=== PATIENT | male | born 1945 | race Caucasian/White ===

== ENCOUNTER 2022-07-15 10:45 | Inpatient (IN) | payer MEDICARE, OTHER ==
[~2022-07-15] VITALS: Ht 172.7 cm; Wt 60.2 kg
[2022-07-15] MEDS ORDERED: SODIUM CHLORIDE 0.9% 1,000 ML IV ONE (11:00)
[2022-07-15 11:42] LABS: Hematocrit 41.4 % (41.0-53.0); Hemoglobin 14.4 g/dL (13.5-17.5); Mean Corpuscular Hemoglobin 30.3 pg (28.0-32.0); Mean Corpuscular Hgb Conc. 34.7 g/dL (32.0-36.0); Mean Corpuscular Volume 87.1 fL (80.0-100.0); Red Blood Cells 4.75 10^6/uL (4.5-5.90); Red Cell Distribution Width 13.9 % (11.8-14.3); White Blood Cell 3.8 10^3/uL (4.4-10.8)
[2022-07-15 11:50] LABS: Albumin 3.6 g/dL (3.4-5.0); Calcium 8.3 mg/dL (8.5-10.1); Potassium 4.1 mmol/L (3.5-5.1)
[2022-07-15 11:53] LABS: BUN/Creatinine Ratio 9.1; Bilirubin, Total 0.5 mg/dL (0.2-1.0); Total Protein 6.7 g/dL (6.4-8.2)
[2022-07-15 12:09] LABS: Basophils % (manual) 0 (0.0-2.0); Blast Cells 0; Eosinophils % (manual) 0 (0-7); Metamyelocytes % 0; Myelocytes % 0; Promyelocytes % 0; Reactive Lymphocytes 0
[2022-07-15] MEDS ORDERED: AZITHROMYCIN 500MG/ 250ML 250 ML IV ONE (13:15)
[2022-07-15] MEDS ORDERED: cefTRIAXone 1GM/50ML D5W 50 ML IV ONE (13:15)
[2022-07-15] MEDS ORDERED: ACETAMINOPHEN 325 MG TAB PO ONE (14:30)
[2022-07-15 14:33] LABS: Urine Bacteria NONE SEEN /hpf (None Seen); Urine Blood 1+ /uL (Negative); Urine WBC 1 /hpf (0 - 3)
[2022-07-15] MEDS ORDERED: ONDANSETRON HCL 4 MG/2 ML VIAL IV PRN (15:30)
[2022-07-15] MEDS ORDERED: HYDROcodone-ACET 5/325MG TAB PO PRN (15:30)
[2022-07-15] MEDS ORDERED: DOCUSATE SOD 100 MG CAP PO PRN (15:30)
[2022-07-15] MEDS ORDERED: ACETAMINOPHEN 325 MG TAB PO PRN (15:30)
[2022-07-15] MEDS ORDERED: FOLIC ACID 1 MG TAB PO ONE (15:30)
[2022-07-15] MEDS: HEPARIN SODIUM (PORCINE) 5000 UNITS/ML 1ML VIAL IV SCH ×2 (16:20→23:15)
[2022-07-15 16:28] LABS: Band Neutrophils % (manual) 15; Lymphocytes % (manual) 18 (10.0-50.0); Monocytes % (manual) 14 (0-12)
[2022-07-15] MEDS ORDERED: LORazepam 2MG/ML-1ML VIAL IV PRN (21:15)
[2022-07-16] MEDS: SODIUM CHLOR 0.9% PF (SALINE LOCK) 10ML VIAL/SYR IV SCH ×4 (04:48→22:07)
[2022-07-16 05:00] VITALS: BP 152/96
[2022-07-16] MEDS: HEPARIN SODIUM (PORCINE) 5000 UNITS/ML 1ML VIAL IV SCH (07:15)
[2022-07-16 07:36] VITALS: BP 156/96
[2022-07-16] MEDS: cefTRIAXone 1GM/50ML D5W 50 ML IV SCH (09:56)
[2022-07-16] MEDS: AZITHROMYCIN 500MG/ 250ML 250 ML IV SCH (09:56)
[2022-07-16] MEDS ORDERED: THIAMINE HCL 100 MG TAB PO SCH (10:00)
[2022-07-16] MEDS ORDERED: LORazepam 2MG/ML-1ML VIAL IV PRN (11:00)
[2022-07-16] MEDS ORDERED: GABAPENTIN 100 MG CAP PO ONE (11:00)
[2022-07-16] MEDS ORDERED: cloNIDine HCL 0.1 MG TAB PO ONE (11:00)
[2022-07-16] MEDS ORDERED: ZINC SULFATE 220mg CAP or TAB PO ONE (11:00)
[2022-07-16] MEDS ORDERED: PANTOPRAZOLE 40 MG TAB PO ONE (11:00)
[2022-07-16] MEDS: FOLIC ACID 1 MG, MULTIPLE VITAMIN 10 ML, MAGNESIUM SULF SDV 50% 8 MEQ, THIAMINE INJ 100... INJ SCH ×5 (12:59)
[2022-07-16] MEDS: GABAPENTIN 100 MG CAP PO SCH ×2 (15:41→22:29)
[2022-07-16 20:00] VITALS: BP 117/68
[2022-07-16] MEDS: cloNIDine HCL 0.1 MG TAB PO SCH (22:29)
[2022-07-16 22:30] VITALS: BP 117/68
[2022-07-17] VITALS (7 sets, daily range): BP systolic 111–133; BP diastolic 51–79
[2022-07-17] MEDS: GABAPENTIN 100 MG CAP PO SCH ×3 (06:01→22:17)
[2022-07-17] MEDS: SODIUM CHLOR 0.9% PF (SALINE LOCK) 10ML VIAL/SYR IV SCH ×3 (06:01→22:16)
[2022-07-17 08:20] LABS: Hematocrit 37.6 % (41.0-53.0); Mean Corpuscular Hemoglobin 30.3 pg (28.0-32.0); Mean Corpuscular Hgb Conc. 34.6 g/dL (32.0-36.0); Mean Corpuscular Volume 87.5 fL (80.0-100.0); Red Cell Distribution Width 14.1 % (11.8-14.3); White Blood Cell 4.9 10^3/uL (4.4-10.8)
[2022-07-17 08:27] LABS: Basophils % (manual) 0 (0.0-2.0); Blast Cells 0; Eosinophils % (manual) 0 (0-7); Metamyelocytes % 0; Myelocytes % 0; Promyelocytes % 0; Reactive Lymphocytes 0
[2022-07-17 08:40] LABS: BUN/Creatinine Ratio 14.7; Calcium 7.8 mg/dL (8.5-10.1); Potassium 3.7 mmol/L (3.5-5.1)
[2022-07-17 09:02] LABS: INR 0.97 (0.9-1.15); Partial Thromboplastin Time 35.3 sec (24.6-33.4)
[2022-07-17] MEDS: cloNIDine HCL 0.1 MG TAB PO SCH ×2 (09:29→22:18)
[2022-07-17] MEDS: ZINC SULFATE 220mg CAP or TAB PO SCH (09:30)
[2022-07-17] MEDS: AZITHROMYCIN 500MG/ 250ML 250 ML IV SCH (09:30)
[2022-07-17] MEDS: PANTOPRAZOLE 40 MG TAB PO SCH (09:30)
[2022-07-17] MEDS: cefTRIAXone 1GM/50ML D5W 50 ML IV SCH (09:30)
[2022-07-17 13:17] LABS: Band Neutrophils % (manual) 19; Lymphocytes % (manual) 35 (10.0-50.0)
[2022-07-17 13:18] LABS: Monocytes % (manual) 19 (0-12)
[2022-07-17] MEDS: FOLIC ACID 1 MG, MULTIPLE VITAMIN 10 ML, MAGNESIUM SULF SDV 50% 8 MEQ, THIAMINE INJ 100... INJ SCH ×5 (17:34)
[2022-07-18 05:00] VITALS: BP 103/41
[2022-07-18] MEDS: SODIUM CHLOR 0.9% PF (SALINE LOCK) 10ML VIAL/SYR IV SCH ×2 (06:39→13:54)
[2022-07-18] MEDS: GABAPENTIN 100 MG CAP PO SCH ×2 (06:40→13:54)
[2022-07-18 08:00] VITALS: BP 93/44
[2022-07-18 09:00] VITALS: BP 93/44
[2022-07-18] MEDS: cefTRIAXone 1GM/50ML D5W 50 ML IV SCH (09:44)
[2022-07-18] MEDS: cloNIDine HCL 0.1 MG TAB PO SCH (09:45)
[2022-07-18] MEDS: PANTOPRAZOLE 40 MG TAB PO SCH (09:45)
[2022-07-18] MEDS: ZINC SULFATE 220mg CAP or TAB PO SCH (09:45)
[2022-07-18] MEDS: AZITHROMYCIN 500MG/ 250ML 250 ML IV SCH (10:45)
[2022-07-18] MEDS ORDERED: AZIT250T PO (10:58)
[2022-07-18] MEDS ORDERED: MULT-351 PO (10:58)
[2022-07-18] MEDS ORDERED: PANT40TA2 PO (10:58)
[2022-07-18] MEDS ORDERED: GABA100C9 PO (10:58)
[2022-07-18 11:30] VITALS: BP 93/44
[2022-07-18] MEDS: FOLIC ACID 1 MG, MULTIPLE VITAMIN 10 ML, MAGNESIUM SULF SDV 50% 8 MEQ, THIAMINE INJ 100... INJ SCH ×5 (11:43)
[2022-07-18 13:00] VITALS: BP 135/65
== END 2022-07-18 15:08 | disposition home health service (06) | DRG 177 ==
LOC: ER 10:45 → EDBD 10:45 → OVERFLOW 15:26 → WEST WING 21:54
PROVIDERS: ADMIT Internal Medicine; ATTEND Internal Medicine
DX: U07.1 COVID-19 (principal); G92.8 Other toxic encephalopathy; J12.82 Pneumonia due to coronavirus disease 2019; E87.1 Hypo-osmolality and hyponatremia; F10.239 Alcohol dependence with withdrawal, unspecified; I10 Essential (primary) hypertension; R62.7 Adult failure to thrive
CPT/HCPCS: 36415; 70450; 71045; 80048; 80053; 80320; 81001; 82140; 82962; 83880; 84425; 84443; 84484; 85007; 85027; 85610; 85730; 87040; 87426; 93005; 93306; 96361; 96365; 96366; 96368; G0378; J0696

== ENCOUNTER 2024-07-13 14:26 | Inpatient (IN) | payer MEDICARE, OTHER ==
[~2024-07-13] VITALS: Ht 172.7 cm; Wt 66.7 kg
[~2024-07-13 14:26] MED LIST: AZIT-74 PO; GABA-1308 PO; MULT-351 PO; PANT40TA2 PO
--- NOTE | 2024-07-13 15:08 | ED.PDOC ---
History of Present Illness HPI Comments 79 y/o M is BIBA for c/o ALOC, today. Per EMS report, patient was found in his current altered state by his speeal-lf-wsa at around 1200, this afternoon. EMS endorses on said in-law being a poor historian and only knew of patient having a Hx of PNA and ETOH abuse in the past. En route to ED, EMS also commented on patient having a seizure of 15xseconds in duration characterized by eye flickering and body stiffing and was given 2.5mg versed. Upon arrival to ED, patient is stated to still be altered and having no additional symptoms. Per patient's previous medical record discharge sumamry report on 07/18/22, patient was admitted for same altered complaint and has a Hx of toxic encephalopathy, COVID-19 pneumonia. EtOH abuse and withdrawal and hyponatremia. Chief Complaint: ALOC Time Seen by MD: 14:45 Primary Care Provider: unknown Reviewed Notes: Nurses Notes, Medications, Allergies Allergies: Coded Allergies: NO KNOWN ALLERGIES (Unverified , 07/15/22) Home Meds Active Scripts Multiple Vitamins W/ Minerals (Mvi W/ Minerals Tab) 1 Tab Tb, 1 TAB PO DAILY for 30 Days, #30 TAB Prov:ELIZABET MOLINA MD 07/18/22 Azithromycin (Zithromax) 250 Mg Tab, 250 MG PO DAILY for 5 Days, #5 TAB Prov:ELIZABET MOLINA MD 07/18/22 Pantoprazole Sodium Sesquihydr (Protonix) 40 Mg Tab, 40 MG PO DAILY for 30 Days, #30 TAB Prov:ELIZABET MOLINA MD 07/18/22 Gabapentin (Gabapentin) 100 Mg Cap, 100 MG PO TID for 30 Days, #1 CAP Prov:ELIZABET MOLINA MD 07/18/22 Information Source: Emergency Med Personnel Mode of Arrival: EMS Severity: Moderate Timing: Hours Duration: Since onset Prehospital treatment: 12 Lead EKG, Accucheck, Concrete Carpenter, Other (2.5mg versed, 18G LAC) Past Medical History Past Medical History (Other): Encephalopathy, likely toxic metabolic. COVID-19 pneumonia. Alcohol withdrawal. Hyponatremia. Surgical History: Unknown, Unobtainable Family History Family History: Reviewed,noncontributory to illness, No family hx of Lung alirio Social History Smoker: Unknown, Unobtainable Alcohol: Heavy Drugs: Unknown, Unobtainable Lives In: Home Neurological: reports: seizure, others (ALOC) All Other Systems: Reviewed and Negative (negative unless otherwise stated above or in HPI) Physical Exam General Appearance: Moderate Distress HEENT: Normal ENT Inspection, Pharynx Normal, TMs Normal Neck: Full Range of Motion, Non-Tender, Normal, Normal Inspection Respiratory: Chest Non-Tender, Lungs Clear, No Accessory Muscle Use, No Respiratory Distress, Normal Breath Sounds Cardiovascular: No Edema, No JVD, No Murmur, No Gallop, Normal Peripheral Pulses, Regular Rate/Rhythm Breast Exam: Deferred Gastrointestinal: No Organomegaly, Non Tender, No Pulsatile Mass, Normal Bowel Sounds, Soft Genitalia: Deferred Pelvic: Deferred Rectal: Deferred Extremities: No calf tenderness, Normal capillary refill, Normal inspection, Normal range of motion, Non-tender, No pedal edema Musculoskeletal : Apperance: Normal Neurologic: Disoriented Cerebellar Function: NOT DONE Reflexes: NOT DONE Skin: Pallor Peripheral Pulses: 3+ Radial (R), 3+ Radial (L) Lymphatic: No Adenopathy Was a procedure done? Was a procedure done?: No Differential Dx Considerations may include: UTI, failure to thrive, viral syndrome, seizure new onset, electrolyte imbalance, dehydration, sepsis X-Ray, Labs, Meds, VS Vital Signs Date Time Temp Pulse Resp B/P (MAP) Pulse Ox O2 Delivery O2 Flow Rate FiO2 07/13/24 17:04 Room Air* 0 21 07/13/24 16:00 87 07/13/24 14:38 96.6 92 14 129/97 (108) 95 Lab Test 07/13/24 15:06 Range/Units White Blood Count 9.9 4.4-10.8 10^3/uL Red Blood Count 5.03 4.5-5.90 10^6/uL Hemoglobin 14.9 13.5-17.5 g/dL Hematocrit 43.9 41.0-53.0 % Mean Corpuscular Volume 87.3 80.0-100.0 fL Mean Corpuscular Hemoglobin 29.6 28.0-32.0 pg Mean Corpuscular Hemoglobin Concent 33.9 32.0-36.0 g/dL Red Cell Distribution Width 15.3 H 11.8-14.3 % Platelet Count 262 140-450 10^3/uL Mean Platelet Volume 6.8 L 6.9-10.8 fL Neutrophils (%) (Auto) 83.6 H 37.0-80.0 % Lymphocytes (%) (Auto) 10.7 10.0-50.0 % Monocytes (%) (Auto) 4.7 0.0-12.0 % Eosinophils (%) (Auto) 0.4 0.0-7.0 % Basophils (%) (Auto) 0.6 0.0-2.0 % Neutrophils # (Auto) 8.3 1.6-8.6 10 ^3/uL Lymphocytes # (Auto) 1.1 0.4-5.4 10 ^3/uL Monocytes # (Auto) 0.5 0-1.3 10 ^3/uL Eosinophils # (Auto) 0 0-0.8 10 ^3/uL Basophils # (Auto) 0.1 0-0.2 10 ^3/uL Nucleated Red Blood Cells 0.1 % Sodium Level 134 L 136-145 mmol/L Potassium Level 4.5 3.5-5.1 mmol/L Chloride Level 103 98-107 mmol/L Carbon Dioxide Level 19 L 20-31 mmol/L Anion Gap 12 5-15 Blood Urea Nitrogen 6 L 9-23 mg/dL Creatinine 1.17 0.700-1.30 mg/dL Glomerular Filtration Rate Calc 64 >90 mL/min BUN/Creatinine Ratio 5.1 L 10.0-20.0 Serum Glucose 187 H 74-106 mg/dL Calcium Level 9.4 8.7-10.4 mg/dL Total Bilirubin 0.8 0.2-1.0 mg/dL Aspartate Amino Transferase (AST) 17 13-40 U/L Alanine Aminotransferase (ALT) 9 7-40 U/L Alkaline Phosphatase 113 46-116 U/L Total Protein 6.8 5.7-8.2 g/dL Albumin 4.1 3.2-4.8 g/dL Plasma/Serum Blood Alcohol < 3.0 <10 mg/dL Current Medications Medications (Trade) Dose Ordered Sig/Jesse Route Start Time Stop Time Status Last Admin Thiamine HCl 100 mg ONCE ONCE IV 07/13/24 15:00 07/13/24 15:01 DC 07/13/24 15:56 Sodium Chloride 1,000 ml @ 1,000 mls/hr Q1H ONCE IV 07/13/24 15:00 07/13/24 15:59 DC 07/13/24 15:56 Patient altered. History of alcoholism. Continues to drink every day. Vitals stable. WBC within normal limits. Establish intravenous access. Was given fluids. Was given thiamine. Blood alcohol level is normal. Hemoglobin within normal limits. Continues to be altered. CT of the head reviewed does not show any acute change. Chest x-ray reviewed shows cardiomegaly. Blood sugar elevated. Reviewed his previous visit. Continue cardiac monitoring. Time of 1ST Reevaluation: 15:15 Reevaluation 1ST: Unchanged Patient Education/Counseling: Other (patient is altered) Family Education/Counseling: No Family Present Departure 1 Departure Time of Disposition: 17:50 Impression: Primary Impression: Metabolic encephalopathy Additional Impression: Uncontrolled diabetes mellitus Qualified Codes: E13.65 - Other specified diabetes mellitus with hyperglycemia Disposition: ADMITTED INPATIENT Admit to: Med Surg Condition: Guarded Critical Care Note Critical Care Time?: Yes (45 min-critical care time only) Stability Stability form required: No Heart Score Heart Score: Heart Score Response (Comments) Value History Moderate Suspicious 1 EKG N/A 0 Age >65 2 Risk Factors >3 or Hx ASHD 2 Troponin Normal limit 0 Total 5 I personally scribed for TAI HAYS MD ([email or web address]) on 07/13/24 at 15:08. Electronically submitted by Sebastian Moon [email or web address]). TAI HAYS MD Jul 13, 2024 15:08
[2024-07-13 15:19] LABS: Basophils # (auto) 0.1 10 ^3/uL (0-0.2); Basophils % (auto) 0.6 % (0.0-2.0); Eosinophils # (auto) 0 10 ^3/uL (0-0.8); Eosinophils % (auto) 0.4 % (0.0-7.0); Hematocrit 43.9 % (41.0-53.0); Hemoglobin 14.9 g/dL (13.5-17.5); Lymphocytes # (auto) 1.1 10 ^3/uL (0.4-5.4); Lymphocytes % (auto) 10.7 % (10.0-50.0); Mean Corpuscular Hemoglobin 29.6 pg (28.0-32.0); Mean Corpuscular Hgb Conc. 33.9 g/dL (32.0-36.0); Mean Corpuscular Volume 87.3 fL (80.0-100.0); Monocytes # (auto) 0.5 10 ^3/uL (0-1.3); Monocytes % (auto) 4.7 % (0.0-12.0); Neutrophils # (auto) 8.3 10 ^3/uL (1.6-8.6); Neutrophils % (auto) 83.6 % (37.0-80.0); Nucleated Red Blood Cells % 0.1 %; Platelet Count (auto) 262 10^3/uL (140-450); Red Blood Cells 5.03 10^6/uL (4.5-5.90); Red Cell Distribution Width 15.3 % (11.8-14.3); White Blood Cell 9.9 10^3/uL (4.4-10.8)
[2024-07-13] MEDS: THIAMINE 100mg/ml INJ (200mg/2ml VIAL) IV ONE ×2 (15:56)
[2024-07-13] MEDS: SODIUM CHLORIDE 0.9% 1,000 ML IV ONE (15:56)
--- NOTE | 2024-07-13 16:10 | DVH ---
EXAM: CT HEAD WITHOUT CONTRAST INDICATION: altered TECHNIQUE: CT of the head without intravenous contrast. Radiation Dose : 1. Head: CT Dose: CTDI volume is 64.65 mGy. Dose-length product is 2639.58 mGy*cm The dose indicators for CT are the volume Computed Tomography (CT) Dose Index (CTDIvol) and the Dose Length Product (DLP), and are measured in units of mGy and mGy-cm, respectively. These indicators are not patient dose, but values generated from the CT scanner acquisition factors. The report includes radiation exposure data for exposures received during this examination. COMPARISON: HEAD WITHOUT CONTRAST on DOS: 07/15/22 FINDINGS: There is no evidence of acute intracranial hemorrhage, extra-axial collection, mass effect, midline s hift, herniation or hydrocephalus. The ventricles, sulci and cisterns are age appropriate. The israel-white differentiation is intact. Patchy periventricular and subcortical white matter hypoattenuation is nonspecific but may be related to small vessel ischemic disease. The visualized paranasal sinuses and mastoid air cells are clear. The surrounding soft tissues and osseous structures are unremarkable. IMPRESSION: No acute intracranial abnormality. Radiation optimization: All CT scans at this facility use at least one of these dose optimization jong hniques: automated exposure control mA and/or kV adjustment per patient size (includes targeted exam s where dose is matched to clinical indication) or iterative reconstruction.
[2024-07-13 16:11] LABS: Albumin 4.1 g/dL (3.2-4.8); Alkaline Phosphatase 113 U/L (46-116); Anion Gap 12 (5-15); Aspartate Aminotransferase 17 U/L (13-40); BUN/Creatinine Ratio 5.1 (10.0-20.0); Bilirubin, Total 0.8 mg/dL (0.2-1.0); Calcium 9.4 mg/dL (8.7-10.4); Chloride 103 mmol/L (98-107); Potassium 4.5 mmol/L (3.5-5.1); Total Protein 6.8 g/dL (5.7-8.2)
[2024-07-13 16:18] LABS: Alanine Aminotransferase 9 U/L (7-40); Blood Alcohol < 3.0 mg/dL (<10); Blood Urea Nitrogen 6 mg/dL (9-23); Carbon Dioxide 19 mmol/L (20-31); Glucose 187 mg/dL (74-106); Sodium 134 mmol/L (136-145)
--- NOTE | 2024-07-13 17:24 | DVH ---
CHEST RADIOGRAPH Indication: sob Technique: Single frontal view of the chest was obtained COMPARISON: CHEST PORTABLE on DOS: 07/15/22, CXRP on DOS: 07/15/22 FINDINGS: Lines and Tubes: None Lungs: Mild congestion Pleura: No effusion. No pneumothorax. Cardiomediastinal contours: Cardiomegaly Bones: Left shoulder arthroplasty IMPRESSION: Cardiomegaly, mild congestion
[2024-07-13 20:00] VITALS: PULSE 87; RESP 16; O2SAT 96
--- NOTE | 2024-07-13 21:24 | DVHHPRES ---
History of Present Illness Resident Creating Document: MARILU CAI RESIDENT History of Present Illness This is a 79-year-old male with past medical history of alcohol abuse disorder, COVID-19 pneumonia brought in to the ED via EMS with altered level of consciousness. Per EMS report, patient was found in his current altered state by his reqyub-oz-yfu at around 1200, this afternoon. According to the family patient had history of ethyl alcohol abuse and and one episodes of COVID-19 pneumonia in the past. En route to ED patient has a episodes of seizure lasting less than 15 seconds and characterized by eye flickering and stiffening of the body and was given 2.5 mg versed. In ED the patient is still altered ,not following any commands, saturating normal on room and stable vital sign. Past Medical History Alcohol abuse disorder Past Surgical History None Family History None Past Social History Lives with Family Nonsmoker, heavy drinker and never tried any drugs Review of Systems Review of Systems System could not be obtained because patient is altered Allergies: Coded Allergies: NO KNOWN ALLERGIES (Unverified , 07/15/22) Exam Vital Signs Vital Signs Date Time Temp Pulse Resp B/P (MAP) Pulse Ox O2 Delivery O2 Flow Rate FiO2 07/13/24 20:00 87 16 96 Room Air* 0 21 07/13/24 19:30 98.0 141/113 (122) 98.0 Exam Physical examination: General Appearance: Alert, Oriented X0, agitated, mildly distressed, saturating normal on room air. HEENT: Atraumatic, PERRLA, EOMI, Mucous membrane moist/pink Respiratory: Clear to auscultation, Normal air movement Cardiovascular: Regular rate, Normal S1, Normal S2, No murmurs, no chest wall tenderness Abdominal: Normal bowel sounds, Soft, No tenderness, No hepatospenomegaly, No masses Extremities: No clubbing, No cyanosis, No edema, Normal pulses, No tenderness/swelling Skin: No rashes, No breakdown, No significant lesion Neuro: Strength at 5/5 X4 ext, Normal tone, Sensation intact. Psych/Mental Status: Could not be obtained as patient is altered. Labs/Xrays Labs Test 07/13/24 15:06 Range/Units White Blood Count 9.9 4.4-10.8 10^3/uL Red Blood Count 5.03 4.5-5.90 10^6/uL Hemoglobin 14.9 13.5-17.5 g/dL Hematocrit 43.9 41.0-53.0 % Mean Corpuscular Volume 87.3 80.0-100.0 fL Mean Corpuscular Hemoglobin 29.6 28.0-32.0 pg Mean Corpuscular Hemoglobin Concent 33.9 32.0-36.0 g/dL Red Cell Distribution Width 15.3 H 11.8-14.3 % Platelet Count 262 140-450 10^3/uL Mean Platelet Volume 6.8 L 6.9-10.8 fL Neutrophils (%) (Auto) 83.6 H 37.0-80.0 % Lymphocytes (%) (Auto) 10.7 10.0-50.0 % Monocytes (%) (Auto) 4.7 0.0-12.0 % Eosinophils (%) (Auto) 0.4 0.0-7.0 % Basophils (%) (Auto) 0.6 0.0-2.0 % Neutrophils # (Auto) 8.3 1.6-8.6 10 ^3/uL Lymphocytes # (Auto) 1.1 0.4-5.4 10 ^3/uL Monocytes # (Auto) 0.5 0-1.3 10 ^3/uL Eosinophils # (Auto) 0 0-0.8 10 ^3/uL Basophils # (Auto) 0.1 0-0.2 10 ^3/uL Nucleated Red Blood Cells 0.1 % Sodium Level 134 L 136-145 mmol/L Potassium Level 4.5 3.5-5.1 mmol/L Chloride Level 103 98-107 mmol/L Carbon Dioxide Level 19 L 20-31 mmol/L Anion Gap 12 5-15 Blood Urea Nitrogen 6 L 9-23 mg/dL Creatinine 1.17 0.700-1.30 mg/dL Glomerular Filtration Rate Calc 64 >90 mL/min BUN/Creatinine Ratio 5.1 L 10.0-20.0 Serum Glucose 187 H 74-106 mg/dL Calcium Level 9.4 8.7-10.4 mg/dL Total Bilirubin 0.8 0.2-1.0 mg/dL Aspartate Amino Transferase (AST) 17 13-40 U/L Alanine Aminotransferase (ALT) 9 7-40 U/L Alkaline Phosphatase 113 46-116 U/L Total Protein 6.8 5.7-8.2 g/dL Albumin 4.1 3.2-4.8 g/dL Plasma/Serum Blood Alcohol < 3.0 <10 mg/dL Assessment/Plan Assessment/Plan Assessment and plan: # Altered level of consciousness likely due to acute toxic/metabolic encephalopathy - CT head without contrast revealed no acute intracranial abnormality - Ammonia level is elevated - Serum alcohol< 3 and UDS is positive for benzodiazepine and cannabinoids - Lactulose 30 mL p.o. daily - Ordered U/s of W/A, hepatitis panel and coagulation studies to rule out CLD # Acute cystitis - U/A is consistent with UTI - Ordered urine bacterial culture - IV ceftriaxone 1 g daily # Prediabetic, HbA1C 5.8 - Counselling is not possible as patient is altered # Possible gastritis, rule out GI bleeding - NPO - IV protonix 40 mg b.i.d. - IV normal saline at 75 mL/hours - Ordered stool occult blood # Rule out CHF - Patient is in room air with saturation 97% - BNP is slightly elevated - chest x-ray revealed cardiomegaly with possible congestion - Ordered echo # PUD prophylaxis - Patient is on protonix # DVT prophylaxis - Lovenox 40 mg SC daily. Goal of care could not discussed with the patient as patient is altered Plan discussed with Dr. Hopkins Plan discussed with: Patient, Other Date of Service: Jul 13, 2024 Billing Provider: MAGALI HOPKINS MD Common Visit Codes: [id number] INP/OBS CARE (HIGH) Secondary Visit Codes: [id number] CARE PLAN 30 MINUTES MARILU CAI RESIDENT Jul 13, 2024 21:24 MAGALI HOPKINS MD Jul 14, 2024 08:39
[2024-07-13] MEDS: SODIUM CHLORIDE 0.9% 1,000 ML IV SCH (22:00)
[2024-07-13] MEDS: PANTOPRAZOLE 40 MG/10 ML VIAL INJ IV ONE (23:23)
[2024-07-13 23:34] LABS: Folate (Folic Acid) 27.11 ng/mL (>5.38)
[2024-07-14 00:57] LABS: COVID19 ANTIGEN SOFIA FIA NEGATIVE (NEGATIVE)
[2024-07-14 00:58] LABS: Rapid Influenza A Negative (Negative); Rapid Influenza B Negative (Negative)
[2024-07-14 01:08] LABS: Urine Bacteria FEW /hpf (None Seen); Urine Blood 1+ /uL (Negative); Urine Clarity Turbid (Clear); Urine Color Colorless (Yellow); Urine Mucus FEW (None Seen); Urine Protein, UAD TRACE (Negative); Urine Specific Gravity 1.015 (1.001-1.035); Urine Squamous Epithelial Cell None Seen /hpf (<5); Urine Urobilinogen Normal (Negative); Urine WBC 14 /hpf (0 - 3); Urine pH 6.5 (5.0-9.0)
[2024-07-14 01:58] LABS: Amphetamine Screen, Urine Neg (NEGATIVE); Barbiturate Scree,Urine Neg (NEGATIVE); Benzodiazephine Screen, Urine Pos (NEGATIVE); Cannabinoid Screen, Urine Pos (NEGATIVE); Cocaine Screen, Urine Neg (NEGATIVE); Opiate Scree,Urine Neg (NEGATIVE); Phencyclidine Screen, Urine Neg (NEGATIVE)
[2024-07-14] MEDS: cefTRIAXone 1GM/50ML D5W 50 ML IV ONE (02:12)
[2024-07-14 06:11] LABS: INR 1.1 (0.9-1.15); Partial Thromboplastin Time 25.4 SEC (24.5-34.5); Prothrombin Time 11.6 sec (9.3-11.8)
--- NOTE | 2024-07-14 07:16 | DVH ---
INDICATION: Elevated ammonia, rule out CLD TECHNIQUE: Multiple real-time sonographic images of the abdomen were obtained. COMPARISON: None FINDINGS: Liver is heterogeneous in echogenicity. The liver measures 14 cm. No intrahepatic biliary ductal dilatation is noted. The gallbladder wall measures 0.3 cm and is unremarkable. No gallstones or gallbladder sludge. No pericholecystic fluid or edema. The common duct measures 0.3 cm and is unremarkable. The right kidney measures 7.9 cm. No hydronephrosis. The left kidney measures 8.3 cm. No hydronephros is. Right renal cyst measures 1.6 cm. Atrophic appearance of bilateral kidneys. The spleen measures 6.8 cm, within normal limits. The echogenicity is within normal limits. The pancreas is not well visualized due to obscuration from bowel gas. The visualized portions of the IVC and aorta are grossly unremarkable. IMPRESSION: Nonspecific coarsened echotexture to the liver. Left hepatic lobe is suboptimally visualized seconda ry to patient inability to tolerate exam. Atrophic appearance to bilateral kidneys.
[2024-07-14 08:00] VITALS: PULSE 108; RESP 22; O2SAT 100
[2024-07-14] MEDS: ENOXAPARIN SOD 40 MG/0.4 ML SYRINGE SC SCH (10:00)
[2024-07-14] MEDS: LACTULOSE 20Gm/30ML SOLN PO SCH (10:00)
[2024-07-14] MEDS: PANTOPRAZOLE 40 MG/10 ML VIAL INJ IV SCH (10:00)
[2024-07-14] MEDS: chlordiazePOXIDE HCL 25 MG CAP PO SCH (12:00)
[2024-07-14] MEDS: LACTULOSE 20Gm/30ML SOLN PO ONE (12:00)
[2024-07-14] MEDS: LORazepam 2MG/ML-1ML VIAL IV PRN (14:07)
[2024-07-14] MEDS: LORazepam 2MG/ML-1ML VIAL IV ONE (14:21)
[2024-07-14] MEDS: IOHEXOL 300 MG/ML 100ML BOTTLE IJ ONE (14:22)
--- NOTE | 2024-07-14 15:13 | DVH ---
Exam: CT CT AB PEL WITH IV CON ONLY History: R/O LIVER PATHOLOGY Comparison Study: None available TECHNIQUE: A digital crown attacher image was obtained. During the uneventful, intravenous administration of c ontrast material, multislice data acquisition was obtained through the abdomen and pelvis. The data s et was subsequently reconstructed into axial images. Images reviewed on a wrist examination is an exa mination of axial and multiplanar reformations using a variety of window levels and settings. RADIATION DOSE: DLP 2022.65 mGy.cm; CTDI vol 14.21 mGy. Findings: Lungs: 0.9 cm right lower lobe pulmonary nodule. Dependent atelectasis. Heart: The visualized heart is unremarkable. No cardiomegaly or pericardial effusion. Liver: Unremarkable. Gallbladder: Unremarkable. Spleen: Unremarkable Pancreas: Unremarkable Adrenals: Unremarkable Kidneys: Unremarkable GI tract: Diverticulosis without evidence of acute diverticulitis. Normal appendix. : Unremarkable. Vasculature: Unremarkable Lymphadenopathy: Absent Peritoneum: No ascites Musculoskeletal: Mild multilevel degenerative changes of the thoracolumbar spine. Left total hip arth roplasty. Soft tissues: Unremarkable Impression: 1. No acute abdominopelvic abnormalities. 2. Normal appearing liver. 3. Diverticulosis without evidence of acute diverticulitis. 4. 0.9 cm right lower lobe pulmonary nodule. Recommend a nonemergent dedicated CT chest for further e valuation.
--- NOTE | 2024-07-14 16:05 | DVHPNRES ---
Progress Note Date Seen: Jul 14, 2024 Resident Creating Document: GABRIELLE SANDERSON RESIDENT Medical Necessity Reason Pt with a Central, PICC or Fol: No Subjective Review of Systems This is a 79-year-old male with past medical history of alcohol abuse disorder,Marijuana abuse and COVID-19 pneumonia brought in to the ED via EMS with altered level of consciousness. Per EMS report, patient was found in his current altered state. According to the family patient had history of alcohol abuse and and one episodes of COVID-19 pneumonia in the past. En route to ED patient has a episodes of seizure lasting less than 15 seconds and characterized by eye flickering and stiffening of the body and was given 2.5 mg versed. The patient was examined at bedside, patient was a little confused for which most of the information was gathered from a conversation with his , who report that the patient used to drink 3 beers a day and this is the first time he had a seizure, patient was given one dose of versed 2,5 mg. The last drink he had was two days ago , that day he just drank 1 beer. Patient was started on banana bag and chlordiazepoxide 25 mg q.6 hours p.o., recent results showed increased on ammonia levels for which the patient was started on lactulose 30 mL L daily p.o. CT abdomen with contrast showed diverticulosis without evidence of acute diverticulitis and 0.9 cm right lower lobe pulmonary nodule. Recommend a nonemergent dedicated CT chest for further evaluation. Review of systems: Constitutional: No: Fever, Chills, Sweats, Weakness, Malaise, Other Eyes: No: Pain, Vision change, Conjunctivae inflammation, Eyelid inflammation, Other, Redness ENT: No: Ear pain, Ear discharge, Nose pain, Nose discharge, Nose congestion, Mouth pain, Mouth swelling, Throat pain, Throat swelling, Other Respiratory: No cough, No Wheezing, Hemoptysis, Pleuritic Pain, Sputum, Wheezing, Other Cardiovascular: No: Chest Pain, Palpitations, Orthopnea, Paroxysmal Noc. Dyspnea, Edema, Lt Headedness, Other Gastrointestinal: No: Nausea, Vomiting, Abdominal Pain, Diarrhea, Constipation, Melena, Hematochezia, Other Musculoskeletal: No: other, neck pain, shoulder pain, arm pain, back pain, hand pain, leg pain, foot pain Neurological: Yes: change in speech, confusion No: Weakness, Numbness, Incoordination Patient reports: Feels better Changes from previous H/P or p: Changes Objective vital signs Vital Sign Date Time Temp Pulse Resp B/P (MAP) Pulse Ox O2 Delivery O2 Flow Rate FiO2 07/14/24 14:00 91 17 148/76 (100) 98 07/14/24 08:00 Room Air* 0 21 07/14/24 08:00 98.4 98.4 Total Intake and Output 07/13/24 07/13/24 07/14/24 15:00 23:00 07:00 Intake Total 75 ml 600 ml Balance 75 ml 600 ml medications Current Medications Medications Dose Ordered Sig/Jesse Route Start Time Stop Time Status Last Admin Dose Admin Pantoprazole Sodium 40 mg BID IV 07/14/24 10:00 07/14/24 10:00 40 MG Ceftriaxone Sodium 50 ml @ 100 mls/hr DAILY@0200 IV 07/15/24 02:00 Lactulose 30 ml DAILY PO 07/14/24 10:00 07/14/24 10:00 30 ML Enoxaparin Sodium 40 mg DAILY SC 07/14/24 10:00 07/14/24 10:00 40 MG Folic Acid 1 mg/ Magnesium Sulfate 8 meq/ Multivitamins 10 ml/Thiamine HCl 100 mg/Sodium Chloride 1,013.2 ml @ 126.247 mls/hr DAILY@1800 INJ 07/14/24 18:00 Chlordiazepoxide HCl 25 mg Q6HR PO 07/14/24 12:00 07/14/24 12:00 25 MG Lorazepam 1 mg Q5MINP PRN IV 07/14/24 08:45 07/14/24 14:07 1 MG laboratory and microbiology Laboratory Tests 07/13/24 15:06 Test 07/13/24 15:06 Range/Units Serum Glucose 187 H 74-106 mg/dL Problem List/Assessment/Plan Problem List/Assessment/Plan # Altered level of consciousness likely due to acute toxic/metabolic encephalopathy #Hyperammonemia - CT head without contrast revealed no acute intracranial abnormality - CT abdomen showed diverticulosis without diverticulitis and a lung nodule - CT chest is needed for further assessment of the nodule. - CIWA score 2 points. - continue chlordiazepoxide 25 mg Q8 - Continue banana bag - Soft mechanical diet - Lactulose 30 mg # Acute cystitis - urine bacterial culture,pending - IV ceftriaxone 1 g daily #Lung nodule found on CT abd/pel - Follow up in the outpatient # Possible gastritis, rule out GI bleeding - IV protonix 40 mg b.i.d. - Ordered stool occult blood # Rule out CHF - Patient is in room air with saturation 97% - BNP is slightly elevated - chest x-ray revealed cardiomegaly with possible congestion - Echocardiogram is pending # Drug abuse, marijuana use - Patient was counseled about the consequences of drug abuse. # PUD prophylaxis - Patient is on protonix # DVT prophylaxis - Lovenox 40 mg SC daily. # Prediabetic, HbA1C 5.8 - Lifestyle modification counseling and dietary habits counseling Case discussed with Goals of care discussed with the patient for 24 minutes. code status: full code Plan discussed with: Patient My Orders My Orders Orders - GABRIELLE SANDERSON RESIDENT Procedure Category Date Status Time Folic Acid... PHA 07/14/24 In Process 18:00 Chlordiazepoxide Hcl PHA 07/14/24 In Process Capsule (Librium Ca 12:00 Lorazepam 2mg/Ml Inj PHA 07/14/24 In Process (Ativan Inj) 08:45 Ct Ab Pel With Iv Con CT 07/14/24 Resulted Only 14:04 Date of Service: Jul 14, 2024 Billing Provider: ALFREDO SOLITARIO MD Common Visit Codes: [id number] INP/OBS CARE(HIGH) GABRIELLE SANDERSON RESIDENT Jul 14, 2024 16:05 ALFREDO SOLITARIO MD Jul 14, 2024 19:21
[2024-07-14] MEDS: FOLIC ACID 1 MG, MAGNESIUM SULF SDV 50% 8 MEQ, MULTIPLE VITAMIN 10 ML, THIAMINE INJ 100... INJ SCH (19:02)
[2024-07-15] VITALS (14 sets, daily range): BP systolic 119–180; BP diastolic 76–96; PULSE 75–116; RESP 13–20; TEMP 97.7–98.4; O2SAT 93–100
[2024-07-15] MEDS: cefTRIAXone 1GM/50ML D5W 50 ML IV SCH (04:16)
[2024-07-15] MEDS: hydrALAZINE HCL 20 MG/ML VL IV ONE (06:51)
[2024-07-15 06:52] LABS: Alanine Aminotransferase 11 U/L (7-40); Alkaline Phosphatase 89 U/L (46-116); Anion Gap 11 (5-15); Aspartate Aminotransferase 27 U/L (13-40); BUN/Creatinine Ratio 7.1 (10.0-20.0); Calcium 8.9 mg/dL (8.7-10.4); Chloride 104 mmol/L (98-107); Glucose 106 mg/dL (74-106); Potassium 3.8 mmol/L (3.5-5.1)
[2024-07-15 06:53] LABS: Albumin 3.7 g/dL (3.2-4.8); Bilirubin, Total 0.9 mg/dL (0.2-1.0); Total Protein 6.3 g/dL (5.7-8.2)
[2024-07-15 07:08] LABS: Blood Urea Nitrogen 6 mg/dL (9-23); Carbon Dioxide 19 mmol/L (20-31); Sodium 134 mmol/L (136-145)
[2024-07-15 07:19] LABS: Basophils # (auto) 0.1 10 ^3/uL (0-0.2); Basophils % (auto) 0.8 % (0.0-2.0); Eosinophils # (auto) 0 10 ^3/uL (0-0.8); Eosinophils % (auto) 0.3 % (0.0-7.0); Hematocrit 41.2 % (41.0-53.0); Lymphocytes # (auto) 1.4 10 ^3/uL (0.4-5.4); Lymphocytes % (auto) 15.6 % (10.0-50.0); Mean Corpuscular Hemoglobin 29.3 pg (28.0-32.0); Mean Corpuscular Volume 86.3 fL (80.0-100.0); Monocytes # (auto) 0.7 10 ^3/uL (0-1.3); Monocytes % (auto) 8.2 % (0.0-12.0); Neutrophils # (auto) 6.7 10 ^3/uL (1.6-8.6); Neutrophils % (auto) 75.1 % (37.0-80.0); Platelet Count (auto) 243 10^3/uL (140-450); Red Blood Cells 4.78 10^6/uL (4.5-5.90); Red Cell Distribution Width 15.2 % (11.8-14.3); White Blood Cell 8.9 10^3/uL (4.4-10.8)
[2024-07-15 09:41] LABS: Hepatitis B Core Total AB Negative (Negative)
[2024-07-15] MEDS ORDERED: LORazepam 2MG/ML-1ML VIAL IV SCH (12:00)
[2024-07-15 12:42] LABS: Hepatitis A Total Antibody Negative (Negative); Hepatitis B Surface Antibody Negative (Negative); Hepatitis B Surface Antigen Negative (Negative); Hepatitis C Antibody Negative (Negative)
--- NOTE | 2024-07-15 13:28 | DVHSR ---
APPROVED REPORT EXAM: Two-dimensional and M-mode echocardiogram with Doppler and color Doppler. Blood Pressure: 167/92 mmHg INDICATION Elevated BNP RISK FACTORS Height: 5'8", Weight: 137 DIMENSIONS LVDd2.9 (3.8-5.7cm)LA (2D) (1.9-4.0cm)Aortic Root (2.0-3.7cm) LVDs1.8 (2.5-4.0cm)LA (MM) (1.9-4.0cm)Aortic Cusp Exc (1.5-2.0cm) EF (%) 80.0 (55-70%)Rt. Atrium (1.9-4.0cm)Asc. Aorta cm IVSd1.1 (0.7-1.1cm)RV (D) (1.8-2.4cm) Mitral Valve MitralMitral Stenosis E/A ratio0.02D MVAcm2 Aortic Valve Aortic ValveAortic Stenosis V1m/Carlo Mean GR.22mmHg V23.47m/Carlo Peak GR.48mmHg LEFT VENTRICLE Normal left ventricular size. Hyperdynamic left ventricular systolic function with ejection fraction estimated at 80-85% based on visual estimate. There is no be wall motion abnormalities. There is e vidence of [id number] mid cavitary dynamic obstruction. RIGHT VENTRICLE Not well visualized. ATRIA The left atrium was of normal size. Right atrium isn't well visualized. MITRAL VALVE Likely normal structure and function. No significant mitral regurgitation PULMONIC VALVE Not visualized. TRICUSPID VALVE Not visualized. AORTIC VALVE Not well visualized. There is no evidence of significant regurgitation. GREAT VESSELS Not well visualized. PERICARDIAL EFFUSION No evidence of effusion. Other Information Quality : Technically LimitedRhythm : Technically limited study due to body habitus and pt moving Conclusion The study is very technically limited. Left ventricular size is normal with very hyperdynamic systolic function. Ejection fraction is estimated at 84%. There is evidence of mid cavitary [id number] dynamic obstruction secondary to the hyperdynamic left ventricular systolic function. The right ventricle is not well visualized. The study is limited to assess for valvular function.
[2024-07-15] MEDS: LORazepam 2MG/ML-1ML VIAL IV SCH (14:17)
--- NOTE | 2024-07-15 17:44 | DVHPNRES ---
Progress Note Date Seen: Jul 15, 2024 Resident Creating Document: GABRIELLE SANDERSON RESIDENT Medical Necessity Reason Pt with a Central, PICC or Fol: No Subjective Review of Systems This is a 79-year-old male with past medical history of alcohol abuse disorder,Marijuana abuse and COVID-19 pneumonia brought in to the ED via EMS with altered level of consciousness. Per EMS report, patient was found in his current altered state. According to the family patient had history of alcohol abuse and and one episodes of COVID-19 pneumonia in the past. En route to ED patient has a episodes of seizure lasting less than 15 seconds and characterized by eye flickering and stiffening of the body and was given 2.5 mg versed. The patient was examined at bedside, patient was a little confused for which most of the information was gathered from a conversation with his , who report that the patient used to drink 3 beers a day and this is the first time he had a seizure, patient was given one dose of versed 2,5 mg. The last drink he had was two days ago , that day he just drank 1 beer. Patient was examined at bedside, he was started on Ativan 1 g q.6 schedule, as recent CIWA score showed 17/ 18 points, concerning for delirium tremens, I was informed the patient was hallucinating in the morning and seen and around the room. Per my examination the patient was oriented x2 in the morning, during re- evaluation at noon patient CIWA score was at 15/16 points. Patient will need closely monitoring on CIWA score with the probabilities to upgrade to ICU. we will continue monitoring closely. Patient reports: No new complaints Changes from previous H/P or p: No Changes Objective vital signs Vital Sign Date Time Temp Pulse Resp B/P (MAP) Pulse Ox O2 Delivery O2 Flow Rate FiO2 07/15/24 12:43 97.7 116 15 119/77 (91) 95 97.7 07/15/24 11:10 Room Air* 0 21 Total Intake and Output 07/14/24 07/14/24 07/15/24 15:00 23:00 07:00 Intake Total 0 ml 1100 ml Output Total 400 ml Balance 0 ml 700 ml medications Current Medications Medications Dose Ordered Sig/Jesse Route Start Time Stop Time Status Last Admin Dose Admin Pantoprazole Sodium 40 mg BID IV 07/14/24 10:00 07/15/24 09:43 40 MG Ceftriaxone Sodium 50 ml @ 100 mls/hr DAILY@0200 IV 07/15/24 02:00 07/15/24 04:16 100 MLS/HR Lactulose 30 ml DAILY PO 07/14/24 10:00 07/15/24 14:16 30 ML Enoxaparin Sodium 40 mg DAILY SC 07/14/24 10:00 07/15/24 09:43 40 MG Lorazepam 1 mg Q5MINP PRN IV 07/14/24 08:45 07/14/24 14:07 1 MG Lorazepam 1 mg Q6HP IV 07/15/24 13:45 07/15/24 14:17 1 MG Folic Acid 1 mg DAILY PO 07/16/24 10:00 Multivitamins 1 tab DAILY PO 07/16/24 10:00 Magnesium Oxide 400 mg DAILY PO 07/16/24 10:00 Thiamine HCl 100 mg DAILY PO 07/16/24 10:00 Examination: GENERAL:Abnormal, HEENT:Normal, NECK:Normal, CVS:Normal, ABDOMEN:Normal, MSK:Normal, SKIN:Normal, NEURO:Abnormal, :Normal laboratory and microbiology Laboratory Tests 07/15/24 05:53 Test 07/15/24 05:53 Range/Units Serum Glucose 106 74-106 mg/dL Microbiology Date/Time Source Procedure Growth Status 07/14/24 00:47 Voided Urine Urine Culture - Preliminary Resulted Problem List/Assessment/Plan Problem List/Assessment/Plan # Altered level of consciousness likely due to acute toxic/metabolic encephalopathy #Hyperammonemia # Alcohol withdrawal - CIWA score 15-16 points. - Ativan 1 mg IV Q6 - Continue banana bag - Soft mechanical diet - Lactulose 30 mg - Closely monitoring for seizures or DT. # Acute cystitis - urine bacterial culture,pending - IV ceftriaxone 1 g daily #Lung nodule found on CT abd/pel - Follow up in the outpatient # Possible gastritis, rule out GI bleeding - IV protonix 40 mg b.i.d. - Ordered stool occult blood # Rule out CHF - Patient is in room air with saturation 97% - BNP is slightly elevated - chest x-ray revealed cardiomegaly with possible congestion - Echocardiogram is pending # Drug abuse, marijuana use - Patient was counseled about the consequences of drug abuse. # PUD prophylaxis - Patient is on protonix # DVT prophylaxis - Lovenox 40 mg SC daily. # Prediabetic, HbA1C 5.8 - Lifestyle modification counseling and dietary habits counseling Case discussed with Goals of care discussed with the patient for 24 minutes. code status: full code Plan discussed with: Patient My Orders My Orders Orders - GABRIELLE SANDERSON RESIDENT Procedure Category Date Status Time Transfer Orders XFER 07/15/24 Transmitted 11:45 Mechanical Soft Diet DIET 07/15/24 Transmitted Lunch Lorazepam 2mg/Ml Inj PHA 07/15/24 In Process (Ativan Inj) 13:45 Communication Order ORDERS 07/15/24 Transmitted 13:50 Folic Acid Tablet PHA 07/16/24 In Process 10:00 Multiple Vitamin PHA 07/16/24 In Process Tablet (Mvi Tab) 10:00 Magnesium Oxide PHA 07/16/24 In Process Tablet (Mag-Ox Tablet) 10:00 Thiamine Tab PHA 07/16/24 In Process 10:00 Date of Service: Jul 15, 2024 Billing Provider: ENZO TINOCO MD Common Visit Codes: [id number] INP/OBS CARE(HIGH) GABRIELLE SANDERSON RESIDENT Jul 15, 2024 17:44 ENZO TINOCO MD Jul 16, 2024 08:54
[2024-07-15] MEDS: THIAMINE HCL 100 MG TAB PO ONE (18:34)
[2024-07-15] MEDS: FOLIC ACID 1 MG TAB PO ONE (18:34)
[2024-07-15] MEDS: MULTIPLE VITAMIN TAB PO ONE (18:34)
[2024-07-15] MEDS: MAGNESIUM OXIDE 400 MG TAB PO ONE (18:35)
[2024-07-16] VITALS (9 sets, daily range): BP systolic 106–140; BP diastolic 62–85; PULSE 78–121; RESP 12–18; TEMP 97.7–98.1; O2SAT 95–98
[2024-07-16 05:56] LABS: Basophils # (auto) 0.1 10 ^3/uL (0-0.2); Basophils % (auto) 0.7 % (0.0-2.0); Eosinophils # (auto) 0.1 10 ^3/uL (0-0.8); Eosinophils % (auto) 1.2 % (0.0-7.0); Hematocrit 41.4 % (41.0-53.0); Hemoglobin 14.1 g/dL (13.5-17.5); Lymphocytes # (auto) 1.6 10 ^3/uL (0.4-5.4); Lymphocytes % (auto) 17.7 % (10.0-50.0); Mean Corpuscular Hemoglobin 29.9 pg (28.0-32.0); Mean Corpuscular Volume 87.9 fL (80.0-100.0); Monocytes # (auto) 0.9 10 ^3/uL (0-1.3); Monocytes % (auto) 10.5 % (0.0-12.0); Neutrophils # (auto) 6.2 10 ^3/uL (1.6-8.6); Neutrophils % (auto) 69.9 % (37.0-80.0); Nucleated Red Blood Cells % 0.1 %; Platelet Count (auto) 214 10^3/uL (140-450); White Blood Cell 8.9 10^3/uL (4.4-10.8)
[2024-07-16 06:03] LABS: Chloride 104 mmol/L (98-107); Potassium 3.9 mmol/L (3.5-5.1)
[2024-07-16 06:04] LABS: Anion Gap 12 (5-15)
[2024-07-16 06:05] LABS: Calcium 9.1 mg/dL (8.7-10.4)
[2024-07-16 06:09] LABS: Glucose 101 mg/dL (74-106)
[2024-07-16 06:10] LABS: BUN/Creatinine Ratio 7.7 (10.0-20.0)
[2024-07-16 06:12] LABS: Blood Urea Nitrogen 8 mg/dL (9-23); Carbon Dioxide 18 mmol/L (20-31); Sodium 134 mmol/L (136-145)
[2024-07-16] MEDS: FOLIC ACID 1 MG TAB PO SCH (10:25)
[2024-07-16] MEDS: THIAMINE HCL 100 MG TAB PO SCH (10:26)
[2024-07-16] MEDS: MULTIPLE VITAMIN TAB PO SCH (10:26)
[2024-07-16] MEDS: MAGNESIUM OXIDE 400 MG TAB PO SCH (10:26)
--- NOTE | 2024-07-16 20:04 | DVHPNRES ---
Progress Note Date Seen: Jul 16, 2024 Resident Creating Document: GABRIELLE SANDERSON RESIDENT Medical Necessity Reason Pt with a Central, PICC or Fol: No Subjective Review of Systems This is a 79-year-old male with past medical history of alcohol abuse disorder,Marijuana abuse and COVID-19 pneumonia brought in to the ED via EMS with altered level of consciousness. Per EMS report, patient was found in his current altered state. According to the family patient had history of alcohol abuse and and one episodes of COVID-19 pneumonia in the past. En route to ED patient has a episodes of seizure lasting less than 15 seconds and characterized by eye flickering and stiffening of the body and was given 2.5 mg versed. The patient was examined at bedside, patient was a little confused for which most of the information was gathered from a conversation with his , who report that the patient used to drink 3 beers a day and this is the first time he had a seizure, patient was given one dose of versed 2,5 mg. The last drink he had was two days ago , that day he just drank 1 beer. Patient was examined at bedside, we will continue Ativan 1 mg q.12 hours schedule, as recent CIWA score showed 7 point. Patient was evaluated and he was resting comfortable on bed, vital signs were stable and no episode of agitation or hallucinations. we will continue monitoring closely. Patient reports: Feels better Objective vital signs Vital Sign Date Time Temp Pulse Resp B/P (MAP) Pulse Ox O2 Delivery O2 Flow Rate FiO2 07/16/24 16:40 97.9 78 16 138/66 (90) 96 97.9 07/16/24 07:50 Room Air* 0 21 Total Intake and Output 07/15/24 07/15/24 07/16/24 15:00 23:00 07:00 Intake Total 120 ml 250 ml Output Total 500 ml 100 ml Balance -380 ml 150 ml medications Current Medications Medications Dose Ordered Sig/Jesse Route Start Time Stop Time Status Last Admin Dose Admin Pantoprazole Sodium 40 mg BID IV 07/14/24 10:00 07/16/24 10:25 40 MG Ceftriaxone Sodium 50 ml @ 100 mls/hr DAILY@0200 IV 07/15/24 02:00 07/16/24 01:51 100 MLS/HR Lactulose 30 ml DAILY PO 07/14/24 10:00 07/16/24 10:25 30 ML Enoxaparin Sodium 40 mg DAILY SC 07/14/24 10:00 07/16/24 10:26 40 MG Lorazepam 1 mg Q5MINP PRN IV 07/14/24 08:45 07/14/24 14:07 1 MG Folic Acid 1 mg DAILY PO 07/16/24 10:00 07/16/24 10:25 1 MG Multivitamins 1 tab DAILY PO 07/16/24 10:00 07/16/24 10:26 1 TAB Magnesium Oxide 400 mg DAILY PO 07/16/24 10:00 07/16/24 10:26 400 MG Thiamine HCl 100 mg DAILY PO 07/16/24 10:00 07/16/24 10:26 100 MG Lorazepam 1 mg Q12HP IV 07/16/24 22:00 Future Hold Examination: GENERAL:Normal, HEENT:Normal, NECK:Normal, LUNGS:Normal, CVS:Normal, ABDOMEN:Normal, MSK:Normal, SKIN:Normal, NEURO:Abnormal, :Normal laboratory and microbiology Laboratory Tests 07/16/24 05:26 Test 07/16/24 05:26 Range/Units Serum Glucose 101 74-106 mg/dL Microbiology Date/Time Source Procedure Growth Status 07/14/24 00:47 Voided Urine Urine Culture - Final Klebsiella pneumoniae Complete Problem List/Assessment/Plan Problem List/Assessment/Plan # Altered level of consciousness likely due to acute toxic/metabolic encephalopathy #Hyperammonemia # Alcohol withdrawal - CIWA score 7 point - Ativan 1 mg IV Q 12 - Continue banana bag\ - Lactulose 30 mg - Closely monitoring for seizures or DT. # Acute cystitis - urine bacterial culture,pending - IV ceftriaxone 1 g daily #Lung nodule found on CT abd/pel - Follow up in the outpatient # Possible gastritis, rule out GI bleeding - IV protonix 40 mg b.i.d. - Ordered stool occult blood # Ruled out CHF -recent echocardiogram showed 84% ejection fraction. # Drug abuse, marijuana use - Patient was counseled about the consequences of drug abuse. # PUD prophylaxis - Patient is on protonix # DVT prophylaxis - Lovenox 40 mg SC daily. # Prediabetic, HbA1C 5.8 - Lifestyle modification counseling and dietary habits counseling Case discussed with Goals of care discussed with the patient for 24 minutes. code status: full code Plan discussed with: Patient, Spouse My Orders My Orders Orders - GABRIELLE SANDERSON Procedure Category Date Status Time Lorazepam 2mg/Ml Inj PHA 07/16/24 In Process (Ativan Inj) 22:00 Date of Service: Jul 16, 2024 Billing Provider: ENZO TINOCO MD Common Visit Codes: [id number] INP/OBS CARE(HIGH) GABRIELLE SANDERSON RESIDENT Jul 16, 2024 20:04 ENZO TINOCO MD Jul 20, 2024 20:12
[2024-07-16] MEDS ORDERED: LORazepam 2MG/ML-1ML VIAL IV SCH (22:00)
[2024-07-17] VITALS (9 sets, daily range): BP systolic 104–141; BP diastolic 56–91; PULSE 76–106; RESP 16–20; TEMP 97.4–98.3; O2SAT 94–99
[2024-07-17 07:48] LABS: Basophils # (auto) 0.1 10 ^3/uL (0-0.2); Basophils % (auto) 1.9 % (0.0-2.0); Eosinophils # (auto) 0.4 10 ^3/uL (0-0.8); Eosinophils % (auto) 4.9 % (0.0-7.0); Hematocrit 38.2 % (41.0-53.0); Hemoglobin 13.3 g/dL (13.5-17.5); Lymphocytes # (auto) 1.3 10 ^3/uL (0.4-5.4); Lymphocytes % (auto) 17.3 % (10.0-50.0); Mean Corpuscular Hemoglobin 29.8 pg (28.0-32.0); Mean Corpuscular Hgb Conc. 34.8 g/dL (32.0-36.0); Mean Corpuscular Volume 85.5 fL (80.0-100.0); Monocytes # (auto) 0.9 10 ^3/uL (0-1.3); Monocytes % (auto) 11.3 % (0.0-12.0); Neutrophils # (auto) 4.9 10 ^3/uL (1.6-8.6); Neutrophils % (auto) 64.6 % (37.0-80.0); Nucleated Red Blood Cells % 0.1 %; Platelet Count (auto) 252 10^3/uL (140-450); Red Blood Cells 4.47 10^6/uL (4.5-5.90); Red Cell Distribution Width 15.1 % (11.8-14.3); White Blood Cell 7.6 10^3/uL (4.4-10.8)
[2024-07-17 08:01] LABS: Anion Gap 12 (5-15); Calcium 8.9 mg/dL (8.7-10.4); Carbon Dioxide 22 mmol/L (20-31); Chloride 104 mmol/L (98-107); Sodium 138 mmol/L (136-145)
[2024-07-17 08:07] LABS: BUN/Creatinine Ratio 13.2 (10.0-20.0); Blood Urea Nitrogen 15 mg/dL (9-23); Magnesium 2.2 mg/dL (1.6-2.6)
[2024-07-17 08:16] LABS: Glucose 110 mg/dL (74-106); Potassium 3.3 mmol/L (3.5-5.1)
[2024-07-17] MEDS ORDERED: LORazepam 2MG/ML-1ML VIAL IV PRN (12:00)
--- NOTE | 2024-07-17 16:24 | DVHPNRES ---
Progress Note Date Seen: Jul 17, 2024 Resident Creating Document: GIA BRENNAN RESIDENT Medical Necessity Reason Pt with a Central, PICC or Fol: No Subjective Review of Systems 79-year-old male with past medical history of alcohol abuse disorder,Marijuana abuse and COVID-19 pneumonia brought in to the ED via EMS with altered level of consciousness. Per EMS report, patient was found in his current altered state. According to the family patient had history of alcohol abuse and and one episodes of COVID-19 pneumonia in the past. En route to ED patient has a episodes of seizure lasting less than 15 seconds and characterized by eye flickering and stiffening of the body and was given 2.5 mg versed. The patient was examined at bedside, patient was a little confused for which most of the information was gathered from a conversation with his , who report that the patient used to drink 3 beers a day and this is the first time he had a seizure, patient was given one dose of versed 2,5 mg. The last drink he had was two days ago , that day he just drank 1 beer. Patient was examined at bedside, we will continue Ativan 1 mg q.12 hours schedule, as recent CIWA score showed 7 point. Patient was evaluated and he was resting comfortable on bed, vital signs were stable and no episode of agitation or hallucinations. we will continue monitoring closely Objective vital signs Vital Sign Date Time Temp Pulse Resp B/P (MAP) Pulse Ox O2 Delivery O2 Flow Rate FiO2 07/17/24 08:30 85 18 94 Room Air* 0 21 07/17/24 05:00 98.0 126/73 (90) 98.0 Total Intake and Output 07/16/24 07/16/24 07/17/24 15:00 23:00 07:00 Intake Total 180 ml 200 ml Output Total 50 ml 150 ml Balance 130 ml 50 ml medications Current Medications Medications Dose Ordered Sig/Jesse Route Start Time Stop Time Status Last Admin Dose Admin Pantoprazole Sodium 40 mg BID IV 07/14/24 10:00 07/17/24 09:57 40 MG Ceftriaxone Sodium 50 ml @ 100 mls/hr DAILY@0200 IV 07/15/24 02:00 07/17/24 02:11 100 MLS/HR Lactulose 30 ml DAILY PO 07/14/24 10:00 07/17/24 09:56 30 ML Enoxaparin Sodium 40 mg DAILY SC 07/14/24 10:00 07/16/24 10:26 40 MG Folic Acid 1 mg DAILY PO 07/16/24 10:00 07/17/24 09:56 1 MG Multivitamins 1 tab DAILY PO 07/16/24 10:00 07/17/24 09:56 1 TAB Magnesium Oxide 400 mg DAILY PO 07/16/24 10:00 07/17/24 09:56 400 MG Thiamine HCl 100 mg DAILY PO 07/16/24 10:00 07/17/24 09:56 100 MG Lorazepam 1 mg Q6HP PRN IV 07/17/24 12:00 Acetaminophen 650 mg Q8HP PRN PO 07/17/24 16:00 Examination GENERAL:Normal, HEENT:Normal, NECK:Normal, LUNGS:Normal, CVS:Normal, ABDOMEN:Normal, MSK:Normal, SKIN:Normal, NEURO:Abnormal, :Normal laboratory and microbiology Laboratory Tests 07/17/24 07:09 Test 07/17/24 07:09 Range/Units Serum Glucose 110 H 74-106 mg/dL Microbiology Date/Time Source Procedure Growth Status 07/14/24 00:47 Voided Urine Urine Culture - Final Klebsiella pneumoniae Complete Problem List/Assessment/Plan Problem List/Assessment/Plan # Altered level of consciousness likely due to acute toxic/metabolic encephalopathy #Hyperammonemia # Alcohol withdrawal - CIWA score 7 point - Ativan 1 mg IV Q 12 - Continue banana bag\ - Lactulose 30 mg - Closely monitoring for seizures or DT. # Acute cystitis - urine bacterial culture,pending - IV ceftriaxone 1 g daily #Lung nodule found on CT abd/pel - Follow up in the outpatient # Possible gastritis, rule out GI bleeding - IV protonix 40 mg b.i.d. - Ordered stool occult blood # Ruled out CHF -recent echocardiogram showed 84% ejection fraction. # Drug abuse, marijuana use - Patient was counseled about the consequences of drug abuse. # PUD prophylaxis - Patient is on protonix # DVT prophylaxis - Lovenox 40 mg SC daily. # Prediabetic, HbA1C 5.8 - Lifestyle modification counseling and dietary habits counseling Case discussed with Dr. Tinoco Goals of care discussed with the patient for 19 minutes. code status: full code Plan discussed with: Patient, Other (RN) My Orders My Orders Orders - GIA BRENNAN RESIDENT Procedure Category Date Status Time Pt Request For Service PT 1/4/25 Logged 10:46 Lorazepam 2mg/Ml Inj PHA 07/17/24 In Process (Ativan Inj) 12:00 Pt Request For Service PT 07/17/24 Logged 13:59 Basic Metabolic Panel LAB 07/18/24 Verified 04:00 Complete Blood Count LAB 07/18/24 Verified 04:00 Acetaminophen Tablet PHA 07/17/24 In Process (Tylenol Tablet) 16:00 Date of Service: Jul 17, 2024 Billing Provider: ENZO TINOCO MD Common Visit Codes: [id number] INP/OBS CARE(HIGH) GIA BRENNAN RESIDENT Jul 17, 2024 16:24 ENZO TINOCO MD Jul 20, 2024 20:12
[2024-07-17] MEDS: ACETAMINOPHEN 325 MG TAB PO PRN (17:33)
[2024-07-18] VITALS (9 sets, daily range): BP systolic 110–140; BP diastolic 67–87; PULSE 64–89; RESP 16–17; TEMP 97–98.3; O2SAT 95–98
[2024-07-18 07:46] LABS: Chloride 104 mmol/L (98-107); Sodium 138 mmol/L (136-145)
[2024-07-18 07:47] LABS: Anion Gap 8 (5-15); Basophils # (auto) 0.1 10 ^3/uL (0-0.2); Basophils % (auto) 1.8 % (0.0-2.0); Carbon Dioxide 26 mmol/L (20-31); Eosinophils # (auto) 0.6 10 ^3/uL (0-0.8); Eosinophils % (auto) 9.1 % (0.0-7.0); Hematocrit 35.6 % (41.0-53.0); Hemoglobin 12.3 g/dL (13.5-17.5); Lymphocytes # (auto) 1.2 10 ^3/uL (0.4-5.4); Lymphocytes % (auto) 18.2 % (10.0-50.0); Mean Corpuscular Hemoglobin 29.6 pg (28.0-32.0); Mean Corpuscular Hgb Conc. 34.6 g/dL (32.0-36.0); Mean Corpuscular Volume 85.4 fL (80.0-100.0); Monocytes # (auto) 0.7 10 ^3/uL (0-1.3); Monocytes % (auto) 10.5 % (0.0-12.0); Neutrophils % (auto) 60.4 % (37.0-80.0); Platelet Count (auto) 240 10^3/uL (140-450); Red Blood Cells 4.17 10^6/uL (4.5-5.90); Red Cell Distribution Width 14.9 % (11.8-14.3); White Blood Cell 6.6 10^3/uL (4.4-10.8)
[2024-07-18 07:48] LABS: Calcium 8.9 mg/dL (8.7-10.4)
[2024-07-18 07:49] LABS: Potassium 3.3 mmol/L (3.5-5.1)
[2024-07-18 07:53] LABS: BUN/Creatinine Ratio 14.5 (10.0-20.0); Blood Urea Nitrogen 16 mg/dL (9-23)
[2024-07-18 08:00] LABS: Glucose 108 mg/dL (74-106)
[2024-07-18] MEDS: POTASSIUM EFFERVESENT TAB 25 MEQ PO ONE (10:18)
--- NOTE | 2024-07-18 21:05 | DVHPNRES ---
Progress Note Date Seen: Jul 18, 2024 Resident Creating Document: GABRIELLE SANDERSON RESIDENT Medical Necessity Reason Pt with a Central, PICC or Fol: No Subjective Review of Systems 79-year-old male with past medical history of alcohol abuse disorder,Marijuana abuse and COVID-19 pneumonia brought in to the ED via EMS with altered level of consciousness. Per EMS report, patient was found in his current altered state. According to the family patient had history of alcohol abuse and and one episodes of COVID-19 pneumonia in the past. En route to ED patient has a episodes of seizure lasting less than 15 seconds and characterized by eye flickering and stiffening of the body and was given 2.5 mg versed. The patient was examined at bedside, patient was a little confused for which most of the information was gathered from a conversation with his , who report that the patient used to drink 3 beers a day and this is the first time he had a seizure, patient was given one dose of versed 2,5 mg. The last drink he had was two days ago , that day he just drank 1 beer. Patient was examined at bedside, we will continue Ativan 1 mg q.12 hours schedule, as recent CIWA score showed 3 point. Patient was evaluated and he was resting comfortable on bed, vital signs were stable and no episode of agitation or hallucinations. we will continue monitoring closely Patient reports: Feels better Changes from previous H/P or p: Changes Review of Systems: HEENT:Normal, CVS:Normal, RESPIRATORY:Normal, GI:Normal, :Normal, MSK:Normal, NEURO:Normal Objective vital signs Vital Sign Date Time Temp Pulse Resp B/P (MAP) Pulse Ox O2 Delivery O2 Flow Rate FiO2 07/18/24 17:00 97.3 72 17 140/87 (104) 96 97.3 07/18/24 07:40 Room Air* 0 21 Total Intake and Output 07/17/24 07/17/24 07/18/24 15:00 23:00 07:00 Intake Total 778 ml 100 ml Output Total 75 ml 75 ml Balance 703 ml 25 ml medications Current Medications Medications Dose Ordered Sig/Jesse Route Start Time Stop Time Status Last Admin Dose Admin Pantoprazole Sodium 40 mg BID IV 07/14/24 10:00 07/18/24 09:09 40 MG Ceftriaxone Sodium 50 ml @ 100 mls/hr DAILY@0200 IV 07/15/24 02:00 07/18/24 02:18 100 MLS/HR Lactulose 30 ml DAILY PO 07/14/24 10:00 07/18/24 09:08 30 ML Enoxaparin Sodium 40 mg DAILY SC 07/14/24 10:00 07/16/24 10:26 40 MG Folic Acid 1 mg DAILY PO 07/16/24 10:00 07/18/24 09:09 1 MG Multivitamins 1 tab DAILY PO 07/16/24 10:00 07/18/24 09:09 1 TAB Magnesium Oxide 400 mg DAILY PO 07/16/24 10:00 07/18/24 09:10 400 MG Thiamine HCl 100 mg DAILY PO 07/16/24 10:00 07/18/24 09:09 100 MG Lorazepam 1 mg Q6HP PRN IV 07/17/24 12:00 Acetaminophen 650 mg Q8HP PRN PO 07/17/24 16:00 07/18/24 03:28 650 MG Examination: GENERAL:Normal, HEENT:Normal, NECK:Normal, LUNGS:Normal, CVS:Normal, ABDOMEN:Normal, MSK:Normal, SKIN:Normal, NEURO:Normal, :Normal laboratory and microbiology Laboratory Tests 07/18/24 07:10 Test 07/18/24 07:10 Range/Units Serum Glucose 108 H 74-106 mg/dL Microbiology Date/Time Source Procedure Growth Status 07/14/24 00:47 Voided Urine Urine Culture - Final Klebsiella pneumoniae Complete Problem List/Assessment/Plan Problem List/Assessment/Plan # Altered level of consciousness likely due to acute toxic/metabolic encephalopathy #Hyperammonemia # Alcohol withdrawal - CIWA score 3 # Acute cystitis - urine bacterial culture,pendinG #Lung nodule found on CT abd/pel - Follow up in the outpatient # Possible gastritis, rule out GI bleeding - IV protonix 40 mg b.i.d. - Ordered stool occult blood # Ruled out CHF -recent echocardiogram showed 84% ejection fraction. # Drug abuse, marijuana use - Patient was counseled about the consequences of drug abuse. # PUD prophylaxis - Patient is on protonix # DVT prophylaxis - Lovenox 40 mg SC daily. # Prediabetic, HbA1C 5.8 - Lifestyle modification counseling and dietary habits counseling Case discussed with Goals of care discussed with the patient for 24 minutes. code status: full code Plan discussed with: Patient Date of Service: Jul 18, 2024 Billing Provider: ENZO TINOCO MD Common Visit Codes: [id number] INP/OBS CARE(HIGH) GABRIELLE SANDERSON RESIDENT Jul 18, 2024 21:05 ENZO TINOCO MD Jul 20, 2024 20:13
[2024-07-19] VITALS (9 sets, daily range): BP systolic 103–116; BP diastolic 54–71; PULSE 67–91; RESP 14–17; TEMP 97.8–98.2; O2SAT 95–99
[2024-07-19 07:47] LABS: Anion Gap 9 (5-15); Carbon Dioxide 24 mmol/L (20-31); Chloride 104 mmol/L (98-107); Potassium 4.6 mmol/L (3.5-5.1); Sodium 137 mmol/L (136-145)
[2024-07-19 07:52] LABS: Calcium 8.7 mg/dL (8.7-10.4)
[2024-07-19 07:53] LABS: BUN/Creatinine Ratio 16.3 (10.0-20.0); Blood Urea Nitrogen 16 mg/dL (9-23); Glucose 97 mg/dL (74-106)
[2024-07-19] MEDS ORDERED: FOLI-119 PO (13:43)
[2024-07-19] MEDS ORDERED: THIA100T10 PO (13:43)
[2024-07-19] MEDS ORDERED: MULTTAB99 PO (13:43)
[2024-07-19] MEDS ORDERED: MAGN84TA4 PO (13:43)
[2024-07-19] MEDS: cefTRIAXone 1GM/50ML D5W 50 ML IV ONE (17:59)
--- NOTE | 2024-07-19 18:03 | DVHPNRES ---
Progress Note Date Seen: Jul 19, 2024 Resident Creating Document: GABRIELLE SANDERSON RESIDENT Medical Necessity Reason Pt with a Central, PICC or Fol: No Subjective Review of Systems 79-year-old male with past medical history of alcohol abuse disorder,Marijuana abuse and COVID-19 pneumonia brought in to the ED via EMS with altered level of consciousness. Per EMS report, patient was found in his current altered state. According to the family patient had history of alcohol abuse and and one episodes of COVID-19 pneumonia in the past. En route to ED patient has a episodes of seizure lasting less than 15 seconds and characterized by eye flickering and stiffening of the body and was given 2.5 mg versed. The patient was examined at bedside, patient was a little confused for which most of the information was gathered from a conversation with his , who report that the patient used to drink 3 beers a day and this is the first time he had a seizure, patient was given one dose of versed 2,5 mg. The last drink he had was two days ago , that day he just drank 1 beer. Patient was examined at bedside, Patient was evaluated and he was resting comfortable on bed, vital signs were stable and no episode of agitation or hallucinations. Patient ready for discharge, patient's unable to pick him up from the hospital today. Patient stable but physical limitations to be send in an uber alone. discharge pending for tomorrow in the [facility]. Patient reports: No new complaints Changes from previous H/P or p: Changes Review of Systems: HEENT:Normal, CVS:Normal, RESPIRATORY:Normal, GI:Normal, :Normal, MSK:Normal, NEURO:Normal Objective vital signs Vital Sign Date Time Temp Pulse Resp B/P (MAP) Pulse Ox O2 Delivery O2 Flow Rate FiO2 07/19/24 13:00 97.8 91 16 115/64 (81) 98 97.8 07/19/24 08:00 Room Air* 0 21 Total Intake and Output 07/18/24 07/18/24 07/19/24 15:00 23:00 07:00 Intake Total 680 ml 1360 ml 280 ml Output Total 75 ml 60 ml Balance 680 ml 1285 ml 220 ml medications Current Medications Medications Dose Ordered Sig/Jesse Route Start Time Stop Time Status Last Admin Dose Admin Pantoprazole Sodium 40 mg BID IV 07/14/24 10:00 07/19/24 09:44 40 MG Enoxaparin Sodium 40 mg DAILY SC 07/14/24 10:00 07/19/24 09:44 40 MG Folic Acid 1 mg DAILY PO 07/16/24 10:00 07/19/24 09:45 1 MG Multivitamins 1 tab DAILY PO 07/16/24 10:00 07/19/24 09:45 1 TAB Magnesium Oxide 400 mg DAILY PO 07/16/24 10:00 07/19/24 09:45 400 MG Thiamine HCl 100 mg DAILY PO 07/16/24 10:00 07/19/24 09:45 100 MG Acetaminophen 650 mg Q8HP PRN PO 07/17/24 16:00 07/18/24 03:28 650 MG Examination: GENERAL:Normal, HEENT:Normal, NECK:Normal, LUNGS:Normal, CVS:Normal, ABDOMEN:Normal, MSK:Normal, SKIN:Normal, NEURO:Normal, :Normal laboratory and microbiology Laboratory Tests 07/19/24 06:42 07/18/24 07:10 Test 07/19/24 06:42 Range/Units Serum Glucose 97 74-106 mg/dL Microbiology Date/Time Source Procedure Growth Status 07/14/24 00:47 Voided Urine Urine Culture - Final Klebsiella pneumoniae Complete Problem List/Assessment/Plan Problem List/Assessment/Plan # Altered level of consciousness likely due to acute toxic/metabolic encephalopathy #Hyperammonemia # Alcohol withdrawal - patient stable, - physical therapy evaluation # Acute cystitis - urine bacterial culture,pendinG #Lung nodule found on CT abd/pel - Follow up in the outpatient # Possible gastritis, rule out GI bleeding - IV protonix 40 mg b.i.d. - Ordered stool occult blood # Ruled out CHF -recent echocardiogram showed 84% ejection fraction. # Drug abuse, marijuana use - Patient was counseled about the consequences of drug abuse. # PUD prophylaxis - Patient is on protonix # DVT prophylaxis - Lovenox 40 mg SC daily. # Prediabetic, HbA1C 5.8 - Lifestyle modification counseling and dietary habits counseling Case discussed with Goals of care discussed with the patient for 24 minutes. code status: full code Plan discussed with: Patient My Orders My Orders Orders - GABRIELLE SANDERSON RESIDENT Procedure Category Date Status Time Discharge DISCHARGE 07/19/24 Transmitted 09:13 Pt Request For Service PT 07/19/24 Logged 09:47 * Chemical Librarian CONS 07/19/24 Transmitted Consult Dme: Walker DME 07/19/24 Transmitted 13:21 Discontinue Amor GEE 07/19/24 In Process Catheter 13:33 Date of Service: Jul 19, 2024 Billing Provider: MAISHA ABDUL MD Common Visit Codes: [id number] INP/OBS CARE(HIGH) BRIAN Jiang GABRIELLE RESIDENT Jul 19, 2024 18:03 MAISHA ABDUL MD Jul 19, 2024 19:38
[2024-07-20 01:00] VITALS: BP 115/69; PULSE 66; RESP 16; TEMP 97.7; O2SAT 95
[2024-07-20 05:00] VITALS: BP 112/72; PULSE 66; RESP 17; TEMP 98; O2SAT 93
[2024-07-20 08:15] VITALS: PULSE 63
[2024-07-20 09:00] VITALS: BP 119/80; PULSE 76; RESP 18; TEMP 97.8; O2SAT 95
[2024-07-20] MEDS ORDERED: MULT-1018 PO (12:47)
[2024-07-20] MEDS ORDERED: THIA100T13 PO (12:47)
[2024-07-20] MEDS ORDERED: FOLI400T15 PO (12:47)
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
== END 2024-07-20 15:25 | disposition home health service (06) | DRG 71 ==
LOC: ER 14:26 → EDBD 14:26 → OVERFLOW 21:23 → WEST WING 07-14 23:11 → TELE-WESTW 07-15 23:32
PROVIDERS: ADMIT Internal Medicine Geriatric Medicine; ATTEND Emergency Medicine
DX: G93.41 Metabolic encephalopathy (principal); E72.20 Disorder of urea cycle metabolism, unspecified; N30.00 Acute cystitis without hematuria; F10.139 Alcohol abuse with withdrawal, unspecified; E87.1 Hypo-osmolality and hyponatremia; R91.1 Solitary pulmonary nodule; Z20.822 Contact with and (suspected) exposure to COVID-19; R56.9 Unspecified convulsions; F12.10 Cannabis abuse, uncomplicated; Y90.9 Presence of alcohol in blood, level not specified; E11.65 Type 2 diabetes mellitus with hyperglycemia; Z87.01 Personal history of pneumonia (recurrent); Z86.16 Personal history of COVID-19; Z79.899 Other long term (current) drug therapy
CPT/HCPCS: 36415; 70450; 71045; 74177; 76700; 80048; 80053; 80307; 80320; 81001; 82140; 82607; 82746; 82962; 83036; 83605; 83735; 83880; 84443; 85025; 85610; 85730; 86704; 86706; 86708; 86803; 87086; 87088; 87186; 87340; 87426; 87804; 92610; 93306; 96361; 96365; 96375; 97110; 97116; 97163; 97530; 99291; G0378; J2470

== ENCOUNTER 2024-09-15 11:54 | Inpatient (IN) | payer MEDICARE, OTHER ==
[~2024-09-15] VITALS: Ht 167.6 cm; Wt 61.4 kg
[~2024-09-15 11:54] MED LIST changes: -AZIT-74 PO; +FOLI400T15 PO; -GABA-1308 PO; +MULT-1018 PO; -MULT-351 PO; -PANT40TA2 PO; +THIA100T13 PO
--- NOTE | 2024-09-15 12:04 | ED.PDOC ---
History of Present Illness HPI Comments 79-year-old male brought by paramedics because of seizure observed by his family. Paramedics states that he had two episodes seizure the coming to the ER. He was given Versed twice. He was unable to answer any questions in the. Blood sugar was 138. Unknown whether he has a history of hypotension. Unknown whether he is taking his medication. Last time he had a seizure was in June. No sign of any trauma. Time Seen by MD: 11:55 Primary Care Provider: unknown Reviewed Notes: Nurses Notes, Medications, Allergies Allergies: Coded Allergies: NO KNOWN ALLERGIES (Unverified , 07/15/22) Home Meds Active Scripts Thiamine HCl (Thiamine Hydrochloride) 100 Mg Tab, 100 MG PO DAILY for 14 Days, #14 TAB Prov:GIA BRENNAN RESIDENT 07/20/24 Folic Acid (Folate) 400 Mcg Tab, 400 MCG PO DAILY for 30 Days, #30 TAB Prov:GIA BRENNAN RESIDENT 07/20/24 Multiple Vitamin (Multivitamins) Tab, 1 TAB PO DAILY for 30 Days, #30 TAB 2 Refills Prov:GIA BRENNAN RESIDENT 07/20/24 Information Source: Patient, Emergency Med Personnel Mode of Arrival: EMS Severity: Moderate Timing: Hours Duration: Since onset Past Medical History PAST MEDICAL HISTORY: Seizures Surgical History: Unknown, Unobtainable Family History Family History: Reviewed,noncontributory to illness, No family hx of Lung alirio Social History Smoker: Unknown, Unobtainable Alcohol: Heavy Drugs: Unknown, Unobtainable Lives In: Home Unable to Obtain due to: Altered Mental Status Physical Exam General Appearance: No Apparent Distress, Normal HEENT: Normal ENT Inspection, Pharynx Normal, TMs Normal Neck: Full Range of Motion, Non-Tender, Normal, Normal Inspection Respiratory: Chest Non-Tender, Lungs Clear, No Accessory Muscle Use, No Respiratory Distress, Normal Breath Sounds Cardiovascular: No Edema, No JVD, No Murmur, No Gallop, Normal Peripheral Pulses, Regular Rate/Rhythm Breast Exam: Deferred Gastrointestinal: No Organomegaly, Non Tender, No Pulsatile Mass, Normal Bowel Sounds, Soft Genitalia: Deferred Pelvic: Deferred Rectal: Deferred Extremities: No pedal edema Musculoskeletal : Apperance: Normal Neurologic: Disoriented Cerebellar Function: NOT DONE Reflexes: NOT DONE Skin: Normal Color Peripheral Pulses: 3+ Radial (R), 3+ Radial (L) Lymphatic: No Adenopathy Was a procedure done? Was a procedure done?: No Differential Dx Considerations may include: Seizure disorder Electrolyte imbalance X-Ray, Labs, Meds, VS Vital Signs Date Time Temp Pulse Resp B/P (MAP) Pulse Ox O2 Delivery O2 Flow Rate FiO2 09/15/24 13:43 100 26 136/61 (86) 93 09/15/24 13:04 106 09/15/24 12:24 103 09/15/24 12:02 98.3 130 15 128/86 (100) 98 Lab Test 09/15/24 14:45 Range/Units Sodium Level 136 136-145 mmol/L Potassium Level 4.0 3.5-5.1 mmol/L Chloride Level 102 98-107 mmol/L Carbon Dioxide Level 22 20-31 mmol/L Anion Gap 12 5-15 Blood Urea Nitrogen 9 9-23 mg/dL Creatinine 0.98 0.700-1.30 mg/dL Glomerular Filtration Rate Calc 79 >90 mL/min BUN/Creatinine Ratio 9.2 L 10.0-20.0 Serum Glucose 142 H 74-106 mg/dL Calcium Level 9.5 8.7-10.4 mg/dL Troponin I High Sensitivity 2009 *H </=54 ng/L Current Medications Medications (Trade) Dose Ordered Sig/Jesse Route Start Time Stop Time Status Last Admin Lorazepam (Ativan Inj) 1 mg ONCE ONCE IV 09/15/24 14:30 09/15/24 14:31 DC 09/15/24 14:50 Patient altered. Had a seizure prior to coming to the ER. Was given Versed. Unable to get history. Blood sugar 138. Establish intravenous access. Was given fluids. No sign of any injury. Reviewed his previous history. Was given Keppra. Time of 1ST Reevaluation: 12:01 Reevaluation 1ST: Unchanged Patient Education/Counseling: Diagnosis, Treatment, Prognosis Family Education/Counseling: No Family Present Departure 1 Departure Time of Disposition: 12:03 Impression: Primary Impression: Metabolic encephalopathy Additional Impressions: Seizure NSTEMI (non-ST elevated myocardial infarction) Uncontrolled diabetes mellitus Qualified Codes: E13.65 - Other specified diabetes mellitus with hyperglycemia Disposition: ADMITTED INPATIENT Admit to: Med Surg Condition: Guarded Critical Care Note Critical Care Time?: Yes (45 min-critical care time only) Stability Stability form required: No Heart Score Heart Score: Heart Score Response (Comments) Value History Slightly Suspicious 0 EKG Normal 0 Age >65 2 Risk Factors No known risk factors 0 Troponin N/A 0 Total 2 TAI HAYS MD Sep 15, 2024 12:04
--- NOTE | 2024-09-15 13:08 | ECG ---
[facility] Test Date: 2024-09-15 Test Time: 12:24:38 Pat Name: ETHAN SOLANO Department: er Room: 0266D Gender: M Commercial Announcer: ayad : 1945 Requested By: EMERGENCY EMERGENCY Order Number: [id number] Reading MD: Justo Bang Measurements Intervals [place] Rate: 103 P: 28 MN: 147 QRS: 39 QRSD: 90 T: 39 QT: 347 QTc: 454 Interpretive Statements Sinus tachycardia Low voltage, precordial leads Probable anterolateral infarct, recent Electronically Signed On 09-18-2024 17:53:02 PST by Justo Bang Please click the below link to view image of tracing.
[2024-09-15] MEDS: SODIUM CHLORIDE 0.9% 1,000 ML IV ONE ×2 (14:45→16:55)
[2024-09-15] MEDS: LORazepam 2MG/ML-1ML VIAL IV ONE (14:50)
[2024-09-15 14:59] LABS: Anion Gap 12 (5-15); Carbon Dioxide 22 mmol/L (20-31); Chloride 102 mmol/L (98-107); Sodium 136 mmol/L (136-145)
[2024-09-15 15:00] LABS: Calcium 9.5 mg/dL (8.7-10.4)
[2024-09-15 15:05] LABS: BUN/Creatinine Ratio 9.2 (10.0-20.0)
[2024-09-15 15:09] LABS: Blood Urea Nitrogen 9 mg/dL (9-23); Glucose 142 mg/dL (74-106)
--- NOTE | 2024-09-15 15:11 | DVH ---
EXAM: CT HEAD WITHOUT CONTRAST HISTORY: seizure COMPARISON: CT HEAD WITHOUT CONTRAST on DOS: 07/13/24, HEAD WITHOUT CONTRAST on DOS: 07/15/22 TECHNIQUE: Axial images were obtained and reformatted in coronal and sagittal planes. All CT scans at this medical facility are performed using dose modulation techniques as appropriate t o a performed exam including the following: Automated exposure control was utilized; adjustment of th e MA and/or KV according to patient size; and use of iterative reconstruction technique. CT Dose: CTDI volume is 59.6 mGy. Dose-length product is 1175 mGy*cm FINDINGS: Supratentorial Region: No evidence for large acute territorial ischemia. No intracranial hemorrhage is noted. Confluent white matter hypoattenuating foci are noted bilaterally, which typically reflect chronic microvascular ischemic changes. Posterior Fossa: No acute abnormality. Brainstem: Unremarkable. Sellar/Suprasellar Region: Unremarkable. Ventricles, Cisterns, Sulci: Age-appropriate. Orbits: Unremarkable. Paranasal Sinuses: Unremarkable. Mastoid Air Cells: Unremarkable. Vasculature: Intracranial arterial calcified plaque formation noted. Bones/Soft Tissues: No acute abnormality. Other: A large bore tube is seen in the left nasal cavity. IMPRESSION: 1. No acute intracranial process. 2. Moderate chronic microvascular ischemic changes.
--- NOTE | 2024-09-15 15:16 | DVH ---
EXAM: XY CHEST PORTABLE HISTORY: sob COMPARISON: XY CHEST PORTABLE on DOS: 07/13/24, CHEST PORTABLE on DOS: 07/15/22, CXRP on DOS: 07/15/22 TECHNIQUE: Portable upright AP views of the chest were performed. FINDINGS: There is , greater on the left laterallung base scarring. No new infiltrates, pneumothorax, or pulmonary edema. The heart is enlarged. Left shoulder arthroplasty is re-identified. IMPRESSION: 1. Bilateral lung base scarring without evidence of acute intrathoracic process. 2. Cardiomegaly.
[2024-09-15 15:35] LABS: Basophils # (auto) 0.1 10 ^3/uL (0-0.2); Basophils % (auto) 0.4 % (0.0-2.0); Eosinophils # (auto) 0 10 ^3/uL (0-0.8); Hematocrit 42.1 % (41.0-53.0); Hemoglobin 14.1 g/dL (13.5-17.5); Lymphocytes # (auto) 1.2 10 ^3/uL (0.4-5.4); Lymphocytes % (auto) 8.6 % (10.0-50.0); Mean Corpuscular Hemoglobin 29.4 pg (28.0-32.0); Mean Corpuscular Hgb Conc. 33.4 g/dL (32.0-36.0); Mean Corpuscular Volume 88.1 fL (80.0-100.0); Monocytes # (auto) 0.8 10 ^3/uL (0-1.3); Monocytes % (auto) 5.6 % (0.0-12.0); Neutrophils # (auto) 11.9 10 ^3/uL (1.6-8.6); Neutrophils % (auto) 85.4 % (37.0-80.0); Platelet Count (auto) 273 10^3/uL (140-450); Red Blood Cells 4.78 10^6/uL (4.5-5.90); Red Cell Distribution Width 16.2 % (11.8-14.3); White Blood Cell 13.9 10^3/uL (4.4-10.8)
[2024-09-15] MEDS: HEPARIN SODIUM (PORCINE) 5000 UNITS/ML 1ML VIAL IV ONE (15:35)
[2024-09-15] MEDS ORDERED: NITROGLYCERIN 0.4 MG SL TAB SL PRN (16:15)
[2024-09-15] MEDS ORDERED: MORPHINE SULFATE INJ 2 MG/ml SYRG IV PRN (16:15)
--- NOTE | 2024-09-15 16:15 | DVHHP2 ---
History of Present Illness Reason for Visit: Seizure-like activity, altered mental status History of Present Illness The patient was a 79-year-old male transported to the hospital by EMS with altered mental status. The time of assessment, patient continues to have ALOC. Patient was medicated with Ativan. According to emergency room physician documentation, the patient presented with ALOC as well as stiffness. According to the old medical records, the patient has a history of alcohol and marijuana abuse. No other information is available at this time. Patient was noted to h ave elevated troponin greater than 2000. Repeat EKG was done by myself without any ST changes. Patient was noted to have severe hypoxia with saturation 93% on a non-rebreather mask. CT of the head is negative. Chest x-ray unremarkable. Past Medical History Polysubstance abuse including alcohol, marijuana Past Surgical History: None Family History: None Past Social History Unable to obtain past social history. Family contact not available in the chart. Review of Systems Review of Systems Patient with altered mental status at this time. Unable to obtain information Allergies: Coded Allergies: NO KNOWN ALLERGIES (Unverified , 07/15/22) Medications Current Medications Medications Dose Ordered Sig/Jesse Route Start Time Stop Time Status Last Admin Dose Admin Nitroglycerin 0.4 mg Q5MINP PRN SL 09/15/24 16:15 UNV Morphine Sulfate 2 mg Q30M PRN IV 09/15/24 16:15 UNV Lorazepam 1 mg Q5MINP PRN IV 09/15/24 16:15 UNV Folic Acid 1 mg/ Multivitamins 10 ml/Magnesium Sulfate 8 meq/ Thiamine HCl 100 mg/Dextrose 1,013.2 ml @ 125.001 mls/hr DAILY@1800 INJ 09/15/24 18:00 UNV Enoxaparin Sodium 80 mg Q12HR SC 09/15/24 22:00 UNV Exam Vital Signs Vital Signs Date Time Temp Pulse Resp B/P (MAP) Pulse Ox O2 Delivery O2 Flow Rate FiO2 09/15/24 15:23 100 09/15/24 13:43 26 136/61 (86) 93 09/15/24 12:02 98.3 General Appearance: Other (Encephalopathic) HEENT: Atraumatic, PERRLA Respiratory: Clear to auscultation, Normal air movement Cardiovascular: Normal S1, Normal S2 Extremities: No clubbing, No cyanosis, No edema Neuro: Normal gait, Normal speech Psych/Mental Status: Mental status NL, Mood NL Labs/Xrays Labs Test 09/15/24 15:40 09/15/24 14:45 Range/Units White Blood Count 13.9 H 4.4-10.8 10^3/uL Red Blood Count 4.78 4.5-5.90 10^6/uL Hemoglobin 14.1 13.5-17.5 g/dL Hematocrit 42.1 41.0-53.0 % Mean Corpuscular Volume 88.1 80.0-100.0 fL Mean Corpuscular Hemoglobin 29.4 28.0-32.0 pg Mean Corpuscular Hemoglobin Concent 33.4 32.0-36.0 g/dL Red Cell Distribution Width 16.2 H 11.8-14.3 % Platelet Count 273 140-450 10^3/uL Mean Platelet Volume 7.2 6.9-10.8 fL Neutrophils (%) (Auto) 85.4 H 37.0-80.0 % Lymphocytes (%) (Auto) 8.6 L 10.0-50.0 % Monocytes (%) (Auto) 5.6 0.0-12.0 % Eosinophils (%) (Auto) 0.0 0.0-7.0 % Basophils (%) (Auto) 0.4 0.0-2.0 % Neutrophils # (Auto) 11.9 H 1.6-8.6 10 ^3/uL Lymphocytes # (Auto) 1.2 0.4-5.4 10 ^3/uL Monocytes # (Auto) 0.8 0-1.3 10 ^3/uL Eosinophils # (Auto) 0 0-0.8 10 ^3/uL Basophils # (Auto) 0.1 0-0.2 10 ^3/uL Nucleated Red Blood Cells 0.0 % Sodium Level 136 136-145 mmol/L Potassium Level 4.0 3.5-5.1 mmol/L Chloride Level 102 98-107 mmol/L Carbon Dioxide Level 22 20-31 mmol/L Anion Gap 12 5-15 Blood Urea Nitrogen 9 9-23 mg/dL Creatinine 0.98 0.700-1.30 mg/dL Glomerular Filtration Rate Calc 79 >90 mL/min BUN/Creatinine Ratio 9.2 L 10.0-20.0 Serum Glucose 142 H 74-106 mg/dL Calcium Level 9.5 8.7-10.4 mg/dL Assessment/Plan Assessment/Plan Impression: -metabolic encephalopathy, questionably postictal -? Seizure disorder -history of alcoholism -history of marijuana use -NSTEMI,? Type -leukocytosis, rule out sepsis -acute hypoxic respiratory failure Plan: -admit to telemetry unit -CT angiogram of the chest -therapeutic dose Lovenox -ACS protocol -serial troponin -antibiotic therapy: Zosyn -repeat labs in a.m. -banana bag daily Critical care time spent with patient discussing and formulating plan of care: 40 minutes. This does not include time spent performing procedures. This medical document was created using an electronic medical record system with [employer] dictation system. Although this document has been carefully reviewed, there may still be some phonetic and typographical errors. These areas are purely typographical due to imperfections of the software programs, and do not reflect any compromise in the patient's medical care. Plan discussed with: Patient, Other (RN) My Orders Orders - SAMANTHA MAE APPLICATIONS SPECIALIST Procedure Category Date Status Time Ct Angio Chest CT 09/15/24 Logged Contrast 16:03 Comprehensive LAB 09/16/24 Verified Metabolic Panel 04:00 Complete Blood Count LAB 09/16/24 Verified 04:00 Admit ADMIT 09/15/24 Transmitted 16:03 Nitroglycerin PHA 09/15/24 Logged Sublingual (Ntrostat 16:15 Morphine Sulfate PHA 09/15/24 Logged Injection 16:15 Stat Ekg For Chest GEE 09/15/24 In Process Pain 16:03 Notify Of Changes [facility] 09/15/24 In Process From Base 16:03 Inspector Bicycle For [facility] 09/15/24 In Process 24 Hours 16:03 Emergency Dysrhythmia GEE 09/15/24 In Process Protocol 16:03 Rhythm Strips Once GEE 09/15/24 In Process Every Shift 16:03 Oxygen By Nasal RT 09/15/24 Transmitted Cannula 16:03 Lorazepam 2mg/Ml Inj PHA 09/15/24 Logged (Ativan Inj) 16:15 Drug Screen LAB 09/15/24 Logged 16:03 Folic Acid... PHA 09/15/24 Logged 18:00 Enoxaparin Sodium PHA 09/15/24 Logged (Lovenox) 22:00 Creatine Kinase LAB 09/15/24 Transmitted 16:08 Zosyn Extended PHA 09/15/24 Transmitted Infusion 22:00 Cardiac DIET 09/15/24 Transmitted Diet-2gna,Lofat,Lochol Dinner Aspirin Tablet PHA 09/16/24 Verified 10:00 Date of Service: Sep 15, 2024 Billing Provider: SAMANTHA MAE NP Common Visit Codes: [id number] CARE 30-74 MIN SAMANTHA MAE NP Sep 15, 2024 16:15
--- NOTE | 2024-09-15 16:17 | DVHINCON2 ---
Date Seen: Sep 15, 2024 Referring Physician MD Kiana Reason for Consultation NSTEMI History of Present Illness This is a 79-year-old man who presented to the emergency room via EMS with a chief complaint of an altered level of consciousness. At time of assessment, the patient was found obtunded. Information obtained from records. It appears the patient presented with ALOC and reported witnessed seizures x 2 en route to the hospital for which he was medicated with versed IV, placed on supplemental oxygenation via NRB mask, and found with a BGL of 138 ng/dL. He was subsequently medicated in the ED with Ativan in order to proceed with head CT. Cardiology consulted STAT given an initial troponin level > 2000 ng/L. Multiple 12 lead electrocardiograms were reviewed indicating a sinus rhythm without evidence of ST segment changes. Significant medical history includes hypertension, prediabetes, history of COVID-19 pneumonia, and polysubstance abuse with alcohol and cannabinoids. Past Medical History Past medical history reviewed. No other significant than mentioned above. Past Surgical History Left shoulder arthroplasty Left total hip arthroplasty Family History: Colon cancer G8 SISTER, Onset:50's - 60 Family History Unable to obtain family history at this time. Social History Per previous records, use of alcohol abuse and cannabinoids. Allergies: Coded Allergies: NO KNOWN ALLERGIES (Unverified , 07/15/22) Home Meds Active Scripts Thiamine HCl (Thiamine Hydrochloride) 100 Mg Tab, 100 MG PO DAILY for 14 Days, #14 TAB Prov:GIA BRENNAN RESIDENT 07/20/24 Folic Acid (Folate) 400 Mcg Tab, 400 MCG PO DAILY for 30 Days, #30 TAB Prov:GIA BRENNAN RESIDENT 07/20/24 Multiple Vitamin (Multivitamins) Tab, 1 TAB PO DAILY for 30 Days, #30 TAB 2 Refills Prov:GIA BRENNAN RESIDENT 07/20/24 Home Meds Home medications reviewed. Current Medications Current Medications Medications (Trade) Dose Ordered Sig/Jesse Route PRN Reason Start Time Stop Time Status Last Admin Nitroglycerin (Ntrostat Sublingual) 0.4 mg Q5MINP PRN SL FOR CHEST PAIN 09/15/24 16:15 UNV Morphine Sulfate 2 mg Q30M PRN IV FOR CHEST PAIN 09/15/24 16:15 UNV Lorazepam (Ativan Inj) 1 mg Q5MINP PRN IV SEIZURES 09/15/24 16:15 UNV Folic Acid 1 mg/ Multivitamins 10 ml/Magnesium Sulfate 8 meq/ Thiamine HCl 100 mg/Dextrose 1,013.2 ml @ 125.001 mls/hr DAILY@1800 INJ 09/15/24 18:00 UNV Enoxaparin Sodium (Lovenox) 80 mg Q12HR SC 09/15/24 22:00 UNV Piperacillin Sod/ Tazobactam Sod 100 ml @ 25 mls/hr Q8HR IV 09/15/24 22:00 UNV Aspirin 81 mg DAILY PO 09/16/24 10:00 UNV Review of Systems Constitutional: No symptom reported Ears, Nose, & Throat: No symptom reported Eyes: No symptom reported Neurological: ALOC, seizure activity Pulmonary/Respiratory: No symptom reported Cardiovascular: No symptom reported Gastrointestinal: No symptom reported Genitourinary: No symptom reported Musculoskeletal: No symptom reported Skin: No symptom reported Psychiatric: No symptom reported Endocrine: No symptom reported Hemotologic/Lymphatic: No symptom reported Vital Signs Vital Signs Date Time Temp Pulse Resp B/P (MAP) Pulse Ox O2 Delivery O2 Flow Rate FiO2 09/15/24 15:23 100 09/15/24 13:43 26 136/61 (86) 93 09/15/24 12:02 98.3 Physical Exam General Appearance: Obtunded. Withdrawn. O2 supplementation via NRB mask Head Exam: Normal inspection Neck Exam: Normal inspection. Normal alignment Pulmonary/Respiratory: Clear bilateral breath sounds. O2 via NRB mask Cardiovascular/Chest: Regular rate and rhythm. S1, S2. Sinus rhythm. No murmurs. No JVD. Peripheral Pulses: 2+ Radial (R). 2+ Radial (L). 2+ Pedal (R). 2+ Pedal (L) Abdominal Exam: Normal bowel sounds. Soft. Ankle Exam: Negative ankle edema Lower extremities: Negative lower extremity edema Neuro/Mental Status: Withdrawal. Obtunded Thoughts/Psych: Unable to assess at this time Appearance: Mild to moderate acute distress Skin Exam: Normal inspection. Normal color. Warm. Dry Labs/Diagnostic Data Labs Test 09/15/24 15:40 09/15/24 14:45 Range/Units White Blood Count 13.9 H 4.4-10.8 10^3/uL Red Blood Count 4.78 4.5-5.90 10^6/uL Hemoglobin 14.1 13.5-17.5 g/dL Hematocrit 42.1 41.0-53.0 % Mean Corpuscular Volume 88.1 80.0-100.0 fL Mean Corpuscular Hemoglobin 29.4 28.0-32.0 pg Mean Corpuscular Hemoglobin Concent 33.4 32.0-36.0 g/dL Red Cell Distribution Width 16.2 H 11.8-14.3 % Platelet Count 273 140-450 10^3/uL Mean Platelet Volume 7.2 6.9-10.8 fL Neutrophils (%) (Auto) 85.4 H 37.0-80.0 % Lymphocytes (%) (Auto) 8.6 L 10.0-50.0 % Monocytes (%) (Auto) 5.6 0.0-12.0 % Eosinophils (%) (Auto) 0.0 0.0-7.0 % Basophils (%) (Auto) 0.4 0.0-2.0 % Neutrophils # (Auto) 11.9 H 1.6-8.6 10 ^3/uL Lymphocytes # (Auto) 1.2 0.4-5.4 10 ^3/uL Monocytes # (Auto) 0.8 0-1.3 10 ^3/uL Eosinophils # (Auto) 0 0-0.8 10 ^3/uL Basophils # (Auto) 0.1 0-0.2 10 ^3/uL Nucleated Red Blood Cells 0.0 % Sodium Level 136 136-145 mmol/L Potassium Level 4.0 3.5-5.1 mmol/L Chloride Level 102 98-107 mmol/L Carbon Dioxide Level 22 20-31 mmol/L Anion Gap 12 5-15 Blood Urea Nitrogen 9 9-23 mg/dL Creatinine 0.98 0.700-1.30 mg/dL Glomerular Filtration Rate Calc 79 >90 mL/min BUN/Creatinine Ratio 9.2 L 10.0-20.0 Serum Glucose 142 H 74-106 mg/dL Calcium Level 9.5 8.7-10.4 mg/dL Assessment Non-ST elevation myocardial infarction Rule out pulmonary emboli (S1, T3) Acute hypoxic respiratory failure Hypertension Seizure activity Prediabetes Alcohol dependence/cannabinoid use Plan/Recommendation (Dr. Bang) The patient presents with tachycardia, acute hypoxic, and trending troponin levels. Agree with CT angio with contrast to rule out PE. In the meantime continue full anticoagulation therapy. Trend troponin levels. Obtain transthoracic echocardiogram, ABG, and UDS. Continue O2 support via NRB mask. Monitor ECG changes and notify accordingly. Thank you for allowing us to participate in this patient's care. Please call if you have any questions or concerns. Critical care time: 40 min. This medical document was created using an electronic medical record system with voice recognition software and computerized dictation system. Although this document has been carefully reviewed, there might still be some phonetic and typographical errors. Occasional wrong-word or ``sound-alike substitutions may have occurred due to the inherent limitations of voice recognition software. These areas are purely typographical due to imperfections of the software programs and do not reflect any compromise in the patient's medical care. Please read the chart carefully and recognize, using context, where these substitutions have occurred. Plan discussed with: Other NYHA Physical activity limitations: NA Date of Service: Sep 15, 2024 Billing Provider: BARRINGTON RODRIGUEZ Cardiology Common Codes: [id number] CARE 30-74 MIN BARRINGTON RODRIGUEZ Sep 15, 2024 16:17
[2024-09-15 16:39] LABS: Base Excess -3.1 mmol/L (-2.0-3.0)
[2024-09-15 16:58] VITALS: PULSE 96; RESP 26; O2SAT 92
[2024-09-15] MEDS: IOHEXOL 350 MG/ML 100ML IJ ONE (17:01)
[2024-09-15] MEDS ORDERED: HEPARIN DRIP/D5W 100UNITS/ML 250 ML IV SCH (17:15)
--- NOTE | 2024-09-15 17:55 | DVH ---
CTA Chest with intravenous contrast INDICATION: rule out PE, severe hypoxia COMPARISON: CT of the abdomen and pelvis 07/14/2024 TECHNIQUE: Multidetector spiral CTA of the chest was performed of the chest with intravenous contrast . PULMONARY ANGIOGRAPHY PROTOCOL was utilized using a bolus-tracking technique centered on the main p ulmonary artery. Axial, coronal and sagittal multiplanar and MIP reformats were performed. CONTRAST: Type of contrast: Omni 350 Contrast injected: 99 ml Radiation dose : Chest: CTDI volume is 29.57 mGy. Dose-length product is 702.01 mGy*cm The dose indicators for CT are the volume computed Tomography (CT) dose Index (CTDIvol) and the dose Length product (DLP), and are measured in units of mGy and mGy-cm, respectively. These indicators are not patient dose, but values generated from the CT scanner acquisition factors. The report includes radiation exposure data for exposures received during this examination. Findings: Pulmonary artery: There is complete, near complete occlusion of the right lower lobe pulmonary artery and its segmental branches which may be chronic. No other pulmonary emboli identified. Lower neck: Normal thyroid. Lungs: Patchy consolidation in the lung bases left greater than right. Right lower lobe nodule measur ing up 8 mm. Heart/Vascular Structures: Normal heart size. No pericardial effusion. Lymph Nodes: No adenopathy Pleura: No pleural effusion or significant pneumothorax. Musculoskeletal: Dextroscoliosis with associated multilevel degenerative disease. Mild superior endpl ate compression deformity of midthoracic vertebral bodies, age indeterminate. T7 fracture may be acut e / subacute. Soft tissues: Normal. Upper abdomen: Limited portions of the upper abdomen are unremarkable. IMPRESSION: 1. Chronic appearing embolus in the right lower lobe pulmonary artery with near complete occlusion. C orrelating with prior CT of the abdomen and pelvis, finding was probably present on that exam and unc hanged. No other pulmonary embolus identified. No evidence of right heart strain. Clinical correlati on and continued follow-up is recommended. If there is high clinical concern, embolus could still be treated. 2. Patchy consolidation in the lung bases left greater than right. Consolidation in the left lung bas e is likely infectious/ inflammatory. Consolidation in the right lung base could be related to old in farction. Right lower lobe nodule measuring up to 8 mm. Recommend clinical correlation and continued follow-up to resolution. 3. Compression fractures in the thoracic spine. T7 compression fracture could be acute/subacute. This could be further evaluated with MRI of the thoracic spine. HS:Y
[2024-09-15 18:48] LABS: Basophils # (auto) 0.1 10 ^3/uL (0-0.2); Basophils % (auto) 0.4 % (0.0-2.0); Eosinophils # (auto) 0 10 ^3/uL (0-0.8); Hematocrit 43.5 % (41.0-53.0); Hemoglobin 14.1 g/dL (13.5-17.5); Lymphocytes # (auto) 1.2 10 ^3/uL (0.4-5.4); Lymphocytes % (auto) 7.2 % (10.0-50.0); Mean Corpuscular Hemoglobin 29.4 pg (28.0-32.0); Mean Corpuscular Hgb Conc. 32.4 g/dL (32.0-36.0); Mean Corpuscular Volume 90.8 fL (80.0-100.0); Monocytes # (auto) 0.9 10 ^3/uL (0-1.3); Neutrophils # (auto) 15.2 10 ^3/uL (1.6-8.6); Neutrophils % (auto) 87.4 % (37.0-80.0); Nucleated Red Blood Cells % 0.1 %; Platelet Count (auto) 278 10^3/uL (140-450); Red Cell Distribution Width 16.4 % (11.8-14.3); White Blood Cell 17.4 10^3/uL (4.4-10.8)
[2024-09-15 18:59] LABS: INR 1.12 (0.9-1.15); Prothrombin Time 11.7 sec (9.3-11.8)
[2024-09-15 19:09] LABS: Partial Thromboplastin Time 100.4 SEC (24.5-34.5)
--- NOTE | 2024-09-15 19:28 | DVH ---
Bilateral lower extremity venous duplex Clinical History: PE r/o DVT Comparison: None Technique: Duplex Doppler evaluation of the deep venous systems of both lower extremities from the common femora l veins to the popliteal veins including color Doppler and spectral/pulsed waveform analysis was perf ormed. Findings: RIGHT SIDE: The common femoral vein demonstrates appropriate compressibility and waveform variability. There is compressibility/patency of the great saphenous vein at the proximal thigh. The femoral vein demonstrates appropriate compressibility and waveform variability. The deep femoral vein demonstrates appropriate compressibility and waveform variability. The popliteal vein demonstrates appropriate compressibility and waveform variability. There is normal compressibility at the tibioperoneal trunk. LEFT SIDE: The common femoral vein demonstrates appropriate compressibility and waveform variability. There is compressibility/patency of the great saphenous vein at the proximal thigh. The femoral vein demonstrates appropriate compressibility and waveform variability. The deep femoral vein demonstrates appropriate compressibility and waveform variability. The popliteal vein demonstrates appropriate compressibility and waveform variability. There is normal compressibility at the tibioperoneal trunk. Impression: 1. No right or left femoropopliteal venous thrombosis.
[2024-09-15 19:30] VITALS: PULSE 97; RESP 28; O2SAT 92
[2024-09-15] MEDS: FOLIC ACID 1 MG, MULTIPLE VITAMIN 10 ML, MAGNESIUM SULF SDV 50% 8 MEQ, THIAMINE INJ 100... INJ SCH (19:42)
[2024-09-15 20:01] LABS: Urine Bacteria None Seen /hpf (None Seen)
[2024-09-15 20:03] LABS: INR 1.05 (0.9-1.15); Partial Thromboplastin Time 26.8 SEC (24.5-34.5); Prothrombin Time 11.1 sec (9.3-11.8)
[2024-09-15 20:17] LABS: Urine Blood 1+ /uL (Negative); Urine Clarity Clear (Clear); Urine Color Light-Yellow (Yellow); Urine Protein, UAD TRACE (Negative); Urine Specific Gravity 1.018 (1.001-1.035); Urine Squamous Epithelial Cell None Seen /hpf (<5); Urine Urobilinogen Normal (Negative); Urine WBC 3 /HPF (0-3)
[2024-09-15 20:30] LABS: Cannabinoid Screen, Urine Pos (NEGATIVE)
[2024-09-15 20:31] LABS: Amphetamine Screen, Urine Neg (NEGATIVE); Barbiturate Scree,Urine Neg (NEGATIVE); Benzodiazephine Screen, Urine Pos (NEGATIVE); Cocaine Screen, Urine Neg (NEGATIVE); Opiate Scree,Urine Neg (NEGATIVE); Phencyclidine Screen, Urine Neg (NEGATIVE)
[2024-09-15] MEDS: ENOXAPARIN SOD 100 MG/1 ML SYRINGE SC ONE (20:51)
--- NOTE | 2024-09-15 21:21 | DVHSR ---
APPROVED REPORT EXAM: Two-dimensional and M-mode echocardiogram with Doppler and color Doppler. Blood Pressure: 136/61 mmHg INDICATION NSTEMI RISK FACTORS Height: 5' 9", Weight: 165 DIMENSIONS LVDd4.0 (3.8-5.7cm)LA (2D)3.1 (1.9-4.0cm)Aortic Root4.0 (2.0-3.7cm) LVDs3.4 (2.5-4.0cm)LA (MM) (1.9-4.0cm)Aortic Cusp Exc1.7 (1.5-2.0cm) EF (%) 35.0 (55-70%)Rt. Atrium3.5 (1.9-4.0cm)Asc. Aorta cm Mitral Valve MitralMitral Stenosis E wave0.70m/sMV Mean GR.mmHg A wave0.60m/sMV Peak GR.mmHg E/A ratio1.22D MVAcm2 Aortic Valve Aortic ValveAortic Stenosis V11.00m/Carlo Mean GR.3mmHg V21.10m/Carlo Peak GR.5mmHg LVOT Diameter2.2 (1.8-2.4cm)Doppler AVA3.45cm2 Tricuspid Valve TR Velocity3.10m/s [id number] Conclusion SR Aortic root enlargement. LAE. Valves are normal EF of 30% with normal RV function. Anteroseptal hypokinesis of severe degree. Moderate TR No PE masses or vegetations noted.
[2024-09-15] MEDS ORDERED: ENOXAPARIN SOD 100 MG/1 ML SYRINGE SC SCH (22:00)
[2024-09-15] MEDS: PIPERACILLIN-TAZOB 3.375GM 100 ML IV SCH (22:12)
[2024-09-16] VITALS (33 sets, daily range): BP systolic 86–136; BP diastolic 54–90; PULSE 81–108; RESP 12–29; TEMP 98.1–99.9; O2SAT 93–100
[2024-09-16] MEDS: LORazepam 2MG/ML-1ML VIAL IV PRN (05:20)
[2024-09-16 06:48] LABS: Basophils # (auto) 0.1 10 ^3/uL (0-0.2); Basophils % (auto) 0.3 % (0.0-2.0); Eosinophils # (auto) 0 10 ^3/uL (0-0.8); Hematocrit 41.6 % (41.0-53.0); Hemoglobin 14.3 g/dL (13.5-17.5); Lymphocytes # (auto) 1.8 10 ^3/uL (0.4-5.4); Lymphocytes % (auto) 9.9 % (10.0-50.0); Mean Corpuscular Hemoglobin 30.2 pg (28.0-32.0); Mean Corpuscular Hgb Conc. 34.2 g/dL (32.0-36.0); Mean Corpuscular Volume 88.1 fL (80.0-100.0); Monocytes # (auto) 1.3 10 ^3/uL (0-1.3); Monocytes % (auto) 7.2 % (0.0-12.0); Neutrophils # (auto) 14.7 10 ^3/uL (1.6-8.6); Neutrophils % (auto) 82.6 % (37.0-80.0); Platelet Count (auto) 326 10^3/uL (140-450); Red Blood Cells 4.72 10^6/uL (4.5-5.90); Red Cell Distribution Width 16.2 % (11.8-14.3); White Blood Cell 17.8 10^3/uL (4.4-10.8)
[2024-09-16 06:56] LABS: Alanine Aminotransferase 14 U/L (7-40); Albumin 4.1 g/dL (3.2-4.8); Alkaline Phosphatase 93 U/L (46-116); Anion Gap 16 (5-15); BUN/Creatinine Ratio 10.1 (10.0-20.0); Blood Urea Nitrogen 10 mg/dL (9-23); Calcium 9.1 mg/dL (8.7-10.4); Potassium 3.5 mmol/L (3.5-5.1); Total Protein 6.4 g/dL (5.7-8.2)
[2024-09-16 07:01] LABS: Aspartate Aminotransferase 46 U/L (13-40); Carbon Dioxide 20 mmol/L (20-31); Chloride 94 mmol/L (98-107); Glucose 188 mg/dL (74-106); Sodium 130 mmol/L (136-145)
[2024-09-16] MEDS: ASPirin 81 mg TAB PO SCH (09:43)
[2024-09-16] MEDS: ENOXAPARIN SOD 100 MG/1 ML SYRINGE SC SCH (09:46)
[2024-09-16] MEDS ORDERED: ASPirin 81 mg TAB PO SCH (10:00)
--- NOTE | 2024-09-16 10:04 | DVHPN2 ---
Consult Progress Note Subjective Other Systems: Patient confused at time of assessment. Denies any cardiac symptoms Objective vital signs Vital Sign Date Time Temp Pulse Resp B/P (MAP) Pulse Ox O2 Delivery O2 Flow Rate FiO2 09/16/24 08:53 113 09/16/24 07:30 99.6 16 116/82 (93) 99 99.6 09/16/24 07:30 Nasal Cannula* 4 36 Total Intake and Output 09/15/24 09/15/24 09/16/24 15:00 23:00 07:00 Intake Total 618.754 ml 612.504 ml Balance 618.754 ml 612.504 ml medications Current Medications Medications Dose Ordered Sig/Jesse Route Start Time Stop Time Status Last Admin Dose Admin Nitroglycerin 0.4 mg Q5MINP PRN SL 09/15/24 16:15 Morphine Sulfate 2 mg Q30M PRN IV 09/15/24 16:15 Lorazepam 1 mg Q5MINP PRN IV 09/15/24 16:15 09/16/24 05:20 1 MG Folic Acid 1 mg/ Multivitamins 10 ml/Magnesium Sulfate 8 meq/ Thiamine HCl 100 mg/Dextrose 1,013.2 ml @ 125.001 mls/hr DAILY@1800 INJ 09/15/24 18:00 09/15/24 19:42 125.001 MLS/HR Piperacillin Sod/ Tazobactam Sod 100 ml @ 25 mls/hr Q8HR IV 09/15/24 22:00 09/16/24 05:35 25 MLS/HR Aspirin 162 mg DAILY PO 09/16/24 10:00 Enoxaparin Sodium 80 mg Q12HR SC 09/16/24 08:45 09/16/24 09:46 80 MG Examination: GENERAL:Abnormal (Generalized weakness), LUNGS:Normal, CVS:Normal, NEURO:Abnormal (Confused) laboratory and microbiology Laboratory Tests 09/16/24 05:00 Test 09/16/24 05:00 Range/Units Serum Glucose 188 H 74-106 mg/dL Problem List/Assessment/Plan Problem List/Assessment/Plan Non-ST elevation myocardial infarction, rule out coronary artery disease Chronic 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 Bang): Case discussed with . Transthoracic echocardiogram reveals EF of 30% with anteroseptal hypokinesis of severe degree. Initiate guideline directed medical therapy for CHF as tolerated. Add MRA with stable potassium. Patient noted to have a significant rise in troponin level (2008/5/6/7387/7153). At the time of assessment, the patient denies any cardiac symptoms, but is noted to be confused. The patient may benefit from a coronary angiogram with left heart catheterization. We will consider taking the patient for coronary angiogram with improvement in neurological function. In the meantime, continue with medical management. Thank you for allowing us to care for this patient. Please call with any questions or concerns. Critical care time: 40 min. This medical document was created using an electronic medical record system with voice recognition software and computerized dictation system. Although this document has been carefully reviewed, there might still be some phonetic and typographical errors. Occasional wrong-word or ``sound-alike substitutions may have occurred due to the inherent limitations of voice recognition software. These areas are purely typographical due to imperfections of the software programs and do not reflect any compromise in the patient's medical care. Please read the chart carefully and recognize, using context, where these substitutions have occurred. Plan discussed with: Other (Bedside RN) Date of Service: Sep 16, 2024 Billing Provider: VOLODYMYR LOW Common Visit Codes: [id number] INP/OBS CARE(HIGH) VOLODYMYR LOW Sep 16, 2024 10:04
--- NOTE | 2024-09-16 10:23 | ECG ---
[facility] Test Date: 2024-09-15 Test Time: 15:23:34 Pat Name: ETHAN SOLANO Department: er Room: 0266D Gender: M Purification Director: ayad : 1945 Requested By: TAI HAYS Order Number: [id number] Reading MD: Justo Bang Measurements Intervals [place] Rate: 100 P: 57 IA: 147 QRS: 92 QRSD: 90 T: 54 QT: 364 QTc: 470 Interpretive Statements Sinus tachycardia Right axis deviation Probable anteroseptal infarct, old Borderline ST elevation, lateral leads Electronically Signed On 09-18-2024 17:53:37 PST by Justo Bang Please click the below link to view image of tracing.
--- NOTE | 2024-09-16 13:37 | ECG ---
[facility] Test Date: 2024-09-15 Test Time: 15:55:04 Pat Name: ETHAN SOLANO Department: ED Room: 0266D Gender: M Chiropractor Assistant: KIN : 1945 Requested By: TAI HAYS Order Number: [id number] Reading MD: Justo Bang Measurements Intervals [place] Rate: 97 P: 99 SD: 199 QRS: 58 QRSD: 152 T: 76 QT: 364 QTc: 463 Interpretive Statements Sinus rhythm Nonspecific intraventricular conduction delay Lateral infarct, acute Anteroseptal infarct, age indeterminate Electronically Signed On 09-18-2024 17:54:13 PST by Justo Bang Please click the below link to view image of tracing.
--- NOTE | 2024-09-16 13:42 | DVHPN2 ---
Subjective Patient continues to be encephalopathic Reviewed: Care Plan, H&P, Labs, Medications Changes from previous H/P or p: No Changes General: Per HPI Objective Vitals Vital Signs Date Time Temp Pulse Resp B/P (MAP) Pulse Ox O2 Delivery O2 Flow Rate FiO2 09/16/24 12:30 97 23 120/82 (95) 97 09/16/24 07:30 99.6 99.6 09/16/24 07:30 Nasal Cannula* 4 36 Intake/Output Intake and Output 09/16/24 07:00 Intake Total 1231.258 ml Balance 1231.258 ml Intake IV Total 1231.258 ml General Appearance: Alert, Other (Disoriented) HEENT: Atraumatic, PERRLA Lungs: Clear to auscultation, Normal air movement Cardiovascular: Normal S1, Normal S2 Abdomen: Normal bowel sounds, Soft, No tenderness, No hepatospenomegaly Musculoskeletal: Normal sensory function, Normal motor function Neuro: Strength at 5/5 X4 ext, Other (Patient nonverbal) Psych/Mental Status: Other (Altered mental status) Medications Current Medications Medications Dose Ordered Sig/Jesse Route Start Time Stop Time Status Last Admin Dose Admin Nitroglycerin 0.4 mg Q5MINP PRN SL 09/15/24 16:15 Morphine Sulfate 2 mg Q30M PRN IV 09/15/24 16:15 Lorazepam 1 mg Q5MINP PRN IV 09/15/24 16:15 09/16/24 05:20 1 MG Folic Acid 1 mg/ Multivitamins 10 ml/Magnesium Sulfate 8 meq/ Thiamine HCl 100 mg/Dextrose 1,013.2 ml @ 125.001 mls/hr DAILY@1800 INJ 09/15/24 18:00 09/15/24 19:42 125.001 MLS/HR Piperacillin Sod/ Tazobactam Sod 100 ml @ 25 mls/hr Q8HR IV 09/15/24 22:00 09/16/24 05:35 25 MLS/HR Aspirin 162 mg DAILY PO 09/16/24 10:00 Enoxaparin Sodium 80 mg Q12HR SC 09/16/24 08:45 09/16/24 09:46 80 MG Laboratory Results Laboratory Tests 09/16/24 05:00 Chemistry Test 09/15/24 14:45 09/16/24 05:00 Calcium Level 9.5 mg/dL (8.7-10.4) 9.1 mg/dL (8.7-10.4) Albumin 4.1 g/dL (3.2-4.8) Total Protein 6.4 g/dL (5.7-8.2) Coagulation Test 09/15/24 17:36 09/15/24 19:36 Prothrombin Time 11.7 sec (9.3-11.8) 11.1 sec (9.3-11.8) Prothrombin Time INR 1.12 (0.9-1.15) 1.05 (0.9-1.15) Activated Partial Thromboplast Time 100.4 SEC (24.5-34.5) *H 26.8 SEC (24.5-34.5) D-Dimer, Quantitative 3.17 mg/L FEU (0.0-0.49) H LFT Test 09/16/24 05:00 Alanine Aminotransferase (ALT) 14 U/L (7-40) Alkaline Phosphatase 93 U/L (46-116) Aspartate Amino Transferase (AST) 46 U/L (13-40) H Total Bilirubin 2.0 mg/dL (0.2-1.0) H Urinalysis Test 09/15/24 19:56 Urine Color Light-yellow (Yellow) Urine Clarity Clear (Clear) Urine pH 6.0 (5.0-9.0) Urine Specific [place] 1.018 (1.001-1.035) Urine Protein Trace (Negative) H Urine Ketones 2+ (Negative) H Urine Blood 1+ /uL (Negative) H Urine Nitrite Negative (Negative) Urine Bilirubin Negative (Negative) Urine Urobilinogen Normal mg/dL (Negative) Urine Leukocyte Esterase Negative /uL (Negative) Urine RBC 46 /hpf (0 - 3) Urine Microscopic WBC 3 /HPF (0-3) Urine Squamous Epithelial Cells None seen /hpf (<5) Urine Bacteria None seen /hpf (None Seen) Urine Glucose Trace mg/dL (Normal) Blood Gas Results Test 09/15/24 16:29 Arterial Blood pH 7.422 (7.350-7.450) FiO2 % 100.0 Labs and/or images reviewed: Labs reviewed by me, Image(s) reviewed by me Assessment/Plan Assessment/Plan Impression: -metabolic encephalopathy, questionably postictal -? Seizure disorder -history of alcoholism -history of marijuana use -NSTEMI,? Type -leukocytosis, rule out sepsis -acute hypoxic respiratory failure Plan: -events: Patient continues to have altered mental status. Questionable encephalopathy from polysubstance abuse. Troponins trending up. Cardiology consultation has been placed. CT angiogram of the chest positive for chronic right lower lobe PE. Echocardiogram with anteroseptal wall akinesis. Discussed case with Cardiology. Continue anticoagulation at this time. Start aspirin once patient was tolerating p.o.. Long discussion made with patient's was bedside. Nasal trumpet removed from patient. -CT angiogram of the chest: Recommendations reviewed -therapeutic dose Lovenox -ACS protocol -serial troponin -antibiotic therapy: Zosyn , add azithromycin -repeat labs in a.m. -banana bag daily Critical care time spent with patient discussing and formulating plan of care: 90 minutes. This does not include time spent performing procedures. This medical document was created using an electronic medical record system with [employer] dictation system. Although this document has been carefully reviewed, there may still be some phonetic and typographical errors. These areas are purely typographical due to imperfections of the software programs, and do not reflect any compromise in the patient's medical care. Plan discussed with: Patient, Spouse, Other (RN) My Orders Orders - SAMANTHA MAE NP Procedure Category Date Status Time Ct Angio Chest CT 09/15/24 Resulted Contrast 16:03 Admit ADMIT 09/15/24 Transmitted 16:03 Nitroglycerin PHA 09/15/24 In Process Sublingual (Ntrostat 16:15 Morphine Sulfate PHA 09/15/24 In Process Injection 16:15 Stat Ekg For Chest GEE 09/15/24 In Process Pain 16:03 Notify Md Of Changes GEE 09/15/24 In Process From Base 16:03 Truck Dock Material Mover For GEE 09/15/24 In Process 24 Hours 16:03 Emergency Dysrhythmia GEE 09/15/24 In Process Protocol 16:03 Rhythm Strips Once GEE 09/15/24 In Process Every Shift 16:03 Oxygen By Nasal RT 09/15/24 Transmitted Cannula 16:03 Lorazepam 2mg/Ml Inj PHA 09/15/24 In Process (Ativan Inj) 16:15 Folic Acid... PHA 09/15/24 In Process 18:00 Piperacillin-Tazob PHA 09/15/24 In Process 3.375gm (Zosyn 3.375g 22:00 Cardiac DIET 09/15/24 Transmitted Diet-2gna,Lofat,Lochol Dinner Aspirin Tablet PHA 09/16/24 In Process 10:00 Platelet Monitoring GEE 09/15/24 In Process 17:14 Heparin Per GEE 09/15/24 In Process Standardized Proce 17:14 Discontinue All Im GEE 09/15/24 In Process Injections 17:14 Transfer Orders XFER 09/15/24 Transmitted 17:14 Troponin-I Hs LAB 09/16/24 In Process 12:37 B-Type Natriuretic LAB 09/17/24 Verified Peptide 04:00 Complete Blood Count LAB 09/17/24 Verified 04:00 Date of Service: Sep 16, 2024 Billing Provider: SAMANTHA MAE NP Common Visit Codes: [id number] CARE 30-74 MIN, 73070-[id number] CARE-EACH +30MIN SAMANTHA MAE NP Sep 16, 2024 13:42
[2024-09-16 16:18] LABS: Magnesium 2.2 mg/dL (1.6-2.6)
[2024-09-17] VITALS (88 sets, daily range): BP systolic 65–147; BP diastolic 39–95; PULSE 72–97; RESP 12–27; TEMP 97.1–98.6; O2SAT 95–100
[2024-09-17 05:28] LABS: Basophils # (auto) 0.1 10 ^3/uL (0-0.2); Basophils % (auto) 0.5 % (0.0-2.0); Eosinophils # (auto) 0 10 ^3/uL (0-0.8); Eosinophils % (auto) 0.3 % (0.0-7.0); Hematocrit 38.4 % (41.0-53.0); Hemoglobin 13.3 g/dL (13.5-17.5); Lymphocytes # (auto) 1.8 10 ^3/uL (0.4-5.4); Lymphocytes % (auto) 15.7 % (10.0-50.0); Mean Corpuscular Hemoglobin 30.1 pg (28.0-32.0); Mean Corpuscular Hgb Conc. 34.5 g/dL (32.0-36.0); Mean Corpuscular Volume 87.4 fL (80.0-100.0); Monocytes % (auto) 8.7 % (0.0-12.0); Neutrophils # (auto) 8.8 10 ^3/uL (1.6-8.6); Neutrophils % (auto) 74.8 % (37.0-80.0); Platelet Count (auto) 247 10^3/uL (140-450); Red Cell Distribution Width 15.5 % (11.8-14.3); White Blood Cell 11.7 10^3/uL (4.4-10.8)
[2024-09-17 05:51] LABS: Alanine Aminotransferase 12 U/L (7-40); Albumin 3.5 g/dL (3.2-4.8); Alkaline Phosphatase 80 U/L (46-116); Anion Gap 8 (5-15); Aspartate Aminotransferase 36 U/L (13-40); BUN/Creatinine Ratio 11.6 (10.0-20.0); Blood Urea Nitrogen 10 mg/dL (9-23); Carbon Dioxide 22 mmol/L (20-31); Chloride 98 mmol/L (98-107); Total Protein 5.8 g/dL (5.7-8.2)
[2024-09-17 06:02] LABS: Bilirubin, Total 1.8 mg/dL (0.2-1.0); Calcium 8.4 mg/dL (8.7-10.4); Glucose 122 mg/dL (74-106); Potassium 3.4 mmol/L (3.5-5.1); Sodium 128 mmol/L (136-145)
[2024-09-17] MEDS: POTASSIUM CHLORIDE 40 MEQ, LIDOCAINE 1% (LOCAL ANESTH.) 4 ML in SODIUM CHL 0.9% 250 ML IV ONE (08:30)
--- NOTE | 2024-09-17 09:14 | ECG ---
[facility] Test Date: 2024-09-15 Test Time: 15:57:30 Pat Name: ETHAN SOLANO Department: ED Room: 0266D A Gender: M Translator And Interpreter: KIN : 1945 Requested By: TAI HAYS Order Number: [id number] Reading MD: Justo Bang Measurements Intervals [place] Rate: 98 P: 50 [place]: 146 QRS: 68 QRSD: 93 T: 57 QT: 376 QTc: 481 Interpretive Statements Sinus rhythm Probable anteroseptal infarct, old Electronically Signed On 09-18-2024 17:54:17 PST by Justo Bang Please click the below link to view image of tracing.
--- NOTE | 2024-09-17 09:21 | ECG ---
[facility] Test Date: 2024-09-17 Test Time: 09:12:50 Pat Name: ETHAN SOLANO Department: Room: 0266D A Gender: M Service Rig Operator: JOSEFINA : 1945 Requested By: SAMANTHA MAE Order Number: [id number] Reading MD: Justo Bang Measurements Intervals [place] Rate: 80 P: 26 [place]: 138 QRS: 27 QRSD: 82 T: 145 QT: 464 QTc: 535 Interpretive Statements Normal sinus rhythm Low voltage QRS Septal infarct , age undetermined Possible Lateral infarct , age undetermined Cannot rule out Inferior infarct , age undetermined T wave abnormality, consider anterior ischemia Prolonged QT Electronically Signed On 09-17-2024 13:39:30 PST by Justo Bang Please click the below link to view image of tracing.
--- NOTE | 2024-09-17 09:23 | DVHPN2 ---
Subjective Patient continues to be encephalopathic Reviewed: Care Plan, H&P, Labs, Medications Changes from previous H/P or p: No Changes General: Per HPI Objective Vitals Vital Signs Date Time Temp Pulse Resp B/P (MAP) Pulse Ox O2 Delivery O2 Flow Rate FiO2 09/17/24 06:45 83 23 96/57 (70) 100 09/17/24 04:00 98.0 98.0 09/16/24 20:00 Nasal Cannula* 3 32 Intake/Output Intake and Output 09/17/24 07:00 Intake Total 1372.509 ml Output Total 1450 ml Balance -77.491 ml Intake Oral 60 ml IV Total 1312.509 ml Output Urine Total 1450 ml General Appearance: Alert, Other (Disoriented) HEENT: Atraumatic, PERRLA Lungs: Clear to auscultation, Normal air movement Cardiovascular: Normal S1, Normal S2 Abdomen: Normal bowel sounds, Soft, No tenderness, No hepatospenomegaly Musculoskeletal: Normal sensory function, Normal motor function Neuro: Strength at 5/5 X4 ext, Other (Patient nonverbal) Skin: Dry, Intact Psych/Mental Status: Other (Altered mental status) Medications Current Medications Medications Dose Ordered Sig/Jesse Route Start Time Stop Time Status Last Admin Dose Admin Nitroglycerin 0.4 mg Q5MINP PRN SL 09/15/24 16:15 Morphine Sulfate 2 mg Q30M PRN IV 09/15/24 16:15 Lorazepam 1 mg Q5MINP PRN IV 09/15/24 16:15 09/16/24 05:20 1 MG Folic Acid 1 mg/ Multivitamins 10 ml/Magnesium Sulfate 8 meq/ Thiamine HCl 100 mg/Dextrose 1,013.2 ml @ 125.001 mls/hr DAILY@1800 INJ 09/15/24 18:00 09/16/24 18:00 125.001 MLS/HR Piperacillin Sod/ Tazobactam Sod 100 ml @ 25 mls/hr Q8HR IV 09/15/24 22:00 09/17/24 05:05 25 MLS/HR Aspirin 162 mg DAILY PO 09/16/24 10:00 09/16/24 14:49 162 MG Enoxaparin Sodium 80 mg Q12HR SC 09/16/24 08:45 09/16/24 21:26 80 MG Azithromycin 250 ml @ 125 mls/hr DAILY IV 09/17/24 10:00 Empaglifozin 10 mg DAILY PO 09/17/24 10:00 Metoprolol Succinate 25 mg DAILY PO 09/17/24 10:00 Losartan Potassium 12.5 mg DAILY PO 09/17/24 10:00 Laboratory Results Laboratory Tests 09/17/24 05:00 Chemistry Test 09/17/24 05:00 Albumin 3.5 g/dL (3.2-4.8) Calcium Level 8.4 mg/dL (8.7-10.4) L Total Protein 5.8 g/dL (5.7-8.2) Cardiac Markers Test 09/17/24 05:00 B-Type Natriuretic Peptide 1207.40 pg/mL (0-100) LFT Test 09/17/24 05:00 Alanine Aminotransferase (ALT) 12 U/L (7-40) Alkaline Phosphatase 80 U/L (46-116) Aspartate Amino Transferase (AST) 36 U/L (13-40) Total Bilirubin 1.8 mg/dL (0.2-1.0) H Urinalysis Test 09/15/24 19:56 Urine Color Light-yellow (Yellow) Urine Clarity Clear (Clear) Urine pH 6.0 (5.0-9.0) Urine Specific [place] 1.018 (1.001-1.035) Urine Protein Trace (Negative) H Urine Ketones 2+ (Negative) H Urine Blood 1+ /uL (Negative) H Urine Nitrite Negative (Negative) Urine Bilirubin Negative (Negative) Urine Urobilinogen Normal mg/dL (Negative) Urine Leukocyte Esterase Negative /uL (Negative) Urine RBC 46 /hpf (0 - 3) Urine Microscopic WBC 3 /HPF (0-3) Urine Squamous Epithelial Cells None seen /hpf (<5) Urine Bacteria None seen /hpf (None Seen) Urine Glucose Trace mg/dL (Normal) Labs and/or images reviewed: Labs reviewed by me, Image(s) reviewed by me Assessment/Plan Assessment/Plan Impression: -metabolic encephalopathy, questionably postictal -? Seizure disorder -history of alcoholism -history of marijuana use -NSTEMI,? Type -leukocytosis, rule out sepsis -acute hypoxic respiratory failure -potassium replacement Plan: -events: Patient was awake and following some commands. Oriented x2. No further seizure activity. -repeat EKG -start p.o. intake as tolerated -potassium replacement -CT angiogram of the chest: Recommendations reviewed -therapeutic dose Lovenox -ACS protocol -serial troponin -antibiotic therapy: Zosyn , add azithromycin -repeat labs in a.m. -banana bag daily Critical care time spent with patient discussing and formulating plan of care: 90 minutes. This does not include time spent performing procedures. This medical document was created using an electronic medical record system with [employer] dictation system. Although this document has been carefully reviewed, there may still be some phonetic and typographical errors. These areas are purely typographical due to imperfections of the software programs, and do not reflect any compromise in the patient's medical care. Plan discussed with: Patient, Other (RN) My Orders Orders - SAMANTHA MAE NP Procedure Category Date Status Time Azithromycin 500mg/ PHA 09/17/24 In Process 250ml (Zithromax 50 10:00 Potassium Chloride PHA 09/17/24 In Process (Potassium Chloride). 08:30 Basic Metabolic Panel LAB 09/18/24 Verified 04:00 Complete Blood Count LAB 09/18/24 Verified 04:00 Chest Portable XY 09/18/24 Logged 04:00 Date of Service: Sep 17, 2024 Billing Provider: SAMANTHA MAE NP Common Visit Codes: [id number] CARE 30-74 MIN SAMANTHA MAE NP Sep 17, 2024 09:23
[2024-09-17] MEDS: EMPAGLIFLOZIN 10 MG TAB PO SCH (10:00)
[2024-09-17] MEDS: METOPROLOL SUCCINATE XL 50 MG TAB PO SCH (10:00)
[2024-09-17] MEDS: LOSARTAN POTASSIUM 25 MG TAB PO SCH (10:00)
[2024-09-17] MEDS: AZITHROMYCIN 500MG/ 250ML 250 ML IV SCH (10:00)
[2024-09-17] MEDS: NOREPINEPHRINE 8 MG/250ML KIT 250 ML IV SCH (11:45)
[2024-09-17] MEDS: NOREPINEPHRINE 8 MG/250ML KIT 250 ML IV ONE (11:47)
[2024-09-17 13:52] LABS: INR 1.08 (0.9-1.15); Partial Thromboplastin Time 38.4 SEC (24.5-34.5); Prothrombin Time 11.4 sec (9.3-11.8)
--- NOTE | 2024-09-17 13:59 | ECG ---
[facility] Test Date: 2024-09-16 Test Time: 08:53:22 Pat Name: ETHAN SOLANO Department: er Room: 0266D A Gender: M Resource Specialist Teacher: june : 1945 Requested By: TAI HAYS Order Number: [id number] Reading MD: Justo Bang Measurements Intervals [place] Rate: 113 P: 26 DC: 142 QRS: 66 QRSD: 85 T: 103 QT: 367 QTc: 504 Interpretive Statements Sinus tachycardia Ventricular premature complex Aberrant conduction of SV complex(es) Anteroseptal infarct, age indeterminate Lateral leads are also involved Prolonged QT interval Electronically Signed On 09-18-2024 17:58:51 PST by Justo Bang Please click the below link to view image of tracing.
[2024-09-17] MEDS: ANGIOMAX 250 MG VIAL IV ONE (15:23)
[2024-09-17] MEDS: fentaNYL CITRATE 100 MCG/2 ML VL ONE (15:23)
[2024-09-17] MEDS: SODIUM CHL 0.9% 50 ML ONE (15:24)
[2024-09-17] MEDS: LIDOCAINE 2%HCL (LOCAL ANESTH.) INJ 20ML MDV ONE (15:24)
[2024-09-17] MEDS: MIDAZOLAM HCL 2MG/2ML 2ml VIAL (1mg/ml) ONE (15:24)
[2024-09-17] MEDS: IODIXANOL 320MG/ML 100ML BTL IV ONE (16:21)
[2024-09-17] MEDS: CLOPIDOGREL BISULFATE 75 MG TAB ONE ×2 (16:21)
--- NOTE | 2024-09-17 16:21 | DVHOP2 ---
Operative Report - 2 Report Details Date: 09/17/24 Preop Diagnosis: Cardiomyopathy. CAD. Postop Diagnosis: CAD. Cardiomyopathy. Successful PTCA and stenting of the LAD. Surgeon: Marie Bang MD Anesthesiologist: Conscious sedation Anesthesia: Mac, Local (Versed was given at the initiation of the procedure. I personally ordered monitor the patient throughout the entirety of the case) Consent: The patient was informed of the risks and benefits of the procedure. These include but are not limited to complications of anesthesia, postoperative infection, incomplete relief of symptoms, recurrence of symptoms, damage to blood vessels, nerves and tendons, deep venous thrombosis, pulmonary embolism and possible need for repeat surgery in the future. Complications: No complications Estimated Blood Loss: 3 cc Findings: Decreased left ventricular ejection fraction. Lad stenosis. Indications for Surgery: Chest pain. Troponin elevation. Cardiomyopathy. Name of Procedure Performed Left heart catheterization. Bilateral cine coronary angiography. Left ventriculography. PTCA and stenting of the LAD. Procedure Details Procedure Details: Prior local anesthesia with 2% lidocaine to the right groin and full informed consent obtained. Patient was prepped and draped in usual fashion and under fluoroscopic and ultrasound guidance we placed a six Turkish sheath in the right femoral artery through which six Turkish Chris catheters were used to cannulate both right and left coronary ostium and ventriculography. A three five EBU guide was then used for angioplasty of the LAD as will be delineated. Hemodynamics aortic blood pressure was 110/70. End-diastolic pressure was 16 without gradient across the aortic valve on pullback. Coronary anatomy the RCA is a nondominant vessel. It gives off to a moderate- sized acute marginal branch that has a 90% proximal stenosis. The RCA and at the mid AV groove. Left main is large and normal. The circumflex is large with two marginals free of significant disease. PDA comes off the circumflex and it is normal. The left anterior descending coronary artery is a medium caliber vessel. Has a 95% stenosis at its proximal portion. Mild calcification noted. Diagonals are normal. Ventriculography in the HARMAN projection shows a anterior apical dyskinesis. Piece to be a small aneurysmal segment. EF is about of 30% with septal and posterior basal hypokinesis. Distal anterior wall hypokinesis mid into wall hypokinesis to akinesis. Angioplasty was performed for which a three five EBU was used and a Specter wire across the lesion. A 2015 mm balloon was used to pre dilate the LAD. This was followed with a 225 by 23 balloon at a proximal 18 atmospheres with excellent antegrade flow without thrombus formation under dissection. Impression elevated left ventricular end-diastolic pressure at rest. Decreased left ventricular ejection fraction. Single-vessel coronary artery disease as delineated above with successful angioplasty and stenting of the proximal LAD. Recommendations continue current medical therapy. Dual antiplatelet therapy. Afterload reduction BP control. Follow up as an outpatient. Condition Guarded Disposition Still a Patient Date of Service: Sep 17, 2024 Billing Provider: MARIE BANG Sr., MD Cardiology Common Codes: [id number] INP/OBS CARE (High) Cardiology Procedure Codes: 13624 -PTCA W/STENT PLACEMENT, 63497-RDHB ADD COR ART/BRNCH/GRFT MARIE BANG Sr., MD Sep 17, 2024 16:21
--- NOTE | 2024-09-17 17:41 | ECG ---
[facility] Test Date: 2024-09-17 Test Time: 13:01:55 Pat Name: ETHAN SOLANO Department: Room: 0266D A Gender: M Senior Support Analyst: JOSEFINA : 1945 Requested By: SAMANTHA MAE Order Number: [id number] Reading MD: Justo Bang Measurements Intervals [place] Rate: 72 P: 40 [place]: 140 QRS: 34 QRSD: 76 T: 137 QT: 476 QTc: 521 Interpretive Statements Normal sinus rhythm Possible Lateral infarct , age undetermined T wave abnormality, consider anterior ischemia Prolonged QT Electronically Signed On 09-18-2024 16:30:59 PST by Justo Bang Please click the below link to view image of tracing.
[2024-09-18] VITALS (96 sets, daily range): BP systolic 56–126; BP diastolic 33–79; PULSE 60–89; RESP 7–25; TEMP 97.1–98.5; O2SAT 82–100
--- NOTE | 2024-09-18 05:51 | DVH ---
CHEST RADIOGRAPH Indication: pna Technique: Single frontal view of the chest was obtained COMPARISON: XY CHEST PORTABLE on DOS: 09/15/24, XY CHEST PORTABLE on DOS: 07/13/24, CHEST PORTABLE on D OS: 07/15/22, CXRP on DOS: 07/15/22 FINDINGS: Lines and Tubes: None Lungs: Diffuse increased interstitial prominence. Pleura: No effusion. No pneumothorax. Cardiomediastinal contours: Cardiomegaly Bones: Unremarkable IMPRESSION: Increased pulmonary vascular congestion
[2024-09-18 07:39] LABS: Chloride 106 mmol/L (98-107); Potassium 3.9 mmol/L (3.5-5.1)
[2024-09-18 07:40] LABS: Anion Gap 6 (5-15)
[2024-09-18 07:55] LABS: Blood Urea Nitrogen 6 mg/dL (9-23); Calcium 7.9 mg/dL (8.7-10.4); Carbon Dioxide 15 mmol/L (20-31); Glucose 113 mg/dL (74-106); Sodium 127 mmol/L (136-145)
[2024-09-18] MEDS: CLOPIDOGREL BISULFATE 75 MG TAB PO SCH (09:39)
[2024-09-18] MEDS: POTASSIUM EFFERVESENT TAB 25 MEQ PO ONE (09:39)
[2024-09-18] MEDS: ASPirin 81 mg TAB PO SCH (09:40)
--- NOTE | 2024-09-18 09:53 | DVHPN2 ---
Subjective Patient denies any symptoms. Reviewed: Care Plan, H&P, Labs, Medications Changes from previous H/P or p: Changes General: Per HPI Objective Vitals Vital Signs Date Time Temp Pulse Resp B/P (MAP) Pulse Ox O2 Delivery O2 Flow Rate FiO2 09/18/24 07:00 71 21 101/62 (75) 98 09/18/24 04:00 97.2 97.2 09/17/24 20:00 Nasal Cannula* 2 28 Intake/Output Intake and Output 09/18/24 07:00 Intake Total 2401.501 ml Output Total 1875 ml Balance 526.501 ml Intake Oral 0 ml IV Total 2401.501 ml Output Urine Total 1875 ml # Bowel Movements 1 General Appearance: Alert, Oriented X3, mild distress HEENT: Atraumatic, PERRLA Lungs: Clear to auscultation, Normal air movement Cardiovascular: Normal S1, Normal S2, Other (ST depressions noted) Abdomen: Normal bowel sounds, Soft, No tenderness, No hepatospenomegaly Musculoskeletal: Normal sensory function, Normal motor function Neuro: Normal speech, Strength at 5/5 X4 ext, Cranial nerves 3-12 NL, Other (Patient nonverbal) Skin: Dry, Intact Psych/Mental Status: Other (Altered mental status) Medications Current Medications Medications Dose Ordered Sig/Jesse Route Start Time Stop Time Status Last Admin Dose Admin Nitroglycerin 0.4 mg Q5MINP PRN SL 09/15/24 16:15 Morphine Sulfate 2 mg Q30M PRN IV 09/15/24 16:15 Lorazepam 1 mg Q5MINP PRN IV 09/15/24 16:15 09/16/24 05:20 1 MG Piperacillin Sod/ Tazobactam Sod 100 ml @ 25 mls/hr Q8HR IV 09/15/24 22:00 09/18/24 09:39 25 MLS/HR Empaglifozin 10 mg DAILY PO 09/17/24 10:00 09/18/24 09:40 10 MG Metoprolol Succinate 25 mg DAILY PO 09/17/24 10:00 Losartan Potassium 12.5 mg DAILY PO 09/17/24 10:00 Norepinephrine Bitartrate 250 ml @ 3.75 mls/hr Q24H IV 09/17/24 11:45 09/17/24 11:45 3.75 MLS/HR Clopidogrel Bisulfate 75 mg DAILY PO 09/18/24 10:00 09/18/24 09:39 75 MG Aspirin 81 mg DAILY PO 09/18/24 10:00 09/18/24 09:40 81 MG Laboratory Results Laboratory Tests 09/18/24 07:09 Chemistry Test 09/18/24 07:09 Calcium Level 7.9 mg/dL (8.7-10.4) L Coagulation Test 09/17/24 13:20 Prothrombin Time 11.4 sec (9.3-11.8) Prothrombin Time INR 1.08 (0.9-1.15) Activated Partial Thromboplast Time 38.4 SEC (24.5-34.5) H Urinalysis Test 09/15/24 19:56 Urine Color Light-yellow (Yellow) Urine Clarity Clear (Clear) Urine pH 6.0 (5.0-9.0) Urine Specific [place] 1.018 (1.001-1.035) Urine Protein Trace (Negative) H Urine Ketones 2+ (Negative) H Urine Blood 1+ /uL (Negative) H Urine Nitrite Negative (Negative) Urine Bilirubin Negative (Negative) Urine Urobilinogen Normal mg/dL (Negative) Urine Leukocyte Esterase Negative /uL (Negative) Urine RBC 46 /hpf (0 - 3) Urine Microscopic WBC 3 /HPF (0-3) Urine Squamous Epithelial Cells None seen /hpf (<5) Urine Bacteria None seen /hpf (None Seen) Urine Glucose Trace mg/dL (Normal) Labs and/or images reviewed: Labs reviewed by me, Image(s) reviewed by me Assessment/Plan Assessment/Plan Impression: -metabolic encephalopathy, questionably postictal -? Seizure disorder -history of alcoholism -history of marijuana use -NSTEMI,? Type -leukocytosis, rule out sepsis -acute hypoxic respiratory failure -potassium replacement Plan: -events: Patient was status post PTCA and stent placement of proximal LAD. Patient now with pulmonary vascular congestion, vasopressor therapy, probably secondary to cardiogenic shock. Patient was started on norepinephrine last night. -stop beta-gabrielle and LEXIS inhibitor -IV diuresis -potassium replacement -physical therapy -continue dual antiplatelet therapy. Consider triple therapy or changing aspirin to Xarelto or Eliquis given pulmonary embolism -ACS protocol -continue Zosyn, stop azithromycin -repeat labs in a.m. -transfer to ICU Critical care time spent with patient discussing and formulating plan of care: 90 minutes. This does not include time spent performing procedures. This medical document was created using an electronic medical record system with [employer] dictation system. Although this document has been carefully reviewed, there may still be some phonetic and typographical errors. These areas are purely typographical due to imperfections of the software programs, and do not reflect any compromise in the patient's medical care. Plan discussed with: Patient, Other (RN) My Orders Orders - SAMANTHA MAE NP Procedure Category Date Status Time Basic Metabolic Panel LAB 09/19/24 Verified 04:00 Chest Portable XY 09/19/24 Logged 04:00 Complete Blood Count LAB 09/19/24 Verified 04:00 Date of Service: Sep 18, 2024 Billing Provider: SAMANTHA MAE NP Common Visit Codes: [id number] CARE 30-74 MIN SAMANTHA MAE NP Sep 18, 2024 09:53
[2024-09-18] MEDS: THIAMINE HCL 100 MG TAB PO SCH (10:29)
[2024-09-18] MEDS: MULTIPLE VITAMIN TAB PO SCH (10:29)
[2024-09-18] MEDS: FUROSEMIDE 40 MG/4 ML VIAL IV ONE (10:29)
[2024-09-18 13:39] LABS: Basophils # (auto) 0.1 10 ^3/uL (0-0.2); Basophils % (auto) 0.7 % (0.0-2.0); Eosinophils # (auto) 0.1 10 ^3/uL (0-0.8); Eosinophils % (auto) 0.7 % (0.0-7.0); Hematocrit 35.8 % (41.0-53.0); Hemoglobin 12.3 g/dL (13.5-17.5); Lymphocytes # (auto) 1.1 10 ^3/uL (0.4-5.4); Lymphocytes % (auto) 14.5 % (10.0-50.0); Mean Corpuscular Hemoglobin 29.7 pg (28.0-32.0); Mean Corpuscular Hgb Conc. 34.4 g/dL (32.0-36.0); Mean Corpuscular Volume 86.2 fL (80.0-100.0); Monocytes # (auto) 0.9 10 ^3/uL (0-1.3); Monocytes % (auto) 11.1 % (0.0-12.0); Neutrophils # (auto) 5.6 10 ^3/uL (1.6-8.6); Platelet Count (auto) 252 10^3/uL (140-450); Red Blood Cells 4.15 10^6/uL (4.5-5.90); Red Cell Distribution Width 15.9 % (11.8-14.3); White Blood Cell 7.7 10^3/uL (4.4-10.8)
--- NOTE | 2024-09-18 16:00 | DVHPN2 ---
Consult Progress Note Subjective Other Systems: Patient remains in normal sinus rhythm on laboratory monitor. Patient alert and oriented x2 at time of assessment, but denies any cardiac symptoms Objective vital signs Vital Sign Date Time Temp Pulse Resp B/P (MAP) Pulse Ox O2 Delivery O2 Flow Rate FiO2 09/18/24 15:15 74 21 100/66 (77) 94 09/18/24 12:00 97.5 97.5 09/18/24 08:00 Nasal Cannula* 2 28 Total Intake and Output 09/17/24 09/17/24 09/18/24 15:00 23:00 07:00 Intake Total 614.00 ml 840.001 ml 947.50 ml Output Total 375 ml 1500 ml Balance 614.00 ml 465.001 ml -552.50 ml medications Current Medications Medications Dose Ordered Sig/Jesse Route Start Time Stop Time Status Last Admin Dose Admin Nitroglycerin 0.4 mg Q5MINP PRN SL 09/15/24 16:15 Morphine Sulfate 2 mg Q30M PRN IV 09/15/24 16:15 Lorazepam 1 mg Q5MINP PRN IV 09/15/24 16:15 09/16/24 05:20 1 MG Piperacillin Sod/ Tazobactam Sod 100 ml @ 25 mls/hr Q8HR IV 09/15/24 22:00 09/18/24 14:27 25 MLS/HR Empaglifozin 10 mg DAILY PO 09/17/24 10:00 09/18/24 09:40 10 MG Norepinephrine Bitartrate 250 ml @ 3.75 mls/hr Q24H IV 09/17/24 11:45 09/17/24 11:45 3.75 MLS/HR Clopidogrel Bisulfate 75 mg DAILY PO 09/18/24 10:00 09/18/24 09:39 75 MG Aspirin 81 mg DAILY PO 09/18/24 10:00 09/18/24 09:40 81 MG Thiamine HCl 100 mg DAILY PO 09/18/24 10:00 09/18/24 10:29 100 MG Multivitamins 1 tab DAILY PO 09/18/24 10:00 09/18/24 10:29 1 TAB Examination: GENERAL:Abnormal (Generalized weakness), LUNGS:Normal, CVS:Normal, NEURO:Abnormal (Confusion) laboratory and microbiology Laboratory Tests 09/18/24 13:10 09/18/24 07:09 Test 09/18/24 07:09 Range/Units Serum Glucose 113 H 74-106 mg/dL Problem List/Assessment/Plan Problem List/Assessment/Plan Non-ST elevation myocardial infarction type 1, status post PTCA X 1 DALY to LAD Dyslipidemia, newly diagnosed Chronic 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 Bang): Case discussed with . Transthoracic echocardiogram reveals EF of 30% with anteroseptal hypokinesis of severe degree. Initiate guideline directed medical therapy for CHF as tolerated by BP. Add MRA with stable potassium. The patient was taken to labor and delivery nurse for a coronary angiogram with left heart catheterization on 09/17/2024 in which the patient underwent a successful angioplasty and stenting of the proximal LAD. At this time we will recommend for the patient to continue on dual antiplatelet therapy with Plavix and aspirin. Initiate lipid-lowering agent. Add beta-gabrielle with stable blood pressure. It was noted that the patient will need NOAC therapy for pulmonary embolism. Case discussed with and the recommendation is for the patient to undergo triple therapy for one full month. Thereafter, aspirin may be discontinued (after a full 30 days), and the patient should continue with Plavix and Eliquis therapy. There is no further inpatient cardiac workup indicated at this time. Patient will need to follow up with Cardiology in the outpatient setting within 1-2 weeks post discharge. Thank you for allowing us to care for this patient. Please call with any questions or concerns. Critical care time: 40 min. This medical document was created using an electronic medical record system with voice recognition software and computerized dictation system. Although this document has been carefully reviewed, there might still be some phonetic and typographical errors. Occasional wrong-word or ``sound-alike substitutions may have occurred due to the inherent limitations of voice recognition software. These areas are purely typographical due to imperfections of the software programs and do not reflect any compromise in the patient's medical care. Please read the chart carefully and recognize, using context, where these substitutions have occurred. Plan discussed with: Patient, Other (Bedside RN) Date of Service: Sep 18, 2024 Billing Provider: VOLODYMYR LOW Common Visit Codes: [id number] CARE 30-74 MIN VOLODYMYR LOW [facility] Sep 18, 2024 15:59
[2024-09-18] MEDS: ATORVASTATIN 20 MG TAB PO SCH (22:28)
--- NOTE | 2024-09-18 22:30 | DVHINCON2 ---
Date of service: Sep 18, 2024 Referring Physician Jean-Pierre Armstrong NP Reason for Consultation Acute hypoxic respiratory failure and pulmonary embolism History of Present Illness COVERING PATRIA/ICU The patient is a 79-year-old man with PMHx of hypertension, prediabetes, COVID- 19 pneumonia, and polysubstance abuse with alcohol and marijuana who presented to ED via EMS on 09/15/24 with altered mental status. Per ER physician documentation, patient presented with ALOC as well as stiffness. It appears the patient had witnessed seizures x 2 en route to the hospital for which he was medicated with versed IV, placed on supplemental oxygenation via NRB mask, and found with a BGL of 138 ng/dL. On workup in ED, troponin was elevated greater than 2000. Repeat EKG was done showing no ST changes. Patient was noted to have severe hypoxia with O2 saturation of 93% on a non-rebreather mask. Chest x-ray was unremarkable. CT head negative. Patient was admitted for further care, and pulmonary consultation is requested for evaluation and management of acute hypoxic respiratory failure and pulmonary embolism. Review of Systems: Unable to obtain due to altered mental status Past Medical History: Includes hypertension, prediabetes, history of COVID-19 pneumonia, and polysubstance abuse with alcohol and marijuana Past Surgical History: Left shoulder arthroplasty Left total hip arthroplasty Medications: Reviewed. Allergies: No known drug allergies. Family History: Colon cancer. Social History: Nonsmoker. Per previous records, use of alcohol and cannabinoids. Family History: Colon cancer G8 SISTER, Onset:50's - 60 Allergies: Coded Allergies: NO KNOWN ALLERGIES (Unverified , 07/15/22) Home Meds Active Scripts Thiamine HCl (Thiamine Hydrochloride) 100 Mg Tab, 100 MG PO DAILY for 14 Days, #14 TAB Prov:GIA BRENNAN RESIDENT 07/20/24 Folic Acid (Folate) 400 Mcg Tab, 400 MCG PO DAILY for 30 Days, #30 TAB Prov:GIA BRENNAN RESIDENT 07/20/24 Multiple Vitamin (Multivitamins) Tab, 1 TAB PO DAILY for 30 Days, #30 TAB 2 Refills Prov:GIA BRENNAN RESIDENT 07/20/24 Current Medications Current Medications Medications (Trade) Dose Ordered Sig/Jesse Route PRN Reason Start Time Stop Time Status Last Admin Clopidogrel Bisulfate (Plavix) 75 mg DAILY PO 09/18/24 10:00 09/18/24 09:39 Aspirin 81 mg DAILY PO 09/18/24 10:00 09/18/24 09:40 Thiamine HCl 100 mg DAILY PO 09/18/24 10:00 09/18/24 10:29 Multivitamins (Mvi Tab) 1 tab DAILY PO 09/18/24 10:00 09/18/24 10:29 Atorvastatin Calcium (Lipitor) 80 mg HS PO 09/18/24 22:00 Vital Signs Vital Signs Date Time Temp Pulse Resp B/P (MAP) Pulse Ox O2 Delivery O2 Flow Rate FiO2 09/18/24 20:00 84/48 09/18/24 19:15 78 22 92 09/18/24 16:00 98.5 98.5 09/18/24 08:00 Nasal Cannula* 2 28 Physical Exam Gen.: Patient lying in bed in no apparent distress. On supplemental oxygen. Head: Normocephalic, atraumatic. Eyes: EOMI/PERRLA. Ears: Normal hearing. Normal anatomy. Neck/trachea: Trachea midline, supple. Nose: Normal external anatomy. Mouth: Moist mucous membranes. Chest: Decreased air entry bilaterally. No wheezing or rhonchi. Cardiovascular: Positive S1, positive S2. Regular rate and rhythm. Abdomen: Positive bowel sounds in all 4 quadrants. Soft, non-tender, non- distended. : Deferred. Rectal: Deferred. Skin: Warm, dry. Intact. Extremities: 2+ radial pulses bilaterally. No lower extremity edema. Neuro: Awake, alert, oriented x3. No gross motor or sensory deficits. Cranial nerves II through XII intact. Gait not assessed. Labs/Diagnostic Data Labs Test 09/18/24 13:10 09/18/24 11:24 09/18/24 07:09 09/17/24 13:20 Range/Units White Blood Count 7.7 # 4.4-10.8 10^3/uL Red Blood Count 4.15 L 4.5-5.90 10^6/uL Hemoglobin 12.3 L 13.5-17.5 g/dL Hematocrit 35.8 L 41.0-53.0 % Mean Corpuscular Volume 86.2 80.0-100.0 fL Mean Corpuscular Hemoglobin 29.7 28.0-32.0 pg Mean Corpuscular Hemoglobin Concent 34.4 32.0-36.0 g/dL Red Cell Distribution Width 15.9 H 11.8-14.3 % Platelet Count 252 140-450 10^3/uL Mean Platelet Volume 7.5 6.9-10.8 fL Neutrophils (%) (Auto) 73.0 37.0-80.0 % Lymphocytes (%) (Auto) 14.5 10.0-50.0 % Monocytes (%) (Auto) 11.1 0.0-12.0 % Eosinophils (%) (Auto) 0.7 0.0-7.0 % Basophils (%) (Auto) 0.7 0.0-2.0 % Neutrophils # (Auto) 5.6 1.6-8.6 10 ^3/uL Lymphocytes # (Auto) 1.1 0.4-5.4 10 ^3/uL Monocytes # (Auto) 0.9 0-1.3 10 ^3/uL Eosinophils # (Auto) 0.1 0-0.8 10 ^3/uL Basophils # (Auto) 0.1 0-0.2 10 ^3/uL Nucleated Red Blood Cells 0.0 % POC Glucose 133 H 70-106 mg/dl Sodium Level 127 L 136-145 mmol/L Potassium Level 3.9 3.5-5.1 mmol/L Chloride Level 106 98-107 mmol/L Carbon Dioxide Level 15 L 20-31 mmol/L Anion Gap 6 5-15 Blood Urea Nitrogen 6 L 9-23 mg/dL Creatinine 0.86 0.700-1.30 mg/dL Glomerular Filtration Rate Calc 89 >90 mL/min BUN/Creatinine Ratio 7.0 L 10.0-20.0 Serum Glucose 113 H 74-106 mg/dL Calcium Level 7.9 L 8.7-10.4 mg/dL Prothrombin Time 11.4 9.3-11.8 sec Prothrombin Time INR 1.08 0.9-1.15 Activated Partial Thromboplast Time 38.4 H 24.5-34.5 SEC Test 09/17/24 05:00 09/16/24 05:00 09/15/24 19:56 09/15/24 19:36 Range/Units Total Bilirubin 1.8 H 0.2-1.0 mg/dL Aspartate Amino Transferase (AST) 36 13-40 U/L Alanine Aminotransferase (ALT) 12 7-40 U/L Alkaline Phosphatase 80 46-116 U/L Troponin I High Sensitivity 4825 *H </=54 ng/L B-Type Natriuretic Peptide 1207.40 0-100 pg/mL Total Protein 5.8 5.7-8.2 g/dL Albumin 3.5 3.2-4.8 g/dL Hemoglobin A1c 5.2 <5.7 % A1C Magnesium Level 2.2 1.6-2.6 mg/dL Gamma Glutamyl Transpeptidase 11 <73 U/L Triglycerides Level 86 < 150 mg/dL Cholesterol Level 254 H < 200 mg/dL LDL Cholesterol 173 H < 100 mg/dL HDL Cholesterol 76 H 40-59 mg/dL Thyroid Stimulating Hormone (TSH) 5.04 H 0.55-4.78 uIU/mL Urine Color Light-yellow Yellow Urine Clarity Clear Clear Urine pH 6.0 5.0-9.0 Urine Specific [place] 1.018 1.001-1.035 Urine Protein Trace H Negative Urine Ketones 2+ H Negative Urine Blood 1+ H Negative /uL Urine Nitrite Negative Negative Urine Bilirubin Negative Negative Urine Urobilinogen Normal Negative mg/dL Urine Leukocyte Esterase Negative Negative /uL Urine RBC 46 0 - 3 /hpf Urine Microscopic WBC 3 0-3 /HPF Urine Squamous Epithelial Cells None seen <5 /hpf Urine Bacteria None seen None Seen /hpf Urine Glucose Trace Normal mg/dL Urine Opiates Screen Neg NEGATIVE Urine Fentanyl Screen Neg NEGATIVE Urine Barbiturates Screen Neg NEGATIVE Urine Phencyclidine Screen Neg NEGATIVE Urine Amphetamines Screen Neg NEGATIVE Urine Benzodiazepines Screen Pos NEGATIVE Urine Cocaine Screen Neg NEGATIVE Urine Cannabinoids Screen Pos NEGATIVE D-Dimer, Quantitative 3.17 H 0.0-0.49 mg/L FEU Test 09/15/24 16:29 09/15/24 14:45 Range/Units Blood Gas Specimen Type Arterial Blood Gas Sample Site Right radial Blood Gas Patient Temperature 37.0 Arterial Blood Date Drawn [id number] Arterial Blood pH 7.422 7.350-7.450 Arterial Blood Partial Pressure CO2 31.8 L 35.0-48.0 mmHg Arterial Blood Partial Pressure O2 133.6 H 83.0-108.0 mmHg Arterial Blood HCO3 20.3 L 21.0-28.0 mmol/L Arterial Blood Oxygen Saturation 98.8 H 94.0-98.0 % Arterial Blood Base Excess -3.1 L -2.0-3.0 mmol/L Arterial Blood Oxyhemoglobin 97.9 94.0-98.0 % Arterial Blood Carboxyhemoglobin 0.3 L 0.5-1.5 % Arterial Blood Methemoglobin 0.6 0.0-1.5 % Aquiles Test Yes Blood Gas Total Hemoglobin 14.20 13.5-17.5 g/dL Blood Gas Modality Mask - nrb FiO2 % 100.0 Creatine Kinase 125 46-171 U/L Plasma/Serum Blood Alcohol < 3.0 <10 mg/dL Assessment Impression: Acute hypoxic respiratory failure Dependence on supplemental oxygen Acute pulmonary embolism Shock Seizure disorder Non-ST elevation myocardial infarction Plan: Supplemental oxygen 2 LPM NC Titrate to keep O2 sats above 92%. Taper O2 as tolerated. Off Levophed since 5 AM - monitor hemodynamics. Monitor blood pressure Cardiology recs appreciated. Continue antibiotics Follow up cultures PT evaluation. Monitor renal function. Monitor electrolytes. Supplement as necessary. Monitor ins and outs. DVT prophylaxis. Prognosis: Poor given patient's multiple co-morbidities. Rest of plan per hospitalist and other consultants. Thank you, ZEHRA Armstrong, for allowing me to participate in this patient's care. Further recommendations will depend on the patient's clinical course. Please do not hesitate to contact me if you have any questions or concerns. This medical document was created using an electronic medical record system with Mirriad dictation system. Although these documentations are being carefully reviewed, there may still be some phonetic and typographical changes. The errors are purely typographical, due to imperfection on the software program, and do not reflect any compromise in the patient's medical care. Plan discussed with: Patient, Other (RN/ZEHRA Armstrong/) ESTEE ECHEVARRIA MD Sep 18, 2024 22:30
[2024-09-19] VITALS (92 sets, daily range): BP systolic 63–133; BP diastolic 32–88; PULSE 62–91; RESP 11–27; TEMP 97.8–99.2; O2SAT 69–100
--- NOTE | 2024-09-19 05:54 | DVH ---
CHEST RADIOGRAPH Indication: chf Technique: Single frontal view of the chest was obtained Comparison: XY CHEST PORTABLE on DOS: 09/18/24, XY CHEST PORTABLE on DOS: 09/15/24, XY CHEST PORTABLE on DOS: 07/13/24 IMPRESSION: The heart appears enlarged. The patient is rotated to the left limiting examination. There is likel y a small left pleural effusion. The right lung appears relatively clear. There is no pneumothorax.
[2024-09-19 09:36] LABS: Basophils # (auto) 0.1 10 ^3/uL (0-0.2); Basophils % (auto) 0.7 % (0.0-2.0); Eosinophils # (auto) 0.1 10 ^3/uL (0-0.8); Eosinophils % (auto) 1.3 % (0.0-7.0); Hematocrit 37.6 % (41.0-53.0); Hemoglobin 12.7 g/dL (13.5-17.5); Lymphocytes # (auto) 1.4 10 ^3/uL (0.4-5.4); Mean Corpuscular Hemoglobin 29.7 pg (28.0-32.0); Mean Corpuscular Hgb Conc. 33.8 g/dL (32.0-36.0); Mean Corpuscular Volume 87.7 fL (80.0-100.0); Monocytes # (auto) 0.8 10 ^3/uL (0-1.3); Monocytes % (auto) 9.5 % (0.0-12.0); Neutrophils # (auto) 6.4 10 ^3/uL (1.6-8.6); Neutrophils % (auto) 72.5 % (37.0-80.0); Platelet Count (auto) 241 10^3/uL (140-450); Red Blood Cells 4.29 10^6/uL (4.5-5.90); Red Cell Distribution Width 15.7 % (11.8-14.3); White Blood Cell 8.9 10^3/uL (4.4-10.8)
[2024-09-19 09:54] LABS: Chloride 102 mmol/L (98-107); Potassium 3.5 mmol/L (3.5-5.1); Sodium 133 mmol/L (136-145)
[2024-09-19 09:55] LABS: Anion Gap 8 (5-15); Carbon Dioxide 23 mmol/L (20-31)
[2024-09-19 10:01] LABS: BUN/Creatinine Ratio 5.7 (10.0-20.0)
[2024-09-19 10:06] LABS: Blood Urea Nitrogen 6 mg/dL (9-23); Calcium 8.3 mg/dL (8.7-10.4); Glucose 128 mg/dL (74-106)
[2024-09-19] MEDS ORDERED: Ensure HIGH Protein Chocolate 8oz Bottle PO SCH (12:00)
[2024-09-19] MEDS: POTASSIUM EFFERVESENT TAB 25 MEQ PO ONE (12:27)
[2024-09-19] MEDS: Glucerna Carbsteady SHAKE Vanilla 8oz PO SCH (12:27)
--- NOTE | 2024-09-19 19:45 | DVHPN2 ---
Subjective in bed confused Reviewed: Care Plan, H&P, Labs, Medications Changes from previous H/P or p: No Changes General: Per HPI Objective Vitals Vital Signs Date Time Temp Pulse Resp B/P (MAP) Pulse Ox O2 Delivery O2 Flow Rate FiO2 09/19/24 18:30 82 11 127/76 (93) 100 09/19/24 16:45 98.9 98.9 09/19/24 08:00 Nasal Cannula* 2 28 Intake/Output Intake and Output 09/19/24 07:00 Intake Total 1131.21 ml Output Total 3245 ml Balance -2113.79 ml Intake Oral 360 ml IV Total 771.21 ml Output Urine Total 3245 ml # Bowel Movements 2 General Appearance: Alert, Oriented X3, mild distress HEENT: Atraumatic, PERRLA Lungs: Clear to auscultation, Normal air movement Cardiovascular: Normal S1, Normal S2, Other (ST depressions noted) Abdomen: Normal bowel sounds, Soft, No tenderness, No hepatospenomegaly Musculoskeletal: Normal sensory function, Normal motor function Neuro: Normal speech, Strength at 5/5 X4 ext, Cranial nerves 3-12 NL, Other (Patient nonverbal) Skin: Dry, Intact Psych/Mental Status: Other (Altered mental status) Medications Current Medications Medications Dose Ordered Sig/Jesse Route Start Time Stop Time Status Last Admin Dose Admin Nitroglycerin 0.4 mg Q5MINP PRN SL 09/15/24 16:15 Morphine Sulfate 2 mg Q30M PRN IV 09/15/24 16:15 Lorazepam 1 mg Q5MINP PRN IV 09/15/24 16:15 09/16/24 05:20 1 MG Piperacillin Sod/ Tazobactam Sod 100 ml @ 25 mls/hr Q8HR IV 09/15/24 22:00 09/19/24 12:27 25 MLS/HR Empaglifozin 10 mg DAILY PO 09/17/24 10:00 09/19/24 08:40 10 MG Norepinephrine Bitartrate 250 ml @ 3.75 mls/hr Q24H IV 09/17/24 11:45 09/17/24 11:45 3.75 MLS/HR Clopidogrel Bisulfate 75 mg DAILY PO 09/18/24 10:00 09/19/24 08:39 75 MG Aspirin 81 mg DAILY PO 09/18/24 10:00 09/19/24 08:39 81 MG Thiamine HCl 100 mg DAILY PO 09/18/24 10:00 09/19/24 08:40 100 MG Multivitamins 1 tab DAILY PO 09/18/24 10:00 09/19/24 08:39 1 TAB Atorvastatin Calcium 80 mg HS PO 09/18/24 22:00 09/18/24 22:28 80 MG Enteral Nutritional Formula 240 ml TIDWM PO 09/19/24 12:00 09/19/24 17:42 240 ML Laboratory Results Laboratory Tests 09/19/24 09:12 Chemistry Test 09/19/24 09:12 Calcium Level 8.3 mg/dL (8.7-10.4) L Urinalysis Test 09/15/24 19:56 Urine Color Light-yellow (Yellow) Urine Clarity Clear (Clear) Urine pH 6.0 (5.0-9.0) Urine Specific [place] 1.018 (1.001-1.035) Urine Protein Trace (Negative) H Urine Ketones 2+ (Negative) H Urine Blood 1+ /uL (Negative) H Urine Nitrite Negative (Negative) Urine Bilirubin Negative (Negative) Urine Urobilinogen Normal mg/dL (Negative) Urine Leukocyte Esterase Negative /uL (Negative) Urine RBC 46 /hpf (0 - 3) Urine Microscopic WBC 3 /HPF (0-3) Urine Squamous Epithelial Cells None seen /hpf (<5) Urine Bacteria None seen /hpf (None Seen) Urine Glucose Trace mg/dL (Normal) Assessment/Plan Assessment/Plan -metabolic encephalopathy, questionably postictal -? Seizure disorder -history of alcoholism -history of marijuana use -NSTEMI,? Type -leukocytosis, rule out sepsis -acute hypoxic respiratory failure -potassium replacement Plan: -events: Patient was status post PTCA and stent placement of proximal LAD. Patient now with pulmonary vascular congestion, vasopressor therapy, probably secondary to cardiogenic shock. Patient was started on norepinephrine last night. -stop beta-gabrielle and LEXIS inhibitor -IV diuresis -potassium replacement -physical therapy -continue dual antiplatelet therapy. Consider triple therapy or changing aspirin to Xarelto or Eliquis given pulmonary embolism -ACS protocol -continue Zosyn, stop azithromycin -repeat labs in a.m. Plan discussed with: Other (nurse) My Orders Orders - FORTUNATO BUSTILLO MD Procedure Category Date Status Time Complete Blood Count LAB 09/20/24 Verified 04:00 Comprehensive LAB 09/20/24 Verified Metabolic Panel 04:00 Magnesium LAB 09/20/24 Verified 04:00 Nutritional PHA 09/19/24 In Process Supplements (Glucerna 12:00 Date of Service: Sep 19, 2024 Billing Provider: FORTUNATO BUSTILLO MD Common Visit Codes: [id number] INP/OBS CARE(HIGH) FORTUNATO BUSTILLO MD Sep 19, 2024 19:45
--- NOTE | 2024-09-19 23:35 | DVHPN2 ---
Progress Note - Dictate Date Seen: Sep 19, 2024 Medical Necessity Reason Pt with a Central, PICC or Fol: Yes The following are medically ne: Kc Catheter Reason for kc catheter: Strict I&O Subjective Patient seen and examined at bedside. Remains on supplemental oxygen Overnight events reviewed. vital signs Vital Sign Date Time Temp Pulse Resp B/P (MAP) Pulse Ox O2 Delivery O2 Flow Rate FiO2 09/19/24 22:30 66 22 97/55 (69) 97 09/19/24 22:00 Nasal Cannula* 2 28 09/19/24 20:00 98.8 98.8 Total Intake and Output 09/18/24 09/18/24 09/19/24 15:00 23:00 07:00 Intake Total 100 ml 428.72 ml 602.49 ml Output Total 1625 ml 1620 ml Balance 100 ml -1196.28 ml -1017.51 ml medications Current Medications Medications Dose Ordered Sig/Jesse Route Start Time Stop Time Status Last Admin Dose Admin Nitroglycerin 0.4 mg Q5MINP PRN SL 09/15/24 16:15 Morphine Sulfate 2 mg Q30M PRN IV 09/15/24 16:15 Lorazepam 1 mg Q5MINP PRN IV 09/15/24 16:15 09/16/24 05:20 1 MG Piperacillin Sod/ Tazobactam Sod 100 ml @ 25 mls/hr Q8HR IV 09/15/24 22:00 09/19/24 21:56 25 MLS/HR Empaglifozin 10 mg DAILY PO 09/17/24 10:00 09/19/24 08:40 10 MG Norepinephrine Bitartrate 250 ml @ 3.75 mls/hr Q24H IV 09/17/24 11:45 09/17/24 11:45 3.75 MLS/HR Clopidogrel Bisulfate 75 mg DAILY PO 09/18/24 10:00 09/19/24 08:39 75 MG Aspirin 81 mg DAILY PO 09/18/24 10:00 09/19/24 08:39 81 MG Thiamine HCl 100 mg DAILY PO 09/18/24 10:00 09/19/24 08:40 100 MG Multivitamins 1 tab DAILY PO 09/18/24 10:00 09/19/24 08:39 1 TAB Atorvastatin Calcium 80 mg HS PO 09/18/24 22:00 09/18/24 22:28 80 MG Enteral Nutritional Formula 240 ml TIDWM PO 09/19/24 12:00 09/19/24 17:42 240 ML objective Gen.: Patient lying in bed in no apparent distress. On supplemental oxygen. Head: Normocephalic, atraumatic. Eyes: EOMI/PERRLA. Ears: Normal hearing. Normal anatomy. Neck/trachea: Trachea midline, supple. Nose: Normal external anatomy. Mouth: Moist mucous membranes. Chest: Decreased air entry bilaterally. No wheezing or rhonchi. Cardiovascular: Positive S1, positive S2. Regular rate and rhythm. Abdomen: Positive bowel sounds in all 4 quadrants. Soft, non-tender, non- distended. : Deferred. Rectal: Deferred. Skin: Warm, dry. Intact. Extremities: 2+ radial pulses bilaterally. No lower extremity edema. Neuro: Awake, alert, oriented x3. No gross motor or sensory deficits. Cranial nerves II through XII intact. Gait not assessed. laboratory and microbiology Laboratory Tests 09/19/24 09:12 Test 09/19/24 09:12 Range/Units Serum Glucose 128 H 74-106 mg/dL Assessment/Plan Impression: Acute hypoxic respiratory failure Dependence on supplemental oxygen Acute pulmonary embolism Shock Seizure disorder Non-ST elevation myocardial infarction Events: Remains on supplemental oxygen, 5 LPM NC Taper O2 as tolerated Head of bed elevation Aspiration precautions On pressors for hemodynamic support On Levophed 2 mcg/min Titrate to keep MAP above 65 mmHg/SBP above 90 mmHg. Continue antibiotics - Zosyn Follow up cultures ASA/Plavix Labs and imaging reviewed. Rest of plan as noted below. Plan: Supplemental oxygen Titrate to keep O2 sats above 92%. Monitor blood pressure Cardiology recs appreciated. Continue antibiotics Follow up cultures PT evaluation. Monitor renal function. Monitor electrolytes. Supplement as necessary. Monitor ins and outs. DVT prophylaxis. Prognosis: Guarded given patient's multiple co-morbidities. Condition: Critical Rest of plan per hospitalist and other consultants. A total of 35 minutes of critical care time was spent reviewing the patient record, examining the patient, making a diagnostic and therapeutic plan, discussing this plan with the medical personnel, following up on diagnostic studies and following the patient for clinical stability excluding any and all procedures. At least 50% of this time was spent in direct, [id number] contact. Thank you, ZEHRA Armstrong, for allowing me to participate in this patient's care. Further recommendations will depend on the patient's clinical course. Please do not hesitate to contact me if you have any questions or concerns. This medical document was created using an electronic medical record system with [employer] dictation system. Although these documentations are being carefully reviewed, there may still be some phonetic and typographical changes. The errors are purely typographical, due to imperfection on the software program, and do not reflect any compromise in the patient's medical care. Dietary Evaluation Review Comments: 1)Add 60g CCHO restriction to cardiac diet 2) Continue vitamin supplementation 3) Consider oral nutrition supplementation if PO < 50% 4) F/u with pulmonology and cardiology 5) Continue plan of care Expected Outcomes/Goals: 1) appetite and labs to improve 2) f/u in 5 days Plan discussed with: Other (ESAU Rasmussen) Critical Care Time(min): 35 ESTEE ECHEVARRIA MD Sep 19, 2024 23:35
[2024-09-20] VITALS (94 sets, daily range): BP systolic 87–134; BP diastolic 43–82; PULSE 62–85; RESP 11–32; TEMP 97.8–98.5; O2SAT 20–100
[2024-09-20 05:45] LABS: Basophils # (auto) 0.1 10 ^3/uL (0-0.2); Basophils % (auto) 0.7 % (0.0-2.0); Eosinophils # (auto) 0.1 10 ^3/uL (0-0.8); Eosinophils % (auto) 1.3 % (0.0-7.0); Hematocrit 39.6 % (41.0-53.0); Lymphocytes # (auto) 1.4 10 ^3/uL (0.4-5.4); Lymphocytes % (auto) 17.4 % (10.0-50.0); Mean Corpuscular Hemoglobin 29.6 pg (28.0-32.0); Mean Corpuscular Hgb Conc. 32.7 g/dL (32.0-36.0); Mean Corpuscular Volume 90.3 fL (80.0-100.0); Monocytes % (auto) 12.7 % (0.0-12.0); Neutrophils # (auto) 5.5 10 ^3/uL (1.6-8.6); Neutrophils % (auto) 67.9 % (37.0-80.0); Nucleated Red Blood Cells % 0.1 %; Platelet Count (auto) 239 10^3/uL (140-450); Red Blood Cells 4.39 10^6/uL (4.5-5.90)
[2024-09-20 06:11] LABS: Alanine Aminotransferase 14 U/L (7-40); Albumin 3.5 g/dL (3.2-4.8); Alkaline Phosphatase 76 U/L (46-116); Anion Gap 10 (5-15); Aspartate Aminotransferase 19 U/L (13-40); Bilirubin, Total 0.9 mg/dL (0.2-1.0); Chloride 104 mmol/L (98-107); Potassium 3.5 mmol/L (3.5-5.1); Total Protein 5.8 g/dL (5.7-8.2)
[2024-09-20 06:12] LABS: Blood Urea Nitrogen 6 mg/dL (9-23); Calcium 8.4 mg/dL (8.7-10.4); Carbon Dioxide 19 mmol/L (20-31); Glucose 107 mg/dL (74-106); Sodium 133 mmol/L (136-145)
--- NOTE | 2024-09-20 09:08 | DVHPN2 ---
Subjective Patient denies any symptoms. Reviewed: Care Plan, H&P, Labs, Medications Changes from previous H/P or p: No Changes General: Per HPI Objective Vitals Vital Signs Date Time Temp Pulse Resp B/P (MAP) Pulse Ox O2 Delivery O2 Flow Rate FiO2 09/20/24 06:45 68 17 115/60 (78) 95 09/20/24 06:00 Nasal Cannula* 2 28 09/20/24 04:00 97.9 97.9 Intake/Output Intake and Output 09/20/24 06:59 Intake Total 946.55 ml Output Total 750 ml Balance 196.55 ml Intake Oral 420 ml IV Total 526.55 ml Output Urine Total 750 ml # Bowel Movements 2 General Appearance: Alert, Oriented X3, mild distress HEENT: Atraumatic, PERRLA Lungs: Clear to auscultation, Normal air movement Cardiovascular: Normal S1, Normal S2, Other (ST depressions noted) Abdomen: Normal bowel sounds, Soft, No tenderness, No hepatospenomegaly Musculoskeletal: Normal sensory function, Normal motor function Neuro: Normal speech, Strength at 5/5 X4 ext, Cranial nerves 3-12 NL, Other (Patient nonverbal) Skin: Dry, Intact Psych/Mental Status: Other (Altered mental status) Medications Current Medications Medications Dose Ordered Sig/Jesse Route Start Time Stop Time Status Last Admin Dose Admin Nitroglycerin 0.4 mg Q5MINP PRN SL 09/15/24 16:15 Morphine Sulfate 2 mg Q30M PRN IV 09/15/24 16:15 Lorazepam 1 mg Q5MINP PRN IV 09/15/24 16:15 09/16/24 05:20 1 MG Piperacillin Sod/ Tazobactam Sod 100 ml @ 25 mls/hr Q8HR IV 09/15/24 22:00 09/20/24 05:51 25 MLS/HR Empaglifozin 10 mg DAILY PO 09/17/24 10:00 09/19/24 08:40 10 MG Norepinephrine Bitartrate 250 ml @ 3.75 mls/hr Q24H IV 09/17/24 11:45 09/20/24 02:00 11.25 MLS/HR Clopidogrel Bisulfate 75 mg DAILY PO 09/18/24 10:00 09/19/24 08:39 75 MG Aspirin 81 mg DAILY PO 09/18/24 10:00 09/19/24 08:39 81 MG Thiamine HCl 100 mg DAILY PO 09/18/24 10:00 09/19/24 08:40 100 MG Multivitamins 1 tab DAILY PO 09/18/24 10:00 09/19/24 08:39 1 TAB Atorvastatin Calcium 80 mg HS PO 09/18/24 22:00 09/18/24 22:28 80 MG Enteral Nutritional Formula 240 ml TIDWM PO 09/19/24 12:00 09/19/24 17:42 240 ML Apixaban 5 mg BID PO 09/20/24 10:00 UNV Laboratory Results Laboratory Tests 09/20/24 05:30 Chemistry Test 09/19/24 09:12 09/20/24 05:30 Calcium Level 8.3 mg/dL (8.7-10.4) L 8.4 mg/dL (8.7-10.4) L Albumin 3.5 g/dL (3.2-4.8) Magnesium Level 2.0 mg/dL (1.6-2.6) Total Protein 5.8 g/dL (5.7-8.2) LFT Test 09/20/24 05:30 Alanine Aminotransferase (ALT) 14 U/L (7-40) Alkaline Phosphatase 76 U/L (46-116) Aspartate Amino Transferase (AST) 19 U/L (13-40) Total Bilirubin 0.9 mg/dL (0.2-1.0) Urinalysis Test 09/15/24 19:56 Urine Color Light-yellow (Yellow) Urine Clarity Clear (Clear) Urine pH 6.0 (5.0-9.0) Urine Specific [place] 1.018 (1.001-1.035) Urine Protein Trace (Negative) H Urine Ketones 2+ (Negative) H Urine Blood 1+ /uL (Negative) H Urine Nitrite Negative (Negative) Urine Bilirubin Negative (Negative) Urine Urobilinogen Normal mg/dL (Negative) Urine Leukocyte Esterase Negative /uL (Negative) Urine RBC 46 /hpf (0 - 3) Urine Microscopic WBC 3 /HPF (0-3) Urine Squamous Epithelial Cells None seen /hpf (<5) Urine Bacteria None seen /hpf (None Seen) Urine Glucose Trace mg/dL (Normal) Labs and/or images reviewed: Labs reviewed by me, Image(s) reviewed by me Assessment/Plan Assessment/Plan Impression: -metabolic encephalopathy, questionably postictal -? Seizure disorder -history of alcoholism -history of marijuana use -NSTEMI,? Type -leukocytosis, rule out sepsis -acute hypoxic respiratory failure -potassium replacement -cardiogenic shock Plan: -events: Patient now refusing care. Long discussion made with patient's daughter regarding plan of care. She states she was [id number]. All questions answered -continue norepinephrine to keep map greater than 65 mmHg -IV diuresis -physical therapy -start triple therapy -ACS protocol -continue Zosyn, stop azithromycin -repeat labs and chest x-ray in a.m. Critical care time spent with patient discussing and formulating plan of care: 90 minutes. This does not include time spent performing procedures. This medical document was created using an electronic medical record system with [employer] dictation system. Although this document has been carefully reviewed, there may still be some phonetic and typographical errors. These areas are purely typographical due to imperfections of the software programs, and do not reflect any compromise in the patient's medical care. Plan discussed with: Patient, Other (RN) My Orders Orders - SAMANTHA MAE NP Procedure Category Date Status Time Apixaban (Eliquis) PHA 09/20/24 Logged 10:00 Date of Service: Sep 20, 2024 Billing Provider: SAMANTHA MAE NP Common Visit Codes: [id number] CARE 30-74 MIN, [id number] CARE-EACH +30MIN SAMANTHA MAE NP Sep 20, 2024 09:08
--- NOTE | 2024-09-20 11:20 | MEDREC ---
[facility] ASP Intervention Section I [facility] ASP Intervention: Review courses of therapy (PLEASE CONSIDER D/C ANTIBIOTIC(S) IN ABSENCE OF BACTERIAL INFECTION) ELIZABETH MENESES PHARMACIST Sep 20, 2024 11:20
[2024-09-20] MEDS: APIXABAN 5 MG TAB PO SCH (15:56)
--- NOTE | 2024-09-20 23:01 | DVHPN2 ---
Progress Note - Dictate Date Seen: Sep 20, 2024 Medical Necessity Reason Pt with a Central, PICC or Fol: Yes The following are medically ne: Kc Catheter Reason for kc catheter: Strict I&O Subjective Patient seen and examined at bedside. Breathing comfortably on room air Overnight events reviewed. vital signs Vital Sign Date Time Temp Pulse Resp B/P (MAP) Pulse Ox O2 Delivery O2 Flow Rate FiO2 09/20/24 22:00 22 100 Nasal Cannula* 2 28 09/20/24 22:00 75 09/20/24 22:00 126/74 (91) 09/20/24 20:00 98.5 98.5 Total Intake and Output 09/19/24 09/19/24 09/20/24 15:00 23:00 07:00 Intake Total 207.5 ml 385.0 ml 261.55 ml Output Total 400 ml 350 ml Balance 207.5 ml -15.0 ml -88.45 ml medications Current Medications Medications Dose Ordered Sig/Jesse Route Start Time Stop Time Status Last Admin Dose Admin Nitroglycerin 0.4 mg Q5MINP PRN SL 09/15/24 16:15 Morphine Sulfate 2 mg Q30M PRN IV 09/15/24 16:15 Lorazepam 1 mg Q5MINP PRN IV 09/15/24 16:15 09/16/24 05:20 1 MG Piperacillin Sod/ Tazobactam Sod 100 ml @ 25 mls/hr Q8HR IV 09/15/24 22:00 09/20/24 21:54 25 MLS/HR Empaglifozin 10 mg DAILY PO 09/17/24 10:00 09/20/24 10:27 10 MG Norepinephrine Bitartrate 250 ml @ 3.75 mls/hr Q24H IV 09/17/24 11:45 09/20/24 02:00 11.25 MLS/HR Clopidogrel Bisulfate 75 mg DAILY PO 09/18/24 10:00 09/20/24 10:28 75 MG Aspirin 81 mg DAILY PO 09/18/24 10:00 09/20/24 10:27 81 MG Thiamine HCl 100 mg DAILY PO 09/18/24 10:00 09/19/24 08:40 100 MG Multivitamins 1 tab DAILY PO 09/18/24 10:00 09/19/24 08:39 1 TAB Atorvastatin Calcium 80 mg HS PO 09/18/24 22:00 09/20/24 21:54 80 MG Enteral Nutritional Formula 240 ml TIDWM PO 09/19/24 12:00 09/20/24 17:50 240 ML Apixaban 5 mg BID PO 09/20/24 10:00 09/20/24 21:54 5 MG objective Gen.: Patient lying in bed in no apparent distress. On room air Head: Normocephalic, atraumatic. Eyes: EOMI/PERRLA. Ears: Normal hearing. Normal anatomy. Neck/trachea: Trachea midline, supple. Nose: Normal external anatomy. Mouth: Moist mucous membranes. Chest: Decreased air entry bilaterally. No wheezing or rhonchi. Cardiovascular: Positive S1, positive S2. Regular rate and rhythm. Abdomen: Positive bowel sounds in all 4 quadrants. Soft, non-tender, non- distended. : Deferred. Rectal: Deferred. Skin: Warm, dry. Intact. Extremities: 2+ radial pulses bilaterally. No lower extremity edema. Neuro: Awake, alert, oriented x3. No gross motor or sensory deficits. Cranial nerves II through XII intact. Gait not assessed. laboratory and microbiology Laboratory Tests 09/20/24 05:30 Test 09/20/24 05:30 Range/Units Serum Glucose 107 H 74-106 mg/dL Assessment/Plan Impression: Acute hypoxic respiratory failure Dependence on supplemental oxygen Acute pulmonary embolism Shock Seizure disorder Non-ST elevation myocardial infarction Events: .Currently breathing on room air Supplemental oxygen PRN Head of bed elevation Aspiration precautions On pressors for hemodynamic support On Levophed 6 mcg/min Titrate to keep MAP above 65 mmHg/SBP above 90 mmHg. Taper off pressors as tolerated Monitor hemodynamics closely Continue antibiotics - Zosyn Follow up cultures ASA/Plavix Labs and imaging reviewed. Rest of plan as noted below. Plan: Supplemental oxygen PRN Titrate to keep O2 sats above 92%. Monitor blood pressure Cardiology recs appreciated. Continue antibiotics Follow up cultures PT evaluation. Monitor renal function. Monitor electrolytes. Supplement as necessary. Monitor ins and outs. DVT prophylaxis. Prognosis: Guarded given patient's multiple co-morbidities. Condition: Critical Rest of plan per hospitalist and other consultants. A total of 35 minutes of critical care time was spent reviewing the patient record, examining the patient, making a diagnostic and therapeutic plan, discussing this plan with the medical personnel, following up on diagnostic studies and following the patient for clinical stability excluding any and all procedures. At least 50% of this time was spent in direct, [id number] contact. Thank you, ZEHRA Armstrong, for allowing me to participate in this patient's care. Further recommendations will depend on the patient's clinical course. Please do not hesitate to contact me if you have any questions or concerns. This medical document was created using an electronic medical record system with [employer] dictation system. Although these documentations are being carefully reviewed, there may still be some phonetic and typographical changes. The errors are purely typographical, due to imperfection on the software program, and do not reflect any compromise in the patient's medical care. Dietary Evaluation Review Comments: 1)Add 60g CCHO restriction to cardiac diet 2) Continue vitamin supplementation 3) Consider oral nutrition supplementation if PO < 50% 4) F/u with pulmonology and cardiology 5) Continue plan of care Expected Outcomes/Goals: 1) appetite and labs to improve 2) f/u in 5 days Plan discussed with: Patient, Other (ESAU Breaux) Critical Care Time(min): 35 ESTEE ECHEVARRIA MD Sep 20, 2024 23:01
[2024-09-21] VITALS (100 sets, daily range): BP systolic 88–149; BP diastolic 40–110; PULSE 60–108; RESP 10–26; TEMP 97.7–98.5; O2SAT 72–100
--- NOTE | 2024-09-21 05:15 | DVH ---
EXAM: XR Chest, 1 View CLINICAL INDICATION: chf TECHNIQUE: Frontal view of the chest. COMPARISON: XY CHEST PORTABLE on DOS: 09/19/24, XY CHEST PORTABLE on DOS: 09/18/24, XY CHEST PORTABLE o n DOS: 09/15/24, XY CHEST PORTABLE on DOS: 07/13/24, CHEST PORTABLE on DOS: 07/15/22 FINDINGS: LUNGS AND PLEURAL SPACES: Left basilar atelectasis or pneumonia. No pneumothorax. HEART: Unremarkable. No cardiomegaly. MEDIASTINUM: Unremarkable. Normal mediastinal contour. BONES/JOINTS: Unremarkable. No acute fracture. OTHER FINDINGS: . IMPRESSION: Left basilar atelectasis or pneumonia.
[2024-09-21 05:28] LABS: Basophils # (auto) 0.1 10 ^3/uL (0-0.2); Basophils % (auto) 1.1 % (0.0-2.0); Eosinophils # (auto) 0.1 10 ^3/uL (0-0.8); Eosinophils % (auto) 2.3 % (0.0-7.0); Hematocrit 36.3 % (41.0-53.0); Hemoglobin 12.6 g/dL (13.5-17.5); Lymphocytes # (auto) 1.2 10 ^3/uL (0.4-5.4); Lymphocytes % (auto) 18.4 % (10.0-50.0); Mean Corpuscular Hemoglobin 30.1 pg (28.0-32.0); Mean Corpuscular Hgb Conc. 34.7 g/dL (32.0-36.0); Mean Corpuscular Volume 86.7 fL (80.0-100.0); Monocytes # (auto) 0.8 10 ^3/uL (0-1.3); Monocytes % (auto) 12.3 % (0.0-12.0); Neutrophils # (auto) 4.2 10 ^3/uL (1.6-8.6); Neutrophils % (auto) 65.9 % (37.0-80.0); Nucleated Red Blood Cells % 0.1 %; Platelet Count (auto) 239 10^3/uL (140-450); Red Blood Cells 4.18 10^6/uL (4.5-5.90); Red Cell Distribution Width 15.7 % (11.8-14.3); White Blood Cell 6.3 10^3/uL (4.4-10.8)
[2024-09-21 05:33] LABS: Anion Gap 12 (5-15); Carbon Dioxide 21 mmol/L (20-31); Chloride 101 mmol/L (98-107)
[2024-09-21 05:38] LABS: Glucose 94 mg/dL (74-106)
[2024-09-21 05:39] LABS: BUN/Creatinine Ratio 6.5 (10.0-20.0)
[2024-09-21 05:41] LABS: Blood Urea Nitrogen 6 mg/dL (9-23); Calcium 8.6 mg/dL (8.7-10.4); Potassium 3.4 mmol/L (3.5-5.1); Sodium 134 mmol/L (136-145)
[2024-09-21] MEDS: POTASSIUM EFFERVESENT TAB 25 MEQ PO ONE (09:16)
--- NOTE | 2024-09-21 10:12 | DVHPN2 ---
Subjective Patient denies any symptoms. Reviewed: Care Plan, H&P, Labs, Medications Changes from previous H/P or p: No Changes General: Per HPI Objective Vitals Vital Signs Date Time Temp Pulse Resp B/P (MAP) Pulse Ox O2 Delivery O2 Flow Rate FiO2 09/21/24 07:15 68 23 104/60 (75) 96 09/21/24 06:00 Nasal Cannula* 2 28 09/21/24 04:00 98.5 98.5 Intake/Output Intake and Output 09/21/24 07:00 Intake Total 909.375 ml Output Total 750 ml Balance 159.375 ml Intake Oral 540 ml IV Total 369.375 ml Output Urine Total 750 ml # Bowel Movements 3 General Appearance: Alert, Oriented X3, mild distress HEENT: Atraumatic, PERRLA Lungs: Clear to auscultation, Normal air movement Cardiovascular: Normal S1, Normal S2, Other (ST depressions noted) Abdomen: Normal bowel sounds, Soft, No tenderness, No hepatospenomegaly Musculoskeletal: Normal sensory function, Normal motor function Neuro: Normal speech, Strength at 5/5 X4 ext, Cranial nerves 3-12 NL, Other (Patient nonverbal) Skin: Dry, Intact Psych/Mental Status: Other (Altered mental status) Medications Current Medications Medications Dose Ordered Sig/Jesse Route Start Time Stop Time Status Last Admin Dose Admin Nitroglycerin 0.4 mg Q5MINP PRN SL 09/15/24 16:15 Morphine Sulfate 2 mg Q30M PRN IV 09/15/24 16:15 Lorazepam 1 mg Q5MINP PRN IV 09/15/24 16:15 09/16/24 05:20 1 MG Empaglifozin 10 mg DAILY PO 09/17/24 10:00 09/21/24 09:14 10 MG Norepinephrine Bitartrate 250 ml @ 3.75 mls/hr Q24H IV 09/17/24 11:45 09/20/24 02:00 11.25 MLS/HR Clopidogrel Bisulfate 75 mg DAILY PO 09/18/24 10:00 09/21/24 09:13 75 MG Aspirin 81 mg DAILY PO 09/18/24 10:00 09/21/24 09:13 81 MG Thiamine HCl 100 mg DAILY PO 09/18/24 10:00 09/21/24 09:13 100 MG Multivitamins 1 tab DAILY PO 09/18/24 10:00 09/21/24 09:14 1 TAB Atorvastatin Calcium 80 mg HS PO 09/18/24 22:00 09/20/24 21:54 80 MG Enteral Nutritional Formula 240 ml TIDWM PO 09/19/24 12:00 09/21/24 09:13 240 ML Apixaban 5 mg BID PO 09/20/24 10:00 09/21/24 09:13 5 MG Laboratory Results Laboratory Tests 09/21/24 05:13 Chemistry Test 09/21/24 05:13 Calcium Level 8.6 mg/dL (8.7-10.4) L Urinalysis Test 09/15/24 19:56 Urine Color Light-yellow (Yellow) Urine Clarity Clear (Clear) Urine pH 6.0 (5.0-9.0) Urine Specific [place] 1.018 (1.001-1.035) Urine Protein Trace (Negative) H Urine Ketones 2+ (Negative) H Urine Blood 1+ /uL (Negative) H Urine Nitrite Negative (Negative) Urine Bilirubin Negative (Negative) Urine Urobilinogen Normal mg/dL (Negative) Urine Leukocyte Esterase Negative /uL (Negative) Urine RBC 46 /hpf (0 - 3) Urine Microscopic WBC 3 /HPF (0-3) Urine Squamous Epithelial Cells None seen /hpf (<5) Urine Bacteria None seen /hpf (None Seen) Urine Glucose Trace mg/dL (Normal) Labs and/or images reviewed: Labs reviewed by me, Image(s) reviewed by me Assessment/Plan Assessment/Plan Impression: -metabolic encephalopathy, questionably postictal -? Seizure disorder -history of alcoholism -history of marijuana use -NSTEMI,? Type -leukocytosis, rule out sepsis -acute hypoxic respiratory failure -potassium replacement -cardiogenic shock Plan: -events: Patient norepinephrine at 4 micrograms/minute. Tolerating p.o.. Discussed with primary nurse to continue weaning norepinephrine to keep systolic blood pressure greater than 90 mmHg -continue norepinephrine to keep map greater than 65 mmHg -IV diuresis -physical therapy -continue current anticoagulation/antiplatelet therapy -ACS protocol -cultures negative, no WBC count, stop antibiotic -repeat labs and chest x-ray in a.m. Critical care time spent with patient discussing and formulating plan of care: 90 minutes. This does not include time spent performing procedures. This medical document was created using an electronic medical record system with [employer] computerized dictation system. Although this document has been carefully reviewed, there may still be some phonetic and typographical errors. These areas are purely typographical due to imperfections of the software programs, and do not reflect any compromise in the patient's medical care. Plan discussed with: Patient, Other (RN) Date of Service: Sep 21, 2024 Billing Provider: SAMANTHA MAE NP Common Visit Codes: [id number] CARE 30-74 MIN SAMANTHA MAE NP Sep 21, 2024 10:12
--- NOTE | 2024-09-21 21:22 | DVHPN2 ---
Progress Note - Dictate Date Seen: Sep 21, 2024 Medical Necessity Reason Pt with a Central, PICC or Fol: Yes The following are medically ne: Kc Catheter Reason for kc catheter: Strict I&O Subjective Patient seen and examined at bedside. Currently on supplemental oxygen Overnight events reviewed. vital signs Vital Sign Date Time Temp Pulse Resp B/P (MAP) Pulse Ox O2 Delivery O2 Flow Rate FiO2 09/21/24 18:30 72 26 126/64 (84) 96 09/21/24 18:00 Room Air* 0 N/A Nasal Cannula* 09/21/24 16:05 98.2 98.2 Total Intake and Output 09/20/24 09/20/24 09/21/24 15:00 23:00 07:00 Intake Total 118.75 ml 447.50 ml 350.625 ml Output Total 400 ml 350 ml Balance 118.75 ml 47.50 ml 0.625 ml medications Current Medications Medications Dose Ordered Sig/Jesse Route Start Time Stop Time Status Last Admin Dose Admin Nitroglycerin 0.4 mg Q5MINP PRN SL 09/15/24 16:15 Morphine Sulfate 2 mg Q30M PRN IV 09/15/24 16:15 Lorazepam 1 mg Q5MINP PRN IV 09/15/24 16:15 09/16/24 05:20 1 MG Empaglifozin 10 mg DAILY PO 09/17/24 10:00 09/21/24 09:14 10 MG Norepinephrine Bitartrate 250 ml @ 3.75 mls/hr Q24H IV 09/17/24 11:45 09/20/24 02:00 11.25 MLS/HR Clopidogrel Bisulfate 75 mg DAILY PO 09/18/24 10:00 09/21/24 09:13 75 MG Aspirin 81 mg DAILY PO 09/18/24 10:00 09/21/24 09:13 81 MG Thiamine HCl 100 mg DAILY PO 09/18/24 10:00 09/21/24 09:13 100 MG Multivitamins 1 tab DAILY PO 09/18/24 10:00 09/21/24 09:14 1 TAB Atorvastatin Calcium 80 mg HS PO 09/18/24 22:00 09/20/24 21:54 80 MG Enteral Nutritional Formula 240 ml TIDWM PO 09/19/24 12:00 09/21/24 09:13 240 ML Apixaban 5 mg BID PO 09/20/24 10:00 09/21/24 09:13 5 MG objective Gen.: Patient lying in bed in no apparent distress. On supplemental oxygen Head: Normocephalic, atraumatic. Eyes: EOMI/PERRLA. Ears: Normal hearing. Normal anatomy. Neck/trachea: Trachea midline, supple. Nose: Normal external anatomy. Mouth: Moist mucous membranes. Chest: Decreased air entry bilaterally. No wheezing or rhonchi. Cardiovascular: Positive S1, positive S2. Regular rate and rhythm. Abdomen: Positive bowel sounds in all 4 quadrants. Soft, non-tender, non- distended. : Deferred. Rectal: Deferred. Skin: Warm, dry. Intact. Extremities: 2+ radial pulses bilaterally. No lower extremity edema. Neuro: Awake, alert, oriented x3. No gross motor or sensory deficits. Cranial nerves II through XII intact. Gait not assessed. laboratory and microbiology Laboratory Tests 09/21/24 05:13 Test 09/21/24 05:13 Range/Units Serum Glucose 94 74-106 mg/dL Assessment/Plan Impression: Acute hypoxic respiratory failure Dependence on supplemental oxygen Acute pulmonary embolism Shock Seizure disorder Non-ST elevation myocardial infarction Events: Currently on supplemental oxygen 2 LPM NC Taper O2 as tolerated Patient is out of bed to chair. Head of bed elevation Aspiration precautions On pressors for hemodynamic support On Levophed 2.5 mcg/min Titrate to keep MAP above 65 mmHg/SBP above 90 mmHg. Taper off pressors as tolerated Improving pressor requirements. Monitor hemodynamics closely Blood pressure remains labile Continue antibiotics - Zosyn Follow up cultures ASA/Plavix Labs and imaging reviewed. Rest of plan as noted below. Plan: Supplemental oxygen Titrate to keep O2 sats above 92%. Monitor blood pressure Cardiology recs appreciated. Continue antibiotics Follow up cultures PT evaluation. Monitor renal function. Monitor electrolytes. Supplement as necessary. Monitor ins and outs. DVT prophylaxis. Prognosis: Guarded given patient's multiple co-morbidities. Condition: Critical Rest of plan per hospitalist and other consultants. A total of 35 minutes of critical care time was spent reviewing the patient record, examining the patient, making a diagnostic and therapeutic plan, discussing this plan with the medical personnel, following up on diagnostic studies and following the patient for clinical stability excluding any and all procedures. At least 50% of this time was spent in direct, [id number] contact. Thank you, ZEHRA Armstrong, for allowing me to participate in this patient's care. Further recommendations will depend on the patient's clinical course. Please do not hesitate to contact me if you have any questions or concerns. This medical document was created using an electronic medical record system with [employer] dictation system. Although these documentations are being carefully reviewed, there may still be some phonetic and typographical changes. The errors are purely typographical, due to imperfection on the software program, and do not reflect any compromise in the patient's medical care. Dietary Evaluation Review Comments: 1)Add 60g CCHO restriction to cardiac diet 2) Continue vitamin supplementation 3) Consider oral nutrition supplementation if PO < 50% 4) F/u with pulmonology and cardiology 5) Continue plan of care Expected Outcomes/Goals: 1) appetite and labs to improve 2) f/u in 5 days Plan discussed with: Other (ESAU Reynolds) Critical Care Time(min): 35 ESTEE ECHEVARRIA MD Sep 21, 2024 21:22
[2024-09-22] VITALS (53 sets, daily range): BP systolic 86–136; BP diastolic 47–95; PULSE 66–92; RESP 10–21; TEMP 97.6–98.8; O2SAT 95–100
[2024-09-22 04:06] LABS: Basophils # (auto) 0.1 10 ^3/uL (0-0.2); Basophils % (auto) 1.1 % (0.0-2.0); Eosinophils # (auto) 0.2 10 ^3/uL (0-0.8); Eosinophils % (auto) 2.6 % (0.0-7.0); Hematocrit 35.8 % (41.0-53.0); Hemoglobin 12.2 g/dL (13.5-17.5); Lymphocytes # (auto) 1.6 10 ^3/uL (0.4-5.4); Lymphocytes % (auto) 21.8 % (10.0-50.0); Mean Corpuscular Hemoglobin 29.8 pg (28.0-32.0); Mean Corpuscular Volume 87.7 fL (80.0-100.0); Monocytes # (auto) 1.3 10 ^3/uL (0-1.3); Monocytes % (auto) 17.2 % (0.0-12.0); Neutrophils # (auto) 4.3 10 ^3/uL (1.6-8.6); Neutrophils % (auto) 57.3 % (37.0-80.0); Nucleated Red Blood Cells % 0.1 %; Platelet Count (auto) 255 10^3/uL (140-450); Red Blood Cells 4.08 10^6/uL (4.5-5.90); Red Cell Distribution Width 15.6 % (11.8-14.3); White Blood Cell 7.5 10^3/uL (4.4-10.8)
[2024-09-22 04:27] LABS: Alanine Aminotransferase 14 U/L (7-40); Albumin 3.5 g/dL (3.2-4.8); Alkaline Phosphatase 64 U/L (46-116); Anion Gap 9 (5-15); Carbon Dioxide 21 mmol/L (20-31); Chloride 102 mmol/L (98-107); Glucose 94 mg/dL (74-106); Total Protein 5.8 g/dL (5.7-8.2)
[2024-09-22 04:28] LABS: Bilirubin, Total 0.4 mg/dL (0.2-1.0)
[2024-09-22 04:29] LABS: Blood Urea Nitrogen 5 mg/dL (9-23); Calcium 8.5 mg/dL (8.7-10.4); Potassium 3.4 mmol/L (3.5-5.1); Sodium 132 mmol/L (136-145)
[2024-09-22 04:41] LABS: Aspartate Aminotransferase 18 U/L (13-40)
--- NOTE | 2024-09-22 05:06 | DVH ---
CHEST RADIOGRAPH Indication: PROTOCOL Technique: Frontal view of the chest. COMPARISON: XY CHEST PORTABLE on DOS: 09/21/24, XY CHEST PORTABLE on DOS: 09/19/24, XY CHEST PORTABLE on DOS: 09/18/24, XY CHEST PORTABLE on DOS: 09/15/24, XY CHEST PORTABLE on DOS: 07/13/24, XY CHEST PORTABLE on DOS: 09/21/24 FINDINGS: LUNGS AND PLEURAL SPACES: Left basilar atelectasis or pneumonia. No pneumothorax. HEART: Unremarkable. No cardiomegaly. MEDIASTINUM: Unremarkable. Normal mediastinal contour. BONES/JOINTS: Unremarkable. No acute fracture. OTHER FINDINGS: . IMPRESSION: Left basilar atelectasis or pneumonia, unchanged.
[2024-09-22] MEDS ORDERED: POTASSIUM EFFERVESENT TAB 25 MEQ PO ONE (06:45)
[2024-09-22] MEDS: POTASSIUM CHLORIDE 20 MEQ, LIDOCAINE 1% (LOCAL ANESTH.) 2 ML in SODIUM CHL 0.9% 100 ML IV ONE (11:31)
--- NOTE | 2024-09-22 11:55 | DVHPN2 ---
Subjective Patient denies any symptoms. Reviewed: Care Plan, H&P, Labs, Medications Changes from previous H/P or p: No Changes General: Per HPI Objective Vitals Vital Signs Date Time Temp Pulse Resp B/P (MAP) Pulse Ox O2 Delivery O2 Flow Rate FiO2 09/22/24 09:15 98.8 92 16 132/61 (84) 95 98.8 09/22/24 08:20 Room Air* 0 21 Intake/Output Intake and Output 09/22/24 07:00 Intake Total 577.5 ml Output Total 700 ml Balance -122.5 ml Intake Oral 540 ml IV Total 37.5 ml Output Urine Total 700 ml # Bowel Movements 6 General Appearance: Alert, Oriented X3, mild distress, Other (Generalized weakness) HEENT: Atraumatic, PERRLA Lungs: Clear to auscultation, Normal air movement Cardiovascular: Normal S1, Normal S2, Other (ST depressions noted) Abdomen: Normal bowel sounds, Soft, No tenderness, No hepatospenomegaly Musculoskeletal: Normal sensory function, Normal motor function Neuro: Normal speech, Strength at 5/5 X4 ext, Cranial nerves 3-12 NL, Other (Patient nonverbal) Skin: Dry, Intact Psych/Mental Status: Other (Altered mental status) Medications Current Medications Medications Dose Ordered Sig/Jesse Route Start Time Stop Time Status Last Admin Dose Admin Nitroglycerin 0.4 mg Q5MINP PRN SL 09/15/24 16:15 Morphine Sulfate 2 mg Q30M PRN IV 09/15/24 16:15 Lorazepam 1 mg Q5MINP PRN IV 09/15/24 16:15 09/16/24 05:20 1 MG Empaglifozin 10 mg DAILY PO 09/17/24 10:00 09/22/24 10:05 10 MG Clopidogrel Bisulfate 75 mg DAILY PO 09/18/24 10:00 09/22/24 10:04 75 MG Aspirin 81 mg DAILY PO 09/18/24 10:00 09/22/24 10:05 81 MG Thiamine HCl 100 mg DAILY PO 09/18/24 10:00 09/22/24 10:05 100 MG Multivitamins 1 tab DAILY PO 09/18/24 10:00 09/22/24 10:04 1 TAB Atorvastatin Calcium 80 mg HS PO 09/18/24 22:00 09/20/24 21:54 80 MG Enteral Nutritional Formula 240 ml TIDWM PO 09/19/24 12:00 09/22/24 08:20 240 ML Apixaban 5 mg BID PO 09/20/24 10:00 09/22/24 10:04 5 MG Laboratory Results Laboratory Tests 09/22/24 03:36 Chemistry Test 09/22/24 03:36 Albumin 3.5 g/dL (3.2-4.8) Calcium Level 8.5 mg/dL (8.7-10.4) L Total Protein 5.8 g/dL (5.7-8.2) LFT Test 09/22/24 03:36 Alanine Aminotransferase (ALT) 14 U/L (7-40) Alkaline Phosphatase 64 U/L (46-116) Aspartate Amino Transferase (AST) 18 U/L (13-40) Total Bilirubin 0.4 mg/dL (0.2-1.0) Urinalysis Test 09/15/24 19:56 Urine Color Light-yellow (Yellow) Urine Clarity Clear (Clear) Urine pH 6.0 (5.0-9.0) Urine Specific [place] 1.018 (1.001-1.035) Urine Protein Trace (Negative) H Urine Ketones 2+ (Negative) H Urine Blood 1+ /uL (Negative) H Urine Nitrite Negative (Negative) Urine Bilirubin Negative (Negative) Urine Urobilinogen Normal mg/dL (Negative) Urine Leukocyte Esterase Negative /uL (Negative) Urine RBC 46 /hpf (0 - 3) Urine Microscopic WBC 3 /HPF (0-3) Urine Squamous Epithelial Cells None seen /hpf (<5) Urine Bacteria None seen /hpf (None Seen) Urine Glucose Trace mg/dL (Normal) Labs and/or images reviewed: Labs reviewed by me, Image(s) reviewed by me Assessment/Plan Assessment/Plan Impression: -metabolic encephalopathy, questionably postictal -? Seizure disorder -history of alcoholism -history of marijuana use -NSTEMI,? Type -leukocytosis, rule out sepsis -acute hypoxic respiratory failure -potassium replacement -cardiogenic shock Plan: -events: Patient weaned off of Levophed drip. Patient was stable. Tolerating oral intake. -continue norepinephrine to keep map greater than 65 mmHg -IV diuresis -physical therapy: Increase activity -continue current anticoagulation/antiplatelet therapy -ACS protocol -transferred to telemetry unit -social service consultation for DC planning to long term facility. Total time spent with patient discussing and formulating plan of care: 35 minutes. This medical document was created using an electronic medical record system with [employer] dictation system. Although this document has been carefully reviewed, there may still be some phonetic and typographical errors. These areas are purely typographical due to imperfections of the software programs, and do not reflect any compromise in the patient's medical care. Plan discussed with: Patient, Other (RN) My Orders Orders - SAMANTHA MAE NP Procedure Category Date Status Time Chest Portable XY 09/22/24 Resulted 04:00 Potassium Chloride PHA 09/22/24 In Process (Potassium Chloride). 10:45 Basic Metabolic Panel LAB 09/23/24 Verified 04:00 Date of Service: Sep 22, 2024 Billing Provider: SAMANTHA MAE NP Common Visit Codes: [id number] INP/OBS CARE(HIGH) SAMANTHA MAE NP Sep 22, 2024 11:55
--- NOTE | 2024-09-22 20:29 | DVHPN2 ---
Progress Note - Dictate Date Seen: Sep 22, 2024 Medical Necessity Reason Pt with a Central, PICC or Fol: Yes The following are medically ne: Kc Catheter Reason for kc catheter: Strict I&O Subjective Patient seen and examined at bedside. Currently breathing on room air Overnight events reviewed. vital signs Vital Sign Date Time Temp Pulse Resp B/P (MAP) Pulse Ox O2 Delivery O2 Flow Rate FiO2 09/22/24 18:18 18 96 Room Air* 0 21 09/22/24 18:18 79 09/22/24 18:00 129/70 (89) 09/22/24 16:00 97.6 97.6 Total Intake and Output 09/21/24 09/21/24 09/22/24 15:00 23:00 07:00 Intake Total 37.5 ml 340 ml 200 ml Output Total 300 ml 400 ml Balance 37.5 ml 40 ml -200 ml medications Current Medications Medications Dose Ordered Sig/Jesse Route Start Time Stop Time Status Last Admin Dose Admin Nitroglycerin 0.4 mg Q5MINP PRN SL 09/15/24 16:15 Morphine Sulfate 2 mg Q30M PRN IV 09/15/24 16:15 Lorazepam 1 mg Q5MINP PRN IV 09/15/24 16:15 09/16/24 05:20 1 MG Empaglifozin 10 mg DAILY PO 09/17/24 10:00 09/22/24 10:05 10 MG Clopidogrel Bisulfate 75 mg DAILY PO 09/18/24 10:00 09/22/24 10:04 75 MG Aspirin 81 mg DAILY PO 09/18/24 10:00 09/22/24 10:05 81 MG Thiamine HCl 100 mg DAILY PO 09/18/24 10:00 09/22/24 10:05 100 MG Multivitamins 1 tab DAILY PO 09/18/24 10:00 09/22/24 10:04 1 TAB Atorvastatin Calcium 80 mg HS PO 09/18/24 22:00 09/20/24 21:54 80 MG Enteral Nutritional Formula 240 ml TIDWM PO 09/19/24 12:00 09/22/24 12:30 240 ML Apixaban 5 mg BID PO 09/20/24 10:00 09/22/24 10:04 5 MG objective Gen.: Patient lying in bed in no apparent distress. On room air Head: Normocephalic, atraumatic. Eyes: EOMI/PERRLA. Ears: Normal hearing. Normal anatomy. Neck/trachea: Trachea midline, supple. Nose: Normal external anatomy. Mouth: Moist mucous membranes. Chest: Decreased air entry bilaterally. No wheezing or rhonchi. Cardiovascular: Positive S1, positive S2. Regular rate and rhythm. Abdomen: Positive bowel sounds in all 4 quadrants. Soft, non-tender, non- distended. : Deferred. Rectal: Deferred. Skin: Warm, dry. Intact. Extremities: 2+ radial pulses bilaterally. No lower extremity edema. Neuro: Awake, alert, oriented x3. No gross motor or sensory deficits. Cranial nerves II through XII intact. Gait not assessed. laboratory and microbiology Laboratory Tests 09/22/24 03:36 Test 09/22/24 03:36 Range/Units Serum Glucose 94 74-106 mg/dL Assessment/Plan Impression: Acute hypoxic respiratory failure Acute pulmonary embolism Shock Seizure disorder Non-ST elevation myocardial infarction Events: Currently breathing on room air. Supplemental oxygen PRN Improved O2 requirements Chest x-ray reviewed; notable for left basilar atelectasis/pneumonia, unchanged. 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 Bibasilar consolidation, left greater than right. Pulmonary nodule in right lower lobe, 8 mm. Head of bed elevation Aspiration precautions Incentive spirometry Off Levophed Monitor hemodynamics closely Monitor blood pressure Continue ASA/Plavix/Eliquis Monitor renal function. Monitor electrolytes. Supplement as necessary. Potassium supplementation Patient is stable for downgrade from the pulmonary standpoint. Labs and imaging reviewed. Rest of plan as noted below. Plan: Supplemental oxygen PRN Titrate to keep O2 sats above 92%. Monitor blood pressure Cardiology recs appreciated. PT. Monitor renal function. Monitor electrolytes. Supplement as necessary. Monitor ins and outs. DVT prophylaxis. Prognosis: Guarded given patient's multiple co-morbidities. Rest of plan per hospitalist and other consultants. Thank you, ZEHRA Armstrong, for allowing me to participate in this patient's care. Further recommendations will depend on the patient's clinical course. Please do not hesitate to contact me if you have any questions or concerns. This medical document was created using an electronic medical record system with [employer] system. Although these documentations are being carefully reviewed, there may still be some phonetic and typographical changes. The errors are purely typographical, due to imperfection on the software program, and do not reflect any compromise in the patient's medical care. Dietary Evaluation Review Comments: 1)Add 60g CCHO restriction to cardiac diet 2) Continue vitamin supplementation 3) Consider oral nutrition supplementation if PO < 50% 4) F/u with pulmonology and cardiology 5) Continue plan of care Expected Outcomes/Goals: 1) appetite and labs to improve 2) f/u in 5 days Plan discussed with: Patient, Other (ESAU Suarez) SETEE ECHEVARRIA MD Sep 22, 2024 20:29
[2024-09-23 01:00] VITALS: BP 124/66; PULSE 63; RESP 16; TEMP 97.9; O2SAT 90
[2024-09-23 04:47] VITALS: BP 101/69; PULSE 80; RESP 16; TEMP 98; O2SAT 97
[2024-09-23 08:00] VITALS: PULSE 76; PULSE 79; RESP 16; O2SAT 98
[2024-09-23 08:58] VITALS: BP 115/61; PULSE 76; RESP 18; TEMP 97.6; O2SAT 98
--- NOTE | 2024-09-23 11:21 | DVHDS2 ---
Discharge Summary Date of Admission Sep 15, 2024 at 16:03 Date of Discharge: Sep 23, 2024 Admitting Diagnosis Metabolic encephalopathy secondary to acute seizure activity Labs/Diagnostic Data: Laboratory Results Test 09/22/24 03:36 09/20/24 05:30 09/18/24 11:24 09/17/24 13:20 White Blood Count 7.5 10^3/uL (4.4-10.8) Red Blood Count 4.08 10^6/uL (4.5-5.90) Hemoglobin 12.2 g/dL (13.5-17.5) Hematocrit 35.8 % (41.0-53.0) Mean Corpuscular Volume 87.7 fL (80.0-100.0) Mean Corpuscular Hemoglobin 29.8 pg (28.0-32.0) Mean Corpuscular Hemoglobin Concent 34.0 g/dL (32.0-36.0) Red Cell Distribution Width 15.6 % (11.8-14.3) Platelet Count 255 10^3/uL (140-450) Mean Platelet Volume 7.4 fL (6.9-10.8) Neutrophils (%) (Auto) 57.3 % (37.0-80.0) Lymphocytes (%) (Auto) 21.8 % (10.0-50.0) Monocytes (%) (Auto) 17.2 % (0.0-12.0) Eosinophils (%) (Auto) 2.6 % (0.0-7.0) Basophils (%) (Auto) 1.1 % (0.0-2.0) Neutrophils # (Auto) 4.3 10 ^3/uL (1.6-8.6) Lymphocytes # (Auto) 1.6 10 ^3/uL (0.4-5.4) Monocytes # (Auto) 1.3 10 ^3/uL (0-1.3) Eosinophils # (Auto) 0.2 10 ^3/uL (0-0.8) Basophils # (Auto) 0.1 10 ^3/uL (0-0.2) Nucleated Red Blood Cells 0.1 % Sodium Level 132 mmol/L (136-145) Potassium Level 3.4 mmol/L (3.5-5.1) Chloride Level 102 mmol/L (98-107) Carbon Dioxide Level 21 mmol/L (20-31) Anion Gap 9 (5-15) Blood Urea Nitrogen 5 mg/dL (9-23) Creatinine 0.84 mg/dL (0.700-1.30) Glomerular Filtration Rate Calc 89 mL/min (>90) BUN/Creatinine Ratio 6.0 (10.0-20.0) Serum Glucose 94 mg/dL (74-106) Calcium Level 8.5 mg/dL (8.7-10.4) Total Bilirubin 0.4 mg/dL (0.2-1.0) Aspartate Amino Transferase (AST) 18 U/L (13-40) Alanine Aminotransferase (ALT) 14 U/L (7-40) Alkaline Phosphatase 64 U/L (46-116) Total Protein 5.8 g/dL (5.7-8.2) Albumin 3.5 g/dL (3.2-4.8) Magnesium Level 2.0 mg/dL (1.6-2.6) POC Glucose 133 mg/dl (70-106) Prothrombin Time 11.4 sec (9.3-11.8) Prothrombin Time INR 1.08 (0.9-1.15) Activated Partial Thromboplast Time 38.4 SEC (24.5-34.5) Test 09/17/24 05:00 09/16/24 05:00 09/15/24 19:56 09/15/24 19:36 Troponin I High Sensitivity 4825 ng/L (</=54) B-Type Natriuretic Peptide 1207.40 pg/mL (0-100) Hemoglobin A1c 5.2 % A1C (<5.7) Gamma Glutamyl Transpeptidase 11 U/L (<73) Triglycerides Level 86 mg/dL (< 150) Cholesterol Level 254 mg/dL (< 200) LDL Cholesterol 173 mg/dL (< 100) HDL Cholesterol 76 mg/dL (40-59) Thyroid Stimulating Hormone (TSH) 5.04 uIU/mL (0.55-4.78) Urine Color Light-yellow (Yellow) Urine Clarity Clear (Clear) Urine pH 6.0 (5.0-9.0) Urine Specific [place] 1.018 (1.001-1.035) Urine Protein Trace (Negative) Urine Ketones 2+ (Negative) Urine Blood 1+ /uL (Negative) Urine Nitrite Negative (Negative) Urine Bilirubin Negative (Negative) Urine Urobilinogen Normal mg/dL (Negative) Urine Leukocyte Esterase Negative /uL (Negative) Urine RBC 46 /hpf (0 - 3) Urine Microscopic WBC 3 /HPF (0-3) Urine Squamous Epithelial Cells None seen /hpf (<5) Urine Bacteria None seen /hpf (None Seen) Urine Glucose Trace mg/dL (Normal) Urine Opiates Screen Neg (NEGATIVE) Urine Fentanyl Screen Neg (NEGATIVE) Urine Barbiturates Screen Neg (NEGATIVE) Urine Phencyclidine Screen Neg (NEGATIVE) Urine Amphetamines Screen Neg (NEGATIVE) Urine Benzodiazepines Screen Pos (NEGATIVE) Urine Cocaine Screen Neg (NEGATIVE) Urine Cannabinoids Screen Pos (NEGATIVE) D-Dimer, Quantitative 3.17 mg/L FEU (0.0-0.49) Test 09/15/24 16:29 09/15/24 14:45 Blood Gas Specimen Type Arterial Blood Gas Sample Site Right radial Blood Gas Patient Temperature 37.0 Arterial Blood Date Drawn [id number] Arterial Blood pH 7.422 (7.350-7.450) Arterial Blood Partial Pressure CO2 31.8 mmHg (35.0-48.0) Arterial Blood Partial Pressure O2 133.6 mmHg (83.0-108.0) Arterial Blood HCO3 20.3 mmol/L (21.0-28.0) Arterial Blood Oxygen Saturation 98.8 % (94.0-98.0) Arterial Blood Base Excess -3.1 mmol/L (-2.0-3.0) Arterial Blood Oxyhemoglobin 97.9 % (94.0-98.0) Arterial Blood Carboxyhemoglobin 0.3 % (0.5-1.5) Arterial Blood Methemoglobin 0.6 % (0.0-1.5) Aquiles Test Yes Blood Gas Total Hemoglobin 14.20 g/dL (13.5-17.5) Blood Gas Modality Mask - nrb FiO2 % 100.0 Creatine Kinase 125 U/L (46-171) Plasma/Serum Blood Alcohol < 3.0 mg/dL (<10) Other Laboratory Tests 09/22/24 03:36 Brief Hx & Hospital Course: History of Present Illness The patient was a 79-year-old male transported to the hospital by EMS with altered mental status. The time of assessment, patient continues to have ALOC. Patient was medicated with Ativan. According to emergency room physician documentation, the patient presented with ALOC as well as stiffness. According to the old medical records, the patient has a history of alcohol and marijuana abuse. No other information is available at this time. Patient was noted to have elevated troponin greater than 2000. Repeat EKG was done by myself without any ST changes. Patient was noted to have severe hypoxia with saturation 93% on a non-rebreather mask. CT of the head is negative. Chest x-ray unremarkable. Course of hospitalization: Patient was CT angiogram of the chest which revealed left lower lobe pneumonia as well as pulmonary embolism, possibly chronic. Patient was O2 requirements decreased. Currently he was on room air. Neurologically, the patient has had improvement, able to ambulate with physical therapy, tolerating oral intake. Apparently, the patient has a history of alcoholism as well as marijuana use. Patient was initially treated with banana bag then transitioned to thiamine, MVI, folic acid. Patient was noted to have worsening troponin levels, with the patient undergoing left heart catheterization, subsequent stent placement to his LAD. Patient was noted to be in cardiogenic shock postprocedure, requiring norepinephrine drip. Patient was currently normotensive and tolerating goal- directed medical therapy. Long discussion was made with the patient's daughter regarding discharge planning, who agrees with the patient would be best served for rehabilitation a [facility] facility for approximately 2-3 weeks. Patient will be discharged today, with continue treatment per medication reconciliation. Patient was to continue triple therapy, with aspirin to be stopped at day 30. All parties are agreeable with discharge plan. All questions answered. Physical examination General: Alert and Oriented x3. No acute distress. Well-nourished. Eyes: EOMI. Anicteric. HENT: Moist mucous membranes. Lungs: Clear to auscultation bilaterally. No accessory muscle use. Cardiovascular: Regular rate and rhythm. No murmur. No JVD. Abdomen: Soft, non-tender and non-distended. No palpable masses. Extremities: No edema. Non-tender. Skin: No rashes or lesions. Warm. Neurologic: No focal neurological deficits. CN II-XII grossly intact, but not individually tested. Psychiatric: Cooperative. Appropriate mood and affect. Total time spent with patient discussing and formulating plan of care: 35 minutes. This medical document was created using an electronic medical record system with [employer] dictation system. Although this document has been carefully reviewed, there may still be some phonetic and typographical errors. These areas are purely typographical due to imperfections of the software programs, and do not reflect any compromise in the patient's medical care. Consults/Reason for consult Cardiology: NSTEMI Operations or Procedures 09/17/2024: Left heart catheterization with PTCA and stent placement to LAD Condition at Discharge: Guarded Final Diagnosis/Problems List NSTEMI type 1 involving LAD. Acute respiratory failure Pulmonary embolism Secondary diagnosis: -metabolic encephalopathy, questionably postictal -? Seizure disorder -history of alcoholism -history of marijuana use -NSTEMI,? Type -versus secondary to pneumonia -acute hypoxic respiratory failure -potassium replacement -cardiogenic shock -community-acquired pneumonia, Gram-positive/Gram-negative etiology Secondary diagnosis: Discharge Disposition: Assisted Facility Discharge Instruct/Medications Diet: Cardiac 2g Na,low cholest Activity: No Restrictions, As Tolerated Follow Up/Referral: Follow up with Cardiology in 1-2 weeks Medications: Refer to medication reconciliation form 36 Discharge Statement: "Patient was advised to return to the ER or call 911 if any headaches, dizziness, shortness of breath, chest pain, abdominal pain, bleeding, fevers, or worsening of medical condition. Patient was counseled about treatment plan, medications, possible side effects, patientverbalized understanding. All questions were answered to the best of my ability. This discharge took greater then 30 minutes in planning, reviewing documentation, counseling the patient, and discussing with other team members." ASSESSMENT ASSESSMENT Assessment NSTEMI type 1 involving LAD. Acute respiratory failure Pulmonary embolism Date of Service: Sep 23, 2024 Billing Provider: SAMANTHA MAE NP Common Visit Codes: [id number]/OBS DISCH DAY >30min SAMANTHA MAE NP Sep 23, 2024 11:21
[2024-09-23 12:57] VITALS: BP 115/70; PULSE 67; RESP 16; TEMP 98.1; O2SAT 95
[2024-09-23 16:38] VITALS: BP 107/54; PULSE 71; RESP 18; TEMP 97.9; O2SAT 98
--- NOTE | 2024-09-23 23:31 | DVHPN2 ---
Progress Note - Dictate Date Seen: Sep 23, 2024 Medical Necessity Reason Pt with a Central, PICC or Fol: Yes The following are medically ne: Kc Catheter Reason for kc catheter: Strict I&O Subjective Patient seen and examined at bedside. Remains on room air Overnight events reviewed. vital signs Vital Sign Date Time Temp Pulse Resp B/P (MAP) Pulse Ox O2 Delivery O2 Flow Rate FiO2 09/23/24 16:38 97.9 71 18 107/54 (71) 98 97.9 09/23/24 08:00 Room Air* 0 21 Total Intake and Output 09/22/24 09/22/24 09/23/24 15:00 23:00 07:00 Intake Total 112 ml 420 ml 350 ml Output Total 450 ml 500 ml Balance 112 ml -30 ml -150 ml medications Current Medications Medications Dose Ordered Sig/Jesse Route Start Time Stop Time Status Last Admin Dose Admin Nitroglycerin 0.4 mg Q5MINP PRN SL 09/15/24 16:15 Morphine Sulfate 2 mg Q30M PRN IV 09/15/24 16:15 Lorazepam 1 mg Q5MINP PRN IV 09/15/24 16:15 09/16/24 05:20 1 MG Empaglifozin 10 mg DAILY PO 09/17/24 10:00 09/22/24 10:05 10 MG Clopidogrel Bisulfate 75 mg DAILY PO 09/18/24 10:00 09/22/24 10:04 75 MG Aspirin 81 mg DAILY PO 09/18/24 10:00 09/22/24 10:05 81 MG Thiamine HCl 100 mg DAILY PO 09/18/24 10:00 09/22/24 10:05 100 MG Multivitamins 1 tab DAILY PO 09/18/24 10:00 09/22/24 10:04 1 TAB Atorvastatin Calcium 80 mg HS PO 09/18/24 22:00 09/22/24 21:46 80 MG Enteral Nutritional Formula 240 ml TIDWM PO 09/19/24 12:00 09/23/24 18:10 240 ML Apixaban 5 mg BID PO 09/20/24 10:00 09/22/24 21:46 5 MG objective Gen.: Patient lying in bed in no apparent distress. On room air Head: Normocephalic, atraumatic. Eyes: EOMI/PERRLA. Ears: Normal hearing. Normal anatomy. Neck/trachea: Trachea midline, supple. Nose: Normal external anatomy. Mouth: Moist mucous membranes. Chest: Decreased air entry bilaterally. No wheezing or rhonchi. Cardiovascular: Positive S1, positive S2. Regular rate and rhythm. Abdomen: Positive bowel sounds in all 4 quadrants. Soft, non-tender, non- distended. : Deferred. Rectal: Deferred. Skin: Warm, dry. Intact. Extremities: 2+ radial pulses bilaterally. No lower extremity edema. Neuro: Awake, alert, oriented x3. No gross motor or sensory deficits. Cranial nerves II through XII intact. Gait not assessed. laboratory and microbiology Laboratory Tests 09/22/24 03:36 Test 09/22/24 03:36 Range/Units Serum Glucose 94 74-106 mg/dL Assessment/Plan Impression: Acute hypoxic respiratory failure Acute pulmonary embolism Shock Seizure disorder Non-ST elevation myocardial infarction Events: Remains on room air. Supplemental oxygen PRN Improved O2 requirements Chest x-ray on 09/22 notable for left basilar atelectasis/pneumonia, unchanged. Head of bed elevation Aspiration precautions Patient is refusing medications Incentive spirometry Off Levophed Monitor hemodynamics closely Monitor blood pressure Continue ASA/Plavix/Eliquis Monitor renal function. Monitor electrolytes. Supplement as necessary. Labs and imaging reviewed. Rest of plan as noted below. Plan: Supplemental oxygen PRN Titrate to keep O2 sats above 92%. Monitor blood pressure Cardiology recs appreciated. PT. Monitor renal function. Monitor electrolytes. Supplement as necessary. Monitor ins and outs. DVT prophylaxis. Prognosis: Guarded given patient's multiple co-morbidities. Rest of plan per hospitalist and other consultants. Thank you, ZEHRA Armstrong, for allowing me to participate in this patient's care. Further recommendations will depend on the patient's clinical course. Please do not hesitate to contact me if you have any questions or concerns. This medical document was created using an electronic medical record system with [employer] dictation system. Although these documentations are being carefully reviewed, there may still be some phonetic and typographical changes. The errors are purely typographical, due to imperfection on the software program, and do not reflect any compromise in the patient's medical care. Dietary Evaluation Review Comments: 1)Add 60g CCHO restriction to cardiac diet 2) Continue vitamin supplementation 3) Consider oral nutrition supplementation if PO < 50% 4) F/u with pulmonology and cardiology 5) Continue plan of care Expected Outcomes/Goals: 1) appetite and labs to improve 2) f/u in 5 days Plan discussed with: Patient, Other (ESAU Brandt) ESTEE ECHEVARRIA MD Sep 23, 2024 23:31
[2024-09-24 05:00] VITALS: BP 123/63; PULSE 69; RESP 20; TEMP 98; O2SAT 97
--- NOTE | 2024-09-24 08:41 | DVHPN2 ---
Subjective Patient denies any symptoms. Reviewed: Care Plan, H&P, Labs, Medications Changes from previous H/P or p: No Changes General: Per HPI Objective Vitals Vital Signs Date Time Temp Pulse Resp B/P (MAP) Pulse Ox O2 Delivery O2 Flow Rate FiO2 09/24/24 05:00 98.0 69 20 123/63 (83) 97 98.0 09/23/24 20:00 Room Air* 0 21 Intake/Output Intake and Output 09/24/24 07:00 Intake Total 360 ml Output Total 550 ml Balance -190 ml Intake Oral 360 ml Output Urine Total 550 ml # Bowel Movements 1 General Appearance: Alert, Oriented X3, mild distress, Other (Generalized weakness) HEENT: Atraumatic, PERRLA Lungs: Clear to auscultation, Normal air movement Cardiovascular: Normal S1, Normal S2, Other (ST depressions noted) Abdomen: Normal bowel sounds, Soft, No tenderness, No hepatospenomegaly Musculoskeletal: Normal sensory function, Normal motor function Neuro: Normal speech, Strength at 5/5 X4 ext, Cranial nerves 3-12 NL, Other (Patient nonverbal) Skin: Dry, Intact Psych/Mental Status: Other (Altered mental status) Medications Current Medications Medications Dose Ordered Sig/Jesse Route Start Time Stop Time Status Last Admin Dose Admin Nitroglycerin 0.4 mg Q5MINP PRN SL 09/15/24 16:15 Morphine Sulfate 2 mg Q30M PRN IV 09/15/24 16:15 Lorazepam 1 mg Q5MINP PRN IV 09/15/24 16:15 09/16/24 05:20 1 MG Empaglifozin 10 mg DAILY PO 09/17/24 10:00 09/22/24 10:05 10 MG Clopidogrel Bisulfate 75 mg DAILY PO 09/18/24 10:00 09/22/24 10:04 75 MG Aspirin 81 mg DAILY PO 09/18/24 10:00 09/22/24 10:05 81 MG Thiamine HCl 100 mg DAILY PO 09/18/24 10:00 09/22/24 10:05 100 MG Multivitamins 1 tab DAILY PO 09/18/24 10:00 09/22/24 10:04 1 TAB Atorvastatin Calcium 80 mg HS PO 09/18/24 22:00 09/22/24 21:46 80 MG Enteral Nutritional Formula 240 ml TIDWM PO 09/19/24 12:00 09/23/24 18:10 240 ML Apixaban 5 mg BID PO 09/20/24 10:00 09/22/24 21:46 5 MG Laboratory Results Laboratory Tests 09/22/24 03:36 Urinalysis Test 09/15/24 19:56 Urine Color Light-yellow (Yellow) Urine Clarity Clear (Clear) Urine pH 6.0 (5.0-9.0) Urine Specific [place] 1.018 (1.001-1.035) Urine Protein Trace (Negative) H Urine Ketones 2+ (Negative) H Urine Blood 1+ /uL (Negative) H Urine Nitrite Negative (Negative) Urine Bilirubin Negative (Negative) Urine Urobilinogen Normal mg/dL (Negative) Urine Leukocyte Esterase Negative /uL (Negative) Urine RBC 46 /hpf (0 - 3) Urine Microscopic WBC 3 /HPF (0-3) Urine Squamous Epithelial Cells None seen /hpf (<5) Urine Bacteria None seen /hpf (None Seen) Urine Glucose Trace mg/dL (Normal) Labs and/or images reviewed: Labs reviewed by me, Image(s) reviewed by me Assessment/Plan Assessment/Plan Impression: -metabolic encephalopathy, questionably postictal -? Seizure disorder -history of alcoholism -history of marijuana use -NSTEMI,? Type -leukocytosis, rule out sepsis -acute hypoxic respiratory failure -potassium replacement -cardiogenic shock Plan: -events: [facility] -continue physical therapy daily -IV diuresis -physical therapy: Increase activity -continue current anticoagulation/antiplatelet therapy -ACS protocol -transfer to Medical/Surgical unit -social service consultation for DC planning to prison facility. Total time spent with patient discussing and formulating plan of care: 35 minutes. This medical document was created using an electronic medical record system with [employer] dictation system. Although this document has been carefully reviewed, there may still be some phonetic and typographical errors. These areas are purely typographical due to imperfections of the software programs, and do not reflect any compromise in the patient's medical care. Plan discussed with: Patient, Other (RN) My Orders Orders - SAMANTHA MAE NP Procedure Category Date Status Time * Printing Machinist CONS 09/23/24 Transmitted Consult Discharge DISCHARGE 09/23/24 Transmitted 11:01 Date of Service: Sep 24, 2024 Billing Provider: SAMANTHA MAE NP Common Visit Codes: [id number] INP/OBS CARE(HIGH) SAMANTHA MAE NP Sep 24, 2024 08:41
[2024-09-24 11:42] VITALS: BP 108/70; PULSE 77
--- NOTE | 2024-09-24 23:52 | DVHPN2 ---
Progress Note - Dictate Date Seen: Sep 24, 2024 Medical Necessity Reason Pt with a Central, PICC or Fol: Yes The following are medically ne: Kc Catheter Reason for kc catheter: Strict I&O Subjective Patient seen and examined at bedside. Remains on room air Overnight events reviewed. vital signs Vital Sign Date Time Temp Pulse Resp B/P (MAP) Pulse Ox O2 Delivery O2 Flow Rate FiO2 09/24/24 11:42 77 09/24/24 08:00 Room Air* 0 21 09/24/24 05:00 98.0 20 123/63 (83) 97 98.0 Total Intake and Output 09/23/24 09/23/24 09/24/24 15:00 23:00 07:00 Intake Total 360 ml Output Total 550 ml Balance -190 ml objective Gen.: Patient lying in bed in no apparent distress. On room air Head: Normocephalic, atraumatic. Eyes: EOMI/PERRLA. Ears: Normal hearing. Normal anatomy. Neck/trachea: Trachea midline, supple. Nose: Normal external anatomy. Mouth: Moist mucous membranes. Chest: Decreased air entry bilaterally. No wheezing or rhonchi. Cardiovascular: Positive S1, positive S2. Regular rate and rhythm. Abdomen: Positive bowel sounds in all 4 quadrants. Soft, non-tender, non- distended. : Deferred. Rectal: Deferred. Skin: Warm, dry. Intact. Extremities: 2+ radial pulses bilaterally. No lower extremity edema. Neuro: Awake, alert, oriented x3. No gross motor or sensory deficits. Cranial nerves II through XII intact. Gait not assessed. laboratory and microbiology Laboratory Tests 09/22/24 03:36 Test 09/22/24 03:36 Range/Units Serum Glucose 94 74-106 mg/dL Assessment/Plan Impression: Acute hypoxic respiratory failure Acute pulmonary embolism Shock Seizure disorder Non-ST elevation myocardial infarction Events: Remains on room air. Supplemental oxygen PRN Improved O2 requirements Chest x-ray on 09/22 notable for left basilar atelectasis/pneumonia, unchanged. Head of bed elevation Aspiration precautions Patient is refusing certain medications Continue antibiotics Incentive spirometry Off Levophed Monitor hemodynamics closely Monitor blood pressure Continue ASA/Plavix/Eliquis Monitor renal function. Monitor electrolytes. Supplement as necessary. Patient is stable for discharge from the pulmonary standpoint. Disposition per hospitalist. Labs and imaging reviewed. Rest of plan as noted below. Plan: Supplemental oxygen PRN Titrate to keep O2 sats above 92%. Monitor blood pressure Cardiology recs appreciated. PT. Monitor renal function. Monitor electrolytes. Supplement as necessary. Monitor ins and outs. DVT prophylaxis. Prognosis: Guarded given patient's multiple co-morbidities. Rest of plan per hospitalist and other consultants. Thank you, ZEHRA Armstrong, for allowing me to participate in this patient's care. Further recommendations will depend on the patient's clinical course. Please do not hesitate to contact me if you have any questions or concerns. This medical document was created using an electronic medical record system with [employer] dictation system. Although these documentations are being carefully reviewed, there may still be some phonetic and typographical changes. The errors are purely typographical, due to imperfection on the software program, and do not reflect any compromise in the patient's medical care. Dietary Evaluation Review Comments: 1)Add 60g CCHO restriction to cardiac diet 2) Continue vitamin supplementation 3) Consider oral nutrition supplementation if PO < 50% 4) F/u with pulmonology and cardiology 5) Continue plan of care Expected Outcomes/Goals: 1) appetite and labs to improve 2) f/u in 5 days Plan discussed with: Patient, Other (ESAU Grover) ESTEE ECHEVARRIA MD Sep 24, 2024 23:52
== END 2024-09-24 17:23 | DRG 321 ==
LOC: EDBD 11:54 → EDUNIT# 11:54 → ER 11:59 → OVERFLOW 16:03 → DOU IN ICU 09-16 15:47 → ICU CENTRL 09-19 03:21 → TELE-CENTR 09-22 18:54 → CENTRAL 09-24 09:04
PROVIDERS: ADMIT Nurse Practitioner Acute Care; ATTEND Nurse Practitioner Acute Care
PROC: 027034Z Dilation of Coronary Artery, One Artery with Drug-eluting Intraluminal Device, Percutaneous Approach (ICD-10-PCS; principal; 2024-09-17)
PROC: B215YZZ Fluoroscopy of Left Heart using Other Contrast (ICD-10-PCS; 2024-09-17)
PROC: B211YZZ Fluoroscopy of Multiple Coronary Arteries using Other Contrast (ICD-10-PCS; 2024-09-17)
PROC: 4A023N7 Measurement of Cardiac Sampling and Pressure, Left Heart, Percutaneous Approach (ICD-10-PCS; 2024-09-17)
DX: I21.4 Non-ST elevation (NSTEMI) myocardial infarction (principal); I26.99 Other pulmonary embolism without acute cor pulmonale; J96.01 Acute respiratory failure with hypoxia; R57.0 Cardiogenic shock; J15.69 Pneumonia due to other Gram-negative bacteria; J15.9 Unspecified bacterial pneumonia; I42.9 Cardiomyopathy, unspecified; I27.82 Chronic pulmonary embolism; I25.10 Atherosclerotic heart disease of native coronary artery without angina pectoris; F10.20 Alcohol dependence, uncomplicated; I10 Essential (primary) hypertension; E11.9 Type 2 diabetes mellitus without complications; G40.909 Epilepsy, unspecified, not intractable, without status epilepticus; F12.10 Cannabis abuse, uncomplicated; R91.1 Solitary pulmonary nodule; Y90.0 Blood alcohol level of less than 20 mg/100 ml; Z96.612 Presence of left artificial shoulder joint; Z96.642 Presence of left artificial hip joint; Z79.899 Other long term (current) drug therapy; Z80.0 Family history of malignant neoplasm of digestive organs; Z79.82 Long term (current) use of aspirin; Z79.2 Long term (current) use of antibiotics; Z87.01 Personal history of pneumonia (recurrent); Z86.16 Personal history of COVID-19; Z99.81 Dependence on supplemental oxygen; Z79.02 Long term (current) use of antithrombotics/antiplatelets
CPT/HCPCS: 36415; 36600; 70450; 71045; 71275; 80048; 80053; 80061; 80307; 80320; 81001; 82550; 82805; 82962; 82977; 83036; 83735; 83880; 84443; 84484; 85025; 85379; 85610; 85730; 92941; 93005; 93306; 93458; 93970; 96372; 96374; 97110; 97116; 97163; 97530; 99152; 99291; A4565; C1894; G0378; J2003; J2250; J2543; Q9967

== ENCOUNTER 2025-02-24 11:22 | Inpatient (IN) | payer OTHER, MEDICARE ==
[2025-02-24] VITALS (17 sets, daily range): BP systolic 82–150; BP diastolic 54–94; PULSE 91–114; RESP 15–33; TEMP 97.5–100.8; O2SAT 94–100
[~2025-02-24] VITALS: Ht 177.8 cm; Wt 64.1 kg
--- NOTE | 2025-02-24 11:29 | ED.PDOC ---
Altered Mental Status HPI Comments 79-year-old male with a history of CAD brought in by EMS from home after being found by family/roommate with altered mental status. Patient was last known well yesterday. Patient is reportedly usually alert and oriented x4 with intermittent episodes of confusion and able to ambulate using a walker. EMS reports they found the patient unconscious on the floor, hypotensive and hypoxic in the low 80s on room air, with a temperature of 100.1 axillary. They administered a L of normal saline IV and place the patient on oxygen by mask, improving his oxygen saturation to 99% on 15L. On arrival to ED, patient has his eyes open, is looking around, can localize pain, however he is not responding verbally. No additional history is available from the patient. Per previous records, patient was admitted here in September of 2024 with acute hypoxic respiratory failure, altered mental status possibly due to seizure versus polysubstance abuse, pulmonary embolus and non STEMI. He underwent cardiac catheterization with PTCA. Time Seen by MD: 11:26 Primary Care Provider: unknown Reviewed Notes: Bookkeeping Manager Notes, Medications, Allergies Allergies: Coded Allergies: NO KNOWN ALLERGIES (Unverified , 07/15/22) Home Meds Active Scripts Thiamine HCl (Thiamine Hydrochloride) 100 Mg Tab, 100 MG PO DAILY for 14 Days, #14 TAB Prov:GIA BRENNAN RESIDENT 07/20/24 Folic Acid (Folate) 400 Mcg Tab, 400 MCG PO DAILY for 30 Days, #30 TAB Prov:GIA BRENNAN RESIDENT 07/20/24 Multiple Vitamin (Multivitamins) Tab, 1 TAB PO DAILY for 30 Days, #30 TAB 2 R efills Prov:GIA BRENNAN RESIDENT 07/20/24 Information Source: Emergency Med Personnel Mode of Arrival: EMS Severity: Moderate, Unable to Care for Self Timing: Hours Duration: Since onset Prehospital treatment: Accucheck (154), Spa Consultant, Oxygen Quality: Decreased Alertness, Change in Behavior Past Medical History PAST MEDICAL HISTORY: CAD, HTN, Seizures Past Medical History (Other): History of polysubstance abuse, non STEMI, pulmonary embolus Surgical History: PTCA, Unobtainable Family History Family History: Reviewed,noncontributory to illness, No family hx of Lung alirio Social History Smoker: Unknown, Unobtainable Alcohol: Heavy Drugs: Unknown, Unobtainable Lives In: Home Unable to Obtain due to: Altered Mental Status (Comprehensive systems review unobtainable due to the patient's altered mental status) Physical Exam General Appearance: Moderate Distress HEENT: Other (Pupils and face symmetric. Moist mucous membranes.) Neck: Full Range of Motion, Normal Inspection Respiratory: Accessory Muscle Use, Rales, Respiratory Distress, Rhonchi Cardiovascular: No Edema, No JVD, Tachycardia Breast Exam: Deferred Gastrointestinal: Non Tender, Soft Genitalia: Deferred Pelvic: Deferred Rectal: Deferred Extremities: Normal inspection, Normal range of motion, Non-tender, No pedal edema Neurologic: Alert, Other (Moving all extremities. Does not respond verbally to questions and does not follow commands.) Cerebellar Function: NOT DONE Reflexes: NOT DONE Skin: Dry, Normal Color, Warm Lymphatic: NOT DONE EKG EKG : Comments Sinus tach, rate 102, normal intervals, normal axis, normal QRS, nonspecific T change. Was a procedure done? Was a procedure done?: No Differential Diagnosis (ALOC) Differential Diagnosis: Hypoglycemia, Encephalopathy, Sepsis, Closed Head Injury, CVA, SAH, Drug Overdose, ETOH Intoxication, Heart Failure, Renal Failure, Other (Pneumonia, among others) X-Ray, Labs, Meds, VS Vital Signs Date Time Temp Pulse Resp B/P (MAP) Pulse Ox O2 Delivery O2 Flow Rate FiO2 02/24/25 11:44 24 98 Non-Rebreather 15 N/A 02/24/25 11:30 100.7 110 36 167/100 99 100.7 02/24/25 11:29 102 Lab Test 02/24/25 15:03 02/24/25 14:00 02/24/25 13:02 02/24/25 12:00 Range/Units Lactic Acid Level Pending 2.2 *H 0.4-2.0 mmol/L Troponin I High Sensitivity Pending 794 *H 594 *H </=54 ng/L Urine Color Colorless Yellow Urine Clarity Clear Clear Urine pH 6.0 5.0-9.0 Urine Specific [place] 1.011 1.001-1.035 Urine Protein Negative Negative Urine Ketones 1+ H Negative Urine Blood 2+ H Negative /uL Urine Nitrite Negative Negative Urine Bilirubin Negative Negative Urine Urobilinogen Normal Negative mg/dL Urine Leukocyte Esterase Negative Negative /uL Urine RBC 6 0 - 3 /hpf Urine Microscopic WBC 1 0-3 /HPF Urine Squamous Epithelial Cells Few <5 /hpf Urine Bacteria None seen None Seen /hpf Urine Glucose 4+ H Normal mg/dL Urine Opiates Screen Pending Urine Fentanyl Screen Pending Urine Barbiturates Screen Pending Urine Phencyclidine Screen Pending Urine Amphetamines Screen Pending Urine Benzodiazepines Screen Pending Urine Cocaine Screen Pending Urine Cannabinoids Screen Pending White Blood Count 14.5 H 4.4-10.8 10^3/uL Red Blood Count 4.77 4.5-5.90 10^6/uL Hemoglobin 13.3 L 13.5-17.5 g/dL Hematocrit 40.9 L 41.0-53.0 % Mean Corpuscular Volume 85.8 80.0-100.0 fL Mean Corpuscular Hemoglobin 28.0 28.0-32.0 pg Mean Corpuscular Hemoglobin Concent 32.6 32.0-36.0 g/dL Red Cell Distribution Width 16.1 H 11.8-14.3 % Platelet Count 284 140-450 10^3/uL Mean Platelet Volume 7.0 6.9-10.8 fL Neutrophils (%) (Auto) 84.7 H 37.0-80.0 % Lymphocytes (%) (Auto) 7.1 L 10.0-50.0 % Monocytes (%) (Auto) 8.1 0.0-12.0 % Eosinophils (%) (Auto) 0.0 0.0-7.0 % Basophils (%) (Auto) 0.1 0.0-2.0 % Neutrophils # (Auto) 12.3 H 1.6-8.6 10 ^3/uL Lymphocytes # (Auto) 1.0 0.4-5.4 10 ^3/uL Monocytes # (Auto) 1.2 0-1.3 10 ^3/uL Eosinophils # (Auto) 0 0-0.8 10 ^3/uL Basophils # (Auto) 0 0-0.2 10 ^3/uL Nucleated Red Blood Cells 0.0 % Prothrombin Time 11.1 9.3-11.8 sec Prothrombin Time INR 1.05 0.9-1.15 Activated Partial Thromboplast Time 24.0 L 24.5-34.5 SEC Sodium Level 139 136-145 mmol/L Potassium Level 3.7 3.5-5.1 mmol/L Chloride Level 108 H 98-107 mmol/L Carbon Dioxide Level 19 L 20-31 mmol/L Anion Gap 12 5-15 Blood Urea Nitrogen 7 L 9-23 mg/dL Creatinine 1.17 0.700-1.30 mg/dL Glomerular Filtration Rate Calc 64 >90 mL/min BUN/Creatinine Ratio 6.0 L 10.0-20.0 Serum Glucose 143 H 74-106 mg/dL Calcium Level 8.6 L 8.7-10.4 mg/dL Total Bilirubin 0.7 0.2-1.0 mg/dL Aspartate Amino Transferase (AST) 34 13-40 U/L Alanine Aminotransferase (ALT) 33 7-40 U/L Alkaline Phosphatase 107 46-116 U/L Ammonia < 10 L 11-32 umol/L B-Type Natriuretic Peptide 309.96 0-100 pg/mL Total Protein 6.8 5.7-8.2 g/dL Albumin 4.3 3.2-4.8 g/dL Plasma/Serum Blood Alcohol < 3.0 <10 mg/dL Current Medications Medications (Trade) Dose Ordered Sig/Jesse Route Start Time Stop Time Status Last Admin Cefepime HCl 50 ml @ 12.5 mls/hr Q12H IV 02/24/25 14:00 02/24/25 15:06 Acetaminophen (Ofirmev) 1,000 mg ONCE ONCE IV 02/24/25 11:30 02/24/25 11:32 DC 02/24/25 12:04 Albuterol (Ventolin Medneb) 5 mg ONCE ONCE NEB 02/24/25 11:30 02/24/25 11:32 DC 02/24/25 11:53 Ipratropium Robert (Atrovent Medneb) 0.5 mg ONCE ONCE NEB 02/24/25 11:30 02/24/25 11:32 DC 02/24/25 11:53 Lactated Ringer's 1,000 ml @ 1,000 mls/hr Q1H ONCE IV 02/24/25 11:30 02/24/25 12:29 DC 02/24/25 12:18 Vancomycin HCl 250 ml @ 250 mls/hr ONCE ONCE IV 02/24/25 12:15 02/24/25 13:14 DC 02/24/25 12:23 Enoxaparin Sodium (Lovenox) 80 mg ONCE ONCE SC 8/14/25 13:45 02/24/25 13:46 DC 02/24/25 14:23 PROCEDURE(s): HWOCT - HEAD WITHOUT CONTRAST REASON: aloc ORDER NUMBER(s): [id number], ACCESSION NUMBER(s): [id number] EXAM: CT HEAD WITHOUT CONTRAST INDICATION: aloc TECHNIQUE: CT of the head without intravenous contrast. Radiation Dose : 1. Head: CT Dose: CTDI volume is 53 mGy. Dose-length product is 1076 mGy*cm The dose indicators for CT are the volume Computed Tomography (CT) Dose Index (CTDIvol) and the Dose Length Product (DLP), and are measured in units of mGy and mGy-cm, respectively. These indicators are not patient dose, but values generated from the CT scanner acquisition factors. The report includes radiation exposure data for exposures received during this examination. COMPARISON: CT HEAD WITHOUT CONTRAST on DOS: 09/15/24, CT HEAD WITHOUT CONTRAST on DOS: 07/13/24, HEAD WITHOUT CONTRAST on DOS: 07/15/22 FINDINGS: There is no evidence of acute intracranial hemorrhage, extra-axial collection, mass effect, midline shift, herniation or hydrocephalus. The ventricles, sulci and cisterns are age appropriate. The israel-white differentiation is intact. Patchy periventricular and subcortical white matter hypoattenuation is nonspecific but may be related to small vessel ischemic disease. The visualized paranasal sinuses and mastoid air cells are clear. The surrounding soft tissues and osseous structures are unremarkable. Left lens dislocation. IMPRESSION: No acute intracranial abnormality. Radiation optimization: All CT scans at this facility use at least one of these dose optimization techniques: automated exposure control mA and/or kV adjustment per patient size (includes targeted exams where dose is matched to clinical indication) or iterative reconstruction. EDURE(s): CXRP - CHEST PORTABLE REASON: hypoxia ORDER NUMBER(s): [id number], ACCESSION NUMBER(s): [id number] AP portable chest CLINICAL INDICATION: hypoxia Comparison 09/22/2024 FINDINGS: Heart size is enlarged. The aorta is tortuous. Minimal infiltrate or congestive change in the right lower lung zone IMPRESSION: 1. Minimal infiltrate or congestive change right lower lung zone ATED BY: YIMI CHURCHILL MD DICTATED DATE/TIME: 02/24/25 1300 SIGNED BY: YIMI CHURCHILL MD SIGNED DATE/TIME: 02/24/25 1300 X-Ray, Labs, Meds, VS Comment 79-year-old male with a history of CAD, non STEMI status post PTCA, PE, seizure disorder, polysubstance abuse brought in by EMS from home with altered mental status, hypotension and hypoxia Vitals remarkable for fever, tachycardia and hypoxia on room air Exam remarkable for no verbal responses to questions and inability to follow commands, tachycardia and respiratory distress with bilateral rhonchi/rales accessory muscle use Rhythm strip independently interpreted by me: Sinus tach, rate 102, no ectopy. CT head unremarkable Chest x-ray IMPRESSION: 1. Minimal infiltrate or congestive change right lower lung zone CBC shows WBC 14.5, CMP significant for CO2 19, BNP 309.96, serial troponins 594 and 794, lactate 2.2, UA positive for ketones, blood and glucose, serum alcohol 0, urine drug screen pending, ammonia negative Patient treated with the following in the ED: 1 L LR IV bolus (patient already received 1 L normal saline IV bolus administered by EMS pre-hospital), cefepime 2 g IV, vancomycin per pharmacy IV, Tylenol 1 g IV, albuterol 5 mg/Atrovent 0.5 mg nebulized, Lovenox 80 mg subQ On re-evaluation patient is alert and making eye contact. He is not in respiratory distress. He is still not verbally responding to questions. Oxygen saturation is 100% on 10 L mask, heart rate is 102, respiratory rate 28. Plan is to admit the patient for respiratory support, IV antibiotics and Cardiology evaluation. Time of 1ST Reevaluation: 11:56 Reevaluation 1ST: Unchanged Patient Education/Counseling: Other (ALOC) Family Education/Counseling: Diagnosis, Treatment, Need For Follow Up SEPSIS Sepsis Screen Physician Orders Chest Portable (02/24/25 11:27) Accucheck (02/24/25 11:27) Blood Culture (02/24/25 11:27) Lactic Acid W/ Reflex Order (02/24/25 14:00) Cefepime 1gm/ 50ml (Maxipime 1gm/50ml) (02/24/25 14:00) Notify Md If Map <65 Or Bp<90 (02/24/25 11:27) If Map<65 Start Vasopressor (02/24/25 11:27) Sepsis Reassesment After Fluid (02/24/25 12:27) Head Without Contrast (02/24/25 11:27) Troponin-I Hs (02/24/25 14:27) Drug Screen (02/24/25 11:38) Amor Catheters (02/24/25 ) Electrocardigram (02/24/25 11:52) Vital Signs Date Time Temp Pulse Resp B/P (MAP) Pulse Ox O2 Delivery O2 Flow Rate FiO2 02/24/25 11:44 24 98 Non-Rebreather 15 N/A 02/24/25 11:30 100.7 110 36 167/100 99 100.7 02/24/25 11:29 102 Laboratory Tests Test 02/24/25 12:00 02/24/25 15:03 Lactic Acid Level 2.2 mmol/L (0.4-2.0) *H Pending White Blood Count 14.5 10^3/uL (4.4-10.8) H Medications Medications Dose Ordered Sig/Jesse Route Start Time Stop Time Status Last Admin Dose Admin Acetaminophen 1,000 mg ONCE ONCE IV 02/24/25 11:30 02/24/25 11:32 DC 02/24/25 12:04 Albuterol 5 mg ONCE ONCE NEB 02/24/25 11:30 02/24/25 11:32 DC 02/24/25 11:53 Cefepime HCl 50 ml @ 12.5 mls/hr Q12H IV 02/24/25 14:00 02/24/25 15:06 Enoxaparin Sodium 80 mg ONCE ONCE SC 02/24/25 13:45 02/24/25 13:46 DC 02/24/25 14:23 Ipratropium Robert 0.5 mg ONCE ONCE NEB 02/24/25 11:30 02/24/25 11:32 DC 02/24/25 11:53 Lactated Ringer's 1,000 ml @ 1,000 mls/hr Q1H ONCE IV 02/24/25 11:30 02/24/25 12:29 DC 02/24/25 12:18 Vancomycin HCl 250 ml @ 250 mls/hr ONCE ONCE IV 02/24/25 12:15 02/24/25 13:14 DC 02/24/25 12:23 Reassessment Post Fluid SEPSIS FOCUS EXAM(REASSESSMENT Sepsis reassessment focused exam completed. Date: 02/24/25 Time 13:47 Departure 1 Departure Time of Disposition: 15:33 Impression: Primary Impression: Metabolic encephalopathy Additional Impressions: Pneumonia Sepsis Acute hypoxic respiratory failure Non-STEMI (non-ST elevated myocardial infarction) Disposition: 09 ADMITTED INPATIENT Admit to: [facility] Condition: Serious Critical Care Note Critical Care Time?: Yes (55 min-critical care time only) Critical care comment: Critical care time including multiple bedside re-evaluations, review of lab and imaging studies, and discussion of the case with the admitting provider. Patient is high risk for hemodynamic, respiratory, metabolic and/or neurologic decompensation. Stability Stability form required: No Heart Score Heart Score: Heart Score Response (Comments) Value History N/A 0 EKG N/A 0 Age N/A 0 Risk Factors N/A 0 Troponin N/A 0 Total 0 I personally scribed for VIANNEY MARMOLEJO MD ([facility]) on 02/24/25 at 11:29. Electronically submitted by Guerrero Mcdonald ([email or web address]). VIANNEY MARMOLEJO MD Feb 24, 2025 11:29
[2025-02-24] MEDS ORDERED: VANCOMYCIN 1GM/200ML PM 200 ML IV ONE (11:30)
[2025-02-24] MEDS: ALBUTEROL SULF 2.5 MG/0.5ML(0.5%) NEB SOLN NEB ONE (11:53)
[2025-02-24] MEDS: IPRATROPIUM BROM 0.5 MG/2.5ML INH SOL NEB ONE (11:53)
[2025-02-24] MEDS: ACETAMINOPHEN IV 1000 MG/100ML (10MG/ML) IV ONE (12:04)
[2025-02-24] MEDS: LACTATED RINGER'S 1,000 ML IV ONE (12:18)
[2025-02-24] MEDS: VANCOMYCIN 1GM/250ML KIT 250 ML IV ONE (12:23)
[2025-02-24 12:28] LABS: Hematocrit 40.9 % (41.0-53.0); Hemoglobin 13.3 g/dL (13.5-17.5); Mean Corpuscular Hemoglobin 28.0 pg (28.0-32.0); Mean Corpuscular Volume 85.8 fL (80.0-100.0); Nucleated Red Blood Cells % 0.0 %
[2025-02-24 12:45] LABS: Alanine Aminotransferase 33 U/L (7-40); Albumin 4.3 g/dL (3.2-4.8); Alkaline Phosphatase 107 U/L (46-116); Anion Gap 12 (5-15); BUN/Creatinine Ratio 6.0 (10.0-20.0); Potassium 3.7 mmol/L (3.5-5.1); Sodium 139 mmol/L (136-145); Total Protein 6.8 g/dL (5.7-8.2)
[2025-02-24 12:46] LABS: Bilirubin, Total 0.7 mg/dL (0.2-1.0)
[2025-02-24 12:48] LABS: Blood Urea Nitrogen 7 mg/dL (9-23); Calcium 8.6 mg/dL (8.7-10.4); Carbon Dioxide 19 mmol/L (20-31); Chloride 108 mmol/L (98-107); Glucose 143 mg/dL (74-106)
[2025-02-24 12:50] LABS: Lactic Acid w/Reflex 2.2 mmol/L (0.4-2.0)
[2025-02-24 12:56] LABS: INR 1.05 (0.9-1.15); Partial Thromboplastin Time 24.0 SEC (24.5-34.5); Prothrombin Time 11.1 sec (9.3-11.8)
--- NOTE | 2025-02-24 13:02 | DVH ---
AP portable chest CLINICAL INDICATION: hypoxia Comparison 09/22/2024 FINDINGS: Heart size is enlarged. The aorta is tortuous. Minimal infiltrate or congestive change in the right lower lung zone IMPRESSION: 1. Minimal infiltrate or congestive change right lower lung zone
--- NOTE | 2025-02-24 13:09 | DVH ---
EXAM: CT HEAD WITHOUT CONTRAST INDICATION: aloc TECHNIQUE: CT of the head without intravenous contrast. Radiation Dose : 1. Head: CT Dose: CTDI volume is 53 mGy. Dose-length product is 1076 mGy*cm The dose indicators for CT are the volume Computed Tomography (CT) Dose Index (CTDIvol) and the Dose Length Product (DLP), and are measured in units of mGy and mGy-cm, respectively. These indicators are not patient dose, but values generated from the CT scanner acquisition factors. The report includes radiation exposure data for exposures received during this examination. COMPARISON: CT HEAD WITHOUT CONTRAST on DOS: 09/15/24, CT HEAD WITHOUT CONTRAST on DOS: 07/13/24, HEAD WITHOUT CONTRAST on DOS: 07/15/22 FINDINGS: There is no evidence of acute intracranial hemorrhage, extra-axial collection, mass effect, midline s hift, herniation or hydrocephalus. The ventricles, sulci and cisterns are age appropriate. The israel-white differentiation is intact. Patchy periventricular and subcortical white matter hypoattenuation is nonspecific but may be related to small vessel ischemic disease. The visualized paranasal sinuses and mastoid air cells are clear. The surrounding soft tissues and osseous structures are unremarkable. Left lens dislocation. IMPRESSION: No acute intracranial abnormality. Radiation optimization: All CT scans at this facility use at least one of these dose optimization jong hniques: automated exposure control mA and/or kV adjustment per patient size (includes targeted exam s where dose is matched to clinical indication) or iterative reconstruction.
[2025-02-24] MEDS: ENOXAPARIN SOD 100 MG/1 ML SYRINGE SC ONE (14:23)
[2025-02-24 14:24] LABS: Urine Protein, UAD Negative (Negative)
[2025-02-24] MEDS: CEFEPIME 1GM/ 50ML 50 ML IV SCH (15:06)
[2025-02-24 16:07] LABS: Amphetamine Screen, Urine Neg (NEGATIVE); Barbiturate Scree,Urine Neg (NEGATIVE); Benzodiazephine Screen, Urine Neg (NEGATIVE); Cannabinoid Screen, Urine Neg (NEGATIVE); Cocaine Screen, Urine Neg (NEGATIVE); Opiate Scree,Urine Neg (NEGATIVE); Phencyclidine Screen, Urine Neg (NEGATIVE)
[2025-02-24] MEDS ORDERED: ALBUTEROL SULF 2.5 MG/0.5ML(0.5%) NEB SOLN NEB PRN (16:45)
[2025-02-24] MEDS ORDERED: ACETAMINOPHEN 325 MG TAB PO PRN (16:45)
[2025-02-24] MEDS ORDERED: MORPHINE SULFATE INJ 2 MG/ml SYRG IV PRN (16:45)
[2025-02-24] MEDS ORDERED: ONDANSETRON HCL 4 MG/2 ML VIAL IV PRN (16:45)
[2025-02-24] MEDS ORDERED: IPRATROPIUM BROM 0.5 MG/2.5ML INH SOL NEB PRN (16:45)
[2025-02-24] MEDS ORDERED: NITROGLYCERIN 0.4 MG SL TAB SL PRN (16:45)
[2025-02-24 16:55] LABS: Lactic Acid w/Reflex 3.5 mmol/L (0.4-2.0)
--- NOTE | 2025-02-24 17:03 | DVHHP2 ---
History of Present Illness Reason for Visit: Altered mental status History of Present Illness 79-year-old male presents for evaluation of altered mental status. Patient was found by his roommate altered with difficulty breathing. Patient currently lethargic not answering questions. No further history could be obtained at the moment. Past Medical History Hypertension, CAD, seizure Past Surgical History PTCA Family History Noncontributory Smoke: No ALCOHOL: heavy Drugs: None Lives: with Family Review of Systems Review of Systems Review of systems can not be completed due to the patient's altered mental status Allergies: Coded Allergies: NO KNOWN ALLERGIES (Unverified , 07/15/22) Medications Current Medications Medications Dose Ordered Sig/Jesse Route Start Time Stop Time Status Last Admin Dose Admin Cefepime HCl 50 ml @ 12.5 mls/hr Q12H IV 02/24/25 14:00 02/24/25 15:06 12.5 MLS/HR Clindamycin Phosphate 50 ml @ 50 mls/hr Q8HR IV 02/24/25 22:00 UNV Furosemide 20 mg DAILY IV 02/25/25 10:00 Empaglifozin 10 mg DAILY PO 02/25/25 10:00 Atorvastatin Calcium 10 mg HS PO 02/24/25 22:00 Clopidogrel Bisulfate 75 mg DAILY PO 02/25/25 10:00 Albuterol 2.5 mg Q6HPRN PRN NEB 02/24/25 16:45 Ipratropium [place] 0.5 mg Q6HPRN PRN NEB 02/24/25 16:45 Ondansetron HCl 4 mg Q4HP PRN IV 02/24/25 16:45 UNV Enoxaparin Sodium 40 mg DAILY SC 02/25/25 10:00 UNV Acetaminophen 650 mg Q6HP PRN PO 02/24/25 16:45 Nitroglycerin 0.4 mg Q5MINP PRN SL 02/24/25 16:45 UNV Morphine Sulfate 2 mg Q30M PRN IV 02/24/25 16:45 UNV Exam Vital Signs Vital Signs Date Time Temp Pulse Resp B/P (MAP) Pulse Ox O2 Delivery O2 Flow Rate FiO2 02/24/25 11:44 24 98 Non-Rebreather 15 N/A 02/24/25 11:30 100.7 110 167/100 100.7 Exam Gen: 79-year-old male in mild distress Skin: Warm, dry, normal color and texture, no rash. HEENT: Normocephalic atraumatic, mucous membranes moist and pink. Neck: Cervical and supraclavicular nodes normal without enlargement, trachea is midline, thyroid gland is normal without masses. Pulmonary: Bilateral rhonchi Cardiac: Regular rate and rhythm. No murmur Abdomen: Soft, nontender, nondistended, bowel sounds present all 4 quadrants, no guarding, no rigidity, no organomegaly. Extremities: No cyanosis, clubbing, no edema Neuro: Lethargic Labs/Xrays ORDERING PHYSICIAN: VIANNEY MARMOLEJO MD PROCEDURE(s): CXRP - CHEST PORTABLE REASON: hypoxia ORDER NUMBER(s): [id number], ACCESSION NUMBER(s): [id number] AP portable chest CLINICAL INDICATION: hypoxia Comparison 09/22/2024 FINDINGS: Heart size is enlarged. The aorta is tortuous. Minimal infiltrate or congestive change in the right lower lung zone IMPRESSION: 1. Minimal infiltrate or congestive change right lower lung zone RING PHYSICIAN: VIANNEY MARMOLEJO MD PROCEDURE(s): HWOCT - HEAD WITHOUT CONTRAST REASON: aloc ORDER NUMBER(s): [id number], ACCESSION NUMBER(s): [id number] EXAM: CT HEAD WITHOUT CONTRAST INDICATION: aloc TECHNIQUE: CT of the head without intravenous contrast. Radiation Dose : 1. Head: CT Dose: CTDI volume is 53 mGy. Dose-length product is 1076 mGy*cm The dose indicators for CT are the volume Computed Tomography (CT) Dose Index (CTDIvol) and the Dose Length Product (DLP), and are measured in units of mGy and mGy-cm, respectively. These indicators are not patient dose, but values generated from the CT scanner acquisition factors. The report includes radiation exposure data for exposures received during this examination. COMPARISON: CT HEAD WITHOUT CONTRAST on DOS: 09/15/24, CT HEAD WITHOUT CONTRAST on DOS: 07/13/24, HEAD WITHOUT CONTRAST on DOS: 07/15/22 FINDINGS: There is no evidence of acute intracranial hemorrhage, extra-axial collection, mass effect, midline shift, herniation or hydrocephalus. The ventricles, sulci and cisterns are age appropriate. The israel-white differentiation is intact. Patchy periventricular and subcortical white matter hypoattenuation is nonspecific but may be related to small vessel ischemic disease. The visualized paranasal sinuses and mastoid air cells are clear. The surrounding soft tissues and osseous structures are unremarkable. Left lens dislocation. IMPRESSION: No acute intracranial abnormality. Radiation optimization: All CT scans at this facility use at least one of these dose optimization techniques: automated exposure control mA and/or kV adjustment per patient size (includes targeted exams where dose is matched to clinical indication) or iterative reconstruction. Labs Test 02/24/25 16:09 02/24/25 15:03 02/24/25 14:00 02/24/25 12:00 Range/Units Lactic Acid Level 3.5 *H 0.4-2.0 mmol/L Troponin I High Sensitivity 1115 *H </=54 ng/L Urine Color Colorless Yellow Urine Clarity Clear Clear Urine pH 6.0 5.0-9.0 Urine Specific [place] 1.011 1.001-1.035 Urine Protein Negative Negative Urine Ketones 1+ H Negative Urine Blood 2+ H Negative /uL Urine Nitrite Negative Negative Urine Bilirubin Negative Negative Urine Urobilinogen Normal Negative mg/dL Urine Leukocyte Esterase Negative Negative /uL Urine RBC 6 0 - 3 /hpf Urine Microscopic WBC 1 0-3 /HPF Urine Squamous Epithelial Cells Few <5 /hpf Urine Bacteria None seen None Seen /hpf Urine Glucose 4+ H Normal mg/dL Urine Opiates Screen Neg NEGATIVE Urine Fentanyl Screen Neg NEGATIVE Urine Barbiturates Screen Neg NEGATIVE Urine Phencyclidine Screen Neg NEGATIVE Urine Amphetamines Screen Neg NEGATIVE Urine Benzodiazepines Screen Neg NEGATIVE Urine Cocaine Screen Neg NEGATIVE Urine Cannabinoids Screen Neg NEGATIVE White Blood Count 14.5 H 4.4-10.8 10^3/uL Red Blood Count 4.77 4.5-5.90 10^6/uL Hemoglobin 13.3 L 13.5-17.5 g/dL Hematocrit 40.9 L 41.0-53.0 % Mean Corpuscular Volume 85.8 80.0-100.0 fL Mean Corpuscular Hemoglobin 28.0 28.0-32.0 pg Mean Corpuscular Hemoglobin Concent 32.6 32.0-36.0 g/dL Red Cell Distribution Width 16.1 H 11.8-14.3 % Platelet Count 284 140-450 10^3/uL Mean Platelet Volume 7.0 6.9-10.8 fL Neutrophils (%) (Auto) 84.7 H 37.0-80.0 % Lymphocytes (%) (Auto) 7.1 L 10.0-50.0 % Monocytes (%) (Auto) 8.1 0.0-12.0 % Eosinophils (%) (Auto) 0.0 0.0-7.0 % Basophils (%) (Auto) 0.1 0.0-2.0 % Neutrophils # (Auto) 12.3 H 1.6-8.6 10 ^3/uL Lymphocytes # (Auto) 1.0 0.4-5.4 10 ^3/uL Monocytes # (Auto) 1.2 0-1.3 10 ^3/uL Eosinophils # (Auto) 0 0-0.8 10 ^3/uL Basophils # (Auto) 0 0-0.2 10 ^3/uL Nucleated Red Blood Cells 0.0 % Prothrombin Time 11.1 9.3-11.8 sec Prothrombin Time INR 1.05 0.9-1.15 Activated Partial Thromboplast Time 24.0 L 24.5-34.5 SEC Sodium Level 139 136-145 mmol/L Potassium Level 3.7 3.5-5.1 mmol/L Chloride Level 108 H 98-107 mmol/L Carbon Dioxide Level 19 L 20-31 mmol/L Anion Gap 12 5-15 Blood Urea Nitrogen 7 L 9-23 mg/dL Creatinine 1.17 0.700-1.30 mg/dL Glomerular Filtration Rate Calc 64 >90 mL/min BUN/Creatinine Ratio 6.0 L 10.0-20.0 Serum Glucose 143 H 74-106 mg/dL Calcium Level 8.6 L 8.7-10.4 mg/dL Total Bilirubin 0.7 0.2-1.0 mg/dL Aspartate Amino Transferase (AST) 34 13-40 U/L Alanine Aminotransferase (ALT) 33 7-40 U/L Alkaline Phosphatase 107 46-116 U/L Ammonia < 10 L 11-32 umol/L B-Type Natriuretic Peptide 309.96 0-100 pg/mL Total Protein 6.8 5.7-8.2 g/dL Albumin 4.3 3.2-4.8 g/dL Plasma/Serum Blood Alcohol < 3.0 <10 mg/dL SEPSIS Sepsis Screen Date sepsis recognized/suspect: Feb 24, 2025 Time Sepsis recognized/suspect: 1129 Recent Procedure: No On Antibiotic Therapy: No Respiratory Rate >20: Yes Heart Rate >90: Yes Temp<36 C (96.8 F) or >38.3 C: Yes SBP <90 or MAP <65 mmHG: No New Acute Mental Status Change: Yes Is the patient on CPAP, BIPAP,: No Physician Orders Chest Portable (02/24/25 11:27) Accucheck (02/24/25 11:27) Blood Culture (02/24/25 11:27) Cefepime 1gm/ 50ml (Maxipime 1gm/50ml) (02/24/25 14:00) Notify Md If Map <65 Or Bp<90 (02/24/25 11:27) If Map<65 Start Vasopressor (02/24/25 11:27) Sepsis Reassesment After Fluid (02/24/25 12:27) Head Without Contrast (02/24/25 11:27) Amor Catheters (02/24/25 ) Electrocardigram (02/24/25 11:52) Insert Amor Catheter QSHIFT (02/24/25 16:15) Clindamycin 600mg Iv (Cleocin Iv) (02/24/25 22:00) Furosemide Injection (Lasix Injection) (02/24/25 16:45) Furosemide Injection (Lasix Injection) (02/25/25 10:00) * Cardiology Consult (02/24/25 16:45) Empagliflozin (Jardiance) (02/25/25 10:00) Atorvastatin (Lipitor) (02/24/25 22:00) Clopidogrel Bisulfate (Plavix) (02/25/25 10:00) Albuterol Medneb (Ventolin Medneb) (02/24/25 16:45) Ipratropium Medneb (Atrovent Medneb) (02/24/25 16:45) Basic Metabolic Panel (02/25/25 04:00) Admit (02/24/25 16:45) Ondansetron Hcl (Zofran) (02/24/25 16:45) Enoxaparin Sodium (Lovenox) (02/25/25 10:00) Complete Blood Count (02/25/25 04:00) Cardiac Diet-2gna,Lofat,Lochol (02/24/25 Dinner) Condition: Serious (02/24/25 16:45) Acetaminophen Tablet (Tylenol Tablet) (02/24/25 16:45) Bedrest With Bathroom Privileg (02/24/25 16:45) Nitroglycerin Sublingual (Ntrostat Subli (02/24/25 16:45) Morphine Sulfate Injection (02/24/25 16:45) Stat Ekg For Chest Pain (02/24/25 16:45) Notify Md Of Changes From Base (02/24/25 16:45) Follow Up Specialist For 24 Hours (02/24/25 16:45) Emergency Dysrhythmia Protocol (02/24/25 16:45) Rhythm Strips Once Every Shift (02/24/25 16:45) Oxygen By Nasal Cannula (02/24/25 16:45) Vital Signs Date Time Temp Pulse Resp B/P (MAP) Pulse Ox O2 Delivery O2 Flow Rate FiO2 02/24/25 11:44 24 98 Non-Rebreather 15 N/A 02/24/25 11:30 100.7 110 36 167/100 99 100.7 02/24/25 11:29 102 Laboratory Tests Test 02/24/25 12:00 02/24/25 16:09 Lactic Acid Level 2.2 mmol/L (0.4-2.0) *H 3.5 mmol/L (0.4-2.0) *H White Blood Count 14.5 10^3/uL (4.4-10.8) H Medications Medications Dose Ordered Sig/Jesse Route Start Time Stop Time Status Last Admin Dose Admin Acetaminophen 1,000 mg ONCE ONCE IV 02/24/25 11:30 02/24/25 11:32 DC 02/24/25 12:04 1,000 MG Albuterol 5 mg ONCE ONCE NEB 02/24/25 11:30 02/24/25 11:32 DC 02/24/25 11:53 5 MG Cefepime HCl 50 ml @ 12.5 mls/hr Q12H IV 02/24/25 14:00 02/24/25 15:06 12.5 MLS/HR Enoxaparin Sodium 80 mg ONCE ONCE SC 02/24/25 13:45 02/24/25 13:46 DC 02/24/25 14:23 80 MG Ipratropium [place] 0.5 mg ONCE ONCE NEB 02/24/25 11:30 02/24/25 11:32 DC 02/24/25 11:53 0.5 MG Lactated Ringer's 1,000 ml @ 1,000 mls/hr Q1H ONCE IV 02/24/25 11:30 02/24/25 12:29 DC 02/24/25 12:18 1,000 MLS/HR Vancomycin HCl 250 ml @ 250 mls/hr ONCE ONCE IV 02/24/25 12:15 02/24/25 13:14 DC 02/24/25 12:23 250 MLS/HR Assessment/Plan Assessment/Plan Assessment Metabolic encephalopathy Acute hypoxic respiratory failure Sepsis Elevated troponin rule out NSTEMI Possible aspiration pneumonia Plan Admit the patient to [facility] to the hospitalist Cardiology consultation Rocephin/Flagyl Resume home medications Continue treatment per orders Total critical care time excluding procedures performed this 55 minutes. Plan discussed with: Other My Orders Orders - ELIZABET REDDY Procedure Category Date Status Time Clindamycin 600mg Iv PHA 02/24/25 Logged (Cleocin Iv) 22:00 Furosemide Injection PHA 02/24/25 In Process (Lasix Injection) 16:45 Furosemide Injection PHA 02/25/25 In Process (Lasix Injection) 10:00 * Cardiology Consult CONS 02/24/25 Transmitted 16:45 Empagliflozin PHA 02/25/25 In Process (Jardiance) 10:00 Atorvastatin (Lipitor) PHA 02/24/25 In Process 22:00 Clopidogrel Bisulfate PHA 02/25/25 In Process (Plavix) 10:00 Albuterol Medneb PHA 02/24/25 In Process (Ventolin Medneb) 16:45 Ipratropium Medneb PHA 02/24/25 In Process (Atrovent Medneb) 16:45 Basic Metabolic Panel LAB 02/25/25 Verified 04:00 Admit ADMIT 02/24/25 Transmitted 16:45 Ondansetron Hcl PHA 02/24/25 Logged (Zofran) 16:45 Enoxaparin Sodium PHA 02/25/25 Logged (Lovenox) 10:00 Complete Blood Count LAB 02/25/25 Verified 04:00 Cardiac DIET 02/24/25 Transmitted Diet-2gna,Lofat,Lochol Dinner Condition: Serious [facility] 02/24/25 In Process 16:45 Acetaminophen Tablet [facility] 02/24/25 In Process (Tylenol Tablet) 16:45 Bedrest With Bathroom [facility] 02/24/25 In Process Privileg 16:45 Nitroglycerin [facility] 02/24/25 In Process Sublingual (Ntrostat 16:45 Morphine Sulfate [facility] 02/24/25 In Process Injection 16:45 Stat Ekg For Chest [facility] 02/24/25 In Process Pain 16:45 Notify Md Of Changes [facility] 02/24/25 In Process From Base 16:45 Follow Up Specialist For [facility] 02/24/25 In Process 24 Hours 16:45 Emergency Dysrhythmia [facility] 02/24/25 In Process Protocol 16:45 Rhythm Strips Once [facility] 02/24/25 In Process Every Shift 16:45 Oxygen By Nasal RT 02/24/25 Transmitted Cannula 16:45 Date of Service: Feb 24, 2025 Billing Provider: ELIZABET REDDY Common Visit Codes: [id number] CARE 30-74 MIN ELIZABET REDDY Feb 24, 2025 17:03
[2025-02-24 17:17] LABS: Base Excess -4.1 mmol/L (-2.0-3.0)
[2025-02-24] MEDS: FUROSEMIDE 40 MG/4 ML VIAL IV ONE (17:29)
[2025-02-24] MEDS: LABETALOL HCL 20 MG/4 ML VL IV ONE (18:30)
[2025-02-24] MEDS: ACETAMINOPHEN 650 MG RECT SUPP PR PRN (19:11)
[2025-02-24] MEDS: ATORVASTATIN 20 MG TAB PO SCH (21:21)
[2025-02-24] MEDS: CLINDAMYCIN 600MG IV 50 ML IV SCH (22:14)
[2025-02-25] VITALS (58 sets, daily range): BP systolic 74–132; BP diastolic 45–78; PULSE 72–114; RESP 13–25; TEMP 97.2–100; O2SAT 89–100
[2025-02-25 05:51] LABS: Base Excess -3.4 mmol/L (-2.0-3.0)
[2025-02-25 05:53] LABS: Hematocrit 43.3 % (41.0-53.0); Hemoglobin 14.7 g/dL (13.5-17.5); Mean Corpuscular Hemoglobin 28.0 pg (28.0-32.0); Mean Corpuscular Volume 82.2 fL (80.0-100.0); Nucleated Red Blood Cells % 0.0 %
[2025-02-25 05:58] LABS: Anion Gap 14 (5-15); Carbon Dioxide 24 mmol/L (20-31); Chloride 99 mmol/L (98-107); Potassium 3.6 mmol/L (3.5-5.1); Sodium 137 mmol/L (136-145)
[2025-02-25 05:59] LABS: Calcium 8.9 mg/dL (8.7-10.4)
[2025-02-25 06:04] LABS: BUN/Creatinine Ratio 11.5 (10.0-20.0); Blood Urea Nitrogen 15 mg/dL (9-23)
[2025-02-25 06:07] LABS: Glucose 157 mg/dL (74-106)
[2025-02-25] MEDS: EMPAGLIFLOZIN 10 MG TAB PO SCH (08:27)
[2025-02-25] MEDS: PANTOPRAZOLE 40 MG/10 ML VIAL INJ IV SCH (08:27)
[2025-02-25] MEDS: CLOPIDOGREL BISULFATE 75 MG TAB PO SCH (08:27)
[2025-02-25] MEDS: ENOXAPARIN SOD 40 MG/0.4 ML SYRINGE SC SCH (08:28)
[2025-02-25 09:43] LABS: Magnesium 1.9 mg/dL (1.6-2.6); Triglycerides 59.0 mg/dL (< 150)
[2025-02-25 09:45] LABS: Cholesterol 132.0 mg/dL (< 200)
[2025-02-25 09:52] LABS: HDL Cholesterol 72.0 mg/dL (40-59)
[2025-02-25] MEDS ORDERED: FUROSEMIDE 20 MG/2 ML VIAL IV SCH (10:00)
--- NOTE | 2025-02-25 10:46 | DVHINCON2 ---
Date Seen: Feb 25, 2025 Referring Physician ZEHRA Montgomery Reason for Consultation Elevated troponin History of Present Illness This is a 79-year-old male patient who presents to the emergency room with chief complaint of altered level of mentation. At the time of assessment, the patient remains confused and is unable to answer any questions appropriately. Spoke with patients caregiver, Melly who was able to answer questions. Per Melly, the patient was found lying on his back and confused at home. She states that he was acting normal the night before. She decided to call EMS. Upon EMS arrival, the patient was altered with oxygen saturation at 80% on room air. He was also noted to have a temperature of a 100.7 F upon emergency room arrival. Cardiology has been consulted at this time for elevated troponin level. Initial twelve lead electrocardiogram reveals tachycardia without any significant ST segment changes. Initial troponin level of 594ng/L with up trend and current peak level at 2175ng/L. Significant past medical history includes coronary artery disease status post PTCA x1 DALY (on Plavix), congestive heart failure, hypertension, dyslipidemia, chronic pulmonary embolism (on Eliquis), history of COVID-19 pneumonia, and polysubstance abuse with alcohol and cannabinoids. Of note, the patient was seen at this facility and underwent a coronary angiogram with left heart catheterization on 09/17/2024 in which PTCA and stenting of the LAD was performed. The patient was discharged on aspirin, Plavix and Eliquis for one month and has since continued Plavix and Eliquis together per Cardiology recommendations at that time. The patient does not follow up with a cardiologi st in the outpatient setting. According to the patient's caregiver Melly, the patient was on hospice care prior to emergency room arrival. She states that the patient does not have any terminal prognoses, but rather the patient was started on hospice for more resources and help at home. She is now requesting the patient be full code while at this facility. Past Medical History Past medical history reviewed. No other significant than mentioned above. Past Surgical History Left shoulder arthroplasty Left total hip arthroplasty Family History: Colon cancer G8 SISTER, Onset:50's - 60 Family History Family history reviewed. Social History Patient confused at time of assessment. Per previous records, use of alcohol abuse and cannabinoids. Allergies: Coded Allergies: NO KNOWN ALLERGIES (Unverified , 1/2/23) Home Meds Active Scripts Thiamine HCl (Thiamine Hydrochloride) 100 Mg Tab, 100 MG PO DAILY for 14 Days, #14 TAB Prov:GIA BRENNAN RESIDENT 07/20/24 Folic Acid (Folate) 400 Mcg Tab, 400 MCG PO DAILY for 30 Days, #30 TAB Prov:GIA BRENNAN RESIDENT 07/20/24 Multiple Vitamin (Multivitamins) Tab, 1 TAB PO DAILY for 30 Days, #30 TAB 2 Refills Prov:GIA BRENNAN RESIDENT 07/20/24 Home Meds Home medications reviewed. Current Medications Current Medications Medications (Trade) Dose Ordered Sig/Jesse Route PRN Reason Start Time Stop Time Status Last Admin Cefepime HCl 50 ml @ 12.5 mls/hr Q12H IV 02/24/25 14:00 02/25/25 01:23 Clindamycin Phosphate 50 ml @ 50 mls/hr Q8HR IV 02/24/25 22:00 02/25/25 05:41 Furosemide (Lasix Injection) 20 mg DAILY IV 02/25/25 10:00 02/24/25 17:00 DC Empaglifozin (Jardiance) 10 mg DAILY PO 02/25/25 10:00 Atorvastatin Calcium (Lipitor) 10 mg HS PO 02/24/25 22:00 Clopidogrel Bisulfate (Plavix) 75 mg DAILY PO 02/25/25 10:00 Albuterol (Ventolin Medneb) 2.5 mg Q6HPRN PRN NEB SHORTNESS OF BREATH 02/24/25 16:45 Ipratropium [place] (Atrovent Medneb) 0.5 mg Q6HPRN PRN NEB SHORTNESS OF BREATH 02/24/25 16:45 Ondansetron HCl (Zofran) 4 mg Q4HP PRN IV NAUSEA / VOMITING 02/24/25 16:45 Enoxaparin Sodium (Lovenox) 40 mg DAILY SC 02/25/25 10:00 02/25/25 08:28 Acetaminophen (Tylenol Tablet) 650 mg Q6HP PRN PO PAIN SCALE 1-3 OR TEMP>100.4 02/24/25 16:45 Hold Nitroglycerin (Ntrostat Sublingual) 0.4 mg Q5MINP PRN SL FOR CHEST PAIN 02/24/25 16:45 Morphine Sulfate 2 mg Q30M PRN IV FOR CHEST PAIN 02/24/25 16:45 Acetaminophen (Tylenol Suppository) 650 mg Q8HPRN PRN HI PAIN SCALE 1-3 OR TEMP>100.4 02/24/25 18:30 02/24/25 19:11 Pantoprazole Sodium (Protonix) 40 mg DAILY IV 02/25/25 10:00 02/25/25 08:27 Review of Systems Constitutional: No symptom reported Ears, Nose, & Throat: No symptom reported Eyes: No symptom reported Neurological: Altered level of mentation Pulmonary/Respiratory: No symptoms reported Cardiovascular: No symptom reported Gastrointestinal: No symptom reported Genitourinary: No symptom reported Musculoskeletal: No symptom reported Skin: No symptom reported Psychiatric: No symptom reported Endocrine: No symptom reported Hematologic/Lymphatic: No symptom reported Vital Signs Vital Signs Date Time Temp Pulse Resp B/P (MAP) Pulse Ox O2 Delivery O2 Flow Rate FiO2 02/25/25 09:31 21 98 Room Air* 0 21 02/25/25 09:30 99.1 74 103/64 (77) 210.4 Physical Exam General Appearance: Thin Pulmonary/Respiratory: Clear, bilateral breaths sounds. Cardiovascular/Chest: Regular rate and rhythm. Peripheral Pulses: 2+ Radial (R). 2+ Radial (L). 2+ Pedal (R). 2+ Pedal (L) Abdominal Exam: Normal bowel sounds. Ankle Exam: Negative ankle edema Lower extremities: Negative lower extremity edema Neuro/Mental Status: A/OX1, confused Thoughts/Psych: Deferred Appearance: No acute distress. Skin Exam: Normal inspection. Normal color. Warm and dry. Labs/Diagnostic Data Labs Test 02/25/25 09:50 02/25/25 05:41 02/25/25 04:36 02/24/25 16:09 Range/Units Blood Gas Specimen Type Arterial Blood Gas Sample Site Left radial Blood Gas Patient Temperature 37.0 Arterial Blood Date Drawn [id number] Arterial Blood pH 7.458 H 7.350-7.450 Arterial Blood Partial Pressure CO2 27.4 L 35.0-48.0 mmHg Arterial Blood Partial Pressure O2 102.7 83.0-108.0 mmHg Arterial Blood HCO3 19.0 L 21.0-28.0 mmol/L Arterial Blood Oxygen Saturation 97.5 94.0-98.0 % Arterial Blood Base Excess -3.4 L -2.0-3.0 mmol/L Arterial Blood Oxyhemoglobin 96.5 94.0-98.0 % Arterial Blood Carboxyhemoglobin 0.5 0.5-1.5 % Arterial Blood Methemoglobin 0.5 0.0-1.5 % Aquiles Test Yes Blood Gas Total Hemoglobin 14.20 13.5-17.5 g/dL Blood Gas Liter Flow 2.00 Blood Gas Modality Nasal cannula FiO2 % 28.0 White Blood Count 15.1 H 4.4-10.8 10^3/uL Red Blood Count 5.27 4.5-5.90 10^6/uL Hemoglobin 14.7 13.5-17.5 g/dL Hematocrit 43.3 41.0-53.0 % Mean Corpuscular Volume 82.2 # 80.0-100.0 fL Mean Corpuscular Hemoglobin 28.0 28.0-32.0 pg Mean Corpuscular Hemoglobin Concent 34.0 32.0-36.0 g/dL Red Cell Distribution Width 16.1 H 11.8-14.3 % Platelet Count 293 140-450 10^3/uL Mean Platelet Volume 7.5 6.9-10.8 fL Neutrophils (%) (Auto) 85.6 H 37.0-80.0 % Lymphocytes (%) (Auto) 7.4 L 10.0-50.0 % Monocytes (%) (Auto) 6.9 0.0-12.0 % Eosinophils (%) (Auto) 0.0 0.0-7.0 % Basophils (%) (Auto) 0.1 0.0-2.0 % Neutrophils # (Auto) 13.0 H 1.6-8.6 10 ^3/uL Lymphocytes # (Auto) 1.1 0.4-5.4 10 ^3/uL Monocytes # (Auto) 1.0 0-1.3 10 ^3/uL Eosinophils # (Auto) 0 0-0.8 10 ^3/uL Basophils # (Auto) 0 0-0.2 10 ^3/uL Nucleated Red Blood Cells 0.0 % Sodium Level 137 136-145 mmol/L Potassium Level 3.6 3.5-5.1 mmol/L Chloride Level 99 98-107 mmol/L Carbon Dioxide Level 24 20-31 mmol/L Anion Gap 14 5-15 Blood Urea Nitrogen 15 9-23 mg/dL Creatinine 1.30 0.700-1.30 mg/dL Glomerular Filtration Rate Calc 56 >90 mL/min BUN/Creatinine Ratio 11.5 10.0-20.0 Serum Glucose 157 H 74-106 mg/dL Calcium Level 8.9 8.7-10.4 mg/dL Magnesium Level 1.9 1.6-2.6 mg/dL Triglycerides Level 59 < 150 mg/dL Cholesterol Level 132 < 200 mg/dL LDL Cholesterol 46 < 100 mg/dL HDL Cholesterol 72 H 40-59 mg/dL Lactic Acid Level 3.5 *H 0.4-2.0 mmol/L Test 02/24/25 14:00 02/24/25 12:00 Range/Units Urine Color Colorless Yellow Urine Clarity Clear Clear Urine pH 6.0 5.0-9.0 Urine Specific [place] 1.011 1.001-1.035 Urine Protein Negative Negative Urine Ketones 1+ H Negative Urine Blood 2+ H Negative /uL Urine Nitrite Negative Negative Urine Bilirubin Negative Negative Urine Urobilinogen Normal Negative mg/dL Urine Leukocyte Esterase Negative Negative /uL Urine RBC 6 0 - 3 /hpf Urine Microscopic WBC 1 0-3 /HPF Urine Squamous Epithelial Cells Few <5 /hpf Urine Bacteria None seen None Seen /hpf Urine Glucose 4+ H Normal mg/dL Urine Opiates Screen Neg NEGATIVE Urine Fentanyl Screen Neg NEGATIVE Urine Barbiturates Screen Neg NEGATIVE Urine Phencyclidine Screen Neg NEGATIVE Urine Amphetamines Screen Neg NEGATIVE Urine Benzodiazepines Screen Neg NEGATIVE Urine Cocaine Screen Neg NEGATIVE Urine Cannabinoids Screen Neg NEGATIVE Prothrombin Time 11.1 9.3-11.8 sec Prothrombin Time INR 1.05 0.9-1.15 Activated Partial Thromboplast Time 24.0 L 24.5-34.5 SEC Total Bilirubin 0.7 0.2-1.0 mg/dL Aspartate Amino Transferase (AST) 34 13-40 U/L Alanine Aminotransferase (ALT) 33 7-40 U/L Alkaline Phosphatase 107 46-116 U/L Ammonia < 10 L 11-32 umol/L B-Type Natriuretic Peptide 309.96 0-100 pg/mL Total Protein 6.8 5.7-8.2 g/dL Albumin 4.3 3.2-4.8 g/dL Plasma/Serum Blood Alcohol < 3.0 <10 mg/dL Assessment NSTEMI Sepsis Coronary artery disease status post PTCA x 1 DALY (on Plavix) Hx of HFrEF, NYHA class III Hypertension Dyslipidemia Chronic pulmonary embolism in the right lower lobe pulmonary artery (on Eliquis) Acute hypoxic respiratory failure History of seizures Alcohol dependence Plan/Recommendation We will continue with the following plan/recommendations (Dr. Solo): * Transthoracic echocardiogram to evaluate cardiac function and assess for possible vegetations * Previous transthoracic echocardiogram from 09/15/2024 reveals an EF of 30% * Initiate guideline directed medical therapy for CHF as tolerated by BP * Consider ARNI and MRA with stable BP * Continue single antiplatelet therapy and NOAC therapy * Continue lipid-lowering agent * Close Cardiac surveillance; notify cardiology team immediately for any ECG ch anges Discussed with . Elevated troponin level likely in the setting of sepsis. The patient recently underwent a coronary angiogram with left heart catheterization on 09/17/2024 in which PTCA and stenting of the LAD was performed. The patient was discharged on aspirin, Plavix and Eliquis for one month and has since continued Plavix and Eliquis together per Cardiology re commendations at that time. According to the patient's caregiver Melly, the patient has been compliant with all of his medications. We will recommend to continue single antiplatelet therapy as well as NOAC therapy. Continue lipid- lowering agent. Sepsis workup per primary team: Urine culture, blood cultures, etc. Thank you for allowing us to care for this patient. Please call with any questions or concerns. Critical care time spent: 44 minutes This medical document was created using an electronic medical record system with voice recognition software and computerized dictation system. Although this document has been carefully reviewed, there might still be some phonetic and typographical errors. Occasional wrong-word or ``sound-alike substitutions may have occurred due to the inherent limitations of voice recognition software. These areas are purely typographical due to imperfections of the software programs and do not reflect any compromise in the patient's medical care. Please read the chart carefully and recognize, using context, where these substitutions have occurred. Plan discussed with: Other (The patient's caregiver Melly) NYHA Physical activity limitations: Class3(Marked) ordinary Date of Service: Feb 25, 2025 Billing Provider: VOLODYMYR LOW Cardiology Common Codes: [id number] INP/OBS CARE (High) Cardiology Consultation Codes: [id number] CONSULT <45MIN VOLODYMYR LOW Feb 25, 2025 10:46
--- NOTE | 2025-02-25 12:59 | DVHPN2 ---
Subjective The patient seen and examined at bedside. Confuse. Reviewed: Care Plan, H&P, Labs, Medications, Previous Orders, Radiology Changes from previous H/P or p: No Changes Objective Vitals Vital Signs Date Time Temp Pulse Resp B/P (MAP) Pulse Ox O2 Delivery O2 Flow Rate FiO2 02/25/25 12:00 99.0 78 21 103/65 (78) 96 210.2 02/25/25 11:33 Room Air* 0 21 Intake/Output Intake and Output 02/25/25 07:00 Intake Total 1350 ml Output Total 825 ml Balance 525 ml Intake IV Total 1350 ml Output Urine Total 825 ml # Bowel Movements 1 General Appearance: Alert, No acute distress HEENT: Atraumatic, PERRLA, EOMI, Mucous membr. moist/pink Neck: Supple Lungs: Clear to auscultation, Normal air movement Cardiovascular: Regular rate, Normal S1, Normal S2, No murmurs, Gallops, Rubs Abdomen: Normal bowel sounds, Soft, No tenderness, No hepatospenomegaly Neuro: Cranial nerves 3-12 NL Psych/Mental Status: Mental status NL Medications Current Medications Medications Dose Ordered Sig/Jesse Route Start Time Stop Time Status Last Admin Dose Admin Cefepime HCl 50 ml @ 12.5 mls/hr Q12H IV 02/24/25 14:00 02/25/25 01:23 12.5 MLS/HR Clindamycin Phosphate 50 ml @ 50 mls/hr Q8HR IV 02/24/25 22:00 02/25/25 05:41 50 MLS/HR Empaglifozin 10 mg DAILY PO 02/25/25 10:00 Atorvastatin Calcium 10 mg HS PO 02/24/25 22:00 Clopidogrel Bisulfate 75 mg DAILY PO 02/25/25 10:00 Albuterol 2.5 mg Q6HPRN PRN NEB 02/24/25 16:45 Ipratropium [place] 0.5 mg Q6HPRN PRN NEB 02/24/25 16:45 Ondansetron HCl 4 mg Q4HP PRN IV 02/24/25 16:45 Enoxaparin Sodium 40 mg DAILY SC 02/25/25 10:00 02/25/25 08:28 40 MG Acetaminophen 650 mg Q6HP PRN PO 02/24/25 16:45 Hold Nitroglycerin 0.4 mg Q5MINP PRN SL 02/24/25 16:45 Morphine Sulfate 2 mg Q30M PRN IV 02/24/25 16:45 Acetaminophen 650 mg Q8HPRN PRN DE 02/24/25 18:30 02/24/25 19:11 650 MG Pantoprazole Sodium 40 mg DAILY IV 02/25/25 10:00 02/25/25 08:27 40 MG Laboratory Results Laboratory Tests 02/25/25 04:36 Chemistry Test 02/25/25 04:36 Calcium Level 8.9 mg/dL (8.7-10.4) Magnesium Level 1.9 mg/dL (1.6-2.6) Lipid panel Test 02/25/25 04:36 Cholesterol Level 132 mg/dL (< 200) HDL Cholesterol 72 mg/dL (40-59) H Triglycerides Level 59 mg/dL (< 150) HgA1c, TSH Test 02/25/25 04:36 Hemoglobin A1c 5.7 % A1C (<5.7) Thyroid Stimulating Hormone (TSH) 1.90 uIU/mL (0.55-4.78) Urinalysis Test 02/24/25 14:00 Urine Color Colorless (Yellow) Urine Clarity Clear (Clear) Urine pH 6.0 (5.0-9.0) Urine Specific [place] 1.011 (1.001-1.035) Urine Protein Negative (Negative) Urine Ketones 1+ (Negative) H Urine Blood 2+ /uL (Negative) H Urine Nitrite Negative (Negative) Urine Bilirubin Negative (Negative) Urine Urobilinogen Normal mg/dL (Negative) Urine Leukocyte Esterase Negative /uL (Negative) Urine RBC 6 /hpf (0 - 3) Urine Microscopic WBC 1 /HPF (0-3) Urine Squamous Epithelial Cells Few /hpf (<5) Urine Bacteria None seen /hpf (None Seen) Urine Glucose 4+ mg/dL (Normal) H Blood Gas Results Test 02/24/25 17:11 02/25/25 05:41 Arterial Blood pH 7.454 (7.350-7.450) 7.458 (7.350-7.450) FiO2 % 55.0 28.0 Microbiology Microbiology Date/Time Source Procedure Growth Status 02/24/25 12:00 Blood Blood Culture - Preliminary NO GROWTH AFTER 24 HOURS OF INCUBATION. Resulted Labs and/or images reviewed: Labs reviewed by me Assessment/Plan Assessment/Plan Metabolic encephalopathy Acute hypoxic respiratory failure Sepsis Elevated troponin rule out NSTEMI Possible aspiration pneumonia Continue current management Continue with IV antibiotic Follow up cardiology recommendation. Plan discussed with: Patient Date of Service: Feb 25, 2025 Billing Provider: DIANDRA MASCORRO MD Common Visit Codes: [id number] INP/OBS CARE(HIGH) DIANDRA MASCORRO MD Feb 25, 2025 12:59
--- NOTE | 2025-02-25 19:19 | DVHINCON2 ---
Date Seen: Feb 25, 2025 Referring Physician ZEHRA Montgomery Reason for Consultation Elevated troponin History of Present Illness This is a 79-year-old male with a past medical history of coronary artery disease status post PTCA x1 DALY (on Plavix), congestive heart failure, hypertension, dyslipidemia, chronic pulmonary embolism (on Eliquis), history of COVID-19 pneumonia, and polysubstance abuse with alcohol and cannabinoids who presents to the ED with a complaint of altered level of mentation. At the time of assessment, the patient remains confused and is unable to answer any medical questions appropriately. We spoke with patients caregiver, Melly who was present at bedside able to answer medical questions pertaining to the patient. Per Melly (patient's caregiver), the patient was found lying on his back and confused at home. Melly states that he was acting normal the night before. She decided to call EMS. Upon EMS arrival, the patient was altered with oxygen saturation at 80% on room air. He was also noted to have a temperature of a 100.7 F upon emergency room arrival. Cardiology has been consulted at this time for elevated troponin level. Initial twelve lead electrocardiogram reveals tachycardia without any significant ST segment changes. Initial troponin level of 594ng/L with up trend and current peak level at 2175ng/L. Of note, the patient was seen at [facility] and underwent a coronary angiogram with left heart catheterization on 09/17/2024 in which PTCA and stenting of the LAD was performed. The patient was discharged on aspirin, Plavix and Eliquis for one month and has since continued Plavix and Eliquis together per Cardiology recommendations at that time. The patient does not follow up with a processing mgr in the outpatient setting. According to the patient's caregiver Melly, the patie nt was on hospice care prior to emergency room arrival. Melly states that the patient does not have any terminal prognoses, but rather the patient was started on hospice for more resources and help at home. Melly is now requesting the patient be full code while at this facility. WBC 15.1. Chest x-ray shows minimal infiltrate or congestive change right lower lung zone. Past Medical History Past medical history reviewed. No other significant than mentioned above. Past Surgical History Left shoulder arthroplasty Left total hip arthroplasty Family History: Colon cancer G8 SISTER, Onset:50's - 60 Allergies: Coded Allergies: NO KNOWN ALLERGIES (Unverified , 07/15/22) Home Meds Active Scripts Thiamine HCl (Thiamine Hydrochloride) 100 Mg Tab, 100 MG PO DAILY for 14 Days, # 14 TAB Prov:GIA BRENNAN RESIDENT 07/20/24 Folic Acid (Folate) 400 Mcg Tab, 400 MCG PO DAILY for 30 Days, #30 TAB Prov:GIA BRENNAN RESIDENT 07/20/24 Multiple Vitamin (Multivitamins) Tab, 1 TAB PO DAILY for 30 Days, #30 TAB 2 Refills Prov:GIA BRENNAN RESIDENT 07/20/24 Current Medications Current Medications Medications (Trade) Dose Ordered Sig/Jesse Route PRN Reason Start Time Stop Time Status Last Admin Clindamycin Phosphate 50 ml @ 50 mls/hr Q8HR IV 02/24/25 22:00 02/25/25 13:59 Furosemide (Lasix Injection) 20 mg DAILY IV 02/25/25 10:00 02/24/25 17:00 DC Empaglifozin (Jardiance) 10 mg DAILY PO 02/25/25 10:00 Atorvastatin Calcium (Lipitor) 10 mg HS PO 02/24/25 22:00 Clopidogrel Bisulfate (Plavix) 75 mg DAILY PO 02/25/25 10:00 Enoxaparin Sodium (Lovenox) 40 mg DAILY SC 02/25/25 10:00 02/25/25 16:24 DC 02/25/25 08:28 Acetaminophen (Tylenol Suppository) 650 mg Q8HPRN PRN RI PAIN SCALE 1-3 OR TEMP>100.4 02/24/25 18:30 02/24/25 19:11 Pantoprazole Sodium (Protonix) 40 mg DAILY IV 02/25/25 10:00 02/25/25 08:27 Metoprolol Succinate (Toprol Xl) 25 mg DAILY PO 02/26/25 10:00 Apixaban (Eliquis) 5 mg BID PO 02/25/25 22:00 Review of Systems Constitutional: No symptom reported Ears, Nose, & Throat: No symptom reported Eyes: No symptom reported Neurological: Altered level of mentation Pulmonary/Respiratory: No symptoms reported Cardiovascular: No symptom reported Gastrointestinal: No symptom reported Genitourinary: No symptom reported Musculoskeletal: No symptom reported Skin: No symptom reported Psychiatric: No symptom reported Endocrine: No symptom reported Hematologic/Lymphatic: No symptom reported Vital Signs Vital Signs Date Time Temp Pulse Resp B/P (MAP) Pulse Ox O2 Delivery O2 Flow Rate FiO2 02/25/25 16:00 98.6 80 19 113/72 (86) 99 209.5 02/25/25 15:42 Room Air* 0 21 Physical Exam GENERAL: Altered. Thin appearing. EYES: PERRL, EOMI. Anicteric. HENT: Moist mucous membranes. LUNGS: Clear to auscultation bilaterally. CARDIOVASCULAR: Regular rate and rhythm. ABDOMEN: Soft, nontender and nondistended. EXTREMITIES: No edema. SKIN: Warm, dry. Labs/Diagnostic Data Labs Test 02/25/25 09:50 02/25/25 05:41 02/25/25 04:36 02/24/25 16:09 Range/Units Troponin I High Sensitivity 1428 *H </=54 ng/L Blood Gas Specimen Type Arterial Blood Gas Sample Site Left radial Blood Gas Patient Temperature 37.0 Arterial Blood Date Drawn [id number] Arterial Blood pH 7.458 H 7.350-7.450 Arterial Blood Partial Pressure CO2 27.4 L 35.0-48.0 mmHg Arterial Blood Partial Pressure O2 102.7 83.0-108.0 mmHg Arterial Blood HCO3 19.0 L 21.0-28.0 mmol/L Arterial Blood Oxygen Saturation 97.5 94.0-98.0 % Arterial Blood Base Excess -3.4 L -2.0-3.0 mmol/L Arterial Blood Oxyhemoglobin 96.5 94.0-98.0 % Arterial Blood Carboxyhemoglobin 0.5 0.5-1.5 % Arterial Blood Methemoglobin 0.5 0.0-1.5 % Aquiles Test Yes Blood Gas Total Hemoglobin 14.20 13.5-17.5 g/dL Blood Gas Liter Flow 2.00 Blood Gas Modality Nasal cannula FiO2 % 28.0 White Blood Count 15.1 H 4.4-10.8 10^3/uL Red Blood Count 5.27 4.5-5.90 10^6/uL Hemoglobin 14.7 13.5-17.5 g/dL Hematocrit 43.3 41.0-53.0 % Mean Corpuscular Volume 82.2 # 80.0-100.0 fL Mean Corpuscular Hemoglobin 28.0 28.0-32.0 pg Mean Corpuscular Hemoglobin Concent 34.0 32.0-36.0 g/dL Red Cell Distribution Width 16.1 H 11.8-14.3 % Platelet Count 293 140-450 10^3/uL Mean Platelet Volume 7.5 6.9-10.8 fL Neutrophils (%) (Auto) 85.6 H 37.0-80.0 % Lymphocytes (%) (Auto) 7.4 L 10.0-50.0 % Monocytes (%) (Auto) 6.9 0.0-12.0 % Eosinophils (%) (Auto) 0.0 0.0-7.0 % Basophils (%) (Auto) 0.1 0.0-2.0 % Neutrophils # (Auto) 13.0 H 1.6-8.6 10 ^3/uL Lymphocytes # (Auto) 1.1 0.4-5.4 10 ^3/uL Monocytes # (Auto) 1.0 0-1.3 10 ^3/uL Eosinophils # (Auto) 0 0-0.8 10 ^3/uL Basophils # (Auto) 0 0-0.2 10 ^3/uL Nucleated Red Blood Cells 0.0 % Sodium Level 137 136-145 mmol/L Potassium Level 3.6 3.5-5.1 mmol/L Chloride Level 99 98-107 mmol/L Carbon Dioxide Level 24 20-31 mmol/L Anion Gap 14 5-15 Blood Urea Nitrogen 15 9-23 mg/dL Creatinine 1.30 0.700-1.30 mg/dL Glomerular Filtration Rate Calc 56 >90 mL/min BUN/Creatinine Ratio 11.5 10.0-20.0 Serum Glucose 157 H 74-106 mg/dL Hemoglobin A1c 5.7 <5.7 % A1C Calcium Level 8.9 8.7-10.4 mg/dL Magnesium Level 1.9 1.6-2.6 mg/dL Triglycerides Level 59 < 150 mg/dL Cholesterol Level 132 < 200 mg/dL LDL Cholesterol 46 < 100 mg/dL HDL Cholesterol 72 H 40-59 mg/dL Thyroid Stimulating Hormone (TSH) 1.90 0.55-4.78 uIU/mL Lactic Acid Level 3.5 *H 0.4-2.0 mmol/L Test 02/24/25 14:00 02/24/25 12:00 Range/Units Urine Color Colorless Yellow Urine Clarity Clear Clear Urine pH 6.0 5.0-9.0 Urine Specific [place] 1.011 1.001-1.035 Urine Protein Negative Negative Urine Ketones 1+ H Negative Urine Blood 2+ H Negative /uL Urine Nitrite Negative Negative Urine Bilirubin Negative Negative Urine Urobilinogen Normal Negative mg/dL Urine Leukocyte Esterase Negative Negative /uL Urine RBC 6 0 - 3 /hpf Urine Microscopic WBC 1 0-3 /HPF Urine Squamous Epithelial Cells Few <5 /hpf Urine Bacteria None seen None Seen /hpf Urine Glucose 4+ H Normal mg/dL Urine Opiates Screen Neg NEGATIVE Urine Fentanyl Screen Neg NEGATIVE Urine Barbiturates Screen Neg NEGATIVE Urine Phencyclidine Screen Neg NEGATIVE Urine Amphetamines Screen Neg NEGATIVE Urine Benzodiazepines Screen Neg NEGATIVE Urine Cocaine Screen Neg NEGATIVE Urine Cannabinoids Screen Neg NEGATIVE Prothrombin Time 11.1 9.3-11.8 sec Prothrombin Time INR 1.05 0.9-1.15 Activated Partial Thromboplast Time 24.0 L 24.5-34.5 SEC Total Bilirubin 0.7 0.2-1.0 mg/dL Aspartate Amino Transferase (AST) 34 13-40 U/L Alanine Aminotransferase (ALT) 33 7-40 U/L Alkaline Phosphatase 107 46-116 U/L Ammonia < 10 L 11-32 umol/L B-Type Natriuretic Peptide 309.96 0-100 pg/mL Total Protein 6.8 5.7-8.2 g/dL Albumin 4.3 3.2-4.8 g/dL Plasma/Serum Blood Alcohol < 3.0 <10 mg/dL Microbiology Date/Time Source Procedure Growth Status 02/24/25 18:10 Nose MRSA Screen - Final Complete 02/24/25 12:00 Blood Blood Culture - Preliminary NO GROWTH AFTER 24 HOURS OF INCUBATION. Resulted Assessment NSTEMI. Sepsis. Coronary artery disease status post PTCA x 1 DALY (on Plavix). History of HFrEF, NYHA class III. Hypertension. Dyslipidemia. Chronic pulmonary embolism in the right lower lobe pulmonary artery (on Eliquis). Acute hypoxic respiratory failure. History of seizures. Alcohol dependence. Plan/Recommendation I agree with your ongoing assessment and care of plan. Patient has been seen by Abi Estrada NP on my behalf, her and I discussed the plan with the patient. Transthoracic echocardiogram to evaluate cardiac function and assess for possible vegetations. Previous transthoracic echocardiogram from 09/15/2024 reveals an EF of 30%. Initiate guideline directed medical therapy for CHF as tolerated by BP. Consider ARNI and MRA with stable BP. Continue single antiplatelet therapy and NOAC therapy. Continue lipid-lowering agent. Close Cardiac surveillance; notify cardiology team immediately for any ECG changes. Patient's case discussed with me. Elevated troponin level likely in the setting of sepsis. The patient recently underwent a coronary angiogram with left heart catheterization on 09/17/2024 in which PTCA and stenting of the LAD was performed. The patient was discharged on aspirin, Plavix and Eliquis for one month and has since continued Plavix and Eliquis together per Cardiology recommendations at that time. According to the patient's caregiver Melly, the patient has been compliant with all of his medications. We will recommend to continue single antiplatelet therapy as well as NOAC therapy. Continue lipid-lowering agent. Sepsis workup per primary team: Urine culture, blood cultures, etc. Additional plan as per the hospital course. Plan discussed with: Other NYHA Physical activity limitations: Class3(Marked) ordinary Date of Service: Feb 25, 2025 Billing Provider: DIANA DIOR MD Cardiology Common Codes: [id number] INP/OBS CARE (High) Cardiology Consultation Codes: [id number] CONSULT <80MIN DIANA DIOR MD Feb 25, 2025 16:57
[2025-02-25] MEDS: APIXABAN 5 MG TAB PO SCH (20:25)
[2025-02-26] VITALS (36 sets, daily range): BP systolic 88–123; BP diastolic 51–81; PULSE 62–93; RESP 13–24; TEMP 98.8–99.5; O2SAT 93–100
--- NOTE | 2025-02-26 00:50 | DVHSR ---
APPROVED REPORT EXAM: LIMITED Two-dimensional echocardiogram with contrast. Blood Pressure: 100/64 mmHg INDICATION Eval cardiac function/ wall motion RISK FACTORS Height: 70, Weight: 137 DIMENSIONS LVDd3.6 (3.8-5.7cm)LA (2D) (1.9-4.0cm)Aortic Root (2.0-3.7cm) LVDs2.8 (2.5-4.0cm)LA (MM) (1.9-4.0cm)Aortic Cusp Exc (1.5-2.0cm) EF (%) 45.0 (55-70%)Rt. Atrium (1.9-4.0cm)Asc. Aorta cm Mitral Valve MitralMitral Stenosis E/A ratio0.02D MVAcm2 Other Information Technically limited study due to body habitus, patient position, and patient moving. Patient was non compliant during exam. Limited for function only Conclusion DYSKINESIS OF IVS RV MODERATELY DILATED APICAL WALL HYPOKINESIS LV EF IS 45% AND IS REDUCED NORMAL VALVES
[2025-02-26 06:14] LABS: Chloride 104 mmol/L (98-107); Potassium 3.7 mmol/L (3.5-5.1)
[2025-02-26 06:15] LABS: Anion Gap 16 (5-15)
[2025-02-26 06:16] LABS: Calcium 8.9 mg/dL (8.7-10.4)
[2025-02-26 06:17] LABS: Carbon Dioxide 16 mmol/L (20-31); Sodium 136 mmol/L (136-145)
[2025-02-26 06:21] LABS: BUN/Creatinine Ratio 11.0 (10.0-20.0); Blood Urea Nitrogen 13 mg/dL (9-23); Glucose 87 mg/dL (74-106)
[2025-02-26] MEDS: METOPROLOL SUCCINATE XL 50 MG TAB PO SCH (08:40)
[2025-02-26 12:21] LABS: Hematocrit 39.8 % (41.0-53.0); Hemoglobin 13.4 g/dL (13.5-17.5); Mean Corpuscular Hemoglobin 27.8 pg (28.0-32.0); Mean Corpuscular Volume 82.4 fL (80.0-100.0); Nucleated Red Blood Cells % 0.0 %
[2025-02-26] MEDS: SODIUM CHLORIDE 0.9% 500 ML IV ONE (15:15)
--- NOTE | 2025-02-26 23:56 | DVHPN2 ---
Progress Note - Dictate Date Seen: Feb 26, 2025 Medical Necessity Reason Pt with a Central, PICC or Fol: No Subjective Patient was seen and evaluated in follow up in the ICU. The patient is only able to follow simple commands. Patient's caregiver Melly is requesting services for the patient. WBC 13.1. vital signs Vital Sign Date Time Temp Pulse Resp B/P (MAP) Pulse Ox O2 Delivery O2 Flow Rate FiO2 02/26/25 20:00 78 02/26/25 20:00 24 94 Room Air* 0 21 02/26/25 18:00 99.1 113/63 (80) 210.4 Total Intake and Output 02/25/25 02/25/25 02/26/25 15:00 23:00 07:00 Intake Total 50 ml 100.0 ml 160 ml Output Total 250 ml 100 ml Balance 50 ml -150.0 ml 60 ml medications Current Medications Medications Dose Ordered Sig/Jesse Route Start Time Stop Time Status Last Admin Dose Admin Cefepime HCl 50 ml @ 12.5 mls/hr Q12H IV 02/24/25 14:00 02/26/25 14:10 12.5 MLS/HR Clindamycin Phosphate 50 ml @ 50 mls/hr Q8HR IV 02/24/25 22:00 02/26/25 12:58 50 MLS/HR Empaglifozin 10 mg DAILY PO 02/25/25 10:00 02/26/25 08:40 10 MG Atorvastatin Calcium 10 mg HS PO 02/24/25 22:00 02/25/25 20:25 10 MG Clopidogrel Bisulfate 75 mg DAILY PO 02/25/25 10:00 02/26/25 08:39 75 MG Albuterol 2.5 mg Q6HPRN PRN NEB 02/24/25 16:45 Ipratropium [place] 0.5 mg Q6HPRN PRN NEB 02/24/25 16:45 Ondansetron HCl 4 mg Q4HP PRN IV 02/24/25 16:45 Acetaminophen 650 mg Q6HP PRN PO 02/24/25 16:45 Hold Nitroglycerin 0.4 mg Q5MINP PRN SL 02/24/25 16:45 Morphine Sulfate 2 mg Q30M PRN IV 02/24/25 16:45 Acetaminophen 650 mg Q8HPRN PRN HI 02/24/25 18:30 02/24/25 19:11 650 MG Pantoprazole Sodium 40 mg DAILY IV 02/25/25 10:00 02/26/25 08:39 40 MG Metoprolol Succinate 25 mg DAILY PO 02/26/25 10:00 02/26/25 08:40 25 MG Apixaban 5 mg BID PO 02/25/25 22:00 02/26/25 08:40 5 MG objective GENERAL: Altered. Thin appearing. EYES: PERRL, EOMI. Anicteric. HENT: Moist mucous membranes. LUNGS: Clear to auscultation bilaterally. CARDIOVASCULAR: Regular rate and rhythm. ABDOMEN: Soft, nontender and nondistended. EXTREMITIES: No edema. SKIN: Warm, dry. laboratory and microbiology Laboratory Tests 02/26/25 11:13 02/26/25 05:14 Test 02/26/25 05:14 Range/Units Serum Glucose 87 74-106 mg/dL Problem List NSTEMI. Sepsis. Coronary artery disease status post PTCA x 1 DALY (on Plavix). History of HFrEF, NYHA class III. Hypertension. Dyslipidemia. Chronic pulmonary embolism in the right lower lobe pulmonary artery (on Eliquis). Acute hypoxic respiratory failure. History of seizures. Alcohol dependence. Assessment/Plan Continued all current supportive medical care. Eliquis. Lipitor, Metoprolol, Plavix. IV antibiotics as ordered. GI prophylactics. Nitro SL. Nebulized breathing treatments. Additional plan as per the hospital course. Critical care time of 45 minutes provided to include time spent evaluation of patient at bedside, when appropriate patient/family education for diagnosis, treatment plan, review of pertinent medical information and discussion of care with specialty providers and PCP. Plan discussed with: Other DIANA DIOR MD Feb 26, 2025 21:31
[2025-02-27] VITALS (31 sets, daily range): BP systolic 85–131; BP diastolic 43–71; PULSE 55–74; RESP 11–25; TEMP 96.1–99.3; O2SAT 96–100
[2025-02-27 07:27] LABS: Hematocrit 37.2 % (41.0-53.0); Hemoglobin 12.7 g/dL (13.5-17.5); Mean Corpuscular Hemoglobin 28.3 pg (28.0-32.0); Mean Corpuscular Volume 82.6 fL (80.0-100.0); Nucleated Red Blood Cells % 0.1 %
[2025-02-27 07:35] LABS: Anion Gap 8 (5-15); Carbon Dioxide 24 mmol/L (20-31); Chloride 105 mmol/L (98-107); Potassium 3.6 mmol/L (3.5-5.1); Sodium 137 mmol/L (136-145)
[2025-02-27 07:41] LABS: BUN/Creatinine Ratio 17.3 (10.0-20.0); Blood Urea Nitrogen 19 mg/dL (9-23); Glucose 104 mg/dL (74-106)
[2025-02-27 07:47] LABS: Calcium 8.3 mg/dL (8.7-10.4)
[2025-02-27] MEDS: SODIUM CHLORIDE 0.9% 500 ML IV ONE (16:36)
--- NOTE | 2025-02-27 22:47 | DVHPN2 ---
Subjective The patient seen and examined at bedside. Confuse. Reviewed: Care Plan, H&P, Labs, Medications, Previous Orders, Radiology Changes from previous H/P or p: No Changes Objective Vitals Vital Signs Date Time Temp Pulse Resp B/P (MAP) Pulse Ox O2 Delivery O2 Flow Rate FiO2 02/27/25 22:00 98.6 62 18 131/62 (85) 98 98.6 02/27/25 20:00 Room Air* 0 21 Intake/Output Intake and Output 02/27/25 07:00 Intake Total 1060 ml Output Total 375 ml Balance 685 ml Intake Oral 310 ml IV Total 750 ml Output Urine Total 375 ml General Appearance: Alert, No acute distress HEENT: Atraumatic, PERRLA, EOMI, Mucous membr. moist/pink Neck: Supple Lungs: Clear to auscultation, Normal air movement Cardiovascular: Regular rate, Normal S1, Normal S2, No murmurs, Gallops, Rubs Abdomen: Normal bowel sounds, Soft, No tenderness, No hepatospenomegaly Neuro: Cranial nerves 3-12 NL Psych/Mental Status: Mental status NL Medications Current Medications Medications Dose Ordered Sig/Jesse Route Start Time Stop Time Status Last Admin Dose Admin Cefepime HCl 50 ml @ 12.5 mls/hr Q12H IV 02/24/25 14:00 02/27/25 13:07 12.5 MLS/HR Clindamycin Phosphate 50 ml @ 50 mls/hr Q8HR IV 02/24/25 22:00 02/27/25 21:44 50 MLS/HR Empaglifozin 10 mg DAILY PO 02/25/25 10:00 02/27/25 09:31 10 MG Atorvastatin Calcium 10 mg HS PO 02/24/25 22:00 02/27/25 21:44 10 MG Clopidogrel Bisulfate 75 mg DAILY PO 02/25/25 10:00 02/27/25 09:31 75 MG Ondansetron HCl 4 mg Q4HP PRN IV 02/24/25 16:45 Acetaminophen 650 mg Q6HP PRN PO 02/24/25 16:45 Hold Nitroglycerin 0.4 mg Q5MINP PRN SL 02/24/25 16:45 Morphine Sulfate 2 mg Q30M PRN IV 02/24/25 16:45 Acetaminophen 650 mg Q8HPRN PRN CA 02/24/25 18:30 8/14/25 19:11 650 MG Pantoprazole Sodium 40 mg DAILY IV 02/25/25 10:00 02/27/25 09:31 40 MG Metoprolol Succinate 25 mg DAILY PO 02/26/25 10:00 02/26/25 08:40 25 MG Apixaban 5 mg BID PO 02/25/25 22:00 02/27/25 21:44 5 MG Laboratory Results Laboratory Tests 02/27/25 05:20 Chemistry Test 02/27/25 05:20 Calcium Level 8.3 mg/dL (8.7-10.4) L Urinalysis Test 02/24/25 14:00 Urine Color Colorless (Yellow) Urine Clarity Clear (Clear) Urine pH 6.0 (5.0-9.0) Urine Specific [place] 1.011 (1.001-1.035) Urine Protein Negative (Negative) Urine Ketones 1+ (Negative) H Urine Blood 2+ /uL (Negative) H Urine Nitrite Negative (Negative) Urine Bilirubin Negative (Negative) Urine Urobilinogen Normal mg/dL (Negative) Urine Leukocyte Esterase Negative /uL (Negative) Urine RBC 6 /hpf (0 - 3) Urine Microscopic WBC 1 /HPF (0-3) Urine Squamous Epithelial Cells Few /hpf (<5) Urine Bacteria None seen /hpf (None Seen) Urine Glucose 4+ mg/dL (Normal) H Microbiology Microbiology Date/Time Source Procedure Growth Status 02/24/25 22:00 Urine - [place] Urine Culture - Final Complete 02/24/25 18:10 Nose MRSA Screen - Final Complete 02/24/25 12:00 Blood Blood Culture - Preliminary NO GROWTH AFTER 72 HOURS OF INCUBATION. Resulted Assessment/Plan Assessment/Plan Metabolic encephalopathy Acute hypoxic respiratory failure Sepsis Elevated troponin rule out NSTEMI Possible aspiration pneumonia Continue current management Continue with IV antibiotic Follow up cardiology recommendation. Plan discussed with: Patient My Orders Orders - DIANDRA MASCORRO MD Procedure Category Date Status Time Transfer Orders XFER 02/27/25 Transmitted 10:01 Date of Service: Feb 26, 2025 Billing Provider: DIANDRA MASCORRO MD Common Visit Codes: [id number] INP/OBS CARE(HIGH) DIANDRA MASCORRO MD Feb 27, 2025 22:47
--- NOTE | 2025-02-27 22:48 | DVHPN2 ---
Subjective The patient seen and examined at bedside. Confuse. Reviewed: Care Plan, H&P, Labs, Medications, Previous Orders, Radiology Changes from previous H/P or p: No Changes Objective Vitals Vital Signs Date Time Temp Pulse Resp B/P (MAP) Pulse Ox O2 Delivery O2 Flow Rate FiO2 02/27/25 22:00 98.6 62 18 131/62 (85) 98 98.6 02/27/25 20:00 Room Air* 0 21 Intake/Output Intake and Output 02/27/25 07:00 Intake Total 1060 ml Output Total 375 ml Balance 685 ml Intake Oral 310 ml IV Total 750 ml Output Urine Total 375 ml General Appearance: Alert, No acute distress HEENT: Atraumatic, PERRLA, EOMI, Mucous membr. moist/pink Neck: Supple Lungs: Clear to auscultation, Normal air movement Cardiovascular: Regular rate, Normal S1, Normal S2, No murmurs, Gallops, Rubs Abdomen: Normal bowel sounds, Soft, No tenderness, No hepatospenomegaly Neuro: Cranial nerves 3-12 NL Psych/Mental Status: Mental status NL Medications Current Medications Medications Dose Ordered Sig/Jesse Route Start Time Stop Time Status Last Admin Dose Admin Cefepime HCl 50 ml @ 12.5 mls/hr Q12H IV 02/24/25 14:00 02/27/25 13:07 12.5 MLS/HR Clindamycin Phosphate 50 ml @ 50 mls/hr Q8HR IV 02/24/25 22:00 02/27/25 21:44 50 MLS/HR Empaglifozin 10 mg DAILY PO 02/25/25 10:00 02/27/25 09:31 10 MG Atorvastatin Calcium 10 mg HS PO 02/24/25 22:00 02/27/25 21:44 10 MG Clopidogrel Bisulfate 75 mg DAILY PO 02/25/25 10:00 02/27/25 09:31 75 MG Ondansetron HCl 4 mg Q4HP PRN IV 02/24/25 16:45 Acetaminophen 650 mg Q6HP PRN PO 02/24/25 16:45 Hold Nitroglycerin 0.4 mg Q5MINP PRN SL 02/24/25 16:45 Morphine Sulfate 2 mg Q30M PRN IV 02/24/25 16:45 Acetaminophen 650 mg Q8HPRN PRN MA 02/24/25 18:30 8/14/25 19:11 650 MG Pantoprazole Sodium 40 mg DAILY IV 02/25/25 10:00 02/27/25 09:31 40 MG Metoprolol Succinate 25 mg DAILY PO 02/26/25 10:00 02/26/25 08:40 25 MG Apixaban 5 mg BID PO 02/25/25 22:00 02/27/25 21:44 5 MG Laboratory Results Laboratory Tests 02/27/25 05:20 Chemistry Test 02/27/25 05:20 Calcium Level 8.3 mg/dL (8.7-10.4) L Urinalysis Test 02/24/25 14:00 Urine Color Colorless (Yellow) Urine Clarity Clear (Clear) Urine pH 6.0 (5.0-9.0) Urine Specific [place] 1.011 (1.001-1.035) Urine Protein Negative (Negative) Urine Ketones 1+ (Negative) H Urine Blood 2+ /uL (Negative) H Urine Nitrite Negative (Negative) Urine Bilirubin Negative (Negative) Urine Urobilinogen Normal mg/dL (Negative) Urine Leukocyte Esterase Negative /uL (Negative) Urine RBC 6 /hpf (0 - 3) Urine Microscopic WBC 1 /HPF (0-3) Urine Squamous Epithelial Cells Few /hpf (<5) Urine Bacteria None seen /hpf (None Seen) Urine Glucose 4+ mg/dL (Normal) H Microbiology Microbiology Date/Time Source Procedure Growth Status 02/24/25 22:00 Urine - [place] Urine Culture - Final Complete 02/24/25 18:10 Nose MRSA Screen - Final Complete 02/24/25 12:00 Blood Blood Culture - Preliminary NO GROWTH AFTER 72 HOURS OF INCUBATION. Resulted Assessment/Plan Assessment/Plan Metabolic encephalopathy Acute hypoxic respiratory failure Sepsis Elevated troponin rule out NSTEMI Possible aspiration pneumonia Continue current management Continue with IV antibiotic Follow up cardiology recommendation. [place] to telemetry Plan discussed with: Patient, Other My Orders Orders - DIANDRA MASCORRO MD Procedure Category Date Status Time Transfer Orders XFER 02/27/25 Transmitted 10:01 Date of Service: Feb 27, 2025 Billing Provider: DIANDRA MASCORRO MD Common Visit Codes: [id number] INP/OBS CARE(HIGH) DIANDRA MASCORRO MD Feb 27, 2025 22:48
--- NOTE | 2025-02-27 23:57 | DVHPN2 ---
Progress Note - Dictate Date Seen: Feb 27, 2025 Medical Necessity Reason Pt with a Central, PICC or Fol: No Subjective Patient was seen and evaluated in follow up in the ICU. Patient is awake and confused. Patient on room air. MRSA and urine cultures are negative for growth. vital signs Vital Sign Date Time Temp Pulse Resp B/P (MAP) Pulse Ox O2 Delivery O2 Flow Rate FiO2 02/27/25 13:00 99.1 67 24 94/43 (60) 97 210.4 02/27/25 12:00 Room Air* 0 21 Total Intake and Output 02/26/25 02/26/25 02/27/25 15:00 23:00 07:00 Intake Total 50 ml 610 ml 400 ml Output Total 200 ml 175 ml Balance 50 ml 410 ml 225 ml medications Current Medications Medications Dose Ordered Sig/Jesse Route Start Time Stop Time Status Last Admin Dose Admin Cefepime HCl 50 ml @ 12.5 mls/hr Q12H IV 02/24/25 14:00 02/27/25 13:07 12.5 MLS/HR Clindamycin Phosphate 50 ml @ 50 mls/hr Q8HR IV 02/24/25 22:00 02/27/25 13:01 50 MLS/HR Empaglifozin 10 mg DAILY PO 02/25/25 10:00 02/27/25 09:31 10 MG Atorvastatin Calcium 10 mg HS PO 02/24/25 22:00 02/26/25 22:25 10 MG Clopidogrel Bisulfate 75 mg DAILY PO 02/25/25 10:00 02/27/25 09:31 75 MG Albuterol 2.5 mg Q6HPRN PRN NEB 02/24/25 16:45 Ipratropium [place] 0.5 mg Q6HPRN PRN NEB 02/24/25 16:45 Ondansetron HCl 4 mg Q4HP PRN IV 02/24/25 16:45 Acetaminophen 650 mg Q6HP PRN PO 02/24/25 16:45 Hold Nitroglycerin 0.4 mg Q5MINP PRN SL 02/24/25 16:45 Morphine Sulfate 2 mg Q30M PRN IV 02/24/25 16:45 Acetaminophen 650 mg Q8HPRN PRN CO 02/24/25 18:30 02/24/25 19:11 650 MG Pantoprazole Sodium 40 mg DAILY IV 02/25/25 10:00 02/27/25 09:31 40 MG Metoprolol Succinate 25 mg DAILY PO 02/26/25 10:00 02/26/25 08:40 25 MG Apixaban 5 mg BID PO 02/25/25 22:00 02/27/25 09:31 5 MG objective GENERAL: Altered. Thin appearing. EYES: PERRL, EOMI. Anicteric. HENT: Moist mucous membranes. LUNGS: Clear to auscultation bilaterally. CARDIOVASCULAR: Regular rate and rhythm. ABDOMEN: Soft, nontender and nondistended. EXTREMITIES: No edema. SKIN: Warm, dry. laboratory and microbiology Laboratory Tests 02/27/25 05:20 Test 02/27/25 05:20 Range/Units Serum Glucose 104 74-106 mg/dL Problem List NSTEMI. Sepsis. Coronary artery disease status post PTCA x 1 DALY (on Plavix). History of HFrEF, NYHA class III. Hypertension. Dyslipidemia. Chronic pulmonary embolism in the right lower lobe pulmonary artery (on Eliquis). Acute hypoxic respiratory failure. History of seizures. Alcohol dependence. Assessment/Plan Continued all current supportive medical care. Eliquis. Lipitir, Plavix. IV antibiotics as ordered. GI prophylactics. Morphine for pain management. Nebulized breathing treatments. Additional plan as per the hospital course. Critical care time of 45 minutes provided to include time spent evaluation of patient at bedside, when appropriate patient/family education for diagnosis, treatment plan, review of pertinent medical information and discussion of care with specialty providers and PCP. Plan discussed with: Other DIANA DIOR MD Feb 27, 2025 14:32
[2025-02-28] VITALS (15 sets, daily range): BP systolic 119–148; BP diastolic 64–85; PULSE 54–73; RESP 12–22; TEMP 97.7–98.6; O2SAT 94–99
--- NOTE | 2025-02-28 10:21 | DVHPN2 ---
Subjective The patient seen and examined at bedside. Confuse. Reviewed: Care Plan, H&P, Labs, Medications, Previous Orders, Radiology Changes from previous H/P or p: No Changes Objective Vitals Vital Signs Date Time Temp Pulse Resp B/P (MAP) Pulse Ox O2 Delivery O2 Flow Rate FiO2 02/28/25 09:59 81 131/66 02/28/25 08:00 20 96 Room Air* 0 21 02/28/25 07:00 98.4 209.1 Intake/Output Intake and Output 02/28/25 07:00 Intake Total 480.0 ml Output Total 725 ml Balance -245.0 ml Intake Oral 280 ml IV Total 200.0 ml Output Urine Total 725 ml General Appearance: Alert, No acute distress HEENT: Atraumatic, PERRLA, EOMI, Mucous membr. moist/pink Neck: Supple Lungs: Clear to auscultation, Normal air movement Cardiovascular: Regular rate, Normal S1, Normal S2, No murmurs, Gallops, Rubs Abdomen: Normal bowel sounds, Soft, No tenderness, No hepatospenomegaly Neuro: Cranial nerves 3-12 NL Psych/Mental Status: Mental status NL Medications Current Medications Medications Dose Ordered Sig/Jesse Route Start Time Stop Time Status Last Admin Dose Admin Cefepime HCl 50 ml @ 12.5 mls/hr Q12H IV 02/24/25 14:00 02/28/25 02:17 12.5 MLS/HR Clindamycin Phosphate 50 ml @ 50 mls/hr Q8HR IV 02/24/25 22:00 02/28/25 06:16 50 MLS/HR Empaglifozin 10 mg DAILY PO 02/25/25 10:00 02/28/25 09:56 10 MG Atorvastatin Calcium 10 mg HS PO 02/24/25 22:00 02/27/25 21:44 10 MG Clopidogrel Bisulfate 75 mg DAILY PO 02/25/25 10:00 02/28/25 09:57 75 MG Ondansetron HCl 4 mg Q4HP PRN IV 02/24/25 16:45 Acetaminophen 650 mg Q6HP PRN PO 02/24/25 16:45 Hold Nitroglycerin 0.4 mg Q5MINP PRN SL 02/24/25 16:45 Morphine Sulfate 2 mg Q30M PRN IV 02/24/25 16:45 Acetaminophen 650 mg Q8HPRN PRN MD 02/24/25 18:30 02/24/25 19:11 650 MG Pantoprazole Sodium 40 mg DAILY IV 02/25/25 10:00 02/28/25 09:55 40 MG Metoprolol Succinate 25 mg DAILY PO 02/26/25 10:00 02/28/25 09:59 25 MG Apixaban 5 mg BID PO 02/25/25 22:00 02/28/25 09:55 5 MG Laboratory Results Laboratory Tests 02/27/25 05:20 Urinalysis Test 02/24/25 14:00 Urine Color Colorless (Yellow) Urine Clarity Clear (Clear) Urine pH 6.0 (5.0-9.0) Urine Specific [place] 1.011 (1.001-1.035) Urine Protein Negative (Negative) Urine Ketones 1+ (Negative) H Urine Blood 2+ /uL (Negative) H Urine Nitrite Negative (Negative) Urine Bilirubin Negative (Negative) Urine Urobilinogen Normal mg/dL (Negative) Urine Leukocyte Esterase Negative /uL (Negative) Urine RBC 6 /hpf (0 - 3) Urine Microscopic WBC 1 /HPF (0-3) Urine Squamous Epithelial Cells Few /hpf (<5) Urine Bacteria None seen /hpf (None Seen) Urine Glucose 4+ mg/dL (Normal) H Microbiology Microbiology Date/Time Source Procedure Growth Status 02/24/25 22:00 Urine - [place] Urine Culture - Final Complete 02/24/25 18:10 Nose MRSA Screen - Final Complete 02/24/25 12:00 Blood Blood Culture - Preliminary NO GROWTH AFTER 72 HOURS OF INCUBATION. Resulted Labs and/or images reviewed: Labs reviewed by me Assessment/Plan Assessment/Plan Metabolic encephalopathy Acute hypoxic respiratory failure Sepsis Elevated troponin rule out NSTEMI Possible aspiration pneumonia Continue current management Continue with IV antibiotic Follow up cardiology recommendation. [place] to telemetry Plan discussed with: Patient Date of Service: Feb 28, 2025 Billing Provider: DIANDRA MASCORRO MD Common Visit Codes: [id number] INP/OBS CARE(HIGH) DIANDRA MASCORRO MD Feb 28, 2025 10:21
--- NOTE | 2025-02-28 10:33 | ECG ---
[facility] Test Date: 2025-02-24 Test Time: 11:29:39 Pat Name: ETHAN SOLANO Department: ED Room: 0293T Gender: M [employer]: GREGORIO : 1945 Requested By: VIANNEY REYES Order Number: [id number] Reading MD: Justo Bang Measurements Intervals [place] Rate: 102 P: 51 ND: 166 QRS: 60 QRSD: 91 T: 57 QT: 357 QTc: 466 Interpretive Statements Sinus tachycardia Probable anteroseptal infarct, old Electronically Signed On 02-28-2025 22:43:39 PDT by Justo Bang Please click the below link to view image of tracing.
[2025-03-01] VITALS (8 sets, daily range): BP systolic 118–150; BP diastolic 72–92; PULSE 59–74; RESP 15–20; TEMP 97.5–98.2; O2SAT 94–97
--- NOTE | 2025-03-01 00:22 | DVHPN2 ---
Progress Note - Dictate Date Seen: Feb 28, 2025 Medical Necessity Reason Pt with a Central, PICC or Fol: No Subjective Patient was seen and evaluated in follow up. Patient downgraded to tele bed. Patient remains confused. States has generalized pain. The patient is on room air and is afebrile. Telemetry reviewed. vital signs Vital Sign Date Time Temp Pulse Resp B/P (MAP) Pulse Ox O2 Delivery O2 Flow Rate FiO2 02/28/25 21:00 97.7 71 17 145/85 (105) 96 97.7 02/28/25 10:00 Room Air* 0 21 Total Intake and Output 02/28/25 02/28/25 03/01/25 14:59 22:59 06:59 Intake Total 50 ml 850 ml Output Total 550 ml Balance 50 ml 300 ml medications Current Medications Medications Dose Ordered Sig/Jesse Route Start Time Stop Time Status Last Admin Dose Admin Cefepime HCl 50 ml @ 12.5 mls/hr Q12H IV 02/24/25 14:00 02/28/25 14:27 12.5 MLS/HR Clindamycin Phosphate 50 ml @ 50 mls/hr Q8HR IV 02/24/25 22:00 02/28/25 21:08 50 MLS/HR Empaglifozin 10 mg DAILY PO 02/25/25 10:00 02/28/25 09:56 10 MG Atorvastatin Calcium 10 mg HS PO 02/24/25 22:00 02/28/25 21:08 10 MG Clopidogrel Bisulfate 75 mg DAILY PO 02/25/25 10:00 02/28/25 09:57 75 MG Ondansetron HCl 4 mg Q4HP PRN IV 02/24/25 16:45 Acetaminophen 650 mg Q6HP PRN PO 02/24/25 16:45 Hold Nitroglycerin 0.4 mg Q5MINP PRN SL 02/24/25 16:45 Morphine Sulfate 2 mg Q30M PRN IV 02/24/25 16:45 Acetaminophen 650 mg Q8HPRN PRN TN 02/24/25 18:30 02/24/25 19:11 650 MG Pantoprazole Sodium 40 mg DAILY IV 02/25/25 10:00 02/27/25 09:31 40 MG Metoprolol Succinate 25 mg DAILY PO 02/26/25 10:00 02/28/25 09:59 25 MG Apixaban 5 mg BID PO 02/25/25 22:00 02/28/25 21:08 5 MG objective GENERAL: Altered. Thin appearing. EYES: PERRL, EOMI. Anicteric. HENT: Moist mucous membranes. LUNGS: Clear to auscultation bilaterally. CARDIOVASCULAR: Regular rate and rhythm. ABDOMEN: Soft, nontender and nondistended. EXTREMITIES: No edema. SKIN: Warm, dry. laboratory and microbiology Laboratory Tests 02/27/25 05:20 Test 02/27/25 05:20 Range/Units Serum Glucose 104 74-106 mg/dL Problem List NSTEMI. Sepsis. Coronary artery disease status post PTCA x 1 DALY (on Plavix). History of HFrEF, NYHA class III. Hypertension. Dyslipidemia. Chronic pulmonary embolism in the right lower lobe pulmonary artery (on Eliquis). Acute hypoxic respiratory failure. History of seizures. Alcohol dependence. Assessment/Plan Continued all current supportive medical care. Eliquis. Lipitor, Plavix. IV antibiotics as ordered. GI prophylactics. Morphine for pain management. Nebulized breathing treatments. Additional plan as per the hospital course. Dietary Evaluation Review Comments: 1) Bharat 1 pk BID, Vit C 500mg BID, MVI w/ minerals 1 tab daily, and zinc sulfate 220mg BID x 10 days 2) Monitor PO intake, lab values, weight trend, and I/O Expected Outcomes/Goals: Wound to improve Fu 3-5 days Plan discussed with: DIANA Obregon MD Mar 01, 2025 00:21
--- NOTE | 2025-03-01 10:10 | MEDREC ---
FORMERLY [facility], [facility] ASP Intervention Section I FORMERLY [facility] ASP Intervention: Review courses of therapy (Clindamycin covers anaerobes fine in the mouth, but not great in the GI tract. The need for anaerobic coverage in aspiration pneumonia is not routinely recommended unless lung abscess or empyema is suspected. If anaerobe coverage is required. Please consider 1. cefepime + metronidazole or 2. zosyn) [facility] RES[facility] Mar 01, 2025 10:10
--- NOTE | 2025-03-01 13:25 | DVHPN2 ---
Reviewed: Care Plan, H&P, Labs, Medications, Previous Orders, Radiology Changes from previous H/P or p: No Changes Objective Vitals Vital Signs Date Time Temp Pulse Resp B/P (MAP) Pulse Ox O2 Delivery O2 Flow Rate FiO2 03/01/25 09:47 67 124/79 03/01/25 09:00 98.2 16 94 98.2 03/01/25 08:05 Room Air* 0 21 Intake/Output Intake and Output 03/01/25 07:00 Intake Total 1250 ml Output Total 900 ml Balance 350 ml Intake Oral 1100 ml IV Total 150 ml Output Urine Total 900 ml General Appearance: Alert, No acute distress HEENT: Atraumatic, PERRLA, EOMI, Mucous membr. moist/pink Neck: Supple Lungs: Clear to auscultation, Normal air movement Cardiovascular: Regular rate, Normal S1, Normal S2, No murmurs, Gallops, Rubs Abdomen: Normal bowel sounds, Soft, No tenderness, No hepatospenomegaly Neuro: Cranial nerves 3-12 NL Psych/Mental Status: Mental status NL Medications Current Medications Medications Dose Ordered Sig/Jesse Route Start Time Stop Time Status Last Admin Dose Admin Cefepime HCl 50 ml @ 12.5 mls/hr Q12H IV 02/24/25 14:00 03/01/25 01:18 12.5 MLS/HR Clindamycin Phosphate 50 ml @ 50 mls/hr Q8HR IV 02/24/25 22:00 03/01/25 05:28 50 MLS/HR Empaglifozin 10 mg DAILY PO 02/25/25 10:00 03/01/25 09:46 10 MG Atorvastatin Calcium 10 mg HS PO 02/24/25 22:00 02/28/25 21:08 10 MG Clopidogrel Bisulfate 75 mg DAILY PO 02/25/25 10:00 03/01/25 09:46 75 MG Ondansetron HCl 4 mg Q4HP PRN IV 02/24/25 16:45 Acetaminophen 650 mg Q6HP PRN PO 02/24/25 16:45 Hold Nitroglycerin 0.4 mg Q5MINP PRN SL 02/24/25 16:45 Morphine Sulfate 2 mg Q30M PRN IV 02/24/25 16:45 Acetaminophen 650 mg Q8HPRN PRN GA 02/24/25 18:30 02/24/25 19:11 650 MG Pantoprazole Sodium 40 mg DAILY IV 02/25/25 10:00 03/01/25 09:47 40 MG Metoprolol Succinate 25 mg DAILY PO 02/26/25 10:00 03/01/25 09:47 25 MG Apixaban 5 mg BID PO 02/25/25 22:00 03/01/25 09:46 5 MG Laboratory Results Laboratory Tests 02/27/25 05:20 Urinalysis Test 02/24/25 14:00 Urine Color Colorless (Yellow) Urine Clarity Clear (Clear) Urine pH 6.0 (5.0-9.0) Urine Specific [place] 1.011 (1.001-1.035) Urine Protein Negative (Negative) Urine Ketones 1+ (Negative) H Urine Blood 2+ /uL (Negative) H Urine Nitrite Negative (Negative) Urine Bilirubin Negative (Negative) Urine Urobilinogen Normal mg/dL (Negative) Urine Leukocyte Esterase Negative /uL (Negative) Urine RBC 6 /hpf (0 - 3) Urine Microscopic WBC 1 /HPF (0-3) Urine Squamous Epithelial Cells Few /hpf (<5) Urine Bacteria None seen /hpf (None Seen) Urine Glucose 4+ mg/dL (Normal) H Microbiology Microbiology Date/Time Source Procedure Growth Status 02/24/25 22:00 Urine - [place] Urine Culture - Final Complete 02/24/25 18:10 Nose MRSA Screen - Final Complete 02/24/25 12:00 Blood Blood Culture - Final NO GROWTH AFTER 5 DAYS OF INCUBATION. Complete Labs and/or images reviewed: Labs reviewed by me, Image(s) reviewed by me Assessment/Plan Assessment/Plan Covering for Dr Sanchez Sepsis secondary to community-acquired pneumonia Gram-positive versus Gram- negative: Continue cefepime and clindamycin Metabolic encephalopathy Acute hypoxic respiratory failure: Oxygen by nasal cannula NSTEMI. Consult by Dr. Solo appreciated Coronary artery disease status post PTCA x 1 DALY (on Plavix). History of HFrEF, NYHA class III. Hypertension. Dyslipidemia. Chronic pulmonary embolism in the right lower lobe pulmonary artery (on Eliquis). History of seizures. Current alcohol abuse: Counseling Patient is hospice revoked Time spent 70 minutes Advanced care planning time 20 minutes Patient is full code Plan discussed with: Patient Date of Service: Mar 01, 2025 Billing Provider: CAITLIN CAIN MD Common Visit Codes: [id number] CARE 30-74 MIN CAITLIN CAIN MD Mar 01, 2025 13:25
--- NOTE | 2025-03-01 22:57 | DVHPN2 ---
Progress Note - Dictate Date Seen: Mar 01, 2025 Medical Necessity Reason Pt with a Central, PICC or Fol: No Subjective Patient was seen and evaluated in follow up. No overnight events. Patient is stable on room air. Patient received wound care his evening. Telemetry reviewed. vital signs Vital Sign Date Time Temp Pulse Resp B/P (MAP) Pulse Ox O2 Delivery O2 Flow Rate FiO2 03/01/25 17:00 97.9 68 16 137/92 (107) 94 97.9 03/01/25 08:05 Room Air* 0 21 Total Intake and Output 02/28/25 02/28/25 03/01/25 15:00 23:00 07:00 Intake Total 900 ml 350 ml Output Total 550 ml 350 ml Balance 350 ml 0 ml medications Current Medications Medications Dose Ordered Sig/Jesse Route Start Time Stop Time Status Last Admin Dose Admin Cefepime HCl 50 ml @ 12.5 mls/hr Q12H IV 02/24/25 14:00 03/01/25 14:55 12.5 MLS/HR Clindamycin Phosphate 50 ml @ 50 mls/hr Q8HR IV 02/24/25 22:00 03/01/25 20:59 50 MLS/HR Empaglifozin 10 mg DAILY PO 02/25/25 10:00 03/01/25 09:46 10 MG Atorvastatin Calcium 10 mg HS PO 02/24/25 22:00 03/01/25 20:58 10 MG Clopidogrel Bisulfate 75 mg DAILY PO 02/25/25 10:00 03/01/25 09:46 75 MG Ondansetron HCl 4 mg Q4HP PRN IV 02/24/25 16:45 Acetaminophen 650 mg Q6HP PRN PO 02/24/25 16:45 Hold Nitroglycerin 0.4 mg Q5MINP PRN SL 02/24/25 16:45 Morphine Sulfate 2 mg Q30M PRN IV 02/24/25 16:45 Acetaminophen 650 mg Q8HPRN PRN NC 02/24/25 18:30 02/24/25 19:11 650 MG Pantoprazole Sodium 40 mg DAILY IV 02/25/25 10:00 03/01/25 09:47 40 MG Metoprolol Succinate 25 mg DAILY PO 02/26/25 10:00 03/01/25 09:47 25 MG Apixaban 5 mg BID PO 02/25/25 22:00 03/01/25 20:58 5 MG objective GENERAL: Altered. Thin appearing. EYES: PERRL, EOMI. Anicteric. HENT: Moist mucous membranes. LUNGS: Clear to auscultation bilaterally. CARDIOVASCULAR: Regular rate and rhythm. ABDOMEN: Soft, nontender and nondistended. EXTREMITIES: No edema. SKIN: Warm, dry. laboratory and microbiology Laboratory Tests 02/27/25 05:20 Test 02/27/25 05:20 Range/Units Serum Glucose 104 74-106 mg/dL Problem List NSTEMI. Sepsis. Coronary artery disease status post PTCA x 1 DALY (on Plavix). History of HFrEF, NYHA class III. Hypertension. Dyslipidemia. Chronic pulmonary embolism in the right lower lobe pulmonary artery (on Eliquis). Acute hypoxic respiratory failure. History of seizures. Alcohol dependence. Assessment/Plan Continued all current supportive medical care. Eliquis. Lipitor, Plavix. IV antibiotics as ordered. GI prophylactics. Morphine for pain management. Additional plan as per the hospital course. Dietary Evaluation Review Comments: 1) Bharat 1 pk BID, Vit C 500mg BID, MVI w/ minerals 1 tab daily, and zinc sulfate 220mg BID x 10 days 2) Monitor PO intake, lab values, weight trend, and I/O Expected Outcomes/Goals: Wound to improve Fu 3-5 days Plan discussed with: Patient DIANA DIOR MD Mar 01, 2025 22:57
[2025-03-02] VITALS (8 sets, daily range): BP systolic 120–164; BP diastolic 66–77; PULSE 59–94; RESP 16–18; TEMP 36.6; O2SAT 91–98
--- NOTE | 2025-03-02 11:41 | DVHPN2 ---
Reviewed: Care Plan, H&P, Labs, Medications, Previous Orders, Radiology Changes from previous H/P or p: No Changes Objective Vitals Vital Signs Date Time Temp Pulse Resp B/P (MAP) Pulse Ox O2 Delivery O2 Flow Rate FiO2 03/02/25 11:10 91 164/77 03/02/25 09:51 97.6 17 91 97.6 03/02/25 08:05 Room Air* 0 21 Intake/Output Intake and Output 03/02/25 07:00 Intake Total 1554 ml Output Total 1775 ml Balance -221 ml Intake Oral 1354 ml IV Total 200 ml Output Urine Total 1775 ml General Appearance: Alert, No acute distress HEENT: Atraumatic, PERRLA, EOMI, Mucous membr. moist/pink Neck: Supple Lungs: Clear to auscultation, Normal air movement Cardiovascular: Regular rate, Normal S1, Normal S2, No murmurs, Gallops, Rubs Abdomen: Normal bowel sounds, Soft, No tenderness, No hepatospenomegaly Neuro: Cranial nerves 3-12 NL Psych/Mental Status: Mental status NL Medications Current Medications Medications Dose Ordered Sig/Jesse Route Start Time Stop Time Status Last Admin Dose Admin Cefepime HCl 50 ml @ 12.5 mls/hr Q12H IV 02/24/25 14:00 03/02/25 01:12 12.5 MLS/HR Clindamycin Phosphate 50 ml @ 50 mls/hr Q8HR IV 02/24/25 22:00 03/02/25 05:35 50 MLS/HR Empaglifozin 10 mg DAILY PO 02/25/25 10:00 03/02/25 11:09 10 MG Atorvastatin Calcium 10 mg HS PO 02/24/25 22:00 03/01/25 20:58 10 MG Clopidogrel Bisulfate 75 mg DAILY PO 02/25/25 10:00 03/02/25 11:08 75 MG Ondansetron HCl 4 mg Q4HP PRN IV 02/24/25 16:45 Acetaminophen 650 mg Q6HP PRN PO 02/24/25 16:45 Hold Nitroglycerin 0.4 mg Q5MINP PRN SL 02/24/25 16:45 Morphine Sulfate 2 mg Q30M PRN IV 02/24/25 16:45 Acetaminophen 650 mg Q8HPRN PRN AR 02/24/25 18:30 02/24/25 19:11 650 MG Pantoprazole Sodium 40 mg DAILY IV 02/25/25 10:00 03/02/25 11:12 40 MG Metoprolol Succinate 25 mg DAILY PO 02/26/25 10:00 03/02/25 11:10 25 MG Apixaban 5 mg BID PO 02/25/25 22:00 03/02/25 11:09 5 MG Laboratory Results Laboratory Tests 02/27/25 05:20 Urinalysis Test 02/24/25 14:00 Urine Color Colorless (Yellow) Urine Clarity Clear (Clear) Urine pH 6.0 (5.0-9.0) Urine Specific [place] 1.011 (1.001-1.035) Urine Protein Negative (Negative) Urine Ketones 1+ (Negative) H Urine Blood 2+ /uL (Negative) H Urine Nitrite Negative (Negative) Urine Bilirubin Negative (Negative) Urine Urobilinogen Normal mg/dL (Negative) Urine Leukocyte Esterase Negative /uL (Negative) Urine RBC 6 /hpf (0 - 3) Urine Microscopic WBC 1 /HPF (0-3) Urine Squamous Epithelial Cells Few /hpf (<5) Urine Bacteria None seen /hpf (None Seen) Urine Glucose 4+ mg/dL (Normal) H Microbiology Microbiology Date/Time Source Procedure Growth Status 02/24/25 22:00 Urine - [place] Urine Culture - Final Complete 02/24/25 18:10 Nose MRSA Screen - Final Complete 02/24/25 12:00 Blood Blood Culture - Final NO GROWTH AFTER 5 DAYS OF INCUBATION. Complete Labs and/or images reviewed: Labs reviewed by me, Image(s) reviewed by me Assessment/Plan Assessment/Plan Covering for Dr Sanchez Sepsis secondary to community-acquired pneumonia Gram-positive versus Gram- negative: Continue cefepime and clindamycin Metabolic encephalopathy Acute hypoxic respiratory failure: Oxygen by nasal cannula NSTEMI. Consult by Dr. Solo appreciated Coronary artery disease status post PTCA x 1 DALY (on Plavix). History of HFrEF, NYHA class III. Hypertension. Dyslipidemia. Chronic pulmonary embolism in the right lower lobe pulmonary artery (on Eliquis). History of seizures. Current alcohol abuse: Counseling Patient is hospice revoked Time spent 50 minutes Advanced care planning time 20 minutes Patient is full code direct support professional caregiver Melly [phone] at bed side Daughter Abi [phone] Pt was in [facility] , then dcd on hospice. Plan discussed with: Patient My Orders Orders - CAITLIN CAIN MD Procedure Category Date Status Time * Picc Line Consult CONS 03/02/25 Transmitted 11:29 Date of Service: Mar 02, 2025 Billing Provider: CAITLIN CAIN MD Common Visit Codes: [id number] INP/OBS CARE(HIGH) CAITLIN CAIN MD Mar 02, 2025 11:41
[2025-03-02 12:26] LABS: Hematocrit 39.3 % (41.0-53.0); Hemoglobin 13.3 g/dL (13.5-17.5); Mean Corpuscular Hemoglobin 27.7 pg (28.0-32.0); Mean Corpuscular Volume 81.7 fL (80.0-100.0); Nucleated Red Blood Cells % 0.1 %
[2025-03-02 12:33] LABS: INR 1.06 (0.9-1.15); Partial Thromboplastin Time 29.7 SEC (24.5-34.5); Prothrombin Time 11.2 sec (9.3-11.8)
--- NOTE | 2025-03-02 13:35 | DVHDS2 ---
Discharge Summary Date of Admission Feb 24, 2025 at 16:45 Date of Discharge: Mar 02, 2025 Admitting Diagnosis Shortness of breath Wounds: None Labs/Diagnostic Data: Laboratory Results Test 03/02/25 12:05 02/27/25 05:20 02/25/25 09:50 02/25/25 05:41 White Blood Count 7.6 10^3/uL (4.4-10.8) Red Blood Count 4.81 10^6/uL (4.5-5.90) Hemoglobin 13.3 g/dL (13.5-17.5) Hematocrit 39.3 % (41.0-53.0) Mean Corpuscular Volume 81.7 fL (80.0-100.0) Mean Corpuscular Hemoglobin 27.7 pg (28.0-32.0) Mean Corpuscular Hemoglobin Concent 33.9 g/dL (32.0-36.0) Red Cell Distribution Width 16.1 % (11.8-14.3) Platelet Count 336 10^3/uL (140-450) Mean Platelet Volume 7.2 fL (6.9-10.8) Neutrophils (%) (Auto) 69.7 % (37.0-80.0) Lymphocytes (%) (Auto) 15.8 % (10.0-50.0) Monocytes (%) (Auto) 12.2 % (0.0-12.0) Eosinophils (%) (Auto) 1.8 % (0.0-7.0) Basophils (%) (Auto) 0.5 % (0.0-2.0) Neutrophils # (Auto) 5.3 10 ^3/uL (1.6-8.6) Lymphocytes # (Auto) 1.2 10 ^3/uL (0.4-5.4) Monocytes # (Auto) 0.9 10 ^3/uL (0-1.3) Eosinophils # (Auto) 0.1 10 ^3/uL (0-0.8) Basophils # (Auto) 0 10 ^3/uL (0-0.2) Nucleated Red Blood Cells 0.1 % Prothrombin Time 11.2 sec (9.3-11.8) Prothrombin Time INR 1.06 (0.9-1.15) Activated Partial Thromboplast Time 29.7 SEC (24.5-34.5) Sodium Level 137 mmol/L (136-145) Potassium Level 3.6 mmol/L (3.5-5.1) Chloride Level 105 mmol/L (98-107) Carbon Dioxide Level 24 mmol/L (20-31) Anion Gap 8 (5-15) Blood Urea Nitrogen 19 mg/dL (9-23) Creatinine 1.10 mg/dL (0.700-1.30) Glomerular Filtration Rate Calc 69 mL/min (>90) BUN/Creatinine Ratio 17.3 (10.0-20.0) Serum Glucose 104 mg/dL (74-106) Calcium Level 8.3 mg/dL (8.7-10.4) Troponin I High Sensitivity 1428 ng/L (</=54) Blood Gas Specimen Type Arterial Blood Gas Sample Site Left radial Blood Gas Patient Temperature 37.0 Arterial Blood Date Drawn [id number] Arterial Blood pH 7.458 (7.350-7.450) Arterial Blood Partial Pressure CO2 27.4 mmHg (35.0-48.0) Arterial Blood Partial Pressure O2 102.7 mmHg (83.0-108.0) Arterial Blood HCO3 19.0 mmol/L (21.0-28.0) Arterial Blood Oxygen Saturation 97.5 % (94.0-98.0) Arterial Blood Base Excess -3.4 mmol/L (-2.0-3.0) Arterial Blood Oxyhemoglobin 96.5 % (94.0-98.0) Arterial Blood Carboxyhemoglobin 0.5 % (0.5-1.5) Arterial Blood Methemoglobin 0.5 % (0.0-1.5) Aquiles Test Yes Blood Gas Total Hemoglobin 14.20 g/dL (13.5-17.5) Blood Gas Liter Flow 2.00 Blood Gas Modality Nasal cannula FiO2 % 28.0 Test 02/25/25 04:36 02/24/25 16:09 02/24/25 14:00 02/24/25 12:00 Hemoglobin A1c 5.7 % A1C (<5.7) Magnesium Level 1.9 mg/dL (1.6-2.6) Triglycerides Level 59 mg/dL (< 150) Cholesterol Level 132 mg/dL (< 200) LDL Cholesterol 46 mg/dL (< 100) HDL Cholesterol 72 mg/dL (40-59) Thyroid Stimulating Hormone (TSH) 1.90 uIU/mL (0.55-4.78) Lactic Acid Level 3.5 mmol/L (0.4-2.0) Urine Color Colorless (Yellow) Urine Clarity Clear (Clear) Urine pH 6.0 (5.0-9.0) Urine Specific [place] 1.011 (1.001-1.035) Urine Protein Negative (Negative) Urine Ketones 1+ (Negative) Urine Blood 2+ /uL (Negative) Urine Nitrite Negative (Negative) Urine Bilirubin Negative (Negative) Urine Urobilinogen Normal mg/dL (Negative) Urine Leukocyte Esterase Negative /uL (Negative) Urine RBC 6 /hpf (0 - 3) Urine Microscopic WBC 1 /HPF (0-3) Urine Squamous Epithelial Cells Few /hpf (<5) Urine Bacteria None seen /hpf (None Seen) Urine Glucose 4+ mg/dL (Normal) Urine Opiates Screen Neg (NEGATIVE) Urine Fentanyl Screen Neg (NEGATIVE) Urine Barbiturates Screen Neg (NEGATIVE) Urine Phencyclidine Screen Neg (NEGATIVE) Urine Amphetamines Screen Neg (NEGATIVE) Urine Benzodiazepines Screen Neg (NEGATIVE) Urine Cocaine Screen Neg (NEGATIVE) Urine Cannabinoids Screen Neg (NEGATIVE) Total Bilirubin 0.7 mg/dL (0.2-1.0) Aspartate Amino Transferase (AST) 34 U/L (13-40) Alanine Aminotransferase (ALT) 33 U/L (7-40) Alkaline Phosphatase 107 U/L (46-116) Ammonia < 10 umol/L (11-32) B-Type Natriuretic Peptide 309.96 pg/mL (0-100) Total Protein 6.8 g/dL (5.7-8.2) Albumin 4.3 g/dL (3.2-4.8) Plasma/Serum Blood Alcohol < 3.0 mg/dL (<10) Other Laboratory Tests 03/02/25 12:05 02/27/25 05:20 Brief Hx & Hospital Course: 79-year-old male with a history of hypertension hyperlipidemia congestive heart failure coronary artery disease status post stents pulmonary embolism right lower lobe on Eliquis came in for shortness of breath found to have community- acquired pneumonia possibly aspiration pneumonia treated with the cefepime and clindamycin IV. Blood cultures negative . Mild elevated troponin found to have non ST-elevation SD type [address] Solo. History of seizures and chronic alcohol abuse. Patient was on hospice hospice was revoked in the patient was admitted. General condition very poor. Spoke with the patient's daughter Abi [phone] who lives in [place] and the patient is being discharged to [facility] facility for IV antibiotics for two weeks for aspiration pneumonia. Also spoke to caregiver and sister in law Melly [phone] bedside General condition poor, but stable at the time of discharge Consults/Reason for consult Cardiology Dr. Ruby Solo Operations or Procedures None Condition at Discharge: Fair Final Diagnosis/Problems List Sepsis secondary to community-acquired pneumonia Gram-positive versus Gram-negative: Continue cefepime and clindamycin Metabolic encephalopathy Acute hypoxic respiratory failure: Oxygen by nasal cannula NSTEMI. Consult by Dr. Solo appreciated Coronary artery disease status post PTCA x 1 DALY (on Plavix). History of HFrEF, NYHA class III. Hypertension. Dyslipidemia. Chronic pulmonary embolism in the right lower lobe pulmonary artery (on Eliquis). History of seizures. Current alcohol abuse: Counseling Discharge Disposition: Assisted Facility Discharge Instruct/Medications Diet: Cardiac 2g Na,low cholest Activity: Light activity Follow Up/Referral: Follow up with the senior living Medications: see list Scheduled Folic Acid (Folate), 400 MCG PO DAILY Multiple Vitamin (Multivitamins), 1 TAB PO DAILY Thiamine HCl (Thiamine Hydrochloride), 100 MG PO DAILY 39 (Time taken for discharge summary 39 minutes) Discharge Statement: "Patient was advised to return to the ER or call 911 if any headaches, dizziness, shortness of breath, chest pain, abdominal pain, bleeding, fevers, or worsening of medical condition. Patient was counseled about treatment plan, medications, possible side effects, patientverbalized understanding. All questions were answered to the best of my ability. This discharge took greater then 30 minutes in planning, reviewing documentation, counseling the patient, and discussing with other team members." ASSESSMENT ASSESSMENT Hospital Course Marginal improvement Assessment Sepsis secondary to community-acquired pneumonia Gram-positive versus Gram- negative: Continue cefepime and clindamycin Metabolic encephalopathy Acute hypoxic respiratory failure: Oxygen by nasal cannula NSTEMI. Consult by Dr. Solo appreciated Coronary artery disease status post PTCA x 1 DALY (on Plavix). History of HFrEF, NYHA class III. Hypertension. Dyslipidemia. Chronic pulmonary embolism in the right lower lobe pulmonary artery (on Eliquis). History of seizures. Current alcohol abuse: Counseling Date of Service: Mar 02, 2025 Billing Provider: CAITLIN CAIN MD Common Visit Codes: 84876-EZW/OBS DISCH DAY >30min CAITLIN CAIN MD Mar 02, 2025 13:35
[2025-03-02] MEDS ORDERED: LIDOCAINE 1% (LOCAL ANESTH.) PF 5ml SDV ID ONE (17:00)
[2025-03-02] MEDS ORDERED: SODIUM CHLOR 0.9% PF (SALINE LOCK) 10ML VIAL/SYR IV SCH (22:00)
--- NOTE | 2025-03-02 23:12 | DVHPN2 ---
Progress Note - Dictate Date Seen: Mar 02, 2025 Medical Necessity Reason Pt with a Central, PICC or Fol: No Subjective Patient was seen and evaluated in follow up. Patient has no new complaints at this time. Patient denies any cardiac symptoms. Patient is cardiac stable for discharge. Telemetry reviewed. vital signs Vital Sign Date Time Temp Pulse Resp B/P (MAP) Pulse Ox O2 Delivery O2 Flow Rate FiO2 03/02/25 12:44 97.9 69 16 132/66 (88) 94 97.9 03/02/25 08:05 Room Air* 0 21 Total Intake and Output 03/01/25 03/01/25 03/02/25 15:00 23:00 07:00 Intake Total 1040 ml 514 ml Output Total 1225 ml 550 ml Balance -185 ml -36 ml medications Current Medications Medications Dose Ordered Sig/Jesse Route Start Time Stop Time Status Last Admin Dose Admin Cefepime HCl 50 ml @ 12.5 mls/hr Q12H IV 02/24/25 14:00 03/02/25 01:12 12.5 MLS/HR Clindamycin Phosphate 50 ml @ 50 mls/hr Q8HR IV 02/24/25 22:00 03/02/25 13:46 50 MLS/HR Empaglifozin 10 mg DAILY PO 02/25/25 10:00 03/02/25 11:09 10 MG Atorvastatin Calcium 10 mg HS PO 02/24/25 22:00 03/01/25 20:58 10 MG Clopidogrel Bisulfate 75 mg DAILY PO 02/25/25 10:00 03/02/25 11:08 75 MG Ondansetron HCl 4 mg Q4HP PRN IV 02/24/25 16:45 Acetaminophen 650 mg Q6HP PRN PO 02/24/25 16:45 Hold Nitroglycerin 0.4 mg Q5MINP PRN SL 02/24/25 16:45 Morphine Sulfate 2 mg Q30M PRN IV 02/24/25 16:45 Acetaminophen 650 mg Q8HPRN PRN MS 02/24/25 18:30 02/24/25 19:11 650 MG Pantoprazole Sodium 40 mg DAILY IV 02/25/25 10:00 03/02/25 11:12 40 MG Metoprolol Succinate 25 mg DAILY PO 02/26/25 10:00 03/02/25 11:10 25 MG Apixaban 5 mg BID PO 02/25/25 22:00 03/02/25 11:09 5 MG objective GENERAL: Altered. Thin appearing. EYES: PERRL, EOMI. Anicteric. HENT: Moist mucous membranes. LUNGS: Clear to auscultation bilaterally. CARDIOVASCULAR: Regular rate and rhythm. ABDOMEN: Soft, nontender and nondistended. EXTREMITIES: No edema. SKIN: Warm, dry. laboratory and microbiology Laboratory Tests 03/02/25 12:05 02/27/25 05:20 Test 02/27/25 05:20 Range/Units Serum Glucose 104 74-106 mg/dL Problem List NSTEMI. Sepsis. Coronary artery disease status post PTCA x 1 DALY (on Plavix). History of HFrEF, NYHA class III. Hypertension. Dyslipidemia. Chronic pulmonary embolism in the right lower lobe pulmonary artery (on Eliquis). Acute hypoxic respiratory failure. History of seizures. Alcohol dependence. Assessment/Plan Continued all current supportive medical care. Metoprolol. Eliquis. Plavix. IV antibiotics as ordered. GI prophylactics. Morphine for pain management. Additional plan as per the hospital course. Dietary Evaluation Review Comments: 1) Bharat 1 pk BID, Vit C 500mg BID, MVI w/ minerals 1 tab daily, and zinc sulfate 220mg BID x 10 days 2) Monitor PO intake, lab values, weight trend, and I/O Expected Outcomes/Goals: Wound to improve Fu 3-5 days Plan discussed with: Patient DIANA DIOR MD Mar 02, 2025 14:57
== END 2025-03-02 20:40 | DRG 871 ==
LOC: EDBD 11:22 → EDUNIT# 11:22 → ER 11:22 → OVERFLOW 16:45 → TELE-WESTW 16:52 → ICU CENTRL 17:30 → TELE-WESTW 02-28 11:42
PROVIDERS: ADMIT Family Medicine; ATTEND Family Medicine
PROC: 05H933Z Insertion of Infusion Device into Right Brachial Vein, Percutaneous Approach (ICD-10-PCS; 2025-03-01)
PROC: B54MZZA Ultrasonography of Right Upper Extremity Veins, Guidance (ICD-10-PCS; 2025-03-01)
PROC: 02HV33Z Insertion of Infusion Device into Superior Vena Cava, Percutaneous Approach (ICD-10-PCS; principal; 2025-03-02)
PROC: B548ZZA Ultrasonography of Superior Vena Cava, Guidance (ICD-10-PCS; 2025-03-02)
DX: A41.59 Other Gram-negative sepsis (principal); G93.41 Metabolic encephalopathy; J96.01 Acute respiratory failure with hypoxia; J69.0 Pneumonitis due to inhalation of food and vomit; J15.69 Pneumonia due to other Gram-negative bacteria; J15.9 Unspecified bacterial pneumonia; I21.A1 Myocardial infarction type 2; I27.82 Chronic pulmonary embolism; I50.22 Chronic systolic (congestive) heart failure; E78.5 Hyperlipidemia, unspecified; F10.20 Alcohol dependence, uncomplicated; I11.0 Hypertensive heart disease with heart failure; I25.10 Atherosclerotic heart disease of native coronary artery without angina pectoris; Z95.5 Presence of coronary angioplasty implant and graft; Z86.16 Personal history of COVID-19; Z80.0 Family history of malignant neoplasm of digestive organs; Z96.642 Presence of left artificial hip joint; Z96.612 Presence of left artificial shoulder joint; Z79.02 Long term (current) use of antithrombotics/antiplatelets; Y90.9 Presence of alcohol in blood, level not specified
CPT/HCPCS: 36415; 36569; 36600; 70450; 71045; 76937; 80048; 80053; 80061; 80307; 80320; 81001; 82140; 82805; 83036; 83605; 83735; 83880; 84443; 84484; 85025; 85610; 85730; 87040; 87081; 87086; 92610; 93005; 93306; 94640; 96365; 96375; 97163; 99291; G0378; J0131; J2470; J3490

== ENCOUNTER 2025-06-23 13:04 | Inpatient (IN) | payer MEDICARE, OTHER ==
[~2025-06-23] VITALS: Ht 167.6 cm; Wt 66.4 kg
[2025-06-23 13:25] VITALS: PULSE 87; RESP 18; O2SAT 98
--- NOTE | 2025-06-23 13:28 | ED.PDOC ---
HPI (NEURO) HPI Comments 80 y/o M, BIBA, with PMHx of seizures, CAD, and HTN presents to the ED for CC of s/p seizure. EMS reports, patient is coming from home where he had a witnessed seizure by sister. Per EMS, sister relays patient has been sick with flu-like symptoms for multiple days. Upon arrival patient is postictal; no other symptoms or modifying factors are present at this time. Chief Complaint: Seizure Time Seen by MD: 13:20 Primary Care Provider: unknown Reviewed Notes: Nurses Notes, Vehicle Modification Technician Notes, Medications, Allergies Information Source: Relative (Sibling), Emergency Med Personnel Mode of Arrival: EMS Severity: Moderate Timing: Minutes Prehospital treatment: None Onset: At rest Circumstances: Spontaneous Before: Normal During: Awake History of: Seizure Disorder Modifying factors: Nothing Associated Signs and Symptoms: None Past Medical History PAST MEDICAL HISTORY: CAD, HTN, Seizures Surgical History: PTCA, Unobtainable Family History Family History: Reviewed,noncontributory to illness, No family hx of Lung alirio Social History Smoker: Unknown, Unobtainable Alcohol: Heavy Drugs: Unknown, Unobtainable Lives In: Home Constitutional: denies: chills, diaphoresis, fatigue, fever, malaise, sweats, weakness, others EENTM: denies: blurred vision, double vision, ear bleeding, ear discharge, ear drainage, ear pain, ear ringing, eye pain, eye redness, hearing loss, mouth pain, mouth swelling, nasal discharge, nose bleeding, nose congestion, nose pain, photophobia, tearing, throat pain, throat swelling, voice changes, others Respiratory: denies: cough, hemoptysis, orthopnea, SOB at rest, shortness of breath, SOB with excertion, stridor, wheezing, others Cardiovascular: denies: chest pain, dizzy spells, diaphoresis, Dyspnea on exertion, edema, irregular heart beat, left arm pain, lightheadedness, palpitations, PND, syncope, others Gastrointestinal: denies: abdomen distended, abdominal pain, blood streaked bowels, constipated, diarrhea, dysphagia, difficulty swallowing, hematemesis, melena, nausea, poor appetite, poor fluid intake, rectal bleeding, rectal pain, vomiting, others Genitourinary: denies: burning, dysuria, flank pain, frequency, hematuria, incontinence, penile discharge, penile sore, pain, testicle pain, testicle swelling, urgency, others Neurological: reports: seizure; denies: dizziness, fainting, headache, left sided numbness, left sided weakness, numbness, paresthesia, pre-existing deficit, right sided numbness, right sided weakness, speech problems, tingling, tremors, weakness, others Musculoskeletal: denies: back pain, gout, joint pain, joint swelling, muscle pain, muscle stiffness, neck pain, others Integumetry: denies: bruises, change in color, change in hair/nails, dryness, laceration, lesions, lumps, rash, wounds, others Allergic/Immunocompromised: denies: Difficulty Healing, Frequent Infections, Hives, Itching, others Hematologic/Lymphatic: denies: anemia, blood clots, easy bleeding, easy bruising, swollen glands, others Endocrine: denies: excessive hunger, excessive sweating, excessive thirst, excessive urination, flushing, intolerance to cold, intolerance to heat, unexplained weight gain, unexplained weight loss, others Psychiatric: denies: anxiety, bipolar disorder, depression, hopeless, panic disorder, schizophrenia, sleepless, suicidal, others All Other Systems: Reviewed and Negative Physical Exam General Appearance: No Apparent Distress, Normal HEENT: Normal ENT Inspection, Pharynx Normal Neck: Full Range of Motion, Non-Tender, Normal, Normal Inspection Respiratory: Chest Non-Tender, Lungs Clear, No Accessory Muscle Use, No Resp iratory Distress, Normal Breath Sounds Cardiovascular: No Edema, No Murmur, No Gallop, Normal Peripheral Pulses, Regular Rate/Rhythm Breast Exam: Deferred Gastrointestinal: No Organomegaly, Non Tender, No Pulsatile Mass, Normal Bowel Sounds, Soft Genitalia: Deferred Pelvic: Deferred Rectal: Deferred Extremities: No calf tenderness, Normal capillary refill, Normal inspection, Normal range of motion, Non-tender, No pedal edema Musculoskeletal : Apperance: Normal Neurologic: Alert, golf caddy II-XII nml as Tested, No Motor Deficits, Normal Affect, Normal Mood, No Sensory Deficits Cerebellar Function: Normal Reflexes: Normal Skin: Dry, Normal Color, Warm Lymphatic: No Adenopathy Was a procedure done? Was a procedure done?: No Differential Diagnosis (SZ) Seizure: Hypoglycemia X-Ray, Labs, Meds, VS Vital Signs Date Time Temp Pulse Resp B/P (MAP) Pulse Ox O2 Delivery O2 Flow Rate FiO2 06/23/25 15:00 78 15 148/80 (102) 100 06/23/25 13:25 96.8 99 18 146/89 (108) 96 96.8 06/23/25 13:25 87 18 98 Nasal Cannula* 4 36 06/23/25 13:15 96.9 105 24 149/87 99 96.9 Lab Test 06/23/25 15:35 06/23/25 13:35 Range/Units Lactic Acid Level 3.8 *H 8.6 *H 0.4-2.0 mmol/L White Blood Count 10.8 4.4-10.8 10^3/uL Red Blood Count 4.79 4.5-5.90 10^6/uL Hemoglobin 12.4 L 13.5-17.5 g/dL Hematocrit 38.6 L 41.0-53.0 % Mean Corpuscular Volume 80.4 80.0-100.0 fL Mean Corpuscular Hemoglobin 25.9 L 28.0-32.0 pg Mean Corpuscular Hemoglobin Concent 32.2 32.0-36.0 g/dL Red Cell Distribution Width 16.4 H 11.8-14.3 % Platelet Count 322 140-450 10^3/uL Mean Platelet Volume 7.0 6.9-10.8 fL Neutrophils (%) (Auto) 83.1 H 37.0-80.0 % Lymphocytes (%) (Auto) 11.1 10.0-50.0 % Monocytes (%) (Auto) 5.1 0.0-12.0 % Eosinophils (%) (Auto) 0.4 0.0-7.0 % Basophils (%) (Auto) 0.3 0.0-2.0 % Neutrophils # (Auto) 9.0 H 1.6-8.6 10 ^3/uL Lymphocytes # (Auto) 1.2 0.4-5.4 10 ^3/uL Monocytes # (Auto) 0.6 0-1.3 10 ^3/uL Eosinophils # (Auto) 0 0-0.8 10 ^3/uL Basophils # (Auto) 0 0-0.2 10 ^3/uL Nucleated Red Blood Cells 0.0 % Prothrombin Time 10.9 9.3-11.8 sec Prothrombin Time INR 1.03 0.9-1.15 Activated Partial Thromboplast Time 26.3 24.5-34.5 SEC Sodium Level 141 136-145 mmol/L Potassium Level 3.9 3.5-5.1 mmol/L Chloride Level 106 98-107 mmol/L Carbon Dioxide Level 17 L 20-31 mmol/L Anion Gap 18 H 5-15 Blood Urea Nitrogen 9 9-23 mg/dL Creatinine 1.24 0.700-1.30 mg/dL Glomerular Filtration Rate Calc 59 >90 mL/min BUN/Creatinine Ratio 7.3 L 10.0-20.0 Serum Glucose 141 H 74-106 mg/dL Calcium Level 9.1 8.7-10.4 mg/dL Total Bilirubin 0.5 0.2-1.0 mg/dL Aspartate Amino Transferase (AST) 21 13-40 U/L Alanine Aminotransferase (ALT) 16 7-40 U/L Alkaline Phosphatase 116 46-116 U/L Total Protein 7.2 5.7-8.2 g/dL Albumin 4.3 3.2-4.8 g/dL Current Medications Medications (Trade) Dose Ordered Sig/Jesse Route Start Time Stop Time Status Last Admin Lactated Ringer's 1,850 ml @ 1,850 mls/hr ONCE ONCE IV 06/23/25 13:30 06/23/25 14:29 DC 06/23/25 14:12 Vancomycin HCl 250 ml @ 250 mls/hr ONCE ONCE IV 06/23/25 13:30 06/23/25 14:29 DC 06/23/25 14:14 Cefepime HCl 50 ml @ 12.5 mls/hr ONCE ONCE IV 06/23/25 13:30 06/23/25 17:29 06/23/25 15:41 Levetiracetam 100 ml @ 400 mls/hr ONCE ONCE IV 06/23/25 13:30 06/23/25 13:44 DC 06/23/25 13:41 [place] [address] Ph: [phone] DIAGNOSTIC IMAGING Diagnostic Imaging Report : [id number] Signed PATIENT: ETHAN SOLANO ACCT: [id number] UNIT: [id number] : 1945 LOC: ER ROOM / BED: / AGE / SEX: 80 / M ADM STATUS: REG ER SERVICE 1323 ORDERING PHYSICIAN: KAYLIE AGUDELO MD PROCEDURE(s): CXRP - CHEST PORTABLE REASON: sob, seizure ORDER NUMBER(s): [id number], ACCESSION NUMBER(s): [id number] CHEST RADIOGRAPH INDICATION: sob, seizure TECHNIQUE: Single frontal view of the chest was obtained COMPARISON: XY CHEST PORTABLE on DOS: 02/24/25, XY CHEST PORTABLE on DOS: 09/22/24, XY CHEST PORTABLE on DOS: 09/21/24, XY CHEST PORTABLE on DOS: 09/19/24, XY CHEST PORTABLE on DOS: 09/18/24 FINDINGS: Lines and Tubes: None Lungs: Bibasilar subsegmental atelectasis. Pleura: No effusion. No pneumothorax. Cardiomediastinal contours: Unremarkable Bones: Unremarkable IMPRESSION: Bibasilar subsegmental atelectasis. ATED BY: ALEKSANDR PULIDO MD DICTATED DATE/TIME: 06/23/251406 SIGNED BY: ALEKSANDR PULIDO MD SIGNED DATE/TIME: 06/23/251406 CC: [place] [address] Ph: [phone] DIAGNOSTIC IMAGING Diagnostic Imaging Report : [id number] Signed PATIENT: ETHAN SOLANO ACCT: [id number] UNIT: [id number] : 1945 LOC: ER ROOM / BED: / AGE / SEX: 80 / M ADM STATUS: REG ER SERVICE 1323 ORDERING PHYSICIAN: KAYLIE AGUDELO MD PROCEDURE(s): HWOCT - HEAD WITHOUT CONTRAST REASON: ams, seizure, ORDER NUMBER(s): [id number], ACCESSION NUMBER(s): [id number] EXAM: CT HEAD WITHOUT CONTRAST INDICATION: ams, seizure, TECHNIQUE: CT of the head without intravenous contrast. Coronal and sagittal reformatted images are submitted. Radiation Dose : 1. Head: CT Dose: CTDI volume is 58.57 mGy. Dose-length product is 1269.5 mGy*cm The dose indicators for CT are the volume Computed Tomography (CT) Dose Index (CTDIvol) and the Dose Length Product (DLP), and are measured in units of mGy and mGy-cm, respectively. These indicators are not patient dose, but values generated from the CT scanner acquisition factors. The report includes radiation exposure data for exposures received during this examination. All CT scans at this medical facility are performed using dose modulation techniques as appropriate to a performed exam including the following: Automated exposure control was utilized; adjustment of the MA and/or KV according to patient size; and use of iterative reconstruction technique. COMPARISON: CT HEAD WITHOUT CONTRAST on DOS: 02/24/25. FINDINGS: There is no evidence of acute intracranial hemorrhage, extra-axial collection, mass effect, midline shift, herniation or hydrocephalus. Generalized cortical volume loss. There are periventricular and subcortical hypodensities, nonspecific, but likely reflecting sequelae of chronic microvascular ischemic changes. The ventricles, sulci and cisterns are age appropriate. The israel-white differentiation is intact. There is ossification in the left maxillary sinus which may reflect an osteoma. Left maxillary sinus cortical thickening. No air-fluid levels. The other paranasal sinuses and mastoid air cells are clear. No depressed calvarial fracture. The surrounding soft tissues are unremarkable. Posterior displacement of the left ocular lens. IMPRESSION: 1. No evidence of acute intracranial abnormality. 2. Sequelae of chronic microvascular ischemic changes and generalized volume loss similar to prior CT from 02/24/2025 ATED BY: RICKY GUAN MD DICTATED DATE/TIME: 06/23/251420 SIGNED BY: RICKY GUAN MD SIGNED DATE/TIME: 06/23/251420 CC: Time of 1ST Reevaluation: 13:50 Reevaluation 1ST: Unchanged Patient Education/Counseling: Diagnosis, Treatment Family Education/Counseling: No Family Present Departure 1 Departure Time of Disposition: 17:02 (Patient with suspected sepsis. Patient also with a seizure disorder. Empirically cover patient with antibiotics fluids and antiepileptics. We will admit patient for further workup and expert consultation) Impression: Primary Impression: Suspected sepsis Additional Impressions: Generalized weakness Nonproductive cough Seizure Disposition: ADMITTED INPATIENT Admit to: [facility] Condition: Guarded Critical Care Note Critical Care Time?: Yes Critical care comment: Suspected sepsis Authorized and Performed by: Kaylie Agudelo MD Total critical care time: Approximately 39 minutes Due to a high probability of clinically significant, life threatening deterioration, the patient required my highest level of preparedness to intervene emergently and I personally spent this critical care time directly and personally managing the patient. This critical care time included obtaining a history; examining the patient; pulse oximetry; ordering and review of studies; arranging urgent treatment with development of a management plan; evaluation of patient's response to treatment; frequent reassessment; and, discussions with other providers. This critical care time was performed to assess and manage the high probability of imminent, life-threatening deterioration that could result in multi-organ failure. It was exclusive of separately billable procedures and treating other patients and teaching time. Please see my other sections and the rest of the note for further information on patient assessment and treatment. Stability Stability form required: No Heart Score Heart Score: Heart Score Response (Comments) Value History N/A 0 EKG N/A 0 Age N/A 0 Risk Factors N/A 0 Troponin N/A 0 Total 0 I personally scribed for KAYLIE AGUDELO MD ([email or web address]) on 06/23/25 at 13:28. Electronically submitted by Kiki Guerrero ([email or web address]). I personally scribed for KAYLIE AGUDELO MD ([email or web address]) on 06/23/25 at 16:28. Electronically submitted by Kiki Guerrero ([email or web address]). KAYLIE AGUDELO MD Jun 23, 2025 13:28
[2025-06-23] MEDS: levETIRAcetam 1000 mg/100ml 100 ML IV ONE (13:41)
[2025-06-23 13:50] LABS: Nucleated Red Blood Cells % 0.0 %
[2025-06-23 13:52] LABS: Hematocrit 38.6 % (41.0-53.0); Hemoglobin 12.4 g/dL (13.5-17.5); Mean Corpuscular Hemoglobin 25.9 pg (28.0-32.0); Mean Corpuscular Volume 80.4 fL (80.0-100.0)
[2025-06-23 14:05] LABS: INR 1.03 (0.9-1.15); Partial Thromboplastin Time 26.3 SEC (24.5-34.5); Prothrombin Time 10.9 sec (9.3-11.8)
[2025-06-23 14:09] LABS: Alanine Aminotransferase 16 U/L (7-40); Albumin 4.3 g/dL (3.2-4.8); Alkaline Phosphatase 116 U/L (46-116); Anion Gap 18 (5-15); BUN/Creatinine Ratio 7.3 (10.0-20.0); Bilirubin, Total 0.5 mg/dL (0.2-1.0); Blood Urea Nitrogen 9 mg/dL (9-23); Calcium 9.1 mg/dL (8.7-10.4); Carbon Dioxide 17 mmol/L (20-31); Chloride 106 mmol/L (98-107); Glucose 141 mg/dL (74-106); Potassium 3.9 mmol/L (3.5-5.1); Sodium 141 mmol/L (136-145); Total Protein 7.2 g/dL (5.7-8.2)
--- NOTE | 2025-06-23 14:10 | DVH ---
CHEST RADIOGRAPH INDICATION: sob, seizure TECHNIQUE: Single frontal view of the chest was obtained COMPARISON: XY CHEST PORTABLE on DOS: 02/24/25, XY CHEST PORTABLE on DOS: 09/22/24, XY CHEST PORTABLE on DOS: 09/21/24, XY CHEST PORTABLE on DOS: 09/19/24, XY CHEST PORTABLE on DOS: 09/18/24 FINDINGS: Lines and Tubes: None Lungs: Bibasilar subsegmental atelectasis. Pleura: No effusion. No pneumothorax. Cardiomediastinal contours: Unremarkable Bones: Unremarkable IMPRESSION: Bibasilar subsegmental atelectasis.
[2025-06-23] MEDS: LACTATED RINGER'S 1,850 ML IV ONE (14:12)
[2025-06-23 14:14] LABS: Lactic Acid w/Reflex 8.6 mmol/L (0.4-2.0)
[2025-06-23] MEDS: VANCOMYCIN 1GM/250ML KIT 250 ML IV ONE (14:14)
--- NOTE | 2025-06-23 14:23 | DVH ---
EXAM: CT HEAD WITHOUT CONTRAST INDICATION: ams, seizure, TECHNIQUE: CT of the head without intravenous contrast. Coronal and sagittal reformatted images are submitted. Radiation Dose : 1. Head: CT Dose: CTDI volume is 58.57 mGy. Dose-length product is 1269.5 mGy*cm The dose indicators for CT are the volume Computed Tomography (CT) Dose Index (CTDIvol) and the Dose Length Product (DLP), and are measured in units of mGy and mGy-cm, respectively. These indicators are not patient dose, but values generated from the CT scanner acquisition factors. The report includes radiation exposure data for exposures received during this examination. All CT scans at this medical facility are performed using dose modulation techniques as appropriate to a performed exam including the following: Automated exposure control was utilized; adjustment of the MA and/or KV according to patient size; and use of iterative reconstruction technique. COMPARISON: CT HEAD WITHOUT CONTRAST on DOS: 02/24/25. FINDINGS: There is no evidence of acute intracranial hemorrhage, extra-axial collection, mass effect, midline shift, herniation or hydrocephalus. Generalized cortical volume loss. There are periventricular and subcortical hypodensities, nonspecific, but likely reflecting sequelae of chronic microvascular ischemic changes. The ventricles, sulci and cisterns are age appropriate. The israel-white differentiation is intact. There is ossification in the left maxillary sinus which may reflect an osteoma. Left maxillary sinus cortical thickening. No air-fluid levels. The other paranasal sinuses and mastoid air cells are clear. No depressed calvarial fracture. The surrounding soft tissues are unremarkable. Posterior displacement of the left ocular lens. IMPRESSION: 1. No evidence of acute intracranial abnormality. 2. Sequelae of chronic microvascular ischemic changes and generalized volume loss similar to prior CT from 02/24/2025
[2025-06-23] MEDS: CEFEPIME 1GM/50ML 50 ML IV ONE (15:41)
[2025-06-23] MEDS ORDERED: NITROGLYCERIN 0.4 MG SL TAB SL PRN (17:15)
[2025-06-23] MEDS ORDERED: MORPHINE SULFATE INJ 2 MG/ml SYRG IV PRN (17:15)
[2025-06-23] MEDS ORDERED: ACETAMINOPHEN 325 MG TAB PO PRN (18:15)
--- NOTE | 2025-06-23 18:15 | DVHHP2 ---
History of Present Illness Reason for Visit: Seizure History of Present Illness 80-year-old male presents for evaluation of seizures. Patient had a witnessed seizure at home and to while EN route. Patient is currently lethargic not answering questions. No family at the bedside to provide further history. Past Medical History Hypertension, CAD, ? seizures Past Surgical History PTCA Family History Noncontributory Review of Systems Review of Systems Review of systems are limited due to the patient's altered mental status. Allergies: Coded Allergies: NO KNOWN ALLERGIES (Unverified , 07/15/22) Medications Current Medications Medications Dose Ordered Sig/Jesse Route Start Time Stop Time Status Last Admin Dose Admin Nitroglycerin 0.4 mg Q5MINP PRN SL 06/23/25 17:15 Morphine Sulfate 2 mg Q30M PRN IV 06/23/25 17:15 Levetiracetam 100 ml @ 400 mls/hr BID IV 06/23/25 22:00 UNV Lorazepam 1 mg Q5MINP PRN IV 06/23/25 18:15 UNV Ceftriaxone Sodium 50 ml @ 100 mls/hr DAILY@09 IV 06/24/25 09:00 UNV Ondansetron HCl 4 mg Q4HP PRN IV 06/23/25 18:15 UNV Enoxaparin Sodium 40 mg DAILY SC 06/24/25 10:00 UNV Acetaminophen 650 mg Q6HP PRN PO 06/23/25 18:15 UNV Exam Vital Signs Vital Signs Date Time Temp Pulse Resp B/P (MAP) Pulse Ox O2 Delivery O2 Flow Rate FiO2 06/23/25 17:00 78 16 148/72 (97) 100 06/23/25 13:25 96.8 96.8 06/23/25 13:25 Nasal Cannula* 4 36 Exam Gen: 80-year-old male in mild distress Skin: Warm, dry, normal color and texture, no rash. HEENT: Normocephalic atraumatic, mucous membranes moist and pink. Neck: Cervical and supraclavicular nodes normal without enlargement, trachea is midline, thyroid gland is normal without masses. Pulmonary: Clear to auscultation and percussion bilaterally. Cardiac: Regular rate and rhythm. No murmur Abdomen: Soft, nontender, nondistended, bowel sounds present all 4 quadrants, no guarding, no rigidity, no organomegaly. Extremities: No cyanosis, clubbing, no edema Neuro: Lethargic, no focal motor deficits. Labs/Xrays ORDERING PHYSICIAN: KAYLIE AGUDELO MD PROCEDURE(s): CXRP - CHEST PORTABLE REASON: sob, seizure ORDER NUMBER(s): [id number], ACCESSION NUMBER(s): [id number] CHEST RADIOGRAPH INDICATION: sob, seizure TECHNIQUE: Single frontal view of the chest was obtained COMPARISON: XY CHEST PORTABLE on DOS: 02/24/25, XY CHEST PORTABLE on DOS: 09/22/24, XY CHEST PORTABLE on DOS: 09/21/24, XY CHEST PORTABLE on DOS: 09/19/24, XY CHEST PORTABLE on DOS: 09/18/24 FINDINGS: Lines and Tubes: None Lungs: Bibasilar subsegmental atelectasis. Pleura: No effusion. No pneumothorax. Cardiomediastinal contours: Unremarkable Bones: Unremarkable IMPRESSION: Bibasilar subsegmental atelectasis. ATED BY: ALEKSANDR PULIDO MD ORDERING PHYSICIAN: KAYLIE AGUDELO MD PROCEDURE(s): HWOCT - HEAD WITHOUT CONTRAST REASON: ams, seizure, ORDER NUMBER(s): [id number], ACCESSION NUMBER(s): [id number] EXAM: CT HEAD WITHOUT CONTRAST INDICATION: ams, seizure, TECHNIQUE: CT of the head without intravenous contrast. Coronal and sagittal reformatted images are submitted. Radiation Dose : 1. Head: CT Dose: CTDI volume is 58.57 mGy. Dose-length product is 1269.5 mGy*cm The dose indicators for CT are the volume Computed Tomography (CT) Dose Index (CTDIvol) and the Dose Length Product (DLP), and are measured in units of mGy and mGy-cm, respectively. These indicators are not patient dose, but values generated from the CT scanner acquisition factors. The report includes radiation exposure data for exposures received during this examination. All CT scans at this medical facility are performed using dose modulation techniques as appropriate to a performed exam including the following: Automated exposure control was utilized; adjustment of the MA and/or KV according to patient size; and use of iterative reconstruction technique. COMPARISON: CT HEAD WITHOUT CONTRAST on DOS: 02/24/25. FINDINGS: There is no evidence of acute intracranial hemorrhage, extra-axial collection, mass effect, midline shift, herniation or hydrocephalus. Generalized cortical volume loss. There are periventricular and subcortical hypodensities, nonspecific, but likely reflecting sequelae of chronic microvascular ischemic changes. The ventricles, sulci and cisterns are age appropriate. The israel-white differentiation is intact. There is ossification in the left maxillary sinus which may reflect an osteoma. Left maxillary sinus cortical thickening. No air-fluid levels. The other paranasal sinuses and mastoid air cells are clear. No depressed calvarial fracture. The surrounding soft tissues are unremarkable. Posterior displacement of the left ocular lens. IMPRESSION: 1. No evidence of acute intracranial abnormality. 2. Sequelae of chronic microvascular ischemic changes and generalized volume loss similar to prior CT from 02/24/2025 Labs Test 06/23/25 17:54 06/23/25 15:35 06/23/25 13:35 Range/Units Lactic Acid Level 3.8 *H 0.4-2.0 mmol/L White Blood Count 10.8 4.4-10.8 10^3/uL Red Blood Count 4.79 4.5-5.90 10^6/uL Hemoglobin 12.4 L 13.5-17.5 g/dL Hematocrit 38.6 L 41.0-53.0 % Mean Corpuscular Volume 80.4 80.0-100.0 fL Mean Corpuscular Hemoglobin 25.9 L 28.0-32.0 pg Mean Corpuscular Hemoglobin Concent 32.2 32.0-36.0 g/dL Red Cell Distribution Width 16.4 H 11.8-14.3 % Platelet Count 322 140-450 10^3/uL Mean Platelet Volume 7.0 6.9-10.8 fL Neutrophils (%) (Auto) 83.1 H 37.0-80.0 % Lymphocytes (%) (Auto) 11.1 10.0-50.0 % Monocytes (%) (Auto) 5.1 0.0-12.0 % Eosinophils (%) (Auto) 0.4 0.0-7.0 % Basophils (%) (Auto) 0.3 0.0-2.0 % Neutrophils # (Auto) 9.0 H 1.6-8.6 10 ^3/uL Lymphocytes # (Auto) 1.2 0.4-5.4 10 ^3/uL Monocytes # (Auto) 0.6 0-1.3 10 ^3/uL Eosinophils # (Auto) 0 0-0.8 10 ^3/uL Basophils # (Auto) 0 0-0.2 10 ^3/uL Nucleated Red Blood Cells 0.0 % Prothrombin Time 10.9 9.3-11.8 sec Prothrombin Time INR 1.03 0.9-1.15 Activated Partial Thromboplast Time 26.3 24.5-34.5 SEC Sodium Level 141 136-145 mmol/L Potassium Level 3.9 3.5-5.1 mmol/L Chloride Level 106 98-107 mmol/L Carbon Dioxide Level 17 L 20-31 mmol/L Anion Gap 18 H 5-15 Blood Urea Nitrogen 9 9-23 mg/dL Creatinine 1.24 0.700-1.30 mg/dL Glomerular Filtration Rate Calc 59 >90 mL/min BUN/Creatinine Ratio 7.3 L 10.0-20.0 Serum Glucose 141 H 74-106 mg/dL Calcium Level 9.1 8.7-10.4 mg/dL Total Bilirubin 0.5 0.2-1.0 mg/dL Aspartate Amino Transferase (AST) 21 13-40 U/L Alanine Aminotransferase (ALT) 16 7-40 U/L Alkaline Phosphatase 116 46-116 U/L Total Protein 7.2 5.7-8.2 g/dL Albumin 4.3 3.2-4.8 g/dL SEPSIS Sepsis Screen Date sepsis recognized/suspect: Jun 23, 2025 Time Sepsis recognized/suspect: 3 Recent Procedure: No On Antibiotic Therapy: No Respiratory Rate >20: No Heart Rate >90: No Temp<36 C (96.8 F) or >38.3 C: No SBP <90 or MAP <65 mmHG: No New Acute Mental Status Change: No Is the patient on CPAP, BIPAP,: No Physician Orders Urinalysis (06/23/25 13:23) Chest Portable (06/23/25 13:23) Accucheck (06/23/25 13:23) Blood Culture (06/23/25 13:23) Notify Md If Map <65 Or Bp<90 (06/23/25 13:23) If Map<65 Start Vasopressor (06/23/25 13:23) Sepsis Reassesment After Fluid (06/23/25 14:23) Head Without Contrast (06/23/25 13:23) Admit (06/23/25 17:09) Nitroglycerin Sublingual (Ntrostat Subli (06/23/25 17:15) Morphine Sulfate Injection (06/23/25 17:15) Stat Ekg For Chest Pain (06/23/25 17:09) Notify Md Of Changes From Base (06/23/25 17:09) Supervisor Painting For 24 Hours (06/23/25 17:09) Emergency Dysrhythmia Protocol (06/23/25 17:) Rhythm Strips Once Every Shift (06/23/25 17:09) Oxygen By Nasal Cannula (06/23/25 17:09) Straight Cath Patient (06/23/25 17:29) Levetiracetam 500 Mg/100ml (Levetiraceta (06/23/25 22:00) * Neurology Consult (06/23/25 18:02) Regular Diet (06/23/25 Dinner) Seizure Precautions In Place (06/23/25 18:02) Lorazepam 2mg/Ml Inj (Ativan Inj) (06/23/25 18:15) Ceftriaxone 1gm/50ml (Rocephin) (06/24/25 09:00) Basic Metabolic Panel (06/24/25 04:00) Ondansetron Hcl (Zofran) (06/23/25 18:15) Enoxaparin Sodium (Lovenox) (06/24/25 10:00) Complete Blood Count (06/24/25 04:00) Cardiac Diet-2gna,Lofat,Lochol (06/23/25 Dinner) Condition: Fair (06/23/25 18:02) Acetaminophen Tablet (Tylenol Tablet) (06/23/25 18:15) Bedrest With Bathroom Privileg (06/23/25 18:02) Vital Signs Date Time Temp Pulse Resp B/P (MAP) Pulse Ox O2 Delivery O2 Flow Rate FiO2 06/23/25 17:00 78 16 148/72 (97) 100 06/23/25 15:00 78 15 148/80 (102) 100 06/23/25 13:25 96.8 99 18 146/89 (108) 96 96.8 06/23/25 13:25 87 18 98 Nasal Cannula* 4 36 06/23/25 13:15 96.9 105 24 149/87 99 96.9 Laboratory Tests Test 06/23/25 13:35 06/23/25 15:35 Lactic Acid Level 8.6 mmol/L (0.4-2.0) *H 3.8 mmol/L (0.4-2.0) *H White Blood Count 10.8 10^3/uL (4.4-10.8) Medications Medications Dose Ordered Sig/Jesse Route Start Time Stop Time Status Last Admin Dose Admin Cefepime HCl 50 ml @ 12.5 mls/hr ONCE ONCE IV 06/23/25 13:30 06/23/25 17:29 DC 06/23/25 15:41 12.5 MLS/HR Lactated Ringer's 1,850 ml @ 1,850 mls/hr ONCE ONCE IV 06/23/25 13:30 06/23/25 14:29 DC 06/23/25 14:12 1,850 MLS/HR Levetiracetam 100 ml @ 400 mls/hr ONCE ONCE IV 06/23/25 13:30 06/23/25 13:44 DC 06/23/25 13:41 400 MLS/HR Vancomycin HCl 250 ml @ 250 mls/hr ONCE ONCE IV 06/23/25 13:30 06/23/25 14:29 DC 06/23/25 14:14 250 MLS/HR Assessment/Plan Assessment/Plan Assessment Breakthrough seizure Hypertension Acute kidney injury Plan Admit the patient to telemetry to the hospitalist Seizure precautions in place Nephrology consultation Resume home medications Continue treatment per orders. Plan discussed with: Patient My Orders Orders - ELIZABET REDDY AGACNP Procedure Category Date Status Time Admit ADMIT 06/23/25 Transmitted 17:09 Nitroglycerin PHA 06/23/25 In Process Sublingual (Ntrostat 17:15 Morphine Sulfate PHA 06/23/25 In Process Injection 17:15 Stat Ekg For Chest GEE 06/23/25 In Process Pain 17:09 Notify Of Changes GEE 06/23/25 In Process From Base 17:09 Supervisor Painting For GEE 06/23/25 In Process 24 Hours 17:09 Emergency Dysrhythmia GEE 06/23/25 In Process Protocol 17:09 Rhythm Strips Once [facility] 06/23/25 In Process Every Shift 17:09 Oxygen By Nasal RT 06/23/25 Transmitted Cannula 17:09 [address] Patient ORDERS 06/23/25 Transmitted 17:29 Levetiracetam 500 PHA 06/23/25 Logged Mg/100ml (Levetiraceta 22:00 * Neurology Consult CONS 06/23/25 Transmitted 18:02 Regular Diet DIET 06/23/25 Transmitted Dinner Seizure Precautions GEE 06/23/[address] 18:02 Lorazepam 2mg/Ml Inj PHA 06/23/25 Logged (Ativan Inj) 18:15 Ceftriaxone 1gm/50ml PHA 06/24/25 Logged (Rocephin) 09:00 Basic Metabolic Panel LAB 06/24/25 Verified 04:00 Ondansetron Hcl PHA 06/23/25 Logged (Zofran) 18:15 Enoxaparin Sodium PHA 06/24/25 Logged (Lovenox) 10:00 Complete Blood Count LAB 06/24/25 Verified 04:00 Cardiac DIET 06/23/25 Transmitted Diet-2gna,Lofat,Lochol Dinner Condition: Fair [facility] 06/23/25 In Process 18:02 Acetaminophen Tablet PHA 06/23/25 Logged (Tylenol Tablet) 18:15 Bedrest With Bathroom [facility] 06/23/25 In Process Privileg 18:02 Date of Service: Jun 23, 2025 Billing Provider: ELIZABET REDDY Common Visit Codes: [id number] INP/OBS CARE (HIGH) ELIZABET REDDY Jun 23, 2025 18:15
[2025-06-23 18:25] LABS: Urine Protein, UAD Negative (Negative)
[2025-06-23] MEDS: ATORVASTATIN 20 MG TAB PO SCH (22:00)
[2025-06-23 23:10] VITALS: BP 108/72; PULSE 83; RESP 16; TEMP 100.2; O2SAT 95
[2025-06-23] MEDS: levETIRAcetam 500 mg/100ml 100 ML IV SCH (23:11)
[2025-06-23 23:51] VITALS: BP 108/72; PULSE 81; RESP 18; TEMP 100.6; O2SAT 93
[2025-06-24] VITALS (8 sets, daily range): BP systolic 115–154; BP diastolic 54–94; PULSE 59–78; RESP 17–68; TEMP 98.6–99.7; O2SAT 92–99
[2025-06-24 08:54] LABS: Chloride 104 mmol/L (98-107); Potassium 4.4 mmol/L (3.5-5.1); Sodium 139 mmol/L (136-145)
[2025-06-24 08:55] LABS: Anion Gap 13 (5-15); Carbon Dioxide 22 mmol/L (20-31)
[2025-06-24 08:59] LABS: Calcium 8.6 mg/dL (8.7-10.4)
[2025-06-24 09:01] LABS: BUN/Creatinine Ratio 10.9 (10.0-20.0); Blood Urea Nitrogen 10 mg/dL (9-23); Glucose 102 mg/dL (74-106)
[2025-06-24] MEDS: EMPAGLIFLOZIN 10 MG TAB PO SCH (10:00)
[2025-06-24] MEDS: ENOXAPARIN SOD 40 MG/0.4 ML SYRINGE SC SCH (10:10)
[2025-06-24 11:03] LABS: Hematocrit 38.9 % (41.0-53.0); Hemoglobin 12.3 g/dL (13.5-17.5); Mean Corpuscular Hemoglobin 25.7 pg (28.0-32.0); Mean Corpuscular Volume 81.4 fL (80.0-100.0); Nucleated Red Blood Cells % 0.1 %
--- NOTE | 2025-06-24 12:32 | DVHPN2 ---
Reviewed: Care Plan, H&P, Labs, Medications, Previous Orders, Radiology Changes from previous H/P or p: No Changes Objective Vitals Vital Signs Date Time Temp Pulse Resp B/P (MAP) Pulse Ox O2 Delivery O2 Flow Rate FiO2 06/24/25 09:00 99.0 61 17 154/94 (114) 99 99.0 06/23/25 23:51 Nasal Cannula* 2 28 Intake/Output Intake and Output 06/24/25 07:00 Intake Total 2300 ml Balance 2300 ml Intake Oral 0 ml IV Total 2300 ml # Voids 2 Medications Current Medications Medications Dose Ordered Sig/Jesse Route Start Time Stop Time Status Last Admin Dose Admin Nitroglycerin 0.4 mg Q5MINP PRN SL 06/23/25 17:15 Morphine Sulfate 2 mg Q30M PRN IV 06/23/25 17:15 Levetiracetam 100 ml @ 400 mls/hr BID IV 06/23/25 22:00 06/24/25 10:06 400 MLS/HR Lorazepam 1 mg Q5MINP PRN IV 06/23/25 18:15 Ceftriaxone Sodium 50 ml @ 100 mls/hr DAILY@09 IV 06/24/25 09:00 Ondansetron HCl 4 mg Q4HP PRN IV 06/23/25 18:15 Enoxaparin Sodium 40 mg DAILY SC 06/24/25 10:00 06/24/25 10:10 40 MG Acetaminophen 650 mg Q6HP PRN PO 06/23/25 18:15 Empaglifozin 10 mg DAILY PO 06/24/25 10:00 Atorvastatin Calcium 40 mg HS PO 06/23/25 22:00 Laboratory Results Laboratory Tests 06/24/25 08:02 06/24/25 10:36 Chemistry Test 06/23/25 13:35 06/24/25 08:02 Albumin 4.3 g/dL (3.2-4.8) Calcium Level 9.1 mg/dL (8.7-10.4) 8.6 mg/dL (8.7-10.4) L Total Protein 7.2 g/dL (5.7-8.2) Coagulation Test 06/23/25 13:35 Prothrombin Time 10.9 sec (9.3-11.8) Prothrombin Time INR 1.03 (0.9-1.15) Activated Partial Thromboplast Time 26.3 SEC (24.5-34.5) LFT Test 06/23/25 13:35 Alanine Aminotransferase (ALT) 16 U/L (7-40) Alkaline Phosphatase 116 U/L (46-116) Aspartate Amino Transferase (AST) 21 U/L (13-40) Total Bilirubin 0.5 mg/dL (0.2-1.0) Urinalysis Test 06/23/25 17:54 Urine Color Colorless (Yellow) Urine Clarity Turbid (Clear) H Urine pH 8.0 (5.0-9.0) Urine Specific [place] 1.007 (1.001-1.035) Urine Protein Negative (Negative) Urine Ketones Negative (Negative) Urine Blood 3+ /uL (Negative) H Urine Nitrite Negative (Negative) Urine Bilirubin Negative (Negative) Urine Urobilinogen Normal mg/dL (Negative) Urine Leukocyte Esterase Negative /uL (Negative) Urine RBC 244 /hpf (0 - 3) Urine Microscopic WBC 7 /HPF (0-3) H Urine Squamous Epithelial Cells Few /hpf (<5) Urine Bacteria None seen /hpf (None Seen) Urine Glucose 4+ mg/dL (Normal) H Labs and/or images reviewed: Labs reviewed by me, Image(s) reviewed by me Assessment/Plan Assessment/Plan Breakthrough seizures: Darrin Bills, CT head negative, consult for Neurology Dr. Hidalgo Sepsis secondary to possible community-acquired pneumonia Possible aspiration pneumonia Gram-positive, Gram-negative with elevated white count of 11 K : Zosyn Acute metabolic encephalopathy History of coronary artery disease status post stents on Plavix Congestive heart failure class 3 Hypotension Hypercholesterolemia Pulmonary embolism on Eliquis History of seizures Chronic alcohol abuse: Banana bag Time Spent 70 minutes Advanced care planning time 22 minutes Patient is full code Plan discussed with: Patient Date of Service: Jun 24, 2025 Billing Provider: CAITLIN CAIN MD Common Visit Codes: [id number] CARE 30-74 MIN CAITLIN CAIN MD Jun 24, 2025 12:32
[2025-06-24] MEDS: LORazepam 2MG/ML-1ML VIAL IV PRN ×2 (14:38)
[2025-06-24] MEDS: PIPERACILLIN-TAZOB 3.375GM 100 ML IV SCH (16:13)
--- NOTE | 2025-06-24 19:55 | DVHINCON2 ---
Date of service: Jun 24, [address] Ray Reason for Consultation Seizure History of Present Illness Mr. Dooley is a 80 years old gentleman with a history of hypertension, coronary artery disease, seizure disorder, alcohol abuse, the patient was brought to the [facility] on 06/23/2025 with a chief complaint of witnessed seizure activity by sister. At that time, he is awake, he follows some verbal commands, he is oriented to person, he knows that he is not at home but not know where he is. Not able to provide history, the history is obtained from his daughter He is in [facility] on 09/15/2024 for seizure. He was here a few times for altered mental status His daughter mentioned the patient's sister reports the patient could not talk, and EMS said it was seizure. His daughter is not aware of the symptoms of seizure on 09/15/2024 His daughter is not aware of his home medication, especially Eliquis He does not relates the patient's has memory difficulty, as a result he forgets/stopped marijuana smoking [phone], , no answer, olena Home medication list did not include seizure medications Ext Med Hx included Eliquis 5 mg b.i.d., but did not include seizure medications Urinalysis, 06/23/2025: WBC, seven, urine leukocyte esterase: Negative WBC/HB/PLT/MCV, 06/24/2025: 11.4/12.3/271/81.4 PTT/INR/ABG, 06/23/2025: 10.9/1.03/26.3 HCO3, 06/23/2025: 17, 06/24/2025: 22 Lactic acid, 06/23/2025: 8.6, 3.8 BMP 06/24/2025: Unremarkable Liver function tests, 06/23/2025: Normal TG/HDL/LDL/HDL, 02/25/2025: 59/132/46/72 Vitamin B12, 07/13/2024: 336 Folic acid, 07/13/24: 27.11 TSH, 02/25/2025: 1.9 CT head, 06/23/2025: 1. No evidence of acute intracranial abnormality. 2. Sequelae of chronic microvascular ischemic changes and generalized volume loss similar to prior CT from 02/24/2025 Past Medical History Hypertension, coronary artery disease, seizure, COVID-19, no head trauma, intracranial infection, daughter had petit mal seizure ln childhood Past Surgical History PTCA with stent Family History: Colon cancer G8 SISTER, Onset:50's - 60 Family History Hypertension, cancer Social History He has no history of tobacco smoking, he used to smoke marijuana. He has a long history of heavy daily alcohol consumption until 04/2025-05/2025 months ago, no history of drug abuse Allergies: Coded Allergies: NO KNOWN ALLERGIES (Unverified , 07/15/22) Home Meds Active Scripts Thiamine HCl (Thiamine Hydrochloride) 100 Mg Tab, 100 MG PO DAILY for 14 Days, #14 TAB Prov:GIA BRENNAN RESIDENT 07/20/24 Folic Acid (Folate) 400 Mcg Tab, 400 MCG PO DAILY for 30 Days, #30 TAB Prov:GIA BRENNAN RESIDENT 07/20/24 Multiple Vitamin (Multivitamins) Tab, 1 TAB PO DAILY for 30 Days, #30 TAB 2 Refills Prov:GIA BRENNAN RESIDENT 07/20/24 Current Medications Current Medications Medications (Trade) Dose Ordered Sig/Jesse Route PRN Reason Start Time Stop Time Status Last Admin Levetiracetam 100 ml @ 400 mls/hr BID IV 06/23/25 22:00 06/24/25 10:06 Ceftriaxone Sodium 50 ml @ 100 mls/hr DAILY@09 IV 06/24/25 09:00 06/24/25 12:35 DC Enoxaparin Sodium (Lovenox) 40 mg DAILY SC 06/24/25 10:00 06/24/25 10:10 Empaglifozin (Jardiance) 10 mg DAILY PO 06/24/25 10:00 Atorvastatin Calcium (Lipitor) 40 mg HS PO 06/23/25 22:00 Piperacillin Sod/ Tazobactam Sod 100 ml @ 25 mls/hr Q8HR IV 06/24/25 14:00 06/24/25 16:13 Folic Acid 1 mg/ Multivitamins 10 ml/Magnesium Sulfate 8 meq/ Thiamine HCl 100 mg/Dextrose 1,013.2 ml @ 125.001 mls/hr DAILY@1800 INJ 06/24/25 20:00 Lorazepam (Ativan Inj) 1 mg Q8HP PRN IV AGITATION 06/24/25 13:45 06/24/25 14:38 Review of Systems As above, the other systems are negative Vital Signs Vital Signs Date Time Temp Pulse Resp B/P (MAP) Pulse Ox O2 Delivery O2 Flow Rate FiO2 06/24/25 16:37 98.6 66 17 134/66 (88) 92 98.6 06/24/25 08:00 Nasal Cannula* 2 28 Physical Exam GENERAL EXAM: General: the patient is well developed and nourished. No acute distress. HEENT: Normocephalic, neck is supple, no carotid bruits. No mass. RESPIRATORY: Normal respiratory effort with symmetrical lung expansion. Lungs clear to auscultation. CARDIOVASCULAR: Regular rate and rhythm with no murmurs. S1, S2. ABDOMEN: Soft, nontender, normal bowel sound NEUROLOGICAL: MENTAL STATUS: Subjective SPEECH, LANGUAGE, HIGHER CORTICAL FUNCTION: no aphasia or dysathria. CRANIAL NERVES: #2: Intact visual stafford to confrontation. The optic discs were sharp. #3,4,6: Pupils are round and reactive, the right side maybe slightly bigger. EOMs full and conjugate. No nystagmus. #5: Facial sensation intact in all three divisions bilaterally. Mandibular strength intact. #7: Facial muscles symmetrical and strength intact. #8: Hearing grossly normal to voice. #9,10: Uvula and soft palate rise in the midline. Swallow and voice are normal. #11: Trapezius and sternomastoid strength intact bilaterally. #12: Tongue midline. No fasciculations or atrophy. SENSATION: Fine to pinprick and light touch MOTOR: Normal tone in the upper and lower extremity. Normal muscle bulk. No fasciculations. No abnormal movements or posturing. He moves the arms and legs, the muscle power in the arms is no less than 4/5 REFLEXES: Deep tendon reflexes are symmetrical. No pathological reflexes. CEREBELLAR/COORDINATION: Finger to nose is unremarkable bilaterally GAIT/STATION: deferred. Labs/Diagnostic Data Labs Test 06/24/25 10:36 06/24/25 08:02 06/23/25 17:54 06/23/25 15:35 Range/Units White Blood Count 11.4 H 4.4-10.8 10^3/uL Red Blood Count 4.79 4.5-5.90 10^6/uL Hemoglobin 12.3 L 13.5-17.5 g/dL Hematocrit 38.9 L 41.0-53.0 % Mean Corpuscular Volume 81.4 80.0-100.0 fL Mean Corpuscular Hemoglobin 25.7 L 28.0-32.0 pg Mean Corpuscular Hemoglobin Concent 31.6 L 32.0-36.0 g/dL Red Cell Distribution Width 16.2 H 11.8-14.3 % Platelet Count 271 140-450 10^3/uL Mean Platelet Volume 7.0 6.9-10.8 fL Neutrophils (%) (Auto) 76.7 37.0-80.0 % Lymphocytes (%) (Auto) 12.2 10.0-50.0 % Monocytes (%) (Auto) 10.5 0.0-12.0 % Eosinophils (%) (Auto) 0.2 0.0-7.0 % Basophils (%) (Auto) 0.4 0.0-2.0 % Neutrophils # (Auto) 8.7 H 1.6-8.6 10 ^3/uL Lymphocytes # (Auto) 1.4 0.4-5.4 10 ^3/uL Monocytes # (Auto) 1.2 0-1.3 10 ^3/uL Eosinophils # (Auto) 0 0-0.8 10 ^3/uL Basophils # (Auto) 0 0-0.2 10 ^3/uL Nucleated Red Blood Cells 0.1 % Sodium Level 139 136-145 mmol/L Potassium Level 4.4 3.5-5.1 mmol/L Chloride Level 104 98-107 mmol/L Carbon Dioxide Level 22 20-31 mmol/L Anion Gap 13 5-15 Blood Urea Nitrogen 10 9-23 mg/dL Creatinine 0.92 0.700-1.30 mg/dL Glomerular Filtration Rate Calc 85 >90 mL/min BUN/Creatinine Ratio 10.9 10.0-20.0 Serum Glucose 102 74-106 mg/dL Calcium Level 8.6 L 8.7-10.4 mg/dL Urine Color Colorless Yellow Urine Clarity Turbid H Clear Urine pH 8.0 5.0-9.0 Urine Specific [place] 1.007 1.001-1.035 Urine Protein Negative Negative Urine Ketones Negative Negative Urine Blood 3+ H Negative /uL Urine Nitrite Negative Negative Urine Bilirubin Negative Negative Urine Urobilinogen Normal Negative mg/dL Urine Leukocyte Esterase Negative Negative /uL Urine RBC 244 0 - 3 /hpf Urine Microscopic WBC 7 H 0-3 /HPF Urine Squamous Epithelial Cells Few <5 /hpf Urine Bacteria None seen None Seen /hpf Urine Glucose 4+ H Normal mg/dL Lactic Acid Level 3.8 *H 0.4-2.0 mmol/L Test 06/23/25 13:35 Range/Units Prothrombin Time 10.9 9.3-11.8 sec Prothrombin Time INR 1.03 0.9-1.15 Activated Partial Thromboplast Time 26.3 24.5-34.5 SEC Total Bilirubin 0.5 0.2-1.0 mg/dL Aspartate Amino Transferase (AST) 21 13-40 U/L Alanine Aminotransferase (ALT) 16 7-40 U/L Alkaline Phosphatase 116 46-116 U/L Total Protein 7.2 5.7-8.2 g/dL Albumin 4.3 3.2-4.8 g/dL Microbiology Date/Time Source Procedure Growth Status 06/23/25 13:37 Blood Blood Culture - Preliminary NO GROWTH AFTER 24 HOURS OF INCUBATION. Resulted Assessment Witnessed seizure activity, a presumed grand mal seizure ? Epileptic seizure ? Alcohol withdrawal seizure Altered mental status Metabolic encephalopathy ? Status epileptics Alcoholism ? On Eliquis at home Dementia [place] disease Alzheimer disease Plan/Recommendation Monitoring Supportive treatment Telemetry Follow up labs Blood culture UDS EEG MRI brain Banana bag Ativan for seizure breakthrough Keppra for now Lovenox 40 mg subQ daily Antibiotics No street drug No alcohol More recommendation per clinical course Poor This medical document was created using an electronic medical record system with Reble computerized dictation system. Although this document has been carefully reviewed, there may still be some phonetic and typographical errors. These areas are purely typographical due to imperfections of the software programs, and do not reflect any compromise in the patient's medical care. Plan discussed with: Daughter, Other SARAH MEJIA MD Jun 24, 2025 19:55
[2025-06-24] MEDS ORDERED: LORazepam 2MG/ML-1ML VIAL IV PRN (20:30)
[2025-06-24] MEDS: FOLIC ACID 1 MG, MULTIPLE VITAMIN 10 ML, MAGNESIUM SULF SDV 50% 8 MEQ, THIAMINE INJ 100... INJ SCH (20:33)
[2025-06-24] MEDS: ONDANSETRON HCL 4 MG/2 ML VIAL IV PRN (21:40)
[2025-06-25] VITALS (8 sets, daily range): BP systolic 138–173; BP diastolic 70–85; PULSE 63–80; RESP 14–20; TEMP 96.2–98.6; O2SAT 90–96
--- NOTE | 2025-06-25 12:10 | DVHPN2 ---
Reviewed: Care Plan, H&P, Labs, Medications, Previous Orders, Radiology Changes from previous H/P or p: No Changes Objective Vitals Vital Signs Date Time Temp Pulse Resp B/P (MAP) Pulse Ox O2 Delivery O2 Flow Rate FiO2 06/25/25 09:00 98.6 67 20 165/85 (111) 95 98.6 06/25/25 08:00 Room Air* 0 21 Intake/Output Intake and Output 06/25/25 07:00 Intake Total 200 ml Output Total 3 ml Balance 197 ml Intake Oral 0 ml IV Total 200 ml Output Urine Total 3 ml # Bowel Movements 1 Medications Current Medications Medications Dose Ordered Sig/Jesse Route Start Time Stop Time Status Last Admin Dose Admin Nitroglycerin 0.4 mg Q5MINP PRN SL 06/23/25 17:15 Morphine Sulfate 2 mg Q30M PRN IV 06/23/25 17:15 Levetiracetam 100 ml @ 400 mls/hr BID IV 06/23/25 22:00 06/25/25 09:23 400 MLS/HR Lorazepam 1 mg Q5MINP PRN IV 06/23/25 18:15 Ondansetron HCl 4 mg Q4HP PRN IV 06/23/25 18:15 06/24/25 21:40 4 MG Enoxaparin Sodium 40 mg DAILY SC 06/24/25 10:00 06/25/25 09:24 40 MG Acetaminophen 650 mg Q6HP PRN PO 06/23/25 18:15 Empaglifozin 10 mg DAILY PO 06/24/25 10:00 06/25/25 09:23 10 MG Atorvastatin Calcium 40 mg HS PO 06/23/25 22:00 Piperacillin Sod/ Tazobactam Sod 100 ml @ 25 mls/hr Q8HR IV 06/24/25 14:00 06/25/25 05:30 25 MLS/HR Folic Acid 1 mg/ Multivitamins 10 ml/Magnesium Sulfate 8 meq/ Thiamine HCl 100 mg/Dextrose 1,013.2 ml @ 125.001 mls/hr DAILY@1800 INJ 06/24/25 20:00 06/24/25 20:33 125.001 MLS/HR Lorazepam 1 mg Q8HP PRN IV 06/24/25 13:45 06/24/25 14:38 1 MG Lorazepam 1 mg ONCE PRN IV 06/24/25 20:30 Laboratory Results Laboratory Tests 06/24/25 08:02 06/24/25 10:36 Urinalysis Test 06/23/25 17:54 Urine Color Colorless (Yellow) Urine Clarity Turbid (Clear) H Urine pH 8.0 (5.0-9.0) Urine Specific [place] 1.007 (1.001-1.035) Urine Protein Negative (Negative) Urine Ketones Negative (Negative) Urine Blood 3+ /uL (Negative) H Urine Nitrite Negative (Negative) Urine Bilirubin Negative (Negative) Urine Urobilinogen Normal mg/dL (Negative) Urine Leukocyte Esterase Negative /uL (Negative) Urine RBC 244 /hpf (0 - 3) Urine Microscopic WBC 7 /HPF (0-3) H Urine Squamous Epithelial Cells Few /hpf (<5) Urine Bacteria None seen /hpf (None Seen) Urine Glucose 4+ mg/dL (Normal) H Microbiology Microbiology Date/Time Source Procedure Growth Status 06/23/25 13:37 Blood Blood Culture - Preliminary NO GROWTH AFTER 24 HOURS OF INCUBATION. Resulted Labs and/or images reviewed: Labs reviewed by me, Image(s) reviewed by me Assessment/Plan Assessment/Plan Breakthrough seizures: Darrin Bills, CT head negative, consult for Neurology Dr. Hidalgo appreciated, MRI brain pending, EEG pending Sepsis secondary to possible community-acquired pneumonia Possible aspiration pneumonia Gram-positive, Gram-negative with elevated white count of 11 K : Zosyn Acute metabolic encephalopathy History of coronary artery disease status post stents on Plavix Congestive heart failure class 3 Hypotension Hypercholesterolemia Pulmonary embolism on Eliquis History of seizures Chronic alcohol abuse: Banana bag Configuration Release Manager Melly [phone] at bedside Daughter Abi has HERRERA she lives in [place] Time Spent 50 minutes Advanced care planning time 22 minutes Patient is full code Plan discussed with: Patient My Orders Orders - CAITLIN CAIN MD Procedure Category Date Status Time Piperacillin-Tazob PHA 06/24/25 In Process 3.375gm (Zosyn 3.375g 14:00 * Neurology Consult CONS 06/24/25 Transmitted 12:35 Code Status CODE 06/24/25 Transmitted 12:40 Folic Acid... PHA 06/24/25 In Process 20:00 Lorazepam 2mg/Ml Inj PHA 06/24/25 In Process (Ativan Inj) 13:45 Date of Service: Jun 25, 2025 Billing Provider: CAITLIN CAIN MD Common Visit Codes: [id number] INP/OBS CARE(HIGH) CAITLIN CAIN MD Jun 25, 2025 12:10
[2025-06-25] MEDS ORDERED: LOSA-533 PO (13:37)
[2025-06-25] MEDS ORDERED: ATOR10TA PO (13:37)
[2025-06-25] MEDS: FOLIC ACID 1 MG TAB PO ONE (14:22)
[2025-06-25] MEDS: LOSARTAN POTASSIUM 25 MG TAB PO ONE (14:23)
[2025-06-25] MEDS: THIAMINE HCL 100 MG TAB PO ONE (14:23)
[2025-06-25] MEDS: MULTIPLE VITAMIN TAB PO ONE (14:23)
[2025-06-25] MEDS: MAGNESIUM OXIDE 400 MG TAB PO ONE (14:23)
--- NOTE | 2025-06-25 19:19 | DVH ---
MRI Brain without contrast INDICATION: Sz. COMPARISON: CT HEAD WITHOUT CONTRAST on DOS: 06/23/25. TECHNIQUE: Utilizing a MR scanner, an MRI of the brain was performed without intravenous contrast using multiple sequences in multiple planes. FINDINGS: Brain: No acute infarct or intracranial hemorrhage. No mass effect. Small chronic lacunes of the left pendleton radiata/gangliocapsular region. Confluent and scattered T2/FLAIR hyperintensities throughout the periventricular, deep, subcortical, and pontine white matter, which are nonspecific but likely re presents the sequela of moderate chronic microangiopathic change. [id number] cerebral volume loss with ex vacuo dilation of the ventricles. Ventricles: No evidence of hydrocephalus. Extra-axial spaces: Normal for age. Intracranial Flow Voids: Intact. Orbits: Dislocated left lens seen within the left posterior chamber. Paranasal Sinuses/Mastoid air cells: Clear. Craniocervical Junction: Unremarkable. Osseous Structures: Unremarkable. IMPRESSION: 1. No acute intracranial abnormality. Specifically, no acute infarct. 2. Chronic intracranial findings as described. 3. Dislocated left lens seen within the within the left posterior chamber. Recommend ophthalmology consultation if not already placed.
[2025-06-25] MEDS: ATORVASTATIN 20 MG TAB PO SCH (21:21)
[2025-06-26] VITALS (7 sets, daily range): BP systolic 123–165; BP diastolic 60–91; PULSE 57–72; RESP 14–16; TEMP 98.1–98.5; O2SAT 91–97
[2025-06-26 01:13] LABS: Cannabinoid Screen, Urine Pos (NEGATIVE)
[2025-06-26 01:17] LABS: Amphetamine Screen, Urine Neg (NEGATIVE); Barbiturate Scree,Urine Neg (NEGATIVE); Benzodiazephine Screen, Urine Pos (NEGATIVE); Cocaine Screen, Urine Neg (NEGATIVE); Opiate Scree,Urine Neg (NEGATIVE); Phencyclidine Screen, Urine Neg (NEGATIVE)
[2025-06-26] MEDS: MULTIPLE VITAMIN TAB PO SCH (08:52)
[2025-06-26] MEDS: FOLIC ACID 1 MG TAB PO SCH (08:53)
[2025-06-26] MEDS: MAGNESIUM OXIDE 400 MG TAB PO SCH (08:53)
[2025-06-26] MEDS: THIAMINE HCL 100 MG TAB PO SCH (08:53)
[2025-06-26] MEDS: LOSARTAN POTASSIUM 25 MG TAB PO SCH (10:00)
--- NOTE | 2025-06-26 11:11 | DVHPN2 ---
Reviewed: Care Plan, H&P, Labs, Medications, Previous Orders, Radiology Changes from previous H/P or p: No Changes Objective Vitals Vital Signs Date Time Temp Pulse Resp B/P (MAP) Pulse Ox O2 Delivery O2 Flow Rate FiO2 06/26/25 08:44 98.1 57 14 123/60 (81) 97 98.1 06/26/25 08:00 Room Air* 0 21 Intake/Output Intake and Output 06/26/25 07:00 Intake Total 620 ml Output Total 275 ml Balance 345 ml Intake Oral 220 ml IV Total 400 ml Output Urine Total 275 ml # Voids 4 Medications Current Medications Medications Dose Ordered Sig/Jesse Route Start Time Stop Time Status Last Admin Dose Admin Nitroglycerin 0.4 mg Q5MINP PRN SL 06/23/25 17:15 Morphine Sulfate 2 mg Q30M PRN IV 06/23/25 17:15 Levetiracetam 100 ml @ 400 mls/hr BID IV 06/23/25 22:00 06/26/25 08:52 400 MLS/HR Lorazepam 1 mg Q5MINP PRN IV 06/23/25 18:15 Ondansetron HCl 4 mg Q4HP PRN IV 06/23/25 18:15 06/24/25 21:40 4 MG Enoxaparin Sodium 40 mg DAILY SC 06/24/25 10:00 06/26/25 08:52 40 MG Acetaminophen 650 mg Q6HP PRN PO 06/23/25 18:15 Empaglifozin 10 mg DAILY PO 06/24/25 10:00 06/26/25 08:53 10 MG Piperacillin Sod/ Tazobactam Sod 100 ml @ 25 mls/hr Q8HR IV 06/24/25 14:00 06/26/25 06:07 25 MLS/HR Lorazepam 1 mg Q8HP PRN IV 06/24/25 13:45 06/24/25 14:38 1 MG Lorazepam 1 mg ONCE PRN IV 06/24/25 20:30 Losartan Potassium 25 mg DAILY PO 06/26/25 10:00 Atorvastatin Calcium 10 mg HS PO 06/25/25 22:00 06/25/25 21:21 10 MG Folic Acid 1 mg DAILY PO 06/26/25 10:00 06/26/25 08:53 1 MG Multivitamins 1 tab DAILY PO 06/26/25 10:00 06/26/25 08:52 1 TAB Magnesium Oxide 400 mg DAILY PO 06/26/25 10:00 06/26/25 08:53 400 MG Thiamine HCl 100 mg DAILY PO 06/26/25 10:00 06/26/25 08:53 100 MG Laboratory Results Laboratory Tests 06/24/25 08:02 06/24/25 10:36 Urinalysis Test 06/23/25 17:54 Urine Color Colorless (Yellow) Urine Clarity Turbid (Clear) H Urine pH 8.0 (5.0-9.0) Urine Specific [place] 1.007 (1.001-1.035) Urine Protein Negative (Negative) Urine Ketones Negative (Negative) Urine Blood 3+ /uL (Negative) H Urine Nitrite Negative (Negative) Urine Bilirubin Negative (Negative) Urine Urobilinogen Normal mg/dL (Negative) Urine Leukocyte Esterase Negative /uL (Negative) Urine RBC 244 /hpf (0 - 3) Urine Microscopic WBC 7 /HPF (0-3) H Urine Squamous Epithelial Cells Few /hpf (<5) Urine Bacteria None seen /hpf (None Seen) Urine Glucose 4+ mg/dL (Normal) H Microbiology Microbiology Date/Time Source Procedure Growth Status 06/23/25 13:37 Blood Blood Culture - Preliminary NO GROWTH AFTER 48 HOURS OF INCUBATION. Resulted Labs and/or images reviewed: Labs reviewed by me, Image(s) reviewed by me Assessment/Plan Assessment/Plan Breakthrough seizures: Darrin Bills, CT head negative, consult for Neurology Dr. Hidalgo appreciated, MRI brain negative for any acute changes, EEG pending Sepsis secondary to possible community-acquired pneumonia Possible aspiration pneumonia Gram-positive, Gram-negative with elevated white count of 11 K : Zosyn Acute metabolic encephalopathy History of coronary artery disease status post stents on Plavix Congestive heart failure class 3 Hypertension Hypercholesterolemia Pulmonary embolism on Eliquis History of seizures Chronic alcohol abuse: Banana bag Tour Consultant Melly [phone] at bedside Daughter Abi has POA she lives in [place] Time Spent 50 minutes Advanced care planning time 22 minutes Patient is full code Plan discussed with: Patient My Orders Orders - CAITILN CAIN MD Procedure Category Date Status Time Losartan Tablet PHA 06/26/25 In Process (Cozaar Tablet) 10:00 Atorvastatin (Lipitor) PHA 06/25/25 In Process 22:00 Folic Acid Tablet PHA 06/26/25 In Process 10:00 Multiple Vitamin PHA 06/26/25 In Process Tablet (Mvi Tab) 10:00 Magnesium Oxide PHA 06/26/25 In Process Tablet (Mag-Ox Tablet) 10:00 Thiamine Tab PHA 06/26/25 In Process 10:00 Pharmacy GEE 06/25/25 In Process Clarification: 14:08 Date of Service: Jun 26, 2025 Billing Provider: CAITLIN CAIN MD Common Visit Codes: [id number] INP/OBS CARE(HIGH) CAITLIN CAIN MD Jun 26, 2025 11:11
[2025-06-27] VITALS (10 sets, daily range): BP systolic 116–166; BP diastolic 71–90; PULSE 61–73; RESP 15–18; TEMP 97.4–98.2; O2SAT 93–95
[2025-06-27] MEDS ORDERED: EMPA1TAB PO (11:32)
[2025-06-27] MEDS ORDERED: CLOP75TA28 PO (11:32)
[2025-06-27] MEDS ORDERED: APIX5TAB PO (11:32)
[2025-06-27] MEDS ORDERED: CHOL100083 OR (11:32)
--- NOTE | 2025-06-27 12:54 | DVHPN2 ---
Reviewed: Care Plan, H&P, Labs, Medications, Previous Orders, Radiology Changes from previous H/P or p: No Changes Objective Vitals Vital Signs Date Time Temp Pulse Resp B/P (MAP) Pulse Ox O2 Delivery O2 Flow Rate FiO2 06/27/25 11:14 142/71 06/27/25 08:00 69 06/27/25 07:55 15 Room Air* 0 21 06/27/25 05:00 98.0 95 98.0 Intake/Output Intake and Output 06/27/25 07:00 Intake Total 820 ml Output Total 400 ml Balance 420 ml Intake Oral 420 ml IV Total 400 ml Output Urine Total 400 ml Medications Current Medications Medications Dose Ordered Sig/Jesse Route Start Time Stop Time Status Last Admin Dose Admin Nitroglycerin 0.4 mg Q5MINP PRN SL 06/23/25 17:15 Morphine Sulfate 2 mg Q30M PRN IV 06/23/25 17:15 Levetiracetam 100 ml @ 400 mls/hr BID IV 06/23/25 22:00 06/27/25 09:40 400 MLS/HR Lorazepam 1 mg Q5MINP PRN IV 06/23/25 18:15 Ondansetron HCl 4 mg Q4HP PRN IV 06/23/25 18:15 06/24/25 21:40 4 MG Enoxaparin Sodium 40 mg DAILY SC 06/24/25 10:00 06/27/25 09:41 40 MG Acetaminophen 650 mg Q6HP PRN PO 06/23/25 18:15 Empaglifozin 10 mg DAILY PO 06/24/25 10:00 06/27/25 09:41 10 MG Piperacillin Sod/ Tazobactam Sod 100 ml @ 25 mls/hr Q8HR IV 06/24/25 14:00 06/27/25 05:38 25 MLS/HR Lorazepam 1 mg Q8HP PRN IV 06/24/25 13:45 06/24/25 14:38 1 MG Lorazepam 1 mg ONCE PRN IV 06/24/25 20:30 Losartan Potassium 25 mg DAILY PO 06/26/25 10:00 06/27/25 11:14 25 MG Atorvastatin Calcium 10 mg HS PO 06/25/25 22:00 06/26/25 21:11 10 MG Folic Acid 1 mg DAILY PO 06/26/25 10:00 06/27/25 09:40 1 MG Multivitamins 1 tab DAILY PO 06/26/25 10:00 06/27/25 09:41 1 TAB Magnesium Oxide 400 mg DAILY PO 06/26/25 10:00 06/27/25 09:41 400 MG Thiamine HCl 100 mg DAILY PO 06/26/25 10:00 06/27/25 09:41 100 MG Laboratory Results Laboratory Tests 06/24/25 08:02 06/24/25 10:36 Urinalysis Test 06/23/25 17:54 Urine Color Colorless (Yellow) Urine Clarity Turbid (Clear) H Urine pH 8.0 (5.0-9.0) Urine Specific [place] 1.007 (1.001-1.035) Urine Protein Negative (Negative) Urine Ketones Negative (Negative) Urine Blood 3+ /uL (Negative) H Urine Nitrite Negative (Negative) Urine Bilirubin Negative (Negative) Urine Urobilinogen Normal mg/dL (Negative) Urine Leukocyte Esterase Negative /uL (Negative) Urine RBC 244 /hpf (0 - 3) Urine Microscopic WBC 7 /HPF (0-3) H Urine Squamous Epithelial Cells Few /hpf (<5) Urine Bacteria None seen /hpf (None Seen) Urine Glucose 4+ mg/dL (Normal) H Microbiology Microbiology Date/Time Source Procedure Growth Status 06/23/25 13:37 Blood Blood Culture - Preliminary NO GROWTH AFTER 72 HOURS OF INCUBATION. Resulted Labs and/or images reviewed: Labs reviewed by me, Image(s) reviewed by me Assessment/Plan Assessment/Plan Breakthrough seizures: Keppra, Ativan, CT head negative, consult for Neurology Dr. Hidalgo appreciated, MRI brain negative for any acute changes, EEG pending Sepsis secondary to possible community-acquired pneumonia Possible aspiration pneumonia Gram-positive, Gram-negative with elevated white count of 11 K : Zosyn Acute metabolic encephalopathy History of coronary artery disease status post stents on Plavix Congestive heart failure class 3 Hypertension Hypercholesterolemia Pulmonary embolism on Eliquis History of seizures Chronic alcohol abuse: Banana bag Chip Drier and [id number] Melly [phone] at bedside who agrees for alf facility placement for Zosyn IV for two weeks for pneumonia Daughter Abi has POA she lives in [place] Time Spent 50 minutes Advanced care planning time 22 minutes Patient is full code Plan discussed with: Patient Date of Service: Jun 27, 2025 Billing Provider: CAITLIN CAIN MD Common Visit Codes: [id number] INP/OBS CARE(HIGH) CAITLIN CAIN MD Jun 27, 2025 12:54
[2025-06-28] VITALS (8 sets, daily range): BP systolic 150–186; BP diastolic 76–86; PULSE 56–70; RESP 14–18; TEMP 36.9; O2SAT 94–98
[2025-06-28 05:36] LABS: COVID19 ANTIGEN SOFIA FIA NEGATIVE (NEGATIVE)
--- NOTE | 2025-06-28 09:13 | DVHPN2 ---
Progress Note - Dictate Date Seen: Jun 28, 2025 Medical Necessity Reason Pt with a Central, PICC or Fol: Yes The following are medically ne: Amor Catheter Subjective Mr. Dooley is a 80 years old gentleman with a history of hypertension, coronary artery disease, seizure disorder, alcohol abuse, the patient was brought to the [facility] on 06/23/2025 with a chief complaint of witnessed seizure activity by sister. He is in [facility] on 09/15/2024 for seizure. He was here a few times for altered mental status I have seen and examined the patient, I have talked to his sitter, nurse, I have also talked to his sister @ [phone], who has been his care provide for three years. He is awake, oriented to person, place, not able to provide history. According to his sister, the patient has had seizure activity for 1.5 years, before he came to the hospital this time, the patient had one seizure in that he was shaking all over body with loss of consciousness, after EMS came over, he had two more similar seizure activity He was not on seizure medication at home He has long history of heavy alcohol abuse, he was discharged from alcohol rehab in the end of 03/2025, but he kept drinking 2-3 alcohol was every single day He also has progressive memory problem The patient is on Eliquis at home for pulmonary emboli UDS, 06/24/25: Cannabinoids Blood culture, 06/23/2025: Urinalysis, 06/23/2025: WBC, seven, urine leukocyte esterase: Negative WBC/HB/PLT/MCV, 06/24/2025: 11.4/12.3/271/81.4 PTT/INR/ABG, 06/23/2025: 10.9/1.03/26.3 HCO3, 06/23/2025: 17, 06/24/2025: 22 Lactic acid, 06/23/2025: 8.6, 3.8 BMP 06/24/2025: Unremarkable Liver function tests, 06/23/2025: Normal TG/HDL/LDL/HDL, 02/25/2025: 59/132/46/72 Vitamin B12, 07/13/2024: 336 Folic acid, 07/13/24: 27.11 TSH, 02/25/2025: 1.9 CT head, 06/23/2025: 1. No evidence of acute intracranial abnormality. 2. Sequelae of chronic microvascular ischemic changes and generalized volume loss similar to prior CT from 02/24/2025 CTA chest, 09/15/2024: 1. Chronic appearing embolus in the right lower lobe pulmonary artery with near complete occlusion. Correlating with prior CT of the abdomen and pelvis, finding was probably present on that exam and unchanged. No other pulmonary embolus identified. No evidence of right heart strain. Clinical correlation and continued follow-up is recommended. If there is high clinical concern, embolus could still be treated. 2. Patchy consolidation in the lung bases left greater than right. Consolidation in the left lung base is likely infectious/ inflammatory. Consolidation in the right lung base could be related to old infarction. Right lower lobe nodule measuring up to 8 mm. Recommend clinical correlation and continued follow-up to resolution.3. Compression fractures in the thoracic spine. T7 compression fracture could be acute/subacute. This could be further evaluated with MRI of the thoracic spine MRI head, 06/25/2025: 1. No acute intracranial abnormality. Specifically, no acute infarct. 2. Chronic intracranial findings as described. 3. Dislocated left lens seen within the within the left posterior chamber. Recommend ophthalmology consultation if not already placed vital signs Vital Sign Date Time Temp Pulse Resp B/P (MAP) Pulse Ox O2 Delivery O2 Flow Rate FiO2 06/28/25 05:00 97.7 59 17 155/76 (102) 94 97.7 06/27/25 20:04 Room Air* 0 21 Total Intake and Output 06/27/25 06/27/25 06/28/25 15:00 23:00 07:00 Intake Total 400 ml 350 ml Output Total 250 ml 200 ml Balance 150 ml 150 ml medications Current Medications Medications Dose Ordered Sig/Jesse Route Start Time Stop Time Status Last Admin Dose Admin Nitroglycerin 0.4 mg Q5MINP PRN SL 06/23/25 17:15 Morphine Sulfate 2 mg Q30M PRN IV 06/23/25 17:15 Levetiracetam 100 ml @ 400 mls/hr BID IV 06/23/25 22:00 06/27/25 21:34 400 MLS/HR Lorazepam 1 mg Q5MINP PRN IV 06/23/25 18:15 Ondansetron HCl 4 mg Q4HP PRN IV 06/23/25 18:15 06/24/25 21:40 4 MG Enoxaparin Sodium 40 mg DAILY SC 06/24/25 10:00 06/27/25 09:41 40 MG Acetaminophen 650 mg Q6HP PRN PO 06/23/25 18:15 Empaglifozin 10 mg DAILY PO 06/24/25 10:00 06/27/25 09:41 10 MG Piperacillin Sod/ Tazobactam Sod 100 ml @ 25 mls/hr Q8HR IV 06/24/25 14:00 06/28/25 05:52 25 MLS/HR Lorazepam 1 mg Q8HP PRN IV 06/24/25 13:45 06/24/25 14:38 1 MG Lorazepam 1 mg ONCE PRN IV 06/24/25 20:30 Losartan Potassium 25 mg DAILY PO 06/26/25 10:00 06/27/25 11:14 25 MG Atorvastatin Calcium 10 mg HS PO 06/25/25 22:00 06/27/25 21:34 10 MG Folic Acid 1 mg DAILY PO 06/26/25 10:00 06/27/25 09:40 1 MG Multivitamins 1 tab DAILY PO 06/26/25 10:00 06/27/25 09:41 1 TAB Magnesium Oxide 400 mg DAILY PO 06/26/25 10:00 06/27/25 09:41 400 MG Thiamine HCl 100 mg DAILY PO 06/26/25 10:00 06/27/25 09:41 100 MG objective General: the patient is well developed and nourished. No acute distress. MENTAL STATUS: Subjective SPEECH, LANGUAGE, HIGHER CORTICAL FUNCTION: no aphasia or dysathria. CRANIAL NERVES: Pupils are round and reactive, the right side maybe slightly bigger. EOMs full and conjugate. No nystagmus. Facial sensation intact in all three divisions bilaterally. Mandibular strength intact. Facial muscles symmetrical and strength intact. SENSATION: Fine to pinprick and light touch MOTOR: Normal tone in the upper and lower extremity. Normal muscle bulk. No fasciculations. No abnormal movements or posturing. He moves the arms, 4/5 and legs more than 3/5 REFLEXES: Deep tendon reflexes are symmetrical. No pathological reflexes. CEREBELLAR/COORDINATION: Finger to nose is unremarkable bilaterally GAIT/STATION: deferred laboratory and microbiology Laboratory Tests 06/24/25 10:36 06/24/25 08:02 Test 06/24/25 08:02 Range/Units Serum Glucose 102 74-106 mg/dL Problem List Witnessed seizure activity, a presumed grand mal seizure ? Epileptic seizure ? Alcohol withdrawal seizure Altered mental status Metabolic encephalopathy ? Status epileptics Alcoholism Dementia Korsakoff disease Alzheimer disease Pulmonary emboli (CTA chest 09/15/2024) Assessment/Plan Monitoring Supportive treatment Telemetry Follow up labs Blood culture EEG Thiamine supplementation Folic acid supplementation Ativan for seizure breakthrough Hold off Keppra Lovenox 1mg/kg subQ Bid if ok with hospitalist Antibiotics No street drug No alcohol More recommendation per clinical course This medical document was created using an electronic medical record system with [employer] computerized dictation system. Although this document has been carefully reviewed, there may still be some phonetic and typographical errors. These areas are purely typographical due to imperfections of the software programs, and do not reflect any compromise in the patient's medical care Prognosis poor Plan discussed with: Other Total Time (mins): 40 SARAH MEJIA MD Jun 28, 2025 09:13
--- NOTE | 2025-06-28 11:35 | DVHPN2 ---
Reviewed: Care Plan, H&P, Labs, Medications, Previous Orders, Radiology Changes from previous H/P or p: No Changes Objective Vitals Vital Signs Date Time Temp Pulse Resp B/P (MAP) Pulse Ox O2 Delivery O2 Flow Rate FiO2 06/28/25 10:14 150/79 06/28/25 09:00 98.4 57 14 98 98.4 06/27/25 20:04 Room Air* 0 21 Intake/Output Intake and Output 06/28/25 07:00 Intake Total 750 ml Output Total 450 ml Balance 300 ml Intake Oral 550 ml IV Total 200 ml Output Urine Total 450 ml # Bowel Movements 2 Medications Current Medications Medications Dose Ordered Sig/Jesse Route Start Time Stop Time Status Last Admin Dose Admin Nitroglycerin 0.4 mg Q5MINP PRN SL 06/23/25 17:15 Morphine Sulfate 2 mg Q30M PRN IV 06/23/25 17:15 Lorazepam 1 mg Q5MINP PRN IV 06/23/25 18:15 Ondansetron HCl 4 mg Q4HP PRN IV 06/23/25 18:15 06/24/25 21:40 4 MG Enoxaparin Sodium 40 mg DAILY SC 06/24/25 10:00 06/28/25 10:12 40 MG Acetaminophen 650 mg Q6HP PRN PO 06/23/25 18:15 Empaglifozin 10 mg DAILY PO 06/24/25 10:00 06/28/25 10:13 10 MG Piperacillin Sod/ Tazobactam Sod 100 ml @ 25 mls/hr Q8HR IV 06/24/25 14:00 06/28/25 05:52 25 MLS/HR Lorazepam 1 mg Q8HP PRN IV 06/24/25 13:45 06/24/25 14:38 1 MG Lorazepam 1 mg ONCE PRN IV 06/24/25 20:30 Losartan Potassium 25 mg DAILY PO 06/26/25 10:00 06/28/25 10:14 25 MG Atorvastatin Calcium 10 mg HS PO 06/25/25 22:00 06/27/25 21:34 10 MG Folic Acid 1 mg DAILY PO 06/26/25 10:00 06/28/25 10:12 1 MG Multivitamins 1 tab DAILY PO 06/26/25 10:00 06/28/25 10:12 1 TAB Magnesium Oxide 400 mg DAILY PO 06/26/25 10:00 06/28/25 10:13 400 MG Thiamine HCl 100 mg DAILY PO 06/26/25 10:00 06/28/25 10:13 100 MG Laboratory Results Laboratory Tests 06/24/25 08:02 06/24/25 10:36 Urinalysis Test 06/23/25 17:54 Urine Color Colorless (Yellow) Urine Clarity Turbid (Clear) H Urine pH 8.0 (5.0-9.0) Urine Specific Eastern 1.007 (1.001-1.035) Urine Protein Negative (Negative) Urine Ketones Negative (Negative) Urine Blood 3+ /uL (Negative) H Urine Nitrite Negative (Negative) Urine Bilirubin Negative (Negative) Urine Urobilinogen Normal mg/dL (Negative) Urine Leukocyte Esterase Negative /uL (Negative) Urine RBC 244 /hpf (0 - 3) Urine Microscopic WBC 7 /HPF (0-3) H Urine Squamous Epithelial Cells Few /hpf (<5) Urine Bacteria None seen /hpf (None Seen) Urine Glucose 4+ mg/dL (Normal) H Microbiology Microbiology Date/Time Source Procedure Growth Status 06/23/25 13:37 Blood Blood Culture - Preliminary NO GROWTH AFTER 72 HOURS OF INCUBATION. Resulted Labs and/or images reviewed: Labs reviewed by me, Image(s) reviewed by me Assessment/Plan Assessment/Plan Breakthrough seizures: Keppra was discontinued, Ativan prn, CT head negative, consult for Neurology Dr. Hidalgo appreciated, MRI brain negative for any acute changes, EEG pending Possible alcohol withdrawal seizures: Thiamine folic acid multivitamin Chronic Current alcohol abuse: Counsellling Sepsis secondary to possible community-acquired pneumonia Possible aspiration pneumonia Gram-positive, Gram-negative with elevated white count of 11 K : Zosyn 3.375 g IV q.8 hours for two weeks Acute metabolic encephalopathy History of coronary artery disease status post stents on Plavix Congestive heart failure class 3 Hypertension Hypercholesterolemia Pulmonary embolism on Eliquis History of seizures Angular Developer and [id number] Melly [phone] at bedside who agrees for care home facility placement for Zosyn IV for two weeks for pneumonia Daughter Abi has POA she lives in [place] Time Spent 50 minutes Advanced care planning time 22 minutes Patient is full code Plan discussed with: Patient My Orders Orders - CAITLIN CAIN MD Procedure Category Date Status Time Insert Midline ORDERS 06/27/25 Transmitted 12:58 Communication Order ORDERS 06/27/25 Transmitted 12:58 Date of Service: Jun 28, 2025 Billing Provider: CAITLIN CAIN MD Common Visit Codes: [id number] INP/OBS CARE(HIGH) CAITLIN CAIN MD Jun 28, 2025 11:35
--- NOTE | 2025-06-28 11:50 | DVHDS2 ---
Discharge Summary Date of Admission Jun 23, 2025 at 17:09 Date of Discharge: Jun 28, 2025 Admitting Diagnosis Generalized weakness and seizures Wounds: None Labs/Diagnostic Data: Laboratory Results Test 06/28/25 03:49 06/24/25 23:50 06/24/25 10:36 06/24/25 08:02 SARS-CoV-2 Antigen (Rapid) Negative (NEGATIVE) Urine Opiates Screen Neg (NEGATIVE) Urine Fentanyl Screen Neg (NEGATIVE) Urine Barbiturates Screen Neg (NEGATIVE) Urine Phencyclidine Screen Neg (NEGATIVE) Urine Amphetamines Screen Neg (NEGATIVE) Urine Benzodiazepines Screen Pos (NEGATIVE) Urine Cocaine Screen Neg (NEGATIVE) Urine Cannabinoids Screen Pos (NEGATIVE) White Blood Count 11.4 10^3/uL (4.4-10.8) Red Blood Count 4.79 10^6/uL (4.5-5.90) Hemoglobin 12.3 g/dL (13.5-17.5) Hematocrit 38.9 % (41.0-53.0) Mean Corpuscular Volume 81.4 fL (80.0-100.0) Mean Corpuscular Hemoglobin 25.7 pg (28.0-32.0) Mean Corpuscular Hemoglobin Concent 31.6 g/dL (32.0-36.0) Red Cell Distribution Width 16.2 % (11.8-14.3) Platelet Count 271 10^3/uL (140-450) Mean Platelet Volume 7.0 fL (6.9-10.8) Neutrophils (%) (Auto) 76.7 % (37.0-80.0) Lymphocytes (%) (Auto) 12.2 % (10.0-50.0) Monocytes (%) (Auto) 10.5 % (0.0-12.0) Eosinophils (%) (Auto) 0.2 % (0.0-7.0) Basophils (%) (Auto) 0.4 % (0.0-2.0) Neutrophils # (Auto) 8.7 10 ^3/uL (1.6-8.6) Lymphocytes # (Auto) 1.4 10 ^3/uL (0.4-5.4) Monocytes # (Auto) 1.2 10 ^3/uL (0-1.3) Eosinophils # (Auto) 0 10 ^3/uL (0-0.8) Basophils # (Auto) 0 10 ^3/uL (0-0.2) Nucleated Red Blood Cells 0.1 % Sodium Level 139 mmol/L (136-145) Potassium Level 4.4 mmol/L (3.5-5.1) Chloride Level 104 mmol/L (98-107) Carbon Dioxide Level 22 mmol/L (20-31) Anion Gap 13 (5-15) Blood Urea Nitrogen 10 mg/dL (9-23) Creatinine 0.92 mg/dL (0.700-1.30) Glomerular Filtration Rate Calc 85 mL/min (>90) BUN/Creatinine Ratio 10.9 (10.0-20.0) Serum Glucose 102 mg/dL (74-106) Calcium Level 8.6 mg/dL (8.7-10.4) Test 06/23/25 17:54 06/23/25 15:35 06/23/25 13:35 Urine Color Colorless (Yellow) Urine Clarity Turbid (Clear) Urine pH 8.0 (5.0-9.0) Urine Specific [place] 1.007 (1.001-1.035) Urine Protein Negative (Negative) Urine Ketones Negative (Negative) Urine Blood 3+ /uL (Negative) Urine Nitrite Negative (Negative) Urine Bilirubin Negative (Negative) Urine Urobilinogen Normal mg/dL (Negative) Urine Leukocyte Esterase Negative /uL (Negative) Urine RBC 244 /hpf (0 - 3) Urine Microscopic WBC 7 /HPF (0-3) Urine Squamous Epithelial Cells Few /hpf (<5) Urine Bacteria None seen /hpf (None Seen) Urine Glucose 4+ mg/dL (Normal) Lactic Acid Level 3.8 mmol/L (0.4-2.0) Prothrombin Time 10.9 sec (9.3-11.8) Prothrombin Time INR 1.03 (0.9-1.15) Activated Partial Thromboplast Time 26.3 SEC (24.5-34.5) Total Bilirubin 0.5 mg/dL (0.2-1.0) Aspartate Amino Transferase (AST) 21 U/L (13-40) Alanine Aminotransferase (ALT) 16 U/L (7-40) Alkaline Phosphatase 116 U/L (46-116) Total Protein 7.2 g/dL (5.7-8.2) Albumin 4.3 g/dL (3.2-4.8) Other Laboratory Tests 06/24/25 10:36 06/24/25 08:02 Brief Hx & Hospital Course: 80-year-old male with a history of hypertension hypercholesterolemia PE on Eliquis history of seizures chronic current alcohol abuse brought in for breakthrough seizures and altered mental status confusion shortness of breaths . CT head was negative seen by Neurology Dr. Hidalgo started on Keppra. MRI brain negative for any acute changes EEG pending Dr. Hidalgo felt the patient had possible alcoholic withdrawal seizures and discontinued Keppra Started on thiamine folic acid multivitamin and Ativan p.r.n. for possible. The patient has a aspiration pneumonia treated with the Zosyn 3.375 g IV q.8 hours which he will continue for two more weeks in the custodial. History of coronary artery disease status post stents on Plavix also stage III congestive heart failure. Physical therapy evaluated and recommended retirement facility placement for rehab Patient will be discharged to retirement facility today for two weeks of IV antibiotics and physical therapy Discussed the plan with the patient's [id number] and HERRERA Pickard and the plan is acceptable to her. Consults/Reason for consult Neurology Dr. Hidalgo Operations or Procedures CT head Condition at Discharge: Fair Final Diagnosis/Problems List Breakthrough seizures: Keppra was discontinued, Ativan prn, CT head negative, consult for Neurology Dr. Hidalgo appreciated, MRI brain negative for any acute changes, EEG pending Possible alcohol withdrawal seizures: Thiamine folic acid multivitamin Chronic Current alcohol abuse: Counsellling Sepsis secondary to possible community-acquired pneumonia Possible aspiration pneumonia Gram-positive, Gram-negative with elevated white count of 11 K : Zosyn 3.375 g IV q.8 hours for two weeks Acute metabolic encephalopathy History of coronary artery disease status post stents on Plavix Congestive heart failure class 3 Hypertension Hypercholesterolemia Pulmonary embolism on Eliquis History of seizures Discharge Disposition: Jail Facility Discharge Instruct/Medications Diet: Cardiac 2g Na,low cholest Activity: Light activity Follow Up/Referral: Follow up with the custodial Medications: Zosyn 3.375 g IV q.8 hours for two weeks for aspiration pneumonia Scheduled Apixaban Base (Eliquis), 5 MG PO BID, (Reported) Atorvastatin Calcium (Lipitor), 1 TAB PO DAILY, (Reported) Cholecalciferol (Vitamin D-3), 1,000 UNIT OR DAILY, (Reported) Clopidogrel Bisulfate (Plavix), 1 TAB PO DAILY, (Reported) Empagliflozin (Jardiance), 10 MG PO DAILY, (Reported) Folic Acid (Folate), 400 MCG PO DAILY Losartan Potassium (Losartan Potassium), 1 TAB PO DAILY, (Reported) Multiple Vitamin (Multivitamins), 1 TAB PO DAILY Thiamine HCl (Thiamine Hydrochloride), 100 MG PO DAILY 39 (Time taken for discharge summary 39 minutes) Discharge Statement: "Patient was advised to return to the ER or call 911 if any headaches, dizziness, shortness of breath, chest pain, abdominal pain, bleeding, fevers, or worsening of medical condition. Patient was counseled about treatment plan, medications, possible side effects, patientverbalized understanding. All questions were answered to the best of my ability. This discharge took greater then 30 minutes in planning, reviewing documentation, counseling the patient, and discussing with other team members." ASSESSMENT ASSESSMENT Hospital Course Improved marginally Assessment Breakthrough seizures: Keppra was discontinued, Ativan prn, CT head negative, consult for Neurology Dr. Hidalgo appreciated, MRI brain negative for any acute changes, EEG pending Possible alcohol withdrawal seizures: Thiamine folic acid multivitamin Chronic Current alcohol abuse: Counsellling Sepsis secondary to possible community-acquired pneumonia Possible aspiration pneumonia Gram-positive, Gram-negative with elevated white count of 11 K : Zosyn 3.375 g IV q.8 hours for two weeks Acute metabolic encephalopathy History of coronary artery disease status post stents on Plavix Congestive heart failure class 3 Hypertension Hypercholesterolemia Pulmonary embolism on Eliquis History of seizures Date of Service: Jun 28, 2025 Billing Provider: CAITLIN CAIN MD Common Visit Codes: [id number] DISCH DAY >30min CAITLIN CAIN MD Jun 28, 2025 11:50
[2025-06-28] MEDS ORDERED: MORPHINE SULFATE 4 MG/ML SYR/VIAL IV PRN (17:30)
[2025-06-28] MEDS ORDERED: APIXABAN 5 MG TAB PO SCH (22:00)
--- NOTE | 2025-06-29 00:06 | DVHEEG2 ---
Neurology EEG Procedural Note Procedural Note EXAM DATE: 06/25/2025 REFERRING DOCTOR: Dr. Mejia TECHNIQUE: Eighteen channels of EEG, 2 channels of EOG, and 1 channel of EKG were recorded using the International 10/20 system. CLINICAL DATA: The patient was referred for an EEG evaluation for the evidence of seizure disorder. MEDICATIONS: See the chart BACKGROUND ACTIVITY: The record showed diffuse low amplitude theta waveforms over both hemispheres, that was reactive to external stimuli. ACTIVATION: Hyperventilation: Not done Photic Stimulation: Not done Sleep: Noticed IMPRESSION: This is a mildly abnormal EEG, this EEG is seen in mild cerebral dysfunction due to metabolic/hypoxic encephalopathy or medication effect, please correlate clinically. The EKG channel showed a regular heart rate of 66/min[place] [address] SARAH MEJIA MD Jun 29, 2025 00:06
== END 2025-06-28 20:46 | DRG 871 ==
LOC: EDBD 13:04 → ER 13:04 → EDUNIT# 13:04 → OVERFLOW 17:09 → TELE-WESTW 20:57
PROVIDERS: ADMIT Family Medicine; ATTEND Family Medicine
PROC: 05H933Z Insertion of Infusion Device into Right Brachial Vein, Percutaneous Approach (ICD-10-PCS; principal; 2025-06-27)
PROC: B54MZZA Ultrasonography of Right Upper Extremity Veins, Guidance (ICD-10-PCS; 2025-06-27)
DX: A41.59 Other Gram-negative sepsis (principal); G93.41 Metabolic encephalopathy; J15.69 Pneumonia due to other Gram-negative bacteria; J15.9 Unspecified bacterial pneumonia; J69.0 Pneumonitis due to inhalation of food and vomit; I11.0 Hypertensive heart disease with heart failure; F10.26 Alcohol dependence with alcohol-induced persisting amnestic disorder; I50.9 Heart failure, unspecified; N17.9 Acute kidney failure, unspecified; Z79.01 Long term (current) use of anticoagulants; G30.9 Alzheimer's disease, unspecified; G40.409 Other generalized epilepsy and epileptic syndromes, not intractable, without status epilepticus; Z20.822 Contact with and (suspected) exposure to COVID-19; I25.10 Atherosclerotic heart disease of native coronary artery without angina pectoris; E78.00 Pure hypercholesterolemia, unspecified; F02.80 Dementia in other diseases classified elsewhere, unspecified severity, without behavioral disturbance, psychotic disturbance, mood disturbance, and anxiety; Z82.49 Family history of ischemic heart disease and other diseases of the circulatory system; Z80.0 Family history of malignant neoplasm of digestive organs; Z95.5 Presence of coronary angioplasty implant and graft; Y90.9 Presence of alcohol in blood, level not specified
CPT/HCPCS: 36415; 70450; 70551; 71045; 80048; 80053; 80307; 81001; 83605; 85025; 85610; 85730; 87040; 87426; 95819; 97163; 99291; G0378; J2405; J2543